=== PATIENT | male | born 1960 | race Caucasian/White ===

== ENCOUNTER → 2018-02-12 07:50 | Outpatient (CLI) | payer OTHER, SELFPAY ==
[2018-02-12 08:42] LABS: Hemoglobin A1c 6.5 % (4.2-6.3)
[2018-02-12 08:56] LABS: Anion Gap 10 (5-15); BUN 13 mg/dL (7-18); BUN/Creat Ratio 12.5 RATIO (10-20); Calcium,Total 9.6 mg/dL (8.5-10.1); Chloride 101 mmol/L (98-107); Cholesterol 166 mg/dL (200); Creatinine, Serum 1.04 mg/dL (0.70-1.30); EST Glomerular Filtration Rate 78 mL/min (>60); Est Glom Filt Rate - Afr Amer 94 mL/min (>60); Glucose 161 mg/dL (74-106); High Density Lipoprotein 63 mg/dL; Potassium 4.1 mmol/L (3.5-5.1); Sodium Level 138 mmol/L (136-145); Triglycerides 98 mg/dL; Very Low Density Lipoprotein 20 mg/dL (5-40)
== END ==
PROVIDERS: Family Provider Family Medicine; PCP Family Medicine; Referring Provider Family Medicine; Visit Provider Family Medicine
DX: I10 Essential (primary) hypertension (principal); E11.9 Type 2 diabetes mellitus without complications; E78.00 Pure hypercholesterolemia, unspecified
CPT/HCPCS: 36415; 80048; 80061; 83036

== ENCOUNTER → 2018-08-21 06:04 | Outpatient (CLI) | payer OTHER, SELFPAY ==
[2018-08-21 08:39] LABS: Cholesterol 181 mg/dL (200); High Density Lipoprotein 62 mg/dL; PSA,Total - Annual Screen 1.11 ng/mL (0.00-4.00); Triglycerides 75 mg/dL; Very Low Density Lipoprotein 15 mg/dL (5-40)
[2018-08-21 08:56] LABS: Hemoglobin A1c 6.6 % (4.2-6.3)
== END ==
PROVIDERS: Family Provider Family Medicine; PCP Family Medicine; Referring Provider Family Medicine; Visit Provider Family Medicine
DX: E78.00 Pure hypercholesterolemia, unspecified (principal); E11.9 Type 2 diabetes mellitus without complications; Z12.5 Encounter for screening for malignant neoplasm of prostate
CPT/HCPCS: 36415; 80061; 83036; 84153; G0103

== ENCOUNTER → 2018-09-29 11:24 | Outpatient (CLI) | payer OTHER, SELFPAY ==
[2018-02-17 10:41] VITALS: BMI 33.9
[2018-09-29 11:47] LABS: Absolute Lymphocyte Count 1.99 X10^3/ul (0.83-4.51); Absolute Neutrophil Count 3.9 X10^3/uL (2.0-7.7); Basophil# 0.02 X10^3/uL; Basophil% 0.3 % (0-1); Eosinophil# 0.31 X10^3/uL; Eosinophils% 4.6 % (0-5); Hematocrit 36.7 % (40-54); Hemoglobin 12.2 g/dl (13.0-16.5); Lymphocyte # 1.99 X10^3/ul (4.0); Lymphocyte % 29.2 % (19-41); Mean Corp Hgb Conc 33.2 g/gl (32-36); Mean Corpuscular Hgb 29.8 pg (27.0-32.0); Mean Corpuscular Volume 89.5 fL (80-94); Mean Platelet Vol. 9.3 fl (6.2-12.0); Monocyte# 0.61 X10^3/uL; Neutrophil # 3.88 X10^3/uL (2.7-7.7); Neutrophil % 56.9 % (47-70); POSITIVE COUNT NO; POSITIVE DIFFERENTIAL NO; POSITIVE MORPHOLOGY NO; Platelet Count 234 K/mm3 (150-450); RBC Distribution Width CV 12.6 % (11.6-14.6); RBC Distribution Width SD 40.8 fl (35.1-43.9); White Blood Count 6.8 K/mm3 (4.4-11.0)
[2018-09-29 12:13] LABS: AST(SGOT) 24 U/L (15-37); Alanine Aminotransfer ALT/SGPT 30 U/L (16-61); Albumin, Serum 3.8 g/dL (3.2-5.0); Alkaline Phosphatase 76 U/L (45-117); Bilirubin, Direct 0.17 mg/dL (0.00-0.30); Globulin 3.7 g/dL (2.2-4.2); Protein, Total 7.5 g/dL (6.4-8.2)
[2018-10-02 06:07] LABS: QNTFERON TB Mitogen Value > 10.00 IU/mL (.); QNTFERON TB Nil Value 0.03 IU/mL (.); QNTFERON TB1+ Ag Value 0.06 IU/mL (.); QNTFERON TB2+ Ag Value 0.03 IU/mL (.)
[2018-10-02 11:24] LABS: QNTIFERON TB Positive Criteria Negative (Negative)
== END ==
PROVIDERS: Family Provider Family Medicine; PCP Family Medicine; Referring Provider Dermatology; Visit Provider Dermatology
DX: L40.0 Psoriasis vulgaris (principal); Z12.83 Encounter for screening for malignant neoplasm of skin; Z79.899 Other long term (current) drug therapy
CPT/HCPCS: 36415; 80076; 85025; 86480

== ENCOUNTER → 2019-02-26 | Outpatient (CLI) | payer OTHER, SELFPAY ==
[2018-02-17 10:41] VITALS: BMI 33.9
[2019-02-26 09:00] LABS: Bacteria 0 SEEN /hpf (None Seen); Mucous, Urine 0 SEEN /hpf (<or=2+); Red Blood Cells-Urine 0 SEEN /hpf (0-5); Squamous Epithelial Cells - UA 0 SEEN /hpf (0-5); White Blood Cells 0 SEEN /hpf (0-5)
[2019-02-26 10:40] LABS: Absolute Lymphocyte Count 1.19 X10^3/uL (0.83-4.51); Absolute Neutrophil Count 3.1 X10^3/uL (2.0-7.7); Basophil# 0.02 X10^3/uL; Basophil% 0.4 % (0-1); Eosinophil# 0.21 X10^3/uL; Eosinophils% 4.1 % (0-5); Hematocrit 37.5 % (40-54); Hemoglobin 12.5 g/dL (13.0-16.5); Lymphocyte # 1.19 X10^3/ul (4.0); Lymphocyte % 23.1 % (19-41); Mean Corp Hgb Conc 33.3 g/dL (32-36); Mean Corpuscular Hgb 30.3 pg (27.0-32.0); Mean Platelet Vol. 9.8 fl (6.2-12.0); Monocyte% 11.7 % (0-10); NRBC Flagged by Analyzer 0 % (0-5); Neutrophil # 3.11 X10^3/uL (2.7-7.7); Neutrophil % 60.3 % (47-70); Platelet Count 245 K/mm3 (150-450); RBC Distribution Width CV 12.2 % (11.6-14.6); RBC Distribution Width SD 40.8 fl (35.1-43.9); Red Blood Count 4.12 M/mm3 (4.6-6.2); White Blood Count 5.2 K/mm3 (4.4-11.0)
[2019-02-26 11:00] LABS: Hemoglobin A1c 6.3 % (4.2-6.3)
[2019-02-26 11:28] LABS: Vitamin B12 351 pg/mL (211-911); Vitamin D,25 Hydroxy 27.3 ng/mL (29.95-100.01)
[2019-02-26 12:26] LABS: Color, Urine Yellow (Yellow); Glucose, Dipstick Normal (Normal); Ketone-Dipstick 5 mg/dl (Negative); Leukocyte Esterase-Dipstick Negative /ul (Negative); Nitrite-Dipstick Negative (Negative); Occult Blood-Urine Negative /ul (Negative); Protein-Dipstick 30 mg/dl (Negative); Urine Bilirubin Dipstick Negative (Negative); Urine Clarity Clear (Clear); Urine Urobilinogen Normal (Normal)
[2019-02-26 12:58] LABS: AST(SGOT) 23 U/L (15-37); Alanine Aminotransfer ALT/SGPT 32 U/L (16-61); Alkaline Phosphatase 63 U/L (45-117); Anion Gap 9 (5-15); BUN 14 mg/dL (7-18); Calcium,Total 9.5 mg/dL (8.5-10.1); Chloride 101 mmol/L (98-107); Cholesterol 152 mg/dL (200); Creatinine, Serum 1.17 mg/dL (0.70-1.30); EST Glomerular Filtration Rate 68 mL/min (>60); Est Glom Filt Rate - Afr Amer 82 mL/min (>60); Ferritin 77 ng/mL (26-388); Globulin 3.9 g/dL (2.2-4.2); Glucose 168 mg/dL (74-106); High Density Lipoprotein 73 mg/dL; Iron 90 ug/dL (65-175); Iron Binding Capacity,Total 428 ug/dL (250-450); Potassium 4.2 mmol/L (3.5-5.1); Protein, Total 7.9 g/dL (6.4-8.2); Sodium Level 136 mmol/L (136-145); T4 Free Direct 1.12 ng/dL (0.76-1.46); Thyroid Stim Hormone (TSH) 1.27 uIU/mL (0.358-3.74); Triglycerides 62 mg/dL; Very Low Density Lipoprotein 12 mg/dL (5-40)
[2019-02-26 13:10] LABS: Microalbumin:Creatinine Ratio 530.4 mg/g CRE (<30 mg/g CRE)
== END | disposition home or self-care (01) ==
PROVIDERS: Family Provider Family Medicine; PCP Family Medicine; Referring Provider Family Medicine; Visit Provider Family Medicine
DX: E55.9 Vitamin D deficiency, unspecified (principal); E11.9 Type 2 diabetes mellitus without complications; E78.00 Pure hypercholesterolemia, unspecified; I10 Essential (primary) hypertension; D64.9 Anemia, unspecified; E04.1 Nontoxic single thyroid nodule
CPT/HCPCS: 80053; 80061; 81001; 82043; 82306; 82570; 82607; 82728; 82746; 83036; 83540; 83550; 84439; 84443; 85025

== ENCOUNTER → 2019-03-02 | Outpatient (CLI) | payer OTHER, SELFPAY ==
--- NOTE | 2019-03-02 14:21 | US_ITS ---
STUDY: THYROID ULTRASOUND REASON FOR EXAM: Male, 58 years old. Nodule TECHNIQUE: Ultrasound evaluation of the thyroid was performed with real-time and static garduno-scale imaging. COMPARISON: None. FINDINGS: RIGHT LOBE: The right lobe of the thyroid gland measures 5.1 x 2.2 x 2.4 cm. There is a homogeneous echotexture. There are no demonstrated solid, cystic or complex lesions. LEFT LOBE: The left lobe of the thyroid gland measures 4.9 x 1.9 x 2.4 cm. There is a homogeneous echotexture. There are no demonstrated solid, cystic or complex lesions. ISTHMUS: The isthmus measures 5 mm . There is a 9.2 x 4.1 mm hypoechoic mass with a hyperechoic center and peripheral to the right thyroid compatible with a small lymph node. US/Thyroid IMPRESSION: Normal ultrasound examination of the thyroid. Electronically Signed: Cristina Boyd MD at 18:04 EDT Tel , Service support ,
== END | disposition home or self-care (01) ==
LOC: US 14:20
PROVIDERS: Family Provider Family Medicine; PCP Family Medicine; Referring Provider Family Medicine; Visit Provider Family Medicine
DX: E04.1 Nontoxic single thyroid nodule (principal)
CPT/HCPCS: 76536

== ENCOUNTER → 2019-06-17 06:15 | Outpatient (CLI) | payer OTHER, SELFPAY ==
[2019-03-09 15:27] VITALS: BMI 33.9
[2019-06-17 07:06] LABS: Absolute Lymphocyte Count 1.44 X10^3/uL (0.83-4.51); Absolute Neutrophil Count 3.3 X10^3/uL (2.0-7.7); Basophil# 0.05 X10^3/uL; Basophil% 0.9 % (0-1); Eosinophil# 0.25 X10^3/uL; Eosinophils% 4.4 % (0-5); Hematocrit 40.2 % (40-54); Hemoglobin 13.1 g/dL (13.0-16.5); Lymphocyte # 1.44 X10^3/ul (4.0); Lymphocyte % 25.4 % (19-41); Mean Corp Hgb Conc 32.6 g/dL (32-36); Mean Corpuscular Hgb 30.1 pg (27.0-32.0); Mean Corpuscular Volume 92.4 fL (80-94); Mean Platelet Vol. 9.6 fl (6.2-12.0); Monocyte# 0.61 X10^3/uL; Monocyte% 10.8 % (0-10); NRBC Flagged by Analyzer 0 % (0-5); Neutrophil % 58.3 % (47-70); Platelet Count 231 K/mm3 (150-450); RBC Distribution Width CV 12.2 % (11.6-14.6); RBC Distribution Width SD 41.3 fl (35.1-43.9); Red Blood Count 4.35 M/mm3 (4.6-6.2); White Blood Count 5.7 K/mm3 (4.4-11.0)
[2019-06-17 07:33] LABS: Microalbumin:Creatinine Ratio 186.7 mg/g CRE (<30 mg/g CRE)
[2019-06-17 07:42] LABS: AST(SGOT) 15 U/L (15-37); Alanine Aminotransfer ALT/SGPT 28 U/L (16-61); Albumin, Serum 3.9 g/dL (3.2-5.0); Alkaline Phosphatase 62 U/L (45-117); Anion Gap 6 (5-15); BUN 19 mg/dL (7-18); BUN/Creat Ratio 14.3 RATIO (10-20); Bilirubin, Direct 0.16 mg/dL (0.00-0.30); Calcium,Total 9.7 mg/dL (8.5-10.1); Chloride 103 mmol/L (98-107); Cholesterol 174 mg/dL (200); Creatinine, Serum 1.33 mg/dL (0.70-1.30); EST Glomerular Filtration Rate 59 mL/min (>60); Est Glom Filt Rate - Afr Amer 71 mL/min (>60); Glucose 159 mg/dL (74-106); High Density Lipoprotein 73 mg/dL; Potassium 4.3 mmol/L (3.5-5.1); Protein, Total 7.9 g/dL (6.4-8.2); Sodium Level 137 mmol/L (136-145); Triglycerides 76 mg/dL; Very Low Density Lipoprotein 15 mg/dL (5-40)
[2019-06-17 08:37] LABS: Hemoglobin A1c 7.2 % (4.2-6.3)
[2019-06-17 10:41] LABS: Vitamin D,25 Hydroxy 29.6 ng/mL (29.95-100.01)
[2019-06-20 03:06] LABS: QNTFERON TB Mitogen Value > 10.00 IU/mL (.); QNTFERON TB Nil Value 0.03 IU/mL (.); QNTFERON TB1+ Ag Value 0.04 IU/mL (.); QNTFERON TB2+ Ag Value 0.02 IU/mL (.)
[2019-06-20 17:42] LABS: QNTIFERON TB Positive Criteria Negative (Negative)
== END ==
PROVIDERS: PCP Family Medicine; Referring Provider Dermatology; Visit Provider Dermatology
DX: L40.0 Psoriasis vulgaris (principal); Z79.899 Other long term (current) drug therapy; Z12.83 Encounter for screening for malignant neoplasm of skin; E78.00 Pure hypercholesterolemia, unspecified; E11.9 Type 2 diabetes mellitus without complications; E55.9 Vitamin D deficiency, unspecified; I10 Essential (primary) hypertension
CPT/HCPCS: 36415; 80053; 80061; 82043; 82248; 82306; 82570; 83036; 85025; 86480

== ENCOUNTER → 2019-07-15 16:46 | Outpatient (CLI) | payer OTHER, SELFPAY ==
[2019-03-09 15:27] VITALS: BMI 33.9
--- NOTE | 2019-07-15 16:49 | RAD_ITS ---
STUDY: X-RAY - ABDOMEN/PELVIS REASON FOR EXAM: Male, 59 years old. LLQ pain TECHNIQUE: AP supine and upright views of the abdomen and pelvis. COMPARISON: None. FINDINGS: Normal visualized lung bases. There is an unremarkable bowel gas pattern. There is no demonstrated free abdominal air. The visualized liver, spleen and kidneys are grossly normal in size and morphology. Normal soft tissue structures. There are degenerative changes of the lower lumbar spine. There is endplate spondylosis of the visualized thoracic spine. RAD/Acute Abdomen Inc Chest IMPRESSION: There is no evidence of ileus, obstruction, or free intraperitoneal air. There are degenerative changes of the lower lumbar spine. There is endplate spondylosis of the visualized lower thoracic spine. Electronically Signed: Good Pelletier MD at 17:06 EST , Service support ,
== END ==
PROVIDERS: PCP Family Medicine; Referring Provider Family Medicine; Visit Provider Family Medicine
DX: K59.00 Constipation, unspecified (principal)
CPT/HCPCS: 74022

== ENCOUNTER → 2019-10-20 | Outpatient (CLI) | payer OTHER, SELFPAY ==
[2019-03-09 15:27] VITALS: BMI 33.9
[2019-10-20 07:59] LABS: ALB/GLOB Ratio 1.1 RATIO (0.9-2.4); AST(SGOT) 20 U/L (15-37); Alanine Aminotransfer ALT/SGPT 29 U/L (16-61); Alkaline Phosphatase 65 U/L (45-117); Anion Gap 10 (5-15); BUN 18 mg/dL (7-18); BUN/Creat Ratio 17.5 RATIO (10-20); Bilirubin, Direct 0.18 mg/dL (0.00-0.30); Calcium,Total 9.5 mg/dL (8.5-10.1); Chloride 101 mmol/L (98-107); Cholesterol 156 mg/dL (200); Creatinine, Serum 1.03 mg/dL (0.70-1.30); EST Glomerular Filtration Rate 78 mL/min (>60); Est Glom Filt Rate - Afr Amer 95 mL/min (>60); Globulin 3.8 g/dL (2.2-4.2); Glucose 145 mg/dL (74-106); High Density Lipoprotein 70 mg/dL; Potassium 3.9 mmol/L (3.5-5.1); Protein, Total 7.8 g/dL (6.4-8.2); Sodium Level 137 mmol/L (136-145); Triglycerides 63 mg/dL; Very Low Density Lipoprotein 13 mg/dL (5-40)
[2019-10-20 08:06] LABS: Microalbumin:Creatinine Ratio 207.1 mg/g CRE (<30 mg/g CRE); Protein, Urine (Random) 24.8 mg/dL (<11.9); Protein:Creat Ratio 313 mg/g CRE (0-200)
[2019-10-20 08:10] LABS: Hemoglobin A1c 6.9 % (3.8-5.6)
[2019-10-20 09:30] LABS: Vitamin D,25 Hydroxy 39.9 ng/mL
== END | disposition home or self-care (01) ==
LOC: LAB 06:58
PROVIDERS: PCP Family Medicine; Referring Provider Family Medicine; Visit Provider Family Medicine
DX: E55.9 Vitamin D deficiency, unspecified (principal); E11.9 Type 2 diabetes mellitus without complications; E78.00 Pure hypercholesterolemia, unspecified; I10 Essential (primary) hypertension
CPT/HCPCS: 36415; 80053; 80061; 82043; 82248; 82306; 82570; 83036; 84156

== ENCOUNTER → 2020-03-22 07:11 | Outpatient (CLI) | payer OTHER, SELFPAY ==
[2020-01-28 11:32] VITALS: BMI 30.8
[2020-03-22 08:14] LABS: Protein, Urine (Random) 23.9 mg/dL (<11.9); Protein:Creat Ratio 364 mg/g CRE (0-200)
[2020-03-22 08:26] LABS: AST(SGOT) 16 U/L (15-37); Alanine Aminotransfer ALT/SGPT 25 U/L (16-61); Albumin, Serum 3.9 g/dL (3.2-5.0); Alkaline Phosphatase 60 U/L (45-117); Anion Gap 6 (5-15); BUN 13 mg/dL (7-18); BUN/Creat Ratio 11.3 RATIO (10-20); Calcium,Total 9.3 mg/dL (8.5-10.1); Chloride 102 mmol/L (98-107); Cholesterol 140 mg/dL (200); Creatinine, Serum 1.15 mg/dL (0.70-1.30); EST Glomerular Filtration Rate 69 mL/min (>60); Est Glom Filt Rate - Afr Amer 83 mL/min (>60); Globulin 3.9 g/dL (2.2-4.2); Glucose 129 mg/dL (74-106); High Density Lipoprotein 75 mg/dL; Potassium 4.2 mmol/L (3.5-5.1); Protein, Total 7.8 g/dL (6.4-8.2); Sodium Level 138 mmol/L (136-145); Triglycerides 52 mg/dL; Very Low Density Lipoprotein 10 mg/dL (5-40)
[2020-03-22 08:40] LABS: Vitamin D,25 Hydroxy 36.3 ng/mL
[2020-03-22 08:43] LABS: Hemoglobin A1c 6.9 % (3.8-5.6)
== END ==
PROVIDERS: PCP Family Medicine; Referring Provider Family Medicine; Visit Provider Family Medicine
DX: E11.9 Type 2 diabetes mellitus without complications (principal); E78.00 Pure hypercholesterolemia, unspecified; I10 Essential (primary) hypertension; E55.9 Vitamin D deficiency, unspecified
CPT/HCPCS: 36415; 80053; 80061; 82306; 82570; 83036; 84156

== ENCOUNTER → 2020-06-17 07:43 | Outpatient (CLI) | payer OTHER, SELFPAY ==
[2020-01-28 11:32] VITALS: BMI 30.8
[2020-06-17 08:16] LABS: Absolute Neutrophil Count 3.5 X10^3/uL (2.0-7.7); Basophil# 0.05 X10^3/uL; Basophil% 0.8 % (0-1); Eosinophil# 0.28 X10^3/uL; Eosinophils% 4.7 % (0-5); Hematocrit 39.5 % (40-54); Hemoglobin 13.1 g/dL (13.0-16.5); Lymphocyte % 23.5 % (19-41); Mean Corp Hgb Conc 33.2 g/dL (32-36); Mean Corpuscular Hgb 30.3 pg (27.0-32.0); Mean Corpuscular Volume 91.4 fL (80-94); Mean Platelet Vol. 9.5 fl (6.2-12.0); Monocyte# 0.69 X10^3/uL; Monocyte% 11.6 % (0-10); NRBC Flagged by Analyzer 0 % (0-5); Neutrophil # 3.52 X10^3/uL (2.7-7.7); Neutrophil % 59.1 % (47-70); Platelet Count 222 K/mm3 (150-450); RBC Distribution Width SD 40.7 fl (35.1-43.9); Red Blood Count 4.32 M/mm3 (4.6-6.2)
[2020-06-17 08:48] LABS: ALB/GLOB Ratio 1.1 RATIO (0.9-2.4); AST(SGOT) 16 U/L (15-37); Alanine Aminotransfer ALT/SGPT 24 U/L (16-61); Alkaline Phosphatase 68 U/L (45-117); Anion Gap 5 (5-15); BUN 21 mg/dL (7-18); BUN/Creat Ratio 18.6 RATIO (10-20); Calcium,Total 9.6 mg/dL (8.5-10.1); Chloride 104 mmol/L (98-107); Cholesterol 147 mg/dL (200); Creatinine, Serum 1.13 mg/dL (0.70-1.30); EST Glomerular Filtration Rate 70 mL/min (>60); Est Glom Filt Rate - Afr Amer 85 mL/min (>60); Globulin 3.7 g/dL (2.2-4.2); Glucose 148 mg/dL (74-106); High Density Lipoprotein 63 mg/dL; Potassium 4.3 mmol/L (3.5-5.1); Protein, Total 7.7 g/dL (6.4-8.2); Sodium Level 138 mmol/L (136-145); Triglycerides 62 mg/dL; Very Low Density Lipoprotein 12 mg/dL (5-40)
[2020-06-17 10:57] LABS: Bilirubin, Direct 0.12 mg/dL (0.00-0.30)
[2020-06-17 13:13] LABS: Microalbumin,Random Urine 79.3 mg/L (NO RANGE EST.); Protein:Creat Ratio 252 mg/g CRE (0-200)
[2020-06-23 14:10] LABS: QNTFERON TB Mitogen Value > 10.00 IU/mL (.); QNTFERON TB Nil Value 0.31 IU/mL (.); QNTFERON TB1+ Ag Value 0.14 IU/mL (.); QNTFERON TB2+ Ag Value 0.12 IU/mL (.)
[2020-06-23 20:38] LABS: QNTIFERON TB Positive Criteria Negative (Negative)
== END ==
PROVIDERS: PCP Family Medicine; Referring Provider Dermatology; Visit Provider Dermatology
DX: I25.10 Atherosclerotic heart disease of native coronary artery without angina pectoris (principal); E11.9 Type 2 diabetes mellitus without complications; E78.00 Pure hypercholesterolemia, unspecified; E55.9 Vitamin D deficiency, unspecified; Z79.899 Other long term (current) drug therapy
CPT/HCPCS: 80053; 80061; 82043; 82248; 82306; 82570; 83036; 84156; 85025; 86480

== ENCOUNTER → 2021-01-13 06:52 | Outpatient (CLI) | payer OTHER, SELFPAY ==
[2021-01-13 06:55] LABS: Mucous, Urine 0 SEEN /hpf (<or=2+); Red Blood Cells-Urine 0 SEEN /hpf (0-5)
[2021-01-13 07:40] LABS: Absolute Lymphocyte Count 1.43 X10^3/uL (0.83-4.51); Absolute Neutrophil Count 2.7 X10^3/uL (2.0-7.7); Basophil# 0.04 X10^3/uL; Basophil% 0.8 % (0-1); Eosinophil# 0.27 X10^3/uL; Eosinophils% 5.4 % (0-5); Hematocrit 39.9 % (40-54); Lymphocyte # 1.43 X10^3/ul (0.83-4.51); Lymphocyte % 28.5 % (19-41); Mean Corp Hgb Conc 32.6 g/dL (32-36); Mean Corpuscular Hgb 30.2 pg (27.0-32.0); Mean Corpuscular Volume 92.6 fL (80-94); Mean Platelet Vol. 9.4 fl (6.2-12.0); Monocyte# 0.59 X10^3/uL; Monocyte% 11.8 % (0-10); NRBC Flagged by Analyzer 0 % (0-5); Neutrophil # 2.67 X10^3/uL (2.7-7.7); Neutrophil % 53.3 % (47-70); Platelet Count 247 K/mm3 (150-450); RBC Distribution Width CV 12.4 % (11.6-14.6); RBC Distribution Width SD 42.5 fl (35.1-43.9); Red Blood Count 4.31 M/mm3 (4.6-6.2)
[2021-01-13 08:05] LABS: Color, Urine Yellow (Yellow); Glucose, Dipstick 1000 mg/dl (Normal); Ketone-Dipstick Negative (Negative); Leukocyte Esterase-Dipstick Negative /ul (Negative); Nitrite-Dipstick Negative (Negative); Occult Blood-Urine Negative /ul (Negative); Protein-Dipstick 30 mg/dl (Negative); Specific Gravity, Urine 1.015 (1.002-1.030); Urine Bilirubin Dipstick Negative (Negative); Urine Clarity Clear (Clear); Urine Urobilinogen Normal (Normal)
[2021-01-13 08:18] LABS: Bacteria RARE /hpf (None Seen); Squamous Epithelial Cells - UA 0-5 SEEN /hpf (0-5); White Blood Cells 0-5 SEEN /hpf (0-5)
[2021-01-13 08:39] LABS: AST(SGOT) 18 U/L (15-37); Alanine Aminotransfer ALT/SGPT 26 U/L (16-61); Albumin, Serum 3.9 g/dL (3.2-5.0); Alkaline Phosphatase 70 U/L (45-117); Anion Gap 6 (5-15); BUN 12 mg/dL (7-18); BUN/Creat Ratio 11.7 RATIO (10-20); Calcium,Total 9.4 mg/dL (8.5-10.1); Chloride 104 mmol/L (98-107); Cholesterol 167 mg/dL (200); Creatinine, Serum 1.03 mg/dL (0.70-1.30); EST Glomerular Filtration Rate 78 mL/min (>60); Est Glom Filt Rate - Afr Amer 95 mL/min (>60); Globulin 3.9 g/dL (2.2-4.2); Glucose 138 mg/dL (74-106); High Density Lipoprotein 74 mg/dL; Potassium 3.8 mmol/L (3.5-5.1); Protein, Total 7.8 g/dL (6.4-8.2); Sodium Level 139 mmol/L (136-145); Triglycerides 66 mg/dL; Very Low Density Lipoprotein 13 mg/dL (5-40)
[2021-01-13 09:07] LABS: Hemoglobin A1c 6.9 % (3.8-5.6)
[2021-01-13 10:14] LABS: Vitamin D,25 Hydroxy 46.6 ng/mL
== END ==
PROVIDERS: PCP Family Medicine; Referring Provider Family Medicine; Visit Provider Family Medicine
DX: I25.10 Atherosclerotic heart disease of native coronary artery without angina pectoris (principal); E11.9 Type 2 diabetes mellitus without complications; E55.9 Vitamin D deficiency, unspecified; E78.00 Pure hypercholesterolemia, unspecified
CPT/HCPCS: 80053; 80061; 81001; 82043; 82306; 82570; 83036; 85025

== ENCOUNTER → 2021-05-11 06:49 | Outpatient (CLI) | payer OTHER, SELFPAY ==
[2021-05-11 07:45] LABS: Basophil# 0.03 X10^3/uL; Basophil% 0.6 % (0-1); Eosinophil# 0.25 X10^3/uL; Eosinophils% 4.7 % (0-5); Hematocrit 38.4 % (40-54); Hemoglobin 12.6 g/dL (13.0-16.5); Lymphocyte % 24.7 % (19-41); Mean Corp Hgb Conc 32.8 g/dL (32-36); Mean Corpuscular Hgb 29.9 pg (27.0-32.0); Mean Corpuscular Volume 91.2 fL (80-94); Mean Platelet Vol. 9.4 fl (6.2-12.0); Monocyte# 0.65 X10^3/uL; Monocyte% 12.3 % (0-10); NRBC Flagged by Analyzer 0 % (0-5); Neutrophil # 3.03 X10^3/uL (2.7-7.7); Neutrophil % 57.5 % (47-70); Platelet Count 250 K/mm3 (150-450); Red Blood Count 4.21 M/mm3 (4.6-6.2); White Blood Count 5.3 K/mm3 (4.4-11.0)
[2021-05-11 07:56] LABS: Protein, Urine (Random) 18.2 mg/dL (<11.9); Protein:Creat Ratio 454 mg/g CRE (0-200)
[2021-05-11 08:01] LABS: ALB/GLOB Ratio 0.8 RATIO (0.9-2.4); AST(SGOT) 14 U/L (15-37); Alanine Aminotransfer ALT/SGPT 25 U/L (16-61); Albumin, Serum 3.4 g/dL (3.2-5.0); Alkaline Phosphatase 67 U/L (45-117); Anion Gap 5 (5-15); BUN 15 mg/dL (7-18); BUN/Creat Ratio 13.4 RATIO (10-20); Calcium,Total 9.5 mg/dL (8.5-10.1); Chloride 105 mmol/L (98-107); Cholesterol 130 mg/dL (200); Creatinine, Serum 1.12 mg/dL (0.70-1.30); EST Glomerular Filtration Rate 71 mL/min (>60); Est Glom Filt Rate - Afr Amer 86 mL/min (>60); Globulin 4.4 g/dL (2.2-4.2); Glucose 150 mg/dL (74-106); High Density Lipoprotein 58 mg/dL; Potassium 4.1 mmol/L (3.5-5.1); Protein, Total 7.8 g/dL (6.4-8.2); Sodium Level 139 mmol/L (136-145); Triglycerides 57 mg/dL; Very Low Density Lipoprotein 11 mg/dL (5-40)
[2021-05-11 08:04] LABS: Vitamin D,25 Hydroxy 37.1 ng/mL
[2021-05-11 08:21] LABS: Hemoglobin A1c 7.3 % (3.8-5.6)
== END ==
PROVIDERS: PCP Family Medicine; Referring Provider Family Medicine; Visit Provider Family Medicine
DX: E11.69 Type 2 diabetes mellitus with other specified complication (principal); E55.9 Vitamin D deficiency, unspecified
CPT/HCPCS: 80053; 80061; 82306; 82570; 83036; 84156; 85025

== ENCOUNTER → 2021-05-16 10:15 | Outpatient (CLI) | payer OTHER, SELFPAY ==
[2021-05-16 12:54] LABS: Vitamin B12 314 pg/mL (211-911)
[2021-05-16 13:08] LABS: Ferritin 70 ng/mL (26-388); Iron 94 ug/dL (65-175); Iron Binding Capacity,Total 423 ug/dL (250-450)
== END ==
PROVIDERS: PCP Family Medicine; Visit Provider Family Medicine
DX: D64.9 Anemia, unspecified (principal)
CPT/HCPCS: 36415; 82607; 82728; 82746; 83540; 83550

== ENCOUNTER → 2021-09-20 | Outpatient (CLI) | payer OTHER, SELFPAY ==
[2021-09-20 08:12] LABS: Absolute Lymphocyte Count 1.31 X10^3/uL (0.83-4.51); Absolute Neutrophil Count 3.4 X10^3/uL (2.0-7.7); Basophil# 0.03 X10^3/uL; Basophil% 0.5 % (0-1); Eosinophil# 0.26 X10^3/uL; Eosinophils% 4.6 % (0-5); Hematocrit 40.6 % (40-54); Hemoglobin 13.3 g/dL (13.0-16.5); Lymphocyte # 1.31 X10^3/ul (0.83-4.51); Mean Corp Hgb Conc 32.8 g/dL (32-36); Mean Corpuscular Hgb 30.4 pg (27.0-32.0); Mean Corpuscular Volume 92.7 fL (80-94); Mean Platelet Vol. 9.6 fl (6.2-12.0); Monocyte# 0.66 X10^3/uL; Monocyte% 11.6 % (0-10); NRBC Flagged by Analyzer 0 % (0-5); Neutrophil # 3.41 X10^3/uL (2.7-7.7); Neutrophil % 59.9 % (47-70); Platelet Count 213 K/mm3 (150-450); RBC Distribution Width CV 12.2 % (11.6-14.6); Red Blood Count 4.38 M/mm3 (4.6-6.2); White Blood Count 5.7 K/mm3 (4.4-11.0)
[2021-09-20 08:20] LABS: Protein, Urine (Random) 15.2 mg/dL (<11.9); Protein:Creat Ratio 291 mg/g CRE (0-200)
[2021-09-20 08:44] LABS: AST(SGOT) 16 U/L (15-37); Alanine Aminotransfer ALT/SGPT 25 U/L (16-61); Albumin, Serum 3.9 g/dL (3.2-5.0); Alkaline Phosphatase 60 U/L (45-117); Anion Gap 5 (5-15); BUN 20 mg/dL (7-18); BUN/Creat Ratio 16.7 RATIO (10-20); Calcium,Total 9.2 mg/dL (8.5-10.1); Chloride 103 mmol/L (98-107); Cholesterol 139 mg/dL (200); EST Glomerular Filtration Rate 65 mL/min (>60); Est Glom Filt Rate - Afr Amer 79 mL/min (>60); Globulin 3.9 g/dL (2.2-4.2); Glucose 158 mg/dL (74-106); High Density Lipoprotein 65 mg/dL; Protein, Total 7.8 g/dL (6.4-8.2); Sodium Level 137 mmol/L (136-145); Triglycerides 56 mg/dL; Very Low Density Lipoprotein 11 mg/dL (5-40)
[2021-09-20 08:48] LABS: Vitamin D,25 Hydroxy 43.9 ng/mL
[2021-09-20 09:05] LABS: Hemoglobin A1c 6.9 % (3.8-5.6)
== END | disposition home or self-care (01) ==
LOC: LAB 07:34
PROVIDERS: PCP Family Medicine; Referring Provider Family Medicine; Visit Provider Family Medicine
DX: E11.69 Type 2 diabetes mellitus with other specified complication (principal); E55.9 Vitamin D deficiency, unspecified
CPT/HCPCS: 36415; 80053; 80061; 82306; 82570; 83036; 84156; 85025

== ENCOUNTER → 2021-10-04 | Outpatient (CLI) | payer OTHER, SELFPAY ==
[2021-10-04 08:32] LABS: Absolute Lymphocyte Count 1.39 X10^3/uL (0.83-4.51); Absolute Neutrophil Count 3.3 X10^3/uL (2.0-7.7); Basophil# 0.03 X10^3/uL; Basophil% 0.5 % (0-1); Eosinophil# 0.25 X10^3/uL; Eosinophils% 4.4 % (0-5); Hematocrit 38.5 % (40-54); Hemoglobin 12.9 g/dL (13.0-16.5); Lymphocyte # 1.39 X10^3/ul (0.83-4.51); Lymphocyte % 24.3 % (19-41); Mean Corp Hgb Conc 33.5 g/dL (32-36); Mean Corpuscular Hgb 30.4 pg (27.0-32.0); Mean Corpuscular Volume 90.8 fL (80-94); Mean Platelet Vol. 9.6 fl (6.2-12.0); Monocyte# 0.74 X10^3/uL; Monocyte% 12.9 % (0-10); NRBC Flagged by Analyzer 0 % (0-5); Neutrophil % 57.7 % (47-70); Platelet Count 212 K/mm3 (150-450); RBC Distribution Width SD 39.9 fl (35.1-43.9); Red Blood Count 4.24 M/mm3 (4.6-6.2); White Blood Count 5.7 K/mm3 (4.4-11.0)
[2021-10-04 08:57] LABS: AST(SGOT) 16 U/L (15-37); Alanine Aminotransfer ALT/SGPT 26 U/L (16-61); Albumin, Serum 3.8 g/dL (3.2-5.0); Alkaline Phosphatase 59 U/L (45-117); Bilirubin, Direct 0.15 mg/dL (0.00-0.30); Globulin 3.9 g/dL (2.2-4.2); Protein, Total 7.7 g/dL (6.4-8.2)
[2021-10-06 20:08] LABS: QNTFERON TB Mitogen Value > 10.00 IU/mL (.); QNTFERON TB Nil Value 0.02 IU/mL (.); QNTFERON TB1+ Ag Value 0.01 IU/mL (.); QNTFERON TB2+ Ag Value 0.03 IU/mL (.)
[2021-10-06 22:21] LABS: QNTIFERON TB Positive Criteria Negative (Negative)
== END | disposition home or self-care (01) ==
LOC: LAB 07:44
PROVIDERS: PCP Family Medicine; Referring Provider Dermatology; Visit Provider Dermatology
DX: L40.0 Psoriasis vulgaris (principal); Z79.899 Other long term (current) drug therapy
CPT/HCPCS: 36415; 80076; 85025; 86480

== ENCOUNTER → 2022-01-29 | Outpatient (CLI) | payer OTHER, SELFPAY ==
[2022-01-29 08:28] LABS: Absolute Lymphocyte Count 1.23 X10^3/uL (0.83-4.51); Absolute Neutrophil Count 3.5 X10^3/uL (2.0-7.7); Basophil# 0.03 X10^3/uL; Basophil% 0.5 % (0-1); Eosinophil# 0.26 X10^3/uL; Eosinophils% 4.6 % (0-5); Hematocrit 40.3 % (40-54); Hemoglobin 12.8 g/dL (13.0-16.5); Lymphocyte # 1.23 X10^3/ul (0.83-4.51); Lymphocyte % 21.8 % (19-41); Mean Corp Hgb Conc 31.8 g/dL (32-36); Mean Corpuscular Hgb 29.6 pg (27.0-32.0); Mean Corpuscular Volume 93.3 fL (80-94); Mean Platelet Vol. 9.5 fl (6.2-12.0); Monocyte# 0.64 X10^3/uL; Monocyte% 11.4 % (0-10); NRBC Flagged by Analyzer 0 % (0-5); Neutrophil # 3.45 X10^3/uL (2.7-7.7); Neutrophil % 61.3 % (47-70); Platelet Count 226 K/mm3 (150-450); RBC Distribution Width CV 12.4 % (11.6-14.6); RBC Distribution Width SD 42.7 fl (35.1-43.9); Red Blood Count 4.32 M/mm3 (4.6-6.2); White Blood Count 5.6 K/mm3 (4.4-11.0)
[2022-01-29 08:57] LABS: AST(SGOT) 20 U/L (15-37); Alanine Aminotransfer ALT/SGPT 27 U/L (16-61); Alkaline Phosphatase 62 U/L (45-117); Anion Gap 6 (5-15); BUN 14 mg/dL (7-18); BUN/Creat Ratio 13.3 RATIO (10-20); Calcium,Total 10.1 mg/dL (8.5-10.1); Chloride 103 mmol/L (98-107); Cholesterol 141 mg/dL (200); Creatinine, Serum 1.05 mg/dL (0.70-1.30); EST Glomerular Filtration Rate 76 mL/min (>60); Est Glom Filt Rate - Afr Amer 92 mL/min (>60); Globulin 3.9 g/dL (2.2-4.2); Glucose 162 mg/dL (74-106); High Density Lipoprotein 75 mg/dL; Potassium 4.1 mmol/L (3.5-5.1); Protein, Total 7.9 g/dL (6.4-8.2); Sodium Level 137 mmol/L (136-145); Triglycerides 59 mg/dL; Very Low Density Lipoprotein 12 mg/dL (5-40)
[2022-01-29 09:07] LABS: Microalbumin:Creatinine Ratio 314.5 mg/g CRE (<30 mg/g CRE); Protein, Urine (Random) 25.4 mg/dL (<11.9); Protein:Creat Ratio 512 mg/g CRE (0-200)
[2022-01-29 09:10] LABS: Vitamin D,25 Hydroxy 41.3 ng/mL
[2022-01-30 11:12] LABS: Ferritin 67 ng/mL (26-388); Iron 61 ug/dL (65-175); Iron Binding Capacity,Total 431 ug/dL (250-450); PERCENT IRON SATURATION 14.2 % (15.0-55.0); Vitamin B12 313 pg/mL (211-911)
[2022-01-31 11:37] LABS: Transferrin 353 mg/dL (177-329)
== END | disposition home or self-care (01) ==
LOC: LAB 07:44
PROVIDERS: PCP Family Medicine; Referring Provider Family Medicine; Visit Provider Family Medicine
DX: D64.9 Anemia, unspecified (principal); E11.9 Type 2 diabetes mellitus without complications; I25.10 Atherosclerotic heart disease of native coronary artery without angina pectoris; E55.9 Vitamin D deficiency, unspecified
CPT/HCPCS: 36415; 80053; 80061; 82043; 82306; 82570; 82607; 82728; 83036; 83540; 83550; 84156; 84466; 85025

== ENCOUNTER → 2022-09-17 | Outpatient (CLI) | payer OTHER, SELFPAY ==
[2022-09-17 08:31] LABS: Absolute Lymphocyte Count 1.34 X10^3/uL (0.83-4.51); Absolute Neutrophil Count 3.9 X10^3/uL (2.0-7.7); Basophil# 0.04 X10^3/uL; Basophil% 0.6 % (0-1); Eosinophil# 0.28 X10^3/uL; Eosinophils% 4.5 % (0-5); Hematocrit 41.2 % (40-54); Hemoglobin 13.5 g/dL (13.0-16.5); Lymphocyte # 1.34 X10^3/ul (0.83-4.51); Lymphocyte % 21.4 % (19-41); Mean Corp Hgb Conc 32.8 g/dL (32-36); Mean Corpuscular Hgb 30.8 pg (27.0-32.0); Mean Corpuscular Volume 94.1 fL (80-94); Mean Platelet Vol. 9.6 fl (6.2-12.0); Monocyte# 0.65 X10^3/uL; Monocyte% 10.4 % (0-10); NRBC Flagged by Analyzer 0 % (0-5); Neutrophil # 3.93 X10^3/uL (2.7-7.7); Neutrophil % 62.9 % (47-70); Platelet Count 241 K/mm3 (150-450); RBC Distribution Width CV 12.7 % (11.6-14.6); RBC Distribution Width SD 43.5 fl (35.1-43.9); Red Blood Count 4.38 M/mm3 (4.6-6.2); White Blood Count 6.3 K/mm3 (4.4-11.0)
[2022-09-17 08:56] LABS: Hemoglobin A1c 7.2 % (3.8-5.6)
[2022-09-17 08:58] LABS: Vitamin D,25 Hydroxy 53.3 ng/mL
[2022-09-17 09:09] LABS: AST(SGOT) 19 U/L (15-37); Alanine Aminotransfer ALT/SGPT 24 U/L (16-61); Albumin, Serum 3.9 g/dL (3.2-5.0); Alkaline Phosphatase 67 U/L (45-117); Anion Gap 5 (5-15); BUN 15 mg/dL (7-18); BUN/Creat Ratio 13.8 RATIO (10-20); Calcium,Total 9.9 mg/dL (8.5-10.1); Chloride 102 mmol/L (98-107); Cholesterol 146 mg/dL (200); Creatinine, Serum 1.09 mg/dL (0.70-1.30); EST Glomerular Filtration Rate 73 mL/min (>60); Est Glom Filt Rate - Afr Amer 88 mL/min (>60); Globulin 4.1 g/dL (2.2-4.2); Glucose 188 mg/dL (74-106); High Density Lipoprotein 83 mg/dL; Potassium 4.3 mmol/L (3.5-5.1); Sodium Level 135 mmol/L (136-145); Triglycerides 54 mg/dL; Very Low Density Lipoprotein 11 mg/dL (5-40)
[2022-09-17 09:12] LABS: Microalbumin:Creatinine Ratio 343.4 mg/g CRE (<30 mg/g CRE); Protein, Urine (Random) 43.1 mg/dL (<11.9); Protein:Creat Ratio 565 mg/g CRE (0-200)
== END | disposition home or self-care (01) ==
LOC: LAB 07:43
PROVIDERS: PCP Family Medicine; Referring Provider Family Medicine; Visit Provider Family Medicine
DX: I25.10 Atherosclerotic heart disease of native coronary artery without angina pectoris (principal); E11.9 Type 2 diabetes mellitus without complications; E55.9 Vitamin D deficiency, unspecified
CPT/HCPCS: 36415; 80053; 80061; 82043; 82306; 82570; 83036; 84156; 85025

== ENCOUNTER → 2022-09-29 | Outpatient (CLI) | payer OTHER, SELFPAY ==
--- NOTE | 2022-09-29 07:44 | US_ITS ---
STUDY: ABDOMINAL ULTRASOUND - RIGHT UPPER QUADRANT REASON FOR VISIT: Male, 62 years old Right upper quadrant pain TECHNIQUE: Ultrasound evaluation of the right upper quadrant was performed with real-time and static garduno-scale imaging. TECHNICAL QUALITY: Adequate. COMPARISON: None. FINDINGS: Liver: The liver measures 20.1 cm. There is increased echogenicity consistent with fatty infiltration. The bile ducts are within normal limits. There is hepatic color flow. The direction of portal flow is hepatopetal. There is no demonstrated mass lesion. Gallbladder: Normal distended gallbladder. The gallbladder wall measures 2.4 mm. There is a negative sonographic Barba''s sign. There is no pericholecystic fluid. There are no gallstones. Common Bile Duct (C.B.D.): The common bile duct measures 5.2 mm. Pancreas: Normal size of the head, body and tail of the pancreas. There is normal echogenicity of the pancreas. There is no demonstrated pancreatic mass or cyst. Right Kidney: Normal size of the right kidney. The right kidney measures 12.9 x 7.7 x 8.7 cm. Normal renal cortex. The right cortex measures 1.2 cm. There is no demonstrated renal mass or cyst. There is no right hydronephrosis. US/Abdomen Limited IMPRESSION: No ultrasound evidence of cholecystitis or hydronephrosis. Enlarged fatty infiltrated liver. No hydronephrosis. Electronically Signed: Cristina Boyd MD at 7:12 EDT ,
== END | disposition home or self-care (01) ==
LOC: US 07:44
PROVIDERS: PCP Family Medicine; Referring Provider Family Medicine; Visit Provider Family Medicine
DX: R10.11 Right upper quadrant pain (principal)
CPT/HCPCS: 76705

== ENCOUNTER → 2022-10-18 | Outpatient (CLI) | payer OTHER, SELFPAY ==
[2022-10-18 16:14] LABS: Absolute Lymphocyte Count 1.18 X10^3/uL (0.83-4.51); Absolute Neutrophil Count 3.6 X10^3/uL (2.0-7.7); Basophil# 0.04 X10^3/uL; Basophil% 0.7 % (0-1); Eosinophil# 0.27 X10^3/uL; Eosinophils% 4.7 % (0-5); Hemoglobin 12.7 g/dL (13.0-16.5); Lymphocyte # 1.18 X10^3/ul (0.83-4.51); Lymphocyte % 20.5 % (19-41); Mean Corp Hgb Conc 32.6 g/dL (32-36); Mean Corpuscular Hgb 30.8 pg (27.0-32.0); Mean Corpuscular Volume 94.7 fL (80-94); Mean Platelet Vol. 9.3 fl (6.2-12.0); Monocyte# 0.69 X10^3/uL; NRBC Flagged by Analyzer 0 % (0-5); Neutrophil # 3.55 X10^3/uL (2.7-7.7); Neutrophil % 61.8 % (47-70); Platelet Count 217 K/mm3 (150-450); RBC Distribution Width CV 12.7 % (11.6-14.6); RBC Distribution Width SD 43.8 fl (35.1-43.9); Red Blood Count 4.12 M/mm3 (4.6-6.2); White Blood Count 5.8 K/mm3 (4.4-11.0)
[2022-10-18 17:28] LABS: AST(SGOT) 18 U/L (15-37); Alanine Aminotransfer ALT/SGPT 22 U/L (16-61); Albumin, Serum 3.9 g/dL (3.2-5.0); Alkaline Phosphatase 71 U/L (45-117); Bilirubin, Direct 0.16 mg/dL (0.00-0.30); Globulin 3.7 g/dL (2.2-4.2); Protein, Total 7.6 g/dL (6.4-8.2)
[2022-10-20 16:08] LABS: QNTFERON TB Mitogen Value > 10.00 IU/mL (.); QNTFERON TB Nil Value 0.48 IU/mL (.); QNTFERON TB1+ Ag Value 0.04 IU/mL (.); QNTFERON TB2+ Ag Value 0.04 IU/mL (.); QNTIFERON TB Positive Criteria Negative (Negative)
== END | disposition home or self-care (01) ==
LOC: LAB 15:59
PROVIDERS: PCP Family Medicine; Visit Provider Dermatology
DX: L40.0 Psoriasis vulgaris (principal); Z79.899 Other long term (current) drug therapy
CPT/HCPCS: 36415; 80076; 85025; 86480

== ENCOUNTER → 2023-01-24 | Outpatient (CLI) | payer OTHER, SELFPAY ==
[2023-01-24 07:18] LABS: Absolute Lymphocyte Count 1.39 X10^3/uL (0.83-4.51); Absolute Neutrophil Count 3.1 X10^3/uL (2.0-7.7); Basophil# 0.04 X10^3/uL; Basophil% 0.7 % (0-1); Eosinophil# 0.29 X10^3/uL; Eosinophils% 5.3 % (0-5); Hematocrit 40.1 % (40-54); Hemoglobin 12.7 g/dL (13.0-16.5); Lymphocyte # 1.39 X10^3/ul (0.83-4.51); Lymphocyte % 25.2 % (19-41); Mean Corp Hgb Conc 31.7 g/dL (32-36); Mean Corpuscular Hgb 29.7 pg (27.0-32.0); Mean Corpuscular Volume 93.9 fL (80-94); Mean Platelet Vol. 9.6 fl (6.2-12.0); Monocyte# 0.71 X10^3/uL; Monocyte% 12.9 % (0-10); NRBC Flagged by Analyzer 0 % (0-5); Neutrophil # 3.06 X10^3/uL (2.7-7.7); Neutrophil % 55.5 % (47-70); Platelet Count 234 K/mm3 (150-450); RBC Distribution Width SD 41.4 fl (35.1-43.9); Red Blood Count 4.27 M/mm3 (4.6-6.2); White Blood Count 5.5 K/mm3 (4.4-11.0)
[2023-01-24 07:45] LABS: Protein, Urine (Random) 33.8 mg/dL (<11.9); Protein:Creat Ratio 598 mg/g CRE (0-200)
[2023-01-24 07:59] LABS: AST(SGOT) 21 U/L (15-37); Alanine Aminotransfer ALT/SGPT 26 U/L (16-61); Albumin, Serum 3.8 g/dL (3.2-5.0); Alkaline Phosphatase 66 U/L (45-117); Anion Gap 5 (5-15); BUN 15 mg/dL (7-18); BUN/Creat Ratio 14.2 RATIO (10-20); Calcium,Total 9.3 mg/dL (8.5-10.1); Chloride 104 mmol/L (98-107); Cholesterol 140 mg/dL (200); Creatinine, Serum 1.06 mg/dL (0.70-1.30); EST Glomerular Filtration Rate 75 mL/min (>60); Est Glom Filt Rate - Afr Amer 91 mL/min (>60); Globulin 3.9 g/dL (2.2-4.2); Glucose 152 mg/dL (74-106); High Density Lipoprotein 69 mg/dL; Potassium 3.8 mmol/L (3.5-5.1); Protein, Total 7.7 g/dL (6.4-8.2); Sodium Level 138 mmol/L (136-145); Thyroid Stim Hormone (TSH) 1.53 uIU/mL (0.358-3.74); Triglycerides 66 mg/dL; Very Low Density Lipoprotein 13 mg/dL (5-40)
[2023-01-24 08:14] LABS: Hemoglobin A1c 7.3 % (3.8-5.6)
[2023-01-24 08:29] LABS: Vitamin D,25 Hydroxy 42.7 ng/mL
== END | disposition home or self-care (01) ==
LOC: LAB 06:10
PROVIDERS: PCP Family Medicine; Referring Provider Family Medicine; Visit Provider Family Medicine
DX: I25.10 Atherosclerotic heart disease of native coronary artery without angina pectoris (principal); E11.59 Type 2 diabetes mellitus with other circulatory complications; E55.9 Vitamin D deficiency, unspecified
CPT/HCPCS: 36415; 80053; 80061; 82306; 82570; 83036; 84156; 84443; 85025

== ENCOUNTER 2023-03-22 14:51 | Emergency (ER) | payer OTHER, SELFPAY ==
[2023-03-22 14:51] VITALS: BP 184/108; PULSE 88; RESP 16; TEMP 36.6; O2SAT 98; BMI 32.2
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
--- NOTE | 2023-03-22 15:20 | RAD_ITS ---
INDICATION: trauma EXAMINATION/TECHNIQUE: X-RAY - RIGHT XR Humerus Min 2 Views COMPARISON: None. FINDINGS: Acute comminuted and moderately displaced fracture of the olecranon process of the proximal ulna. No blastic or lytic lesions. Degenerative changes of the elbow and shoulder. Soft tissue swelling of the elbow. RAD/Humerus min 2 Views IMPRESSION: Acute comminuted and moderately displaced fracture of the olecranon process of the proximal ulna. Electronically Signed: Kel Adams MD at 16:14 EDT ,
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
[2023-03-22] MEDS: fentaNYL 100 MCG/2 ML Ampul 50 MCG IM (15:27)
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
[2023-03-22] MEDS: oxyCODONE 5 MG Tablet PO (17:44)
== END 2023-03-22 18:00 | disposition home or self-care (01) ==
PROVIDERS: Emergency Provider Emergency Medicine; PCP Family Medicine; Visit Provider Emergency Medicine
DX: S52.021A Displaced fracture of olecranon process without intraarticular extension of right ulna, initial encounter for closed fracture (principal); E11.9 Type 2 diabetes mellitus without complications; I10 Essential (primary) hypertension; Z95.5 Presence of coronary angioplasty implant and graft; I25.10 Atherosclerotic heart disease of native coronary artery without angina pectoris; E78.2 Mixed hyperlipidemia; Z87.891 Personal history of nicotine dependence; Z79.82 Long term (current) use of aspirin; S52.121A Displaced fracture of head of right radius, initial encounter for closed fracture; S20.211A Contusion of right front wall of thorax, initial encounter; V28.41XA Electric (assisted) bicycle driver injured in noncollision transport accident in traffic accident, initial encounter
CPT/HCPCS: 29105; 71101; 73060; 73070; 73080; 96372; 99283

== ENCOUNTER → 2023-05-03 | Outpatient (CLI) | payer OTHER, SELFPAY ==
[2023-05-03 09:01] LABS: Absolute Lymphocyte Count 0.83 X10^3/uL (0.83-4.51); Absolute Neutrophil Count 2.9 X10^3/uL (2.0-7.7); Basophil# 0.02 X10^3/uL; Basophil% 0.4 % (0-1); Eosinophil# 0.21 X10^3/uL; Eosinophils% 4.6 % (0-5); Hematocrit 34.4 % (40-54); Hemoglobin 11.1 g/dL (13.0-16.5); Lymphocyte # 0.83 X10^3/ul (0.83-4.51); Lymphocyte % 18.3 % (19-41); Mean Corp Hgb Conc 32.3 g/dL (32-36); Mean Corpuscular Hgb 29.6 pg (27.0-32.0); Mean Corpuscular Volume 91.7 fL (80-94); Mean Platelet Vol. 9.6 fl (6.2-12.0); Monocyte# 0.55 X10^3/uL; Monocyte% 12.1 % (0-10); NRBC Flagged by Analyzer 0 % (0-5); Neutrophil # 2.92 X10^3/uL (2.7-7.7); Neutrophil % 64.4 % (47-70); Platelet Count 181 K/mm3 (150-450); RBC Distribution Width CV 13.2 % (11.6-14.6); RBC Distribution Width SD 43.2 fl (35.1-43.9); Red Blood Count 3.75 M/mm3 (4.6-6.2); White Blood Count 4.5 K/mm3 (4.4-11.0)
[2023-05-03 09:05] LABS: Protein, Urine (Random) 25.3 mg/dL (<11.9); Protein:Creat Ratio 827 mg/g CRE (0-200)
[2023-05-03 09:19] LABS: Hemoglobin A1c 7.5 % (3.8-5.6)
[2023-05-03 09:47] LABS: ALB/GLOB Ratio 0.9 RATIO (0.9-2.4); AST(SGOT) 14 U/L (15-37); Alanine Aminotransfer ALT/SGPT 18 U/L (16-61); Albumin, Serum 3.5 g/dL (3.2-5.0); Alkaline Phosphatase 84 U/L (45-117); Anion Gap 4 (5-15); BUN 13 mg/dL (7-18); BUN/Creat Ratio 13.5 RATIO (10-20); Calcium,Total 9.4 mg/dL (8.5-10.1); Chloride 100 mmol/L (98-107); Cholesterol 135 mg/dL (200); Creatinine, Serum 0.96 mg/dL (0.70-1.30); EST Glomerular Filtration Rate 84 mL/min (>60); Est Glom Filt Rate - Afr Amer 102 mL/min (>60); Globulin 3.8 g/dL (2.2-4.2); Glucose 196 mg/dL (74-106); High Density Lipoprotein 68 mg/dL; Potassium 4.4 mmol/L (3.5-5.1); Protein, Total 7.3 g/dL (6.4-8.2); Sodium Level 136 mmol/L (136-145); Thyroid Stim Hormone (TSH) 1.52 uIU/mL (0.358-3.74); Triglycerides 44 mg/dL; Very Low Density Lipoprotein 9 mg/dL (5-40)
== END | disposition home or self-care (01) ==
PROVIDERS: PCP Family Medicine; Referring Provider Family Medicine; Visit Provider Family Medicine
DX: I25.10 Atherosclerotic heart disease of native coronary artery without angina pectoris (principal); E11.59 Type 2 diabetes mellitus with other circulatory complications; R80.9 Proteinuria, unspecified; E55.9 Vitamin D deficiency, unspecified
CPT/HCPCS: 36415; 80053; 80061; 82306; 82570; 83036; 84156; 84443; 85025

== ENCOUNTER → 2023-05-29 | Outpatient (CLI) | payer OTHER, SELFPAY ==
--- OUTSIDE RECORDS SUMMARY | 2023-05-29 12:38 | XMS RPT_ITS | CCD ---
Author Name Unknown Address [address] [place] [address] Organization [facility] Care Team Providers Care Coal Carrier Name Role Phone Belkys Clemente Unavailable Unavailable Belkys Clemente Unavailable Unavailable Unavailable Primary Care Provider Unavailyuan dooley Unavailable Primary Care Provider UnavailKrista Vidal MD Primary Care Provider DARYL CUENCA Attending KRISTA Phillips Primary Care Unavailable DARYL CUENCA Attending DARYL Caballero Attending KRISTA Phillips Primary Care Unavailable DARYL CUENCA Attending KRISTA Phillips Primary Care Unavailable Medications Current Medications Medication Drug Class(es) Dates Sig (Normalized) Sig (Original) acetaminophen 325 mg / oxyCODONE hydrochloride 5 mg oral tablet (12 sources) Opioid Agonist Start: 2023 End: 04-11-2023 take 1 tablet by mouth every eight hours as needed for pain oxyCODONE-acetami nophen (PERCOCET) 5-325 mg tablet Indications: Closed fracture of olecranon process of right ulna, initial encounter Take 1 tablet by mouth every 8 hours as needed for pain for up to 7 days. 21 tablet 0 2023 04/11/2023 Active Completed/Discontinued Medications Medication Drug Class(es) Dates Sig (Normalized) Sig (Original) aflibercept (7 sources) Vascular Endothelial Growth Factor Inhibitor End: 04-18-2023 aflibercept (EYLEA INTRAVITREAL) by INTRAVITREAL route. PRN 0 04/18/2023 Discontinued Problems Problem Classification Problem Date Documented Date Episodic/Chronic Fracture of upper limb (9 sources) Closed fracture of olecranon process of right ulna; Translations: [Displaced fracture of olecranon process without intraarticular extension of right ulna, initial encounter for closed fracture] Onset: 03-28-2023 03-28-2023 Episodic Other nutritional; endocrine; and metabolic disorders (6 sources) Obese class I; Translations: [Obesity, unspecified] Onset: 04-02-2023 04-02-2023 Chronic Results Test Name Value Interpretation Reference Range Facil ity Vital Signs Date Time Vital Sign Value Performing Clinician Faci lity 05-09-2023 09:47-0500 Body height 180.3 cm Daryl Cuenca MD Work Phone: [facility] 05-09-2023 09:47-0500 Body weight 103.42 kg Daryl Cuenca MD Work Phone: [facility] 05-09-2023 09:47-0500 Respiratory rate 18 /min Daryl Cuenca MD Work Phone: [facility] 04-18-2023 09:08-0500 Body height 180.3 cm Daryl Cuenca MD Work Phone: [facility] 04-18-2023 09:08-0500 Body weight 103.42 kg Daryl Cuenca MD Work Phone: [facility] 04-18-2023 09:08-0500 Respiratory rate 18 /min Daryl Cuenca MD Work Phone: [facility] 04-10-2023 09:14-0500 Body height 180.3 cm Daryl Cuenca MD Work Phone: [facility] 04-10-2023 09:14-0500 Body weight 103.42 kg Daryl Cuenca MD Work Phone: [facility] 04-10-2023 09:14-0500 Respiratory rate 18 /min Daryl Cuenca MD Work Phone: [facility] 03-28-2023 09:07-0500 Body height 180.3 cm Daryl Cuenca MD Work Phone: [facility] 03-28-2023 09:07-0500 Body weight 103.42 kg Daryl Cuenca MD Work Phone: [facility] 03-28-2023 09:07-0500 Respiratory rate 18 /min Daryl Cuenca MD Work Phone: [facility] Encounters Encounter Date Encounter Type Care Provider Facility Start: 05-09-2023 End: 05-09-2023 ambulatory DARYL CUENCA Facility:[facility] Start: 05-09-2023 End: 05-09-2023 Patient encounter procedure Daryl Cuenca MD Work Phone: [facility] Procedures Date Procedure Procedure Detail Performing Clinician Start: 05-09-2023 Radex elbow 2 views Seng Cuenca MD Work Phone: Start: 04-18-2023 Radex elbow 2 views Seng Cuenca MD Work Phone: Start: 04-10-2023 Radex elbow 2 views Seng Cuenca MD Work Phone: Start: 03-28-2023 Radex elbow 2 views Seng Cuenca MD Work Phone: Plan of Treatment Date Care Activity Detail Author Start: 01-18-2023 Covid-19 Vaccine ( season) Covid-19 Vaccine ( season) [facility] Start: 01-18-2023 Influenza vaccination Influenza Vacc ine (#1) [facility] Start: 05-20-2022 Depression Assessment Depression Ass essment [facility] Start: 2020 RSV Vaccine (1 - 1-d ose 60+ series) RSV Vaccine (1 - 1-dose 60+ series) [facility] Start: 2015 Prostate Cancer Scre ening Discussion Prostate Cancer Screening Discussion [facility] Start: 2015 Prostate specific an tigen measurement Prostate Cancer Screening Discussion [facility] Start: 2010 Shingrix Vaccine (1 of 2) Shingrix V accine (1 of 2) [facility] Start: 2010 Zoster Vaccines (1 of 2) Zoster Vacc rigoberto (1 of 2) [facility] Start: 2005 Cologuard (FIT-DNA) Cologuard (FIT-D NA) [facility] Start: [address] [facility] Start: 2005 Colorectal Cancer Screening Colorectal Cancer Screening [facility] Start: [address] Colonography [facility] Start: 2005 Diabetes Screening Diabetes Screenin g [facility] Start: 2005 Fecal Occult Blood Fecal Occult Bloo d [facility] Start: 2005 Screening for malign ant neoplasm of colon [facility] Start: 2005 Sigmoidoscopy Sigmoidoscopy [facility] Start: 1995 Lipid 1996 panel - S ming or Plasma Lipid Screening [facility] Start: 1995 Lipid panel Lipid Screening [facility] Start: 1979 DTaP/Tdap/Td Vaccine s (1 - Tdap) DTaP/Tdap/Td Vaccines (1 - Tdap) [facility] Start: 1979 Urine microalbumin profile DTa P,Tdap,Td Vaccine (1 - Tdap) [facility] Start: 1978 Hepatitis C screening Hepatitis C [facility] Start: 1978 Hepatitis C Screening Hepatitis C [facility] Start: 1978 HIV Screening HIV Screening [facility] Start: 1978 HIV screening HIV Screening [facility] Start: 1972 Depression Screening Depression Scre ening [facility] Start: 1961 MMR Vaccines (1 of 1 - Standard series) MMR Vaccines (1 of 1 - Standard series) [facility] Start: 1960 COVID-19 Vaccine (#1) COVID-19 Vacci ne (#1) [facility] Start: 1960 HIV screening HIV Screening [facility] Start: 1960 Lipid panel Lipid Panel [facility] Start: 1960 Screening for malign ant neoplasm of colon [facility] Immunizations Immunization Date Immunization Notes Care Provider Fa cility 04-06-2022 influenza virus vacc ine, unspecified formulation Daryl Cuenca MD Work Phone: [facility] Payers Date Payer Category Payer Unknown JACOB BRASWELL [id number] 2022-Present [phone] [address] [place] [address] Indemnity [id number] 2022 Unknown [id number] Social History Date Type Detail Facility Tobacco smoking status MAIS Tobacco smoking consumption unknown [facility] Start: 1960 Sex Assigned At Not on file [facility] Start: 03-28-2023 End: 05-09-2023 Gender identity Not on file [facility] Start: 06-16-2013 Tobacco smoking status [facility] Never smoked tobacco [facility] Work Phone: Start: 03-28-2023 End: 05-09-2023 Alcohol intake Current drinker of alcohol (finding) [facility] Start: 03-28-2023 End: 05-09-2023 [address] of [address] [facility] National Score (1-100), lower number is lower risk 67 [facility] Medical Equipment Procedure Code Equipment Code Equipment Origin al Text Equipment Identifier Dates K-Wire [id number] 2pt Dm [id number] Sta rt: 04-02-2023 Stent-04/02/2015 [id number] Start: 04-02-2015 Wire 1.25mm Stainless Steel 280mm [facility] Nonsterile - [id number] Start: 04-02-2023 Clinical Notes 03-25-2023 to 05-09-2023 Daryl Cuenca MD - 05/09/2023 10:00 AM Daryl Schreiber MD - 04/18/2023 10:01 AM Daryl Schreiber MD - 04/10/2023 10:42 AM ESTPatient Instructions Note Date & Type Note Facility 05-09-2023 Note HNO ID: [id number] Author: Daryl Cuenca MD Service: ? Author Type: Physician Type: Progress Notes Filed: 05/09/2023 10:28 AM Note Text: ORTHOPAEDIC OFFICE NOTE CHIEF COMPLAINT: right elbow injury HISTORY OF PRESENT ILLNESS: Taylor Velazquez is a 63 year old male who presents for reevaluation after open reduction internal fixation right olecranon fracture 04/02/2023. Has been working on range of motion with progressive improvement. Notes pain with activity directly over olecranon, occasional clicking of the wire. Does not notice prominent skin. Incision continues to heal well. Progressively able to reach face. No new fevers chills nausea or vomiting. Reviewed nursing note and current pain scale. PAST MEDICAL HISTORY Diagnosis Date Diabetes mellitus (HCC) Hyperlipidemia History reviewed. No pertinent surgical history. History reviewed. No pertinent family history. Social History Tobacco Use Smoking status: Never Substance Use Topics Alcohol use: Yes Drug use: Never MEDICATIONS: Current Outpatient Medications Medication Sig Cholecalciferol, Vitamin D3, (VITAMIN D) 25 mcg (1,000 unit) cap Take 1,000 Units by mouth once daily. 2000 units twice a day rosuvastatin (CRESTOR) 20 mg tablet losartan (COZAAR) 50 mg tablet Take 50 mg by mouth two times a day. NESINA 25 mg tab Take 25 mg by mouth once daily. amLODIPine (NORVASC) 5 mg tablet Take 5 mg by mouth daily at bedtime. TREMFYA 100 mg/mL Every 2 month injection metFORMIN ER (GLUCOPHAGE XR) 500 mg 24 hr tablet Take 1,000 mg by mouth two times a day with meals. carvedilol (COREG) 25 mg tablet Take 25 mg by mouth two times a day with meals. aspirin, enteric coated (ASPIRIN, ENTERIC COATED) 81 mg EC tablet Take 81 mg by mouth once daily. Docusate Sodium 100 mg tab Take 1 tablet by mouth as needed. No current facility-administered medications for this visit. ALLERGIES: ALLERGIES No Known Allergies PHYSICAL EXAMINATION: Resp 18 Ht 5' 11 (1.80m) Wt 228 lb (103.4kg) BMI 31.81 kg/(m2). General Appearance: Well appearing, alert, in no acute distress, well-hydrated, well nourished. Skin: Skin color, texture, turgor normal, no suspicious rashes or lesions. Extremities: Right elbow with healed incision. Much improved edema of the arm elbow and forearm, some residual of digits. Minimal tenderness to palpation over olecranon; wire reducible manually. No palpable instability as patient actively flexes and extends elbow. Demonstrates full active right forearm pronation and supination. Able to actively extend within 10 degrees of full and has lack of terminal flexion 15 degrees with soft endpoint. Peripheral Pulses: Normal. Neurologic: Intact light touch sensation right upper extremity. IMAGES: Recent Results (from the past 36 hour(s)) XR ELBOW GENERAL 2V AP/LAT RIGHT Narrative AP and lateral views right elbow demonstrate unchanged position of the comminuted right olecranon fracture with joint impaction. Tension band construct in similar position with one prominent wire, less than prior images. No new fracture identified. No early bone healing identified yet. ASSESSMENT AND PLAN: 1. Closed fracture of olecranon process of right ulna with routine healing, subsequent encounter - ICD9: V54.12, ICD10: S52.021D Functional Plan: Advance weight bearing up to 5 pounds as symptoms allow. Continued range of motion exercises, elbow flexion/extension and forearm pronation and supination. Assistance Devices: None. Physical/Occupational Therapy: Home exercises as above. Wound Care: None. Pain Control: No change in pain regimen recommended this office visit. Fragility Fracture: Previously addressed. Additional: None. No follow-ups on file. Follow-up office 4 weeks. Daryl Cuenca MD [facility] 05-09-2023 History of Presen t illness Narrative Images from the original note were not included. ORTHOPAEDIC OFFICE NOTE CHIEF COMPLAINT: right elbow injury HISTORY OF PRESENT ILLNESS: Taylor Velazquez is a 63 year old male who presents for reevaluation after open reduction internal fixation right olecranon fracture 04/02/2023. Has been working on range of motion with progressive improvement. Notes pain with activity directly over olecranon, occasional clicking of the wire. Does not notice prominent skin. Incision continues to heal well. Progressively able to reach face. No new fevers chills nausea or vomiting. Reviewed nursing note and current pain scale. PAST MEDICAL HISTORY Diagnosis Date Diabetes mellitus (HCC) Hyperlipidemia History reviewed. No pertinent surgical history. History reviewed. No pertinent family history. Social History Tobacco Use Smoking status: Never Substance Use Topics Alcohol use: Yes Drug use: Never MEDICATIONS: Current Outpatient Medications Medication Sig Cholecalciferol, Vitamin D3, (VITAMIN D) 25 mcg (1,000 unit) cap Take 1,000 Units by mouth once daily. 2000 units twice a day rosuvastatin (CRESTOR) 20 mg tablet losartan (COZAAR) 50 mg tablet Take 50 mg by mouth two times a day. NESINA 25 mg tab Take 25 mg by mouth once daily. amLODIPine (NORVASC) 5 mg tablet Take 5 mg by mouth daily at bedtime. TREMFYA 100 mg/mL Every 2 month injection metFORMIN ER (GLUCOPHAGE XR) 500 mg 24 hr tablet Take 1,000 mg by mouth two times a day with meals. carvedilol (COREG) 25 mg tablet Take 25 mg by mouth two times a day with meals. aspirin, enteric coated (ASPIRIN, ENTERIC COATED) 81 mg EC tablet Take 81 mg by mouth once daily. Docusate Sodium 100 mg tab Take 1 tablet by mouth as needed. No current facility-administered medications for this visit. ALLERGIES: ALLERGIES No Known Allergies PHYSICAL EXAMINATION: Resp 18 Ht 5' 11 (1.80m) Wt 228 lb (103.4kg) BMI 31.81 kg/(m^2). General Appearance: Well appearing, alert, in no acute distress, well-hydrated, well nourished. Skin: Skin color, texture, turgor normal, no suspicious rashes or lesions. Extremities: Right elbow with healed incision. Much improved edema of the arm elbow and forearm, some residual of digits. Minimal tenderness to palpation over olecranon; wire reducible manually. No palpable instability as patient actively flexes and extends elbow. Demonstrates full active right forearm pronation and supination. Able to actively extend within 10 degrees of full and has lack of terminal flexion 15 degrees with soft endpoint. Peripheral Pulses: Normal. Neurologic: Intact light touch sensation right upper extremity. IMAGES: Recent Results (from the past 36 hour(s)) XR ELBOW GENERAL 2V AP/LAT RIGHT Narrative AP and lateral views right elbow demonstrate unchanged position of the comminuted right olecranon fracture with joint impaction. Tension band construct in similar position with one prominent wire, less than prior images. No new fracture identified. No early bone healing identified yet. ASSESSMENT AND PLAN: 1. Closed fracture of olecranon process of right ulna with routine healing, subsequent encounter - ICD9: V54.12, ICD10: S52.021D Functional Plan: Advance weight bearing up to 5 pounds as symptoms allow. Continued range of motion exercises, elbow flexion/extension and forearm pronation and supination. Assistance Devices: None. Physical/Occupational Therapy: Home exercises as above. Wound Care: None. Pain Control: No change in pain regimen recommended this office visit. Fragility Fracture: Previously addressed. Additional: None. No follow-ups on file. Follow-up office 4 weeks. Daryl Cuenca MD documented in this encounter [facility] 04-18-2023 Note HNO ID: [id number] Author: Daryl Cuenca MD Service: ? Author Type: Physician Type: Progress Notes Filed: 04/18/2023 10:05 AM Note Text: ORTHOPAEDIC OFFICE NOTE CHIEF COMPLAINT: Right elbow injury HISTORY OF PRESENT ILLNESS: Taylor Velazquez is a 63 year old male who presents for reevaluation after open reduction internal fixation right olecranon fracture 04/02/2023. Swelling and pain are generally improving. Has been working on gentle range of motion exercises independently. Does not identify any prominence from hardware at this point. No new injury mechanism. No new paresthesias or paralysis right upper extremity. No new fevers chills nausea or vomiting. Reviewed nursing note and current pain scale. PAST MEDICAL HISTORY Diagnosis Date Diabetes mellitus (HCC) Hyperlipidemia History reviewed. No pertinent surgical history. History reviewed. No pertinent family history. Social History Tobacco Use Smoking status: Never Substance Use Topics Alcohol use: Yes Drug use: Never MEDICATIONS: Current Outpatient Medications Medication Sig Cholecalciferol, Vitamin D3, (VITAMIN D) 25 mcg (1,000 unit) cap Take 1,000 Units by mouth once daily. 2000 units twice a day rosuvastatin (CRESTOR) 20 mg tablet losartan (COZAAR) 50 mg tablet Take 50 mg by mouth two times a day. NESINA 25 mg tab Take 25 mg by mouth once daily. amLODIPine (NORVASC) 5 mg tablet Take 5 mg by mouth daily at bedtime. TREMFYA 100 mg/mL Every 2 month injection metFORMIN ER (GLUCOPHAGE XR) 500 mg 24 hr tablet Take 1,000 mg by mouth two times a day with meals. carvedilol (COREG) 25 mg tablet Take 25 mg by mouth two times a day with meals. aspirin, enteric coated (ASPIRIN, ENTERIC COATED) 81 mg EC tablet Take 81 mg by mouth once daily. Docusate Sodium 100 mg tab Take 1 tablet by mouth as needed. No current facility-administered medications for this visit. ALLERGIES: ALLERGIES No Known Allergies PHYSICAL EXAMINATION: Resp 18 Ht 5' 11 (1.80m) Wt 228 lb (103.4kg) BMI 31.81 kg/(m2). General Appearance: Well appearing, alert, in no acute distress, well-hydrated, well nourished. Skin: Skin color, texture, turgor normal, no suspicious rashes or lesions. Extremities: Right elbow with healing surgical incision. Global edema of the elbow and forearm improved from prior visit. Ecchymosis resolved. Right arm and forearm compartments soft and compressible. Demonstrates active assisted elbow flexion and extension in a short arc of motion with no crepitance. Palpable wire posteriorly without skin at risk for skin breakdown; reducible into deeper position. Demonstrates active wrist flexion and extension and full digit motion actively. Peripheral Pulses: Normal. Neurologic: Intact light touch sensation right upper extremity. IMAGES: Recent Results (from the past 36 hour(s)) XR ELBOW GENERAL 2V AP/LAT RIGHT Narrative AP and lateral views right elbow demonstrate continued reduction of the comminuted olecranon fracture. The tension band construct is intact, with one wire backed out in similar position to prior images. No new fracture identified. ASSESSMENT AND PLAN: 1. Closed fracture of olecranon process of right ulna with routine healing, subsequent encounter - ICD9: V54.12, ICD10: S52.021D Functional Plan: Light weightbearing 1 pound right upper extremity, continued assisted active elbow flexion and extension. Assistance Devices: Compression wrap and sling for comfort as needed. Physical/Occupational Therapy: Reviewed elbow flexion and extension exercises to be performed 15 minutes per half day. Wound Care: Cleaned incision with alcohol and removed all luz marina. Recommended continue daily soap and water washes. Pain Control: No change in pain regimen recommended this office visit. Fragility Fracture: Previously addressed. Additional: None. Return in about 3 weeks (around 05/09/2023). Daryl Cuenca MD [facility] 04-18-2023 History of Presen t illness Narrative Images from the original note were not included. ORTHOPAEDIC OFFICE NOTE CHIEF COMPLAINT: Right elbow injury HISTORY OF PRESENT ILLNESS: Taylor F Delpropost is a 63 year old male who presents for reevaluation after open reduction internal fixation right olecranon fracture 04/02/2023. Swelling and pain are generally improving. Has been working on gentle range of motion exercises independently. Does not identify any prominence from hardware at this point. No new injury mechanism. No new paresthesias or paralysis right upper extremity. No new fevers chills nausea or vomiting. Reviewed nursing note and current pain scale. PAST MEDICAL HISTORY Diagnosis Date Diabetes mellitus (HCC) Hyperlipidemia History reviewed. No pertinent surgical history. History reviewed. No pertinent family history. Social History Tobacco Use Smoking status: Never Substance Use Topics Alcohol use: Yes Drug use: Never MEDICATIONS: Current Outpatient Medications Medication Sig Cholecalciferol, Vitamin D3, (VITAMIN D) 25 mcg (1,000 unit) cap Take 1,000 Units by mouth once daily. 2000 units twice a day rosuvastatin (CRESTOR) 20 mg tablet losartan (COZAAR) 50 mg tablet Take 50 mg by mouth two times a day. NESINA 25 mg tab Take 25 mg by mouth once daily. amLODIPine (NORVASC) 5 mg tablet Take 5 mg by mouth daily at bedtime. TREMFYA 100 mg/mL Every 2 month injection metFORMIN ER (GLUCOPHAGE XR) 500 mg 24 hr tablet Take 1,000 mg by mouth two times a day with meals. carvedilol (COREG) 25 mg tablet Take 25 mg by mouth two times a day with meals. aspirin, enteric coated (ASPIRIN, ENTERIC COATED) 81 mg EC tablet Take 81 mg by mouth once daily. Docusate Sodium 100 mg tab Take 1 tablet by mouth as needed. No current facility-administered medications for this visit. ALLERGIES: ALLERGIES No Known Allergies PHYSICAL EXAMINATION: Resp 18 Ht 5' 11 (1.80m) Wt 228 lb (103.4kg) BMI 31.81 kg/(m^2). General Appearance: Well appearing, alert, in no acute distress, well-hydrated, well nourished. Skin: Skin color, texture, turgor normal, no suspicious rashes or lesions. Extremities: Right elbow with healing surgical incision. Global edema of the elbow and forearm improved from prior visit. Ecchymosis resolved. Right arm and forearm compartments soft and compressible. Demonstrates active assisted elbow flexion and extension in a short arc of motion with no crepitance. Palpable wire posteriorly without skin at risk for skin breakdown; reducible into deeper position. Demonstrates active wrist flexion and extension and full digit motion actively. Peripheral Pulses: Normal. Neurologic: Intact light touch sensation right upper extremity. IMAGES: Recent Results (from the past 36 hour(s)) XR ELBOW GENERAL 2V AP/LAT RIGHT Narrative AP and lateral views right elbow demonstrate continued reduction of the comminuted olecranon fracture. The tension band construct is intact, with one wire backed out in similar position to prior images. No new fracture identified. ASSESSMENT AND PLAN: 1. Closed fracture of olecranon process of right ulna with routine healing, subsequent encounter - ICD9: V54.12, ICD10: S52.021D Functional Plan: Light weightbearing 1 pound right upper extremity, continued assisted active elbow flexion and extension. Assistance Devices: Compression wrap and sling for comfort as needed. Physical/Occupational Therapy: Reviewed elbow flexion and extension exercises to be performed 15 minutes per half day. Wound Care: Cleaned incision with alcohol and removed all luz marina. Recommended continue daily soap and water washes. Pain Control: No change in pain regimen recommended this office visit. Fragility Fracture: Previously addressed. Additional: None. Return in about 3 weeks (around 05/09/2023). Daryl Cuenca MD documented in this encounter [facility] 04-10-2023 Note HNO ID: [id number] Author: Daryl Cuenca MD Service: ? Author Type: Physician Type: Progress Notes Filed: 04/11/2023 10:41 AM Note Text: ORTHOPAEDIC OFFICE NOTE CHIEF COMPLAINT: right elbow injury HISTORY OF PRESENT ILLNESS: Taylor Velazquez is a 63 year old male who presents for post-operative evaluation after open reduction internal fixation right olecranon fracture 04/02/2023. Has remained non-weight bearing in a splint. Pain has generally improved; taking one-half a pill 1-2 times per day. No new paresthesias right upper extremity, but experienced spasm abduction motion of index finger at times. No new fevers chills nausea or vomiting. No new injury mechanism. Reviewed nursing note and current pain scale. PAST MEDICAL HISTORY Diagnosis Date Diabetes mellitus (HCC) Hyperlipidemia History reviewed. No pertinent surgical history. History reviewed. No pertinent family history. Social History Tobacco Use Smoking status: Never Substance Use Topics Alcohol use: Yes Drug use: Never MEDICATIONS: Current Outpatient Medications Medication Sig Cholecalciferol, Vitamin D3, (VITAMIN D) 25 mcg (1,000 unit) cap Take 1,000 Units by mouth once daily. 2000 units twice a day oxyCODONE-acetaminophen (PERCOCET) 5-325 mg tablet Take 1 tablet by mouth every 8 hours as needed for pain for up to 7 days. rosuvastatin (CRESTOR) 20 mg tablet losartan (COZAAR) 50 mg tablet Take 50 mg by mouth two times a day. NESINA 25 mg tab Take 25 mg by mouth once daily. amLODIPine (NORVASC) 5 mg tablet Take 5 mg by mouth daily at bedtime. TREMFYA 100 mg/mL Every 2 month injection metFORMIN ER (GLUCOPHAGE XR) 500 mg 24 hr tablet Take 1,000 mg by mouth two times a day with meals. carvedilol (COREG) 25 mg tablet Take 25 mg by mouth two times a day with meals. aspirin, enteric coated (ASPIRIN, ENTERIC COATED) 81 mg EC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 Advanced Directives Records FoundNo Advanced Directives Records FoundNo Advanced Directives Records Found Additional Source Comments (unrecognized sect ion and content) No Status Records FoundNo Status Records FoundNo Status Records Found INFORMATION SOURCE (unrecogn ized section and content) DATE CREATED AUTHOR AUTHOR'S ORGANIZ ATION 03/26/2023 [facility] DATE CREATED AUTHOR AUTHOR'S ORGANIZ ATION 05/10/2023 [facility] Reason for Visit (unrecogniz ed section and content) Reason Comments New Specialty Diagnoses / Procedures Referred By Mike mcdermott Referred To Contact Orthopedics / ORTHOPAEDIC SURGERY Diagnoses Rt elbow/ulna fx, [facility] 03/22 Procedures NEW PATIENT Ed, [facility] Daryl Cuenca MD [address] [place] [address] Referral ID Status Reason Start Date Expiration Date Visits Requested Visits Authorized [id number] Outside PCP OON/Self Pay Override 03/28/2023 09/24/2023 1 1 Reason Comments Appointment Reason Comments Patient Question Reason Comments Established Patient Follow Up Pain Post Op Reason Comments Post Op Follow Up Source Comments (unrecognize d section and content) In the event this informatio n is protected by the Federal Confidentiality of Alcohol and Drug Abuse Patient Records regulations: The Federal rules restrict any use of the information to criminally investigate or prosecute any alcohol or drug abuse patient.[facility] the event this information is protected by the Federal Confidentiality of Alcohol and Drug Abuse Patient Records regulations: The Federal rules restrict any use of the information to criminally investigate or prosecute any alcohol or drug abuse patient.[facility] the event this information is protected by the Federal Confidentiality of Alcohol and Drug Abuse Patient Records regulations: The Federal rules restrict any use of the information to criminally investigate or prosecute any alcohol or drug abuse patient.[facility] the event this information is protected by the Federal Confidentiality of Alcohol and Drug Abuse Patient Records regulations: The Federal rules restrict any use of the information to criminally investigate or prosecute any alcohol or drug abuse patient.[facility] ClinicIn the event this information is protected by the Federal Confidentiality of Alcohol and Drug Abuse Patient Records regulations: The Federal rules restrict any use of the information to criminally investigate or prosecute any alcohol or drug abuse patient.[facility] the event this information is protected by the Federal Confidentiality of Alcohol and Drug Abuse Patient Records regulations: The Federal rules restrict any use of the information to criminally investigate or prosecute any alcohol or drug abuse patient.[facility] Hospital[facility] the event this information is protected by the Federal Confidentiality of Alcohol and Drug Abuse Patient Records regulations: The Federal rules restrict any use of the information to criminally investigate or prosecute any alcohol or drug abuse patient.[facility] Hospital[facility] the event this information is protected by the Federal Confidentiality of Alcohol and Drug Abuse Patient Records regulations: The Federal rules restrict any use of the information to criminally investigate or prosecute any alcohol or drug abuse patient.[facility] Care Teams (unrecognized sec tion and content) Coal Carrier Relationship Specialty Start Date End Date Krista Delgado MD [address] [place] [address] PCP - General Family [facility] 04/02/23 Coal Carrier Relationship Specialty Start Date End Date Krista Delgado MD [address] [place] [address] PCP - General [facility] 04/02/23 Coal Carrier Relationship Specialty Start Date End Date Krista Delgado MD [address] [place] [address] PCP - General [facility] 04/02/23 Coal Carrier Relationship Specialty Start Date End Date Krista Delgado MD [address] [place] [address] PCP - General Family Medicine 04/02/23 Coal Carrier Relationship Specialty Start Date End Date Krista Delgado MD [address] [place] [address] PCP - General Family Medicine 04/02/23 FOR RECORDS PERTAINING TO PATIENTS WHO ARE OR HAVE BEEN ENROLLED IN A CHEMICAL DEPENDENCY/SUBSTANCEABUSE PROGRAM, SOME INFORMATION MAY BE OMITTED. This clinical summary was aggregated from multiple sources. Caution should be exercised in using it in the provision of clinical care. This summary normalizes information from multiple sources, and as a consequence, information in this document may materially change the coding, format and clinical context of patient data. In addition, data may be omitted in some cases. CLINICAL DECISIONS SHOULD BE BASED ON THE PRIMARY CLINICAL RECORDS. [facility]. provides no warranty or guarantee of the accuracy or completeness of information in this document.
[2023-05-29 15:34] LABS: Absolute Lymphocyte Count 1.17 X10^3/uL (0.83-4.51); Absolute Neutrophil Count 3.2 X10^3/uL (2.0-7.7); Basophil# 0.03 X10^3/uL; Basophil% 0.6 % (0-1); Eosinophil# 0.23 X10^3/uL; Eosinophils% 4.3 % (0-5); Hematocrit 35.7 % (40-54); Hemoglobin 11.4 g/dL (13.0-16.5); Lymphocyte # 1.17 X10^3/ul (0.83-4.51); Lymphocyte % 21.8 % (19-41); Mean Corp Hgb Conc 31.9 g/dL (32-36); Mean Corpuscular Hgb 29.2 pg (27.0-32.0); Mean Corpuscular Volume 91.3 fL (80-94); Mean Platelet Vol. 10.1 fl (6.2-12.0); Monocyte# 0.71 X10^3/uL; Monocyte% 13.2 % (0-10); NRBC Flagged by Analyzer 0 % (0-5); Neutrophil # 3.21 X10^3/uL (2.7-7.7); Neutrophil % 59.7 % (47-70); Platelet Count 244 K/mm3 (150-450); RBC Distribution Width CV 13.5 % (11.6-14.6); RBC Distribution Width SD 44.7 fl (35.1-43.9); Red Blood Count 3.91 M/mm3 (4.6-6.2); White Blood Count 5.4 K/mm3 (4.4-11.0)
[2023-05-29 16:10] LABS: AST(SGOT) 17 U/L (15-37); Alanine Aminotransfer ALT/SGPT 18 U/L (16-61); Albumin, Serum 3.9 g/dL (3.2-5.0); Alkaline Phosphatase 76 U/L (45-117); Anion Gap 9 (5-15); BUN 12 mg/dL (7-18); BUN/Creat Ratio 12.3 RATIO (10-20); Calcium,Total 9.2 mg/dL (8.5-10.1); Chloride 100 mmol/L (98-107); Creatinine, Serum 0.98 mg/dL (0.70-1.30); EST Glomerular Filtration Rate 83 mL/min (>60); Est Glom Filt Rate - Afr Amer 100 mL/min (>60); Globulin 3.8 g/dL (2.2-4.2); Glucose 153 mg/dL (74-106); Magnesium 1.5 mg/dL (1.6-2.6); PSA,Total - Annual Screen 1.14 ng/mL (0.00-4.00); Potassium 4.3 mmol/L (3.5-5.1); Protein, Total 7.7 g/dL (6.4-8.2); Sodium Level 136 mmol/L (136-145)
== END | disposition home or self-care (01) ==
LOC: MFPLAB 12:05
PROVIDERS: PCP Family Medicine; Visit Provider Family Medicine
DX: Z12.5 Encounter for screening for malignant neoplasm of prostate (principal); I49.3 Ventricular premature depolarization
CPT/HCPCS: 36415; 80053; 83735; 84153; 84443; 85025; G0103

== ENCOUNTER → 2023-06-05 | Outpatient (CLI) | payer OTHER, SELFPAY ==
--- OUTSIDE RECORDS SUMMARY | 2023-06-05 15:12 | XMS RPT_ITS | CCD ---
Author Name Unknown Address [address] [place] [address] Organization [facility] Care Team Providers Care Buckle Attacher Name Role Phone Belkys Clemente Unavailable Unavailable [...] 180.3 cm Daryl Cuenca MD Work Phone: [facility] 05-09-2023 09:47-0500 Body weight 103.42 kg Daryl Cuenca MD Work Phone: [facility] 05-09-2023 09:47-0500 Respiratory rate 18 /min Daryl Cuenca MD Work Phone: [facility] 04-18-2023 09:08-0500 Body height 180.3 cm Daryl Cuenca MD Work Phone: [facility] 04-18-2023 09:08-0500 Body weight 103.42 kg Daryl Cuenca MD Work Phone: [facility] 04-18-2023 09:08-0500 Respiratory rate 18 /min Daryl Cuenca MD Work Phone: [facility] 04-10-2023 09:14-0500 Body height 180.3 cm Daryl Cuecna MD Work Phone: [facility] 04-10-2023 09:14-0500 Body weight 103.42 kg Daryl Cuenca MD Work Phone: [facility] 04-10-2023 09:14-0500 Respiratory rate 18 /min Daryl Cuenca MD Work Phone: [facility] 03-28-2023 09:07-0500 Body height 180.3 cm Daryl Cuenca MD Work Phone: [facility] 03-28-2023 09:07-0500 Body weight 103.42 kg Daryl Cuenca MD Work Phone: [facility] 03-28-2023 09:07-0500 Respiratory rate 18 /min Daryl Cuenca MD Work Phone: [facility] Encounters Encounter Date Encounter Type Care Provider Facility Start: 05-09-2023 End: 05-09-2023 ambulatory DARYL CUENCA Facility:[facility] Start: 05-09-2023 End: 05-09-2023 Patient encounter procedure Daryl Cuenca MD Work Phone: [facility] Procedures Date Procedure Procedure Detail [...] Vaccine ( season) Covid-19 Vaccine ( season) [facility] Start: 01-18-2023 Influenza vaccination Influenza Vacc ine (#1) [facility] Start: 05-20-2022 Depression Assessment Depression Ass essment [facility] Start: 2020 RSV Vaccine (1 - 1-d ose 60+ series) RSV Vaccine (1 - 1-dose 60+ series) [facility] Start: 2015 Prostate Cancer Scre ening Discussion Prostate Cancer Screening Discussion [facility] Start: 2015 Prostate specific an tigen measurement Prostate Cancer Screening Discussion [facility] Start: 2010 Shingrix Vaccine (1 of 2) Shingrix V accine (1 of 2) [facility] Start: 2010 Zoster Vaccines (1 of 2) Zoster Vacc rigoberto (1 of 2) [facility] Start: 2005 Cologuard (FIT-DNA) Cologuard (FIT-D NA) [facility] Start: 2005 Colonoscopy Colonoscopy [facility] Start: 2005 Colorectal Cancer Screening Colorectal Cancer Screening [facility] Start: [address] Colonography [facility] Start: 2005 Diabetes Screening Diabetes Screenin g [facility] Start: 2005 Fecal Occult Blood Fecal Occult Bloo d [facility] Start: 2005 Screening for malign ant neoplasm of colon [facility] Start: 2005 Sigmoidoscopy Sigmoidoscopy [facility] Start: 1995 Lipid 1996 panel - S ming or Plasma Lipid Screening [facility] Start: 1995 Lipid panel Lipid Screening [facility] Start: 1979 DTaP/Tdap/Td Vaccine s (1 - Tdap) DTaP/Tdap/Td Vaccines (1 - Tdap) [facility] Start: 1979 Urine microalbumin profile DTa P,Tdap,Td Vaccine (1 - Tdap) [facility] Start: 1978 Hepatitis C screening Hepatitis C [facility] Start: 1978 Hepatitis C Screening Hepatitis C [facility] Start: 1978 HIV Screening HIV Screening [facility] Start: 1978 HIV screening HIV Screening [facility] Start: 1972 Depression Screening Depression Scre ening [facility] Start: 1961 MMR Vaccines (1 of 1 - Standard series) MMR Vaccines (1 of 1 - Standard series) [facility] Start: 1960 COVID-19 Vaccine (#1) COVID-19 Vacci ne (#1) [facility] Start: 1960 HIV screening HIV Screening [facility] Start: 1960 Lipid panel Lipid Panel [facility] Start: 1960 Screening for malign ant neoplasm of colon [facility] Immunizations Immunization Date Immunization Notes Care Provider Fa cility 04-06-2022 influenza virus vacc ine, unspecified formulation Daryl Cuenca MD Work Phone: [facility] Payers Date Payer Category Payer Unknown JACOB BRASWELL [id number] 2022-Present [phone] [address] [place] [address] Indemnity [id number] 2022 Unknown [id number] Social History Date Type Detail Facility Tobacco smoking status NYIS Tobacco smoking consumption unknown [facility] Start: 1960 Sex Assigned At Not on file [facility] Start: 03-28-2023 End: 05-09-2023 Gender identity Not on file [facility] Start: 06-16-2013 Tobacco smoking status [facility] Never smoked tobacco [facility] Work Phone: Start: 03-28-2023 End: 05-09-2023 Alcohol intake Current drinker of alcohol (finding) [facility] Start: 03-28-2023 End: 05-09-2023 History of Social function [facility] National Score (1-100), lower number is lower risk 67 [facility] Medical Equipment Procedure Code Equipment Code Equipment Origin al Text Equipment Identifier Dates K-Wire [id number] 2pt Dm [id number] Sta rt: 04-02-2023 Stent-04/02/2015 [id number] Start: 04-02-2015 Wire 1.25mm Stainless Steel 280mm [facility] Nonsterile - [id number] Start: 04-02-2023 Clinical Notes 03-25-2023 to 05-09-2023 Daryl Cuenca MD - 05/09/2023 10:00 AM Daryl Schreiber MD - 04/18/2023 10:01 AM Daryl Schreiber MD - 04/10/2023 10:42 AM ESTPatient Instructions Note Date & Type Note Facility 05-09-2023 Note HNO ID: [id number] Author: Daryl Cuenca MD Service: ? Author [...] Follow-up office 4 weeks. Daryl Cuenca MD [facility] 05-09-2023 History of Presen t illness [...] Daryl Cuenca MD documented in this encounter [facility] 04-18-2023 Note HNO ID: [id number] Author: Daryl Cuenca MD Service: ? Author [...] 3 weeks (around 05/09/2023). Daryl Cuenca MD [facility] 04-18-2023 History of Presen t illness [...] Daryl Cuenca MD documented in this encounter [facility] 04-10-2023 Note HNO ID: [id number] Author: Daryl Cuenca MD Service: ? Author [...] 8 days (around 04/18/2023). Daryl Cuenca MD [facility] 04-10-2023 History of Presen t illness Narrative [...] 8 days (around 04/18/2023). Daryl Cuenca MD [facility] documented in this encounter [facility] 2023 Miscellaneous Notes Called and spoke [...] sign. Nora Stovall documented in this encounter [facility] 04-03-2023 Miscellaneous Notes I called PT [...] Hello: This patient should follow-up at the [facility] next Saturday for splint removal. Thanks, NJD documented in this encounter [facility] 04-02-2023 Note HNO ID: [id number] Author: Theresa Cordoba APRN.CORRECTIONAL COOK Service: Anesthesiology Author Type: Nurse Benefits Analyst Type: Anesthesia Procedure Notes Filed: 04/02/2023 9:22 AM Note Text: ANESTHESIOLOGY PROCEDURE NOTE Airway General Information Procedure Start Time/Medication Administration: 04/02/2023 9:09 AM Staffing CORRECTIONAL COOK: Theresa Cordoba APRN.CORRECTIONAL COOK Performed by: LUCINA Indications and Patient Condition [...] no Airway not difficult SIGNATURE: Theresa Cordoba APRN.CORRECTIONAL COOK PATIENT NAME: Taylor Velazquez DATE: April 02, 2023 TIME: 9:21 AM CSN: [id number] [facility] 04-02-2023 Note HNO ID: [id number] Author: Onelia Aguilar RN Service: Forensic/SANE Author Type: Registered Nurse Type: Nursing Progress Note Filed: 04/02/2023 8:46 AM Note Text: Dr. Alexandre notified of MBS of 216. No new orders given. [facility] 03-28-2023 Note HNO ID: [id number] Author: Daryl Cuenca MD Service: ? Author [...] oral Percocet. Has continued extensive hand swelling. [id number]. Accompanied by family. Reviewed nursing note and [...] to facilitate mercedes (more content not included)... [facility] 03-28-2023 History of Presen t illness [...] oral Percocet. Has continued extensive hand swelling. [id number]. Accompanied by family. Reviewed nursing note and [...] 4 - Moderate documented in this encounter [facility] 03-28-2023 Instructions Daryl Cuenca MD - 03/28/2023 9:15 AM EST Office to schedule surgery for right elbow (open reduction internal fixation right olecranon fracture). documented in this encounter [facility] 03-25-2023 Telephone encounter Note Name of Caller: Taylor Contact Reason for Appointment: Pt states he was seen at [facility] Thursday 03/22 for Rt elbow dislocation and fx. Pt states he has called multiple ortho offices and Pt's insurance is out of network everywhere. Pt has [employer] insurance plan. Advised Pt that we are [...] call back. FYI Office Name: Dr King [facility] 03-25-2023 Miscellaneous Notes Name of Caller: Taylor Contact Reason for Appointment: Pt states he was seen at [facility] Thursday 03/22 for Rt elbow dislocation and fx. Pt states he has called multiple ortho offices and Pt's insurance is out of network everywhere. Pt has [employer]ative insurance plan. Advised Pt that we are also out of network but could see Pt as a morrison Pt and could have Pt fill out financial assistance paperwork for OV. Advised that if Pt were to need sx, he may not be eligible [facility] because of having insurance even [...] Name: Dr King documented in this encounter [facility] Diagnosis Olecranon fracture, right, closed, initial encounter- Primary Olecranon fracture, right, closed, initial encounter [facility] Diagnosis Closed fracture of olecranon process of right ulna, initial encounter- Primary [facility] Diagnosis Closed fracture of olecranon process of right ulna, initial encounter- Primary [facility] Diagnosis Closed fracture of olecranon process of right ulna with routine healing, subsequent encounter- Primary [facility] Diagnosis Closed fracture of olecranon process of right ulna with routine healing, subsequent encounter- Primary [facility] Diagnosis Closed fracture of olecranon process of right ulna with routine healing, subsequent encounter- Primary documented in this encounter [facility] for referral (narrative)* Diagnostic Procedure Only (Routine) - Pending Review Specialty Diagnoses / Procedures Referred By Contac t Referred To Contact XR IMAGING Diagnoses Closed fracture of olecranon process of right ulna, initial encounter Procedures XR ELBOW GENERAL 2V AP/LAT RIGHT RADEX ELBOW 2 VIEWS Daryl Cuenca MD [address] [place] [address] [place] [address] Referral ID Status Reason Start Date Expiration Date Visits Requested Visits Authorized [id number] Pending Review Auto-Generat ed Referral 03/28/2023 04/26/[address] [facility] for referral (narrative)* Diagnostic Procedure Only (Routine) - Pending Review Specialty Diagnoses / Procedures Referred By Contac t Referred To Contact XR IMAGING Diagnoses Closed fracture of olecranon process of right ulna with routine healing, subsequent encounter Procedures XR ELBOW GENERAL 2V AP/LAT RIGHT RADEX ELBOW 2 VIEWS Daryl Cuenca MD [address] [place] [address] [place] [address] Referral ID Status Reason Start Date Expiration Date Visits Requested Visits Authorized [id number] Pending Review Auto-Generat ed Referral 3 05/09/2024 1 1 [facility] for referral (narrative)* Diagnostic Procedure Only (Routine) - Pending Review Specialty Diagnoses / Procedures Referred By Contac t Referred To Contact XR IMAGING Diagnoses Closed fracture of olecranon process of right ulna with routine healing, subsequent encounter Procedures XR ELBOW GENERAL 2V AP/LAT RIGHT RADEX ELBOW 2 VIEWS Daryl Cuenca MD [address] [place] [address] [place] [address] Referral ID Status Reason Start Date Expiration Date Visits Requested Visits Authorized [id number] Pending Review Auto-Generat ed Referral 3 05/17/2024 [facility] Diagnostic Procedure Only (Routine) - Pending Review Specialty Diagnoses / Procedures Referred By Mike mcdermott Referred To Contact XR IMAGING Diagnoses Closed fracture of olecranon process of right ulna with routine healing, subsequent encounter Procedures XR ELBOW GENERAL 2V AP/LAT RIGHT RADEX ELBOW 2 VIEWS Daryl Cuenca MD [address] [place] [address] [place] [address] Referral ID Status Reason Start Date Expiration Date Visits Requested Visits Authorized [id number] Pending Review Auto-Generat ed Referral 3 06/07/2024 1 1 [facility] Summary Purpose Family History No Family History [...] DATE CREATED AUTHOR AUTHOR'S ORGANIZ ATION 03/26/2023 [facility] DATE CREATED AUTHOR AUTHOR'S ORGANIZ ATION 05/10/2023 [facility] Reason for Visit (unrecogniz ed section and content) Reason Comments New Specialty Diagnoses / Procedures Referred By Mike mcdermott Referred To Contact Orthopedics / ORTHOPAEDIC SURGERY Diagnoses Rt elbow/ulna fx, [facility] 03/22 Procedures NEW PATIENT Ed, [facility] Daryl Cuenca MD [address] [place] [address] Referral ID Status Reason Start Date Expiration Date Visits Requested Visits Authorized [id number] Outside PCP OON/Self Pay Override 03/28/2023 09/24/2023 [...] or prosecute any alcohol or drug abuse patient.[facility] the event this information is protected by the Federal Confidentiality of Alcohol and Drug Abuse Patient Records regulations: The Federal rules restrict any use of the information to criminally investigate or prosecute any alcohol or drug abuse patient.[facility] the event this information is protected by the Federal Confidentiality of Alcohol and Drug Abuse Patient Records regulations: The Federal rules restrict any use of the information to criminally investigate or prosecute any alcohol or drug abuse patient.[facility] the event this information is protected [...] or prosecute any alcohol or drug abuse patient.[facility] the event this information is protected by the Federal Confidentiality of Alcohol and Drug Abuse Patient Records regulations: The Federal rules restrict any use of the information to criminally investigate or prosecute any alcohol or drug abuse patient.[facility] the event this information is protected by the Federal Confidentiality of Alcohol and Drug Abuse Patient Records regulations: The Federal rules restrict any use of the information to criminally investigate or prosecute any alcohol or drug abuse patient.[facility] the event this information is protected by the Federal Confidentiality of Alcohol and Drug Abuse Patient Records regulations: The Federal rules restrict any use of the information to criminally investigate or prosecute any alcohol or drug abuse patient.[facility] Care Teams (unrecognized sec tion and content) Buckle Attacher Relationship Specialty Start Date End Date Krista Delgado MD [address] [place] [address] PCP - General Family [facility] 04/02/23 Buckle Attacher Relationship Specialty Start Date End Date Krista Delgado MD [address] [place] [address] PCP - General [facility] 04/02/23 Buckle Attacher Relationship Specialty Start Date End Date Krista Delgado MD [address] [place] [address] PCP - General [facility] 04/02/23 Buckle Attacher Relationship Specialty Start Date End Date Krista Delgado MD [address] [place] [address] PCP - General Family Medicine 04/02/23 Buckle Attacher Relationship Specialty Start Date End Date Krista Delgado MD [address] [place] [address] PCP - General Family Medicine 04/02/23 FOR [...] BE BASED ON THE PRIMARY CLINICAL RECORDS. [facility] [employer] [facility]. provides no warranty or guarantee of the accuracy or completeness of information in this document.
[2023-06-05 18:14] LABS: Vitamin B12 251 pg/mL (211-911)
[2023-06-05 18:19] LABS: Ferritin 96 ng/mL (26-388); Iron 87 ug/dL (65-175); Iron Binding Capacity,Total 408 ug/dL (250-450); PERCENT IRON SATURATION 21.3 % (15.0-55.0)
== END | disposition home or self-care (01) ==
LOC: MFPLAB 14:46
PROVIDERS: PCP Family Medicine; Visit Provider Family Medicine
DX: D64.9 Anemia, unspecified (principal)
CPT/HCPCS: 36415; 82607; 82728; 83540; 83550

== ENCOUNTER → 2023-10-02 | Outpatient (CLI) | payer OTHER, SELFPAY ==
--- NOTE | 2023-10-02 09:50 | ECHOD_ITS ---
Reason For Study: SHORTNESS OF BREATH Procedure This was a 2D Doppler, Color Flow transthoracic echocardiogram. Exam performed in department. Left Ventricle Normal LV size. Moderate assymetric septal hypertrophy. Left ventricular systolic function is normal. The estimated ejection fraction is 60 %. Diastolic function is indeterminate. No regional wall motion abnormalities noted. Right Ventricle Normal RV size. Normal systolic function. Atria The left atrium is mildly enlarged. Normal right atrium. Mitral Valve There is Mild focal posterior mitral annular calcification. Mild focal mitral valve calcification of the anterior leaflet. There is no mitral valve stenosis. Mild (1+) mitral valve insufficiency. Tricuspid Valve Normal tricuspid valve. Trivial tricuspid valve insufficiency. Pulmonary artery systolic pressure is 28 mmHg. Aortic Valve Trisinus/trileaflet aortic valve. Mild focal aortic valve thickening. Aortic sclerosis, no stenosis. Pulmonic Valve Normal pulmonic valve. Trivial pulmonic valve insufficiency. Great Vessels Moderately dilated aortic root. Pericardium/Pleural No pericardial effusion. MMode/2D Measurements & Calculations LVIDd: 4.9 cm IVSd: 1.5 cm LVOT diam: 2.4 cm LVIDs: 3.6 cm LVPWd: 1.0 cm LVOT area: 4.6 cm2 RVDd: 4.1 cm FS: 26.9 % Ao root diam: 4.3 cm LAV(MOD-bp): 80.9 ml LVAd ap4: 34.9 cm2 LAV(MOD-bp) Indexed: 36.7 ml/m2 LVLd ap4: 8.8 cm LAV(MOD-sp2): 73.8 ml EDV(MOD-sp4): 109.4 ml LAV(MOD-sp4): 90.3 ml EDV(sp4-el): 117.6 ml LVAs ap4: 20.9 cm2 LVLs ap4: 8.1 cm ESV(MOD-sp4): 48.5 ml ESV(sp4-el): 46.0 ml EF(MOD-sp4): 55.7 % EF(sp4-el): 60.9 % LVAd ap2: 34.9 cm2 SV(MOD-sp4): 60.9 ml SV(MOD-sp2): 60.4 ml LVLd ap2: 8.9 cm EDV(MOD-sp2): 114.7 ml EDV(sp2-el): 116.3 ml LVAs ap2: 21.6 cm2 LVLs ap2: 7.4 cm ESV(MOD-sp2): 54.4 ml ESV(sp2-el): 53.2 ml EF(MOD-sp2): 52.6 % SV(sp4-el): 71.7 ml LA dimension(2D): 4.5 cm LA A4 area: 27.0 cm2 RA A4 area: 16.7 cm2 TAPSE: 1.9 cm Time Measurements MV dec time: 0.20 sec Doppler Measurements & Calculations MV E max molina: 66.8 cm/sec Lat Peak E' Molina: 9.9 cm/sec Med Peak E' Molina: 7.4 cm/sec MV A max molina: 107.4 cm/sec E/E' lat: 6.8 E/E' med: 9.0 MV E/A: 0.62 MV V2 max: 106.0 cm/sec Ao V2 max: 130.6 cm/sec MV max P.5 mmHg MV dec slope: 334.4 cm/sec2 Ao max P.8 mmHg MV V2 mean: 74.7 cm/sec Ao V2 mean: 94.9 cm/sec MV mean P.4 mmHg Ao mean P.1 mmHg MV V2 VTI: 29.0 cm Ao V2 VTI: 30.1 cm AV (velocity ratio): 0.80 MVA(VTI): 3.8 cm2 RAMONE(I,D): 3.6 cm2 RAMONE(V,D): 3.3 cm2 LV V1 max: 95.1 cm/sec SV(LVOT): 109.3 ml PA V2 max: 87.2 cm/sec LV V1 max P.6 mmHg PA max PG (full): 1.2 mmHg LV V1 mean P.1 mmHg LV V1 mean: 68.4 cm/sec LV V1 VTI: 24.0 cm PI end-d molina: 88.5 cm/sec TR max molina: 249.3 cm/sec TR max P.9 mmHg ECHO/Echo Complete Interpretation Summary The estimated ejection fraction is 60 %. Diastolic function is indeterminate. Moderate assymetric septal hypertrophy. The left atrium is mildly enlarged. Mild (1+) mitral valve insufficiency. Aortic sclerosis, no stenosis. Moderately dilated aortic root. Ordering Physician: Balwinder Delgado Referring Physician: Balwinder Delgado Performed By: Nilda Lopez RDCS
== END | disposition home or self-care (01) ==
LOC: CVS 09:50
PROVIDERS: PCP Family Medicine; Referring Provider Family Medicine; Visit Provider Family Medicine
DX: R06.02 Shortness of breath (principal)
CPT/HCPCS: 93306

== ENCOUNTER → 2023-11-06 | Outpatient (CLI) | payer OTHER, SELFPAY ==
[2023-11-06 14:17] LABS: Bacteria 0 SEEN /hpf (None Seen); Mucous, Urine 0 SEEN /hpf (<or=2+); Red Blood Cells-Urine 0 SEEN /hpf (0-5); Squamous Epithelial Cells - UA 0 SEEN /hpf (0-5); White Blood Cells 0 SEEN /hpf (0-5)
[2023-11-06 18:05] LABS: Color, Urine Yellow (Yellow); Glucose, Dipstick 1000 mg/dl (Normal); Ketone-Dipstick 5 mg/dl (Negative); Leukocyte Esterase-Dipstick Negative /ul (Negative); Nitrite-Dipstick Negative (Negative); Occult Blood-Urine Negative /ul (Negative); Protein-Dipstick 30 mg/dl (Negative); Specific Gravity, Urine 1.015 (1.002-1.030); Urine Bilirubin Dipstick Negative (Negative); Urine Clarity Clear (Clear); Urine Urobilinogen Normal (Normal)
[2023-11-06 18:06] LABS: Absolute Lymphocyte Count 1.43 X10^3/uL (0.83-4.51); Absolute Neutrophil Count 4.2 X10^3/uL (2.0-7.7); Basophil# 0.03 X10^3/uL; Basophil% 0.5 % (0-1); Eosinophil# 0.27 X10^3/uL; Eosinophils% 4.1 % (0-5); Hematocrit 39.7 % (40-54); Hemoglobin 12.9 g/dL (13.0-16.5); Lymphocyte # 1.43 X10^3/ul (0.83-4.51); Lymphocyte % 21.6 % (19-41); Mean Corp Hgb Conc 32.5 g/dL (32-36); Mean Corpuscular Hgb 30.3 pg (27.0-32.0); Mean Corpuscular Volume 93.2 fL (80-94); Monocyte# 0.71 X10^3/uL; Monocyte% 10.7 % (0-10); NRBC Flagged by Analyzer 0 % (0-5); Neutrophil # 4.16 X10^3/uL (2.7-7.7); Neutrophil % 62.8 % (47-70); Platelet Count 245 K/mm3 (150-450); RBC Distribution Width CV 12.2 % (11.6-14.6); RBC Distribution Width SD 41.8 fl (35.1-43.9); Red Blood Count 4.26 M/mm3 (4.6-6.2); White Blood Count 6.6 K/mm3 (4.4-11.0)
[2023-11-06 18:28] LABS: Hemoglobin A1c 7.9 % (3.8-5.6); Vitamin D,25 Hydroxy 43.3 ng/mL
[2023-11-06 18:30] LABS: Microalbumin:Creatinine Ratio 409.8 mg/g CRE (<30 mg/g CRE); Protein, Urine (Random) 38.1 mg/dL (<11.9); Protein:Creat Ratio 620 mg/g CRE (0-200)
[2023-11-06 18:32] LABS: AST(SGOT) 22 U/L (15-37); Alanine Aminotransfer ALT/SGPT 24 U/L (16-61); Alkaline Phosphatase 78 U/L (45-117); Anion Gap 7 (5-15); BUN 20 mg/dL (7-18); BUN/Creat Ratio 17.7 RATIO (10-20); Calcium,Total 9.7 mg/dL (8.5-10.1); Chloride 102 mmol/L (98-107); Cholesterol 155 mg/dL (200); Creatinine, Serum 1.13 mg/dL (0.70-1.30); EST Glomerular Filtration Rate 70 mL/min (>60); Est Glom Filt Rate - Afr Amer 84 mL/min (>60); Globulin 4.1 g/dL (2.2-4.2); Glucose 170 mg/dL (74-106); High Density Lipoprotein 76 mg/dL; Potassium 3.8 mmol/L (3.5-5.1); Protein, Total 8.1 g/dL (6.4-8.2); Sodium Level 135 mmol/L (136-145); Thyroid Stim Hormone (TSH) 1.22 uIU/mL (0.358-3.74); Triglycerides 77 mg/dL; Very Low Density Lipoprotein 15 mg/dL (5-40)
[2023-11-07 11:37] LABS: Vitamin B12 264 pg/mL (211-911)
[2023-11-07 11:49] LABS: Ferritin 60 ng/mL (26-388); Iron 85 ug/dL (65-175); Iron Binding Capacity,Total 419 ug/dL (250-450); PERCENT IRON SATURATION 20.3 % (15.0-55.0)
[2023-11-08 13:08] LABS: QNTFERON TB Mitogen Value > 10.00 IU/mL (.); QNTFERON TB Nil Value 0 IU/mL (.); QNTFERON TB1+ Ag Value 0.04 IU/mL (.); QNTFERON TB2+ Ag Value 0.02 IU/mL (.); QNTIFERON TB Positive Criteria Negative (Negative)
== END | disposition home or self-care (01) ==
LOC: MFPLAB 14:13
PROVIDERS: Dermatology; PCP Family Medicine; Visit Provider Family Medicine
DX: L40.0 Psoriasis vulgaris (principal); E11.59 Type 2 diabetes mellitus with other circulatory complications; Z79.899 Other long term (current) drug therapy; E55.9 Vitamin D deficiency, unspecified
CPT/HCPCS: 36415; 80053; 80061; 81001; 82043; 82306; 82570; 82607; 82728; 83036; 83540; 83550; 84156; 84443; 85025; 86480

== ENCOUNTER → 2024-03-11 | Outpatient (CLI) | payer OTHER, SELFPAY ==
--- OUTSIDE RECORDS SUMMARY | 2024-03-11 09:12 | XMS RPT_ITS | CCD ---
Author Organization [facility] Care Team Providers Care Chronometer Assembler Name Role Phone Belkys Clemente Unavailable Unavailable Belkys Clemente Unavailable Unavailable Unavailable Primary Care Provider Unavailyuan dooley Unavailable Primary Care Provider Unavailyuan Delgado MD, Krista Dooley Primary Care Provider Danny NUNN, Krista Dooley Primary Care Provider DARYL CUENCA Attending KRISTA Phillips Primary Care Unavailable DARYL CUENCA Attending KRISTA Phillips Primary Care Unavailable DARYL CUENCA Attending DARYL Caballero Referring DARYL Caballero Attending KRISTA Phillips Primary Care [...] days. 21 tablet 0 2023 04/11/2023 Active Start: 03-28-2023 End: 2023 take 1 tablet by mouth every six hours as needed for pain oxyCODONE-acetaminophen (PERCOCET) 5-325 mg tablet Indications: Closed fracture of olecranon process of right ulna, initial encounter Take 1 tablet by mouth every 6 hours as needed for pain for up to 7 days. 28 tablet 0 03/28/2023 2023 Discontinued Start: 03-22-2023 End: 2023 oxyCODONE-acetaminophen (PER COCET) 5-325 mg tablet Comment on above: Take 1 tablet by maryam th every 6 hours as needed for pain for up to 7 days. Take 1 tablet by maryam th every 8 hours as needed for pain for up to 7 days. alogliptin 25 mg oral tablet (9 sources) Start: 02-11-20 take 1 tablet by mouth once daily NESINA 25 mg tab Take 25 mg by mouth once daily. 0 02/10/2023 Active Comment on above: Take 25 mg by mouth once daily. amLODIPine 5 mg oral tablet (9 sources) Dihydropyridine Calcium Channel Na Start: 12-29-19 take 1 tablet by mouth once daily at bedtime amLODIPine (NORVASC) 5 mg tablet Take 5 mg by mouth daily at bedtime. 0 12/28/2022 Active Comment on above: Take 5 mg by mouth d aily at bedtime. aspirin 81 mg delayed release oral tablet (9 sources) Platelet Aggregation Inhibitor, Nonsteroidal Anti-inflammatory Drug take 1 tablet by mouth once daily aspirin, enteric coated (ASPIRIN, ENTERIC COATED) 81 mg EC tablet Take 81 mg by mouth once daily. 0 Active Comment on above: Take 81 mg by mouth once daily. carvedilol 25 mg oral tablet (9 sources) alpha-Adrenergic Na, beta-Adrenergic Na take 1 tablet by mouth twice daily at mealtime carvedilol (COREG) 25 mg tablet Take 25 mg by mouth two times a day with meals. 0 Active Comment on above: Take 25 mg by mouth two times a day with meals. docusate sodium 100 mg oral tablet (9 sources) Docusate Sodium 100 mg tab Take 1 tablet by mouth as needed. 0 Active Comment on above: Take by mouth. Take 1 tablet by maryam th as needed. 1 ml guselkumab 100 mg/ml prefilled syringe (9 sources) Interleukin-23 Antagonist Start: 02-26-20 TREMFYA 100 mg/mL Every 2 month injection 0 02/25/2023 Active Start: 02-25-2023 TREMFYA 100 mg /mL Comment on above: Every 2 month inject ion 24 hr metFORMIN hydrochloride 500 mg extended release oral tablet (9 sources) Biguanide Start: 3 take 1 tablet by mouth twice daily at mealtime metFORMIN ER (GLUCOPHAGE XR) 500 mg 24 hr tablet Take 1,000 mg by mouth two times a day with meals. 0 03/11/2023 Active Start: 03-11-2023 metFORMIN ER ( GLUCOPHAGE XR) 500 mg 24 hr tablet Comment on above: Take 1,000 mg by maryam two times a day with meals. rosuvastatin calcium 20 mg oral tablet (7 sources) HMG-CoA Reductase Inhibitor Start: 01-24-2023 rosuvastatin (CRESTOR) 20 mg tablet Completed/Discontinued Medications Medication Drug Class(es) Dates Sig (Normalized) Sig (Original) aflibercept (7 sources) Vascular Endothelial Growth Factor Inhibitor End: 04-18-2023 aflibercept (EYLEA INTRAVITREAL) by INTRAVITREAL route. PRN 0 04/18/2023 Discontinued aflibercept (EYL EA INTRAVITREAL) by INTRAVITREAL route. PRN 0 Active Comment on above: by INTRAVITREAL rout e. PRN cholecalciferol 1.25 mg oral capsule (10 sources) Vitamin D Start: 01-17-20 End: 04-10-20 take 1 capsule by mouth every week cholecalciferol, Vitamin D3, 50,000 unit cap capsule Take 1 capsule by mouth once each week. 0 01/16/2013 04/10/2023 Discontinued take 1 capsule by mo [facility] once daily, then take 2 capsules by mouth twice daily Cholecalciferol, Vitamin D3, (VITAMIN D) 25 mcg (1,000 unit) cap Take 1,000 Units by mouth once daily. 2000 units twice a day 0 Active Comment on above: Take 1 capsule by mo ut once each week. Take 1,000 Units by mouth once daily. 2000 units twice a day glimepiride 4 mg oral tablet (1 source) Sulfonylurea Start: 01-17-20 End: 03-28-20 take 1 tablet by mouth once daily at breakfast glimepiride (AMARYL) 4 mg tablet Take 1 tablet by mouth daily with breakfast. 30 tablet 11 01/16/2013 03/28/2023 Discontinued Comment on above: Take 1 tablet by maryam th daily with breakfast. lisinopril 10 mg oral tablet (1 source) Angiotensin Converting Enzyme Inhibitor Start: 01-17-20 End: 03-28-20 take 1 tablet by mouth once daily lisinopril (PRINIVIL) 10 mg tablet Take 1 tablet by mouth once daily. 0 01/16/2013 03/28/2023 Discontinued Comment on above: Take 1 tablet by maryam th once daily. losartan potassium 50 mg oral tablet (8 sources) Angiotensin 2 Receptor Na Start: 03-14-20 End: 03-28-20 losartan (COZAAR) 50 mg tablet Comment on above: Take 50 mg by mouth two times a day. metFORMIN hydrochloride 500 mg / SITagliptin 50 mg oral tablet (1 source) Biguanide, Dipeptidyl Peptidase 4 Inhibitor Start: 01-17-20 End: 03-28-20 take 1 tablet by mouth twice daily at mealtime sitaGLIPtin-metFORM IN (JANUMET) 50-500 mg per tablet Take 1 tablet by mouth twice daily with meals. 0 01/16/2013 03/28/2023 Discontinued Comment on above: Take 1 tablet by maryam th twice daily with meals. simvastatin 10 mg oral tablet (1 source) HMG-CoA Reductase Inhibitor Start: 01-17-20 End: 03-28-20 take 1 tablet by mouth once daily at bedtime simvastatin (ZOCOR) 10 mg tablet Take 1 tablet by mouth daily at bedtime. 0 01/16/2013 03/28/2023 Discontinued Comment on above: Take 1 tablet by maryam th daily at bedtime. Problems Active Problems Problem Classification Problem Date Documented Da te Episodic/Chronic Other connective tissue disease (1 source) Tendinitis of right rotator cuff; Translations: [Other shoulder lesions, right shoulder] 10-10-2023 Episodic Other connective tissue disease (1 source) Other shoulder lesions, right shoulder; Translations: [Tendinitis of right rotator cuff] Onset: 10-10-2023 Episodic Other nervous system disorders (1 source) Other chronic pain; Translations: [Chronic right shoulder pain] Onset: 10-10-2023 Chronic Other non-traumatic joint disorders (1 source) Chronic pain of right upper limb; Translations: [Pain in right shoulder] 10-10-2023 Episodic Other non-traumatic joint disorders (1 source) Pain in right shoulder; Translations: [Chronic right shoulder pain] Onset: 10-10-2023 Episodic Other nutritional; endocrine; and metabolic disorders (7 sources) Obese class I; Translations: [Obesity, unspecified] Onset: 04-02-2023 04-02-2023 Chronic Past or Other Problems Problem Classification Problem Date Documented Date Episodic/Chronic Fracture of upper limb (10 sources) Closed fracture of olecranon process of right ulna; Translations: [Displaced fracture of olecranon process without intraarticular extension of right ulna, initial encounter for closed fracture] Onset: 03-28-2023 03-28-2023 Episodic Results Test Name Value Interpretation Reference Range Facility [facility] 10-10-2023 CNOV Office Visit (AGPOB1 ) TAYLOR LARSON ([id number]) 1960 M Date Time Provider Department 10/10/23 10:30 AM DARYL CUENCA AGPOB1 During your visit today, we recorded the following information about you: Respiration Weight Height 20/minute 102.1 kg 1.803 m Daryl Cuenca MD 10/13/2023 9:19 AM Signed ORTHOPAEDIC OFFICE NOTE CHIEF COMPLAINT: right elbow fracture, right shoulder pain HISTORY OF PRESENT ILLNESS: Taylor Larson is a 63 year old male who presents for reevaluation after open reduction internal fixation right olecranon fracture 04/02/2023. Has persistent right shoulder pain (noted at prior visit) that is more symptomatic than his elbow. Motion and function continue to improve, though limits at shoulder intermittently. No new skin tenting elbow and only notices hardware if he strikes on something. No new injury mechanism. Shoulder pain anterior and superior, can be sharp and aches. No radicular pain to the hand. No associated paresthesias or paralysis. Has not identified motion loss. Reviewed nursing note and current pain scale. PAST MEDICAL HISTORY Diagnosis Date - Diabetes mellitus (HCC) - Hyperlipidemia History reviewed. No pertinent surgical history. History reviewed. No pertinent family history. Social History Tobacco Use - Smoking status: Never Substance Use Topics - Alcohol use: Yes - Drug use: Never MEDICATIONS: Current Outpatient Medications Medication Sig - Cholecalciferol, Vitamin D3, (VITAMIN D) 25 mcg (1,000 unit) cap Take 1,000 Units by mouth once daily. 2000 units twice a day - rosuvastatin (CRESTOR) 20 mg tablet - losartan (COZAAR) 50 mg tablet Take 50 mg by mouth two times a day. - NESINA 25 mg tab Take 25 mg by mouth once daily. - amLODIPine (NORVASC) 5 mg tablet Take 5 mg by mouth daily at bedtime. - TREMFYA 100 mg/mL Every 2 month injection - metFORMIN ER (GLUCOPHAGE XR) 500 mg 24 hr tablet Take 1,000 mg by mouth two times a day with meals. - carvedilol (COREG) 25 mg tablet Take 25 mg by mouth two times a day with meals. - aspirin, enteric coated (ASPIRIN, ENTERIC COATED) 81 mg EC tablet Take 81 mg by mouth once daily. - Docusate Sodium 100 mg tab Take 1 tablet by mouth as needed. No current facility-administered medications for this visit. ALLERGIES: ALLERGIES No Known Allergies PHYSICAL EXAMINATION: Resp 20 Ht 5' 11 (1.80m) Wt 225 lb (102.1kg) BMI 31.39 kg/(m2). General Appearance: Well appearing, alert, in no acute distress, well-hydrated, well nourished. Skin: Skin color, texture, turgor normal, no suspicious rashes or lesions. Extremities: Right shoulder with no deformity. Tender to palpation over subacromial bursa and long head biceps. No tenderness over acromion, AC joint, clavicle or spine of scapula. Right arm and forearm compartments soft and compressible. Demonstrates ability to resist supraspinatus testing with 4+/5 strength and mild discomfort. Resisted ER 4+/5 strength and mild discomfort. Resisted IR with 5/5 strength, no pain. Active full forward flexion shoulder, able to abduct 90 degrees with mild discomfort. Demonstrates active elbow flexion to full and extension within 5 degrees of full. Minimal tenderness to palpation over tension band hardware. Full active forearm pronation and supination. Peripheral Pulses: Normal. Neurologic: Intact light touch sensation right upper extremity. IMAGES: Recent Results (from the past 36 hour(s)) XR SHOULDER GENERAL 3V OR MORE AP/TRUE AP/OTHER RIGHT Narrative Three views right shoulder demonstrate no obvious bone abnormality with suggestion of mild to moderate right acromioclavicular arthritis. The glenohumeral joint is well-maintained in multiple planes. Humeral head is not high riding. No acute fracture identified. XR ELBOW GENERAL 2V AP/LAT RIGHT Narrative AP and lateral views right elbow demonstrate continued bone remodeling about the comminuted olecranon fracture. The radiocapitellar joint and ulnohumeral joint are well-maintained in both planes. There is less prominence of the K wire compared to prior images. No new fracture identified. ASSESSMENT AND PLAN: 1. Closed fracture of olecranon process of right ulna with routine healing, subsequent encounter - ICD9: V54.12, ICD10: S52.021D (primary diagnosis) 2. Chronic right shoulder pain - ICD9: 719.41, 338.29, ICD10: M25.511, G89.29 3. Tendinitis of right rotator cuff - ICD9: 726.10, ICD10: M75.81 Functional Plan: No restrictions with weight bearing or range of motion right upper extremity, symptom limited. Assistance Devices: None. Physical/Occupational Therapy: None currently. Wound Care: None. Pain Control: [id number] medication as needed; discussed corticosteroid injection of the subacromial bursa to address symptoms and follow for resolution, declined at this (more content not included)... Normal [facility] No Panel Informationon 10-09 [facility] XR Elbow - right AP and Late ralon 10-10-2023 AP and lateral views right elbow demonstrate continued bone remodeling about the comminuted olecranon fracture. The radiocapitellar joint and ulnohumeral joint are well-maintained in both planes. There is less prominence of the K wire compared to prior images. No new fracture identified. [facility] Radiology Study observation (narrative) [facility] XR Shoulder - right 3 Viewso n 10-10-2023 Three views right shoulder demonstrate no obvious bone abnormality with suggestion of mild to moderate right acromioclavicular arthritis. The glenohumeral joint is well-maintained in multiple planes. Humeral head is not high riding. No acute fracture identified. [facility] Radiology Study observation (narrative) [facility] CNOVon 06-06-2023 CNOV Office Visit (AGPOB1 ) TAYLOR LARSON ([id number]) 1960 M Date Time Provider Department 06/06/23 10:00 AM [facility] During your visit today, we recorded the following information about you: Respiration Weight Height 20/minute 102.1 kg 1.803 m Daryl Cuenca MD 06/06/2023 10:15 AM Signed ORTHOPAEDIC OFFICE NOTE CHIEF COMPLAINT: right elbow injury HISTORY OF PRESENT ILLNESS: Taylor Larson is a 63 year old male who presents for reevaluation after open reduction internal fixation right olecranon fracture 04/02/2023. Continues to work on range of motion right upper extremity with functional gains. Notes some increased shoulder soreness based on position of the forearm. Notices prominent hardware previously identified without worsening. Extremity shakes at times when using a fork. Has some residual numbness around the surgical incision and mild at the index finger. No new injury mechanism. Reviewed nursing note [...] ALLERGIES No Known Allergies PHYSICAL EXAMINATION: Resp 20 Ht 5' 11 (1.80m) Wt 225 lb (102.1kg) BMI 31.39 kg/(m2). General Appearance: Well appearing, alert, in no acute distress, well-hydrated, well nourished. Skin: Skin color, texture, turgor normal, no suspicious rashes or lesions. Extremities: Right elbow with no new deformity. Resolved edema. No tenderness to palpation over posterior more prominent wire. Right arm and forearm compartments soft and compressible. Demonstrates near full right elbow flexion and extension within 10 degrees. No crepitance with motion. Able to touch face and top of head with right hand. Full forearm pronation and supination actively. Peripheral Pulses: Normal. Neurologic: Intact light touch sensation right upper extremity, mild decrease along radial index finger. IMAGES: Recent Results (from the past 36 hour(s)) XR ELBOW GENERAL 2V AP/LAT RIGHT Narrative AP and lateral views right elbow demonstrate bone consolidation within the olecranon fracture region. Radiocapitellar and ulnohumeral joints maintained. Continued prominence of one wire with no other hardware change. No new fracture identified. ASSESSMENT AND PLAN: 1. Closed fracture of olecranon process of right ulna with routine healing, subsequent encounter - ICD9: V54.12, ICD10: S52.021D Functional Plan: Advance weightbearing and range of motion as symptoms allow. Discussed caution with repetitive activities such as swinging a hammer and high impact activities such as using shotgun. Recommended waiting 4 more weeks for these activities. Assistance Devices: None. Physical/Occupational Therapy: Independent exercise as above. Wound Care: None. Pain Control: No change in pain regimen recommended this office visit. Fragility Fracture: On supplementation. Additional: None. Return to office for follow-up in 8 weeks. Daryl Cuenca MD Allergies As of Date: 06/06/2023 (No Known Allergies) Date Reviewed: 06/06/2023 Reviewed by: Kathy Mackenzie MA - Fully Assessed Reason for Visit: Established Patient [175] Follow Up [171] Established Patient [175] Follow Up [171] Established Patient [175] Primary Visit Diagnosis:Closed fracture of olecranon process of right ulna with routine healing, subsequent encounter [Y99.829T] Order(s):XR ELBOW GENERAL 2V AP/LAT RIGHT [[id number]] Order #: [id number] Prescriptions as of 06/06/2023 - Cholecalciferol, Vitamin D3, (VITAMIN D) 25 mcg (1,000 unit) cap Take 1,000 Units by mouth once daily. 2000 units twice a day - rosuvastatin (CRESTOR) 20 mg tablet - losartan (COZAAR) 50 mg tablet Take 50 mg by mouth two times a day. (more content not included)... Normal [facility] CNOVon 05-09-2023 CNOV Office Visit (AGPOB1 ) TAYLOR LARSON ([id number]) 1960 M Date Time Provider Department 05/09/23 10:00 AM DARYL CUENCA AGPOB1 During your visit today, we recorded the following information about you: Respiration Weight Height 18/minute 103.4 kg 1.803 m Daryl Cuenca MD 05/09/2023 10:28 AM Signed ORTHOPAEDIC OFFICE NOTE CHIEF COMPLAINT: right elbow injury HISTORY OF PRESENT ILLNESS: Taylor Larson is a 63 year old male who [...] Follow-up office 4 weeks. Daryl Cuenca MD Allergies As of Date: 05/09/2023 (No Known Allergies) Date Reviewed: 05/09/2023 Reviewed by: Daryl Cuenca MD - Fully Assessed Reason for Visit: Established Patient [175] Follow Up [171] Pain [78] Post Op [174] Primary Visit Diagnosis:Closed fracture of olecranon process of right ulna with routine healing, subsequent encounter [S52.021D] Order(s):XR ELBOW GENERAL 2V AP/LAT RIGHT [[id number]] Order #: [id number] Prescriptions as of 05/09/2023 - Cholecalciferol, Vitamin D3, (VITAMIN D) 25 mcg (1,000 unit) cap Take 1,000 Units by mouth once daily. 2000 units twice a day - rosuvastatin (CRESTOR) 20 mg tablet - losartan (COZAAR) 50 mg tablet Take 50 mg by mouth two times a day. - NESINA 25 mg tab Take 25 mg by mouth once daily. - amLODIPine (NORVASC) 5 mg tablet Take 5 mg by mouth daily at bedtime. - TREMFYA 100 mg/mL (more content not included)... Normal [facility] CNOVon 04-18-2023 [facility] Office Visit (AGPOB1 ) TAYLOR LARSON ([id number]) 1960 M Date Time Provider Department 04/18/23 9:45 AM DARYL CUENCA AGPOB1 During your visit today, we recorded the following information about you: Respiration Weight Height 18/minute 103.4 kg 1.803 m Daryl Cuenca MD 04/18/2023 10:05 AM Signed ORTHOPAEDIC OFFICE NOTE CHIEF COMPLAINT: Right elbow injury HISTORY OF PRESENT ILLNESS: Taylor Larson is a 63 year old male who [...] 3 weeks (around 05/09/2023). Daryl Cuenca MD Allergies As of Date: 04/18/2023 (No Known Allergies) Date Reviewed: 04/18/2023 Reviewed by: Marilyn Pace - Fully Assessed Reason for Visit: Post Op [174] Follow Up [171] Primary Visit Diagnosis:Closed fracture of olecranon process of right ulna with routine healing, subsequent encounter [S52.021D] Order(s):XR ELBOW GENERAL 2V AP/LAT RIGHT [[id number]] Order #: [id number] Prescriptions as of 04/18/2023 - Cholecalciferol, Vitamin D3, (VITAMIN D) 25 mcg (1,000 unit) cap Take 1,000 Units by mouth once daily. 2000 units twice a day - rosuvastatin (CRESTOR) 20 mg tablet - losartan (COZAAR) 50 mg tablet Take 50 mg by mouth two times a day. - NESINA 25 mg tab Take 25 mg by mouth once daily. - a (more content not included)... Normal [facility] CNOVon 04-10-2023 CNOV Office Visit (AGPOB1 ) TAYLOR LARSON ([id number]) 1960 M Date Time Provider Department 04/10/23 9:30 AM DARYL CUENCA POB1 During your visit today, we recorded the following information about you: Respiration Weight Height 18/minute 103.4 kg 1.803 m Daryl Cuenca MD 04/11/2023 10:41 AM Signed ORTHOPAEDIC OFFICE NOTE CHIEF COMPLAINT: right elbow injury HISTORY OF PRESENT ILLNESS: Taylor Larson is a 63 year old male who [...] 8 days (around 04/18/2023). Daryl Cuenca MD MDM Allergies As of Date: 04/10/2023 (No Known Allergies) Date Reviewed: 04/10/2023 Reviewed by: Daryl Cuenca MD - Fully Assessed Reason for Visit: Established Patient [175] Follow Up [171] Pain [78] Post Op [174] Primary Visit Diagnosis:Closed fracture of olecranon process of right ulna with routine healing, subsequent encounter [S51.031N] Order(s):XR ELBOW GENERAL 2V AP/LAT RIGHT [[id number]] Order #: [id number] Prescriptions as of 04/11/2023 - Cholecalciferol, Vitamin D3, (VITAMIN D) 25 mcg (1,000 unit) cap Take 1,000 Units by mouth once daily. 2000 units twice a day - oxyCODONE-aceta (more content not included)... Normal [facility] 2023 [facility] Telephone (AGPOB1) TAYLOR LARSON ([id number]) 1960 M Date Time Provider Department 04/04/23 DARYL CUENCA AGB1 During your visit today, we recorded the following information about you: Daryl Cuenca MD 2023 10:48 AM Signed ----- Message from Shilpi Pham sent at [...] in a refill for you to sign. Thanks, Nora Cuenca, Daryl Wilkins MD 2023 10:51 AM Signed Placed order for percocet for pain control, one every 8 hours. He can use over the counter anti-inflammatory medication between doses, will benefit swelling. MD Vero Serrano Christina 2023 11:20 AM Signed Called and spoke with the patient and informed him of what the doctor said. He understood. Shilpi Pham 2023 11:20 AM Allergies As of Date: 2023 (No Known Allergies) Date Reviewed: 04/02/2023 Reviewed by: Natalia Paiz RN - Fully Assessed Reason for Visit: Patient Question [1477] Primary Visit Diagnosis:Closed fracture of olecranon process of right ulna, initial encounter [S52.021A] Prescriptions as of 2023 - oxyCODONE-acetaminophen (PERCOCET) 5-325 mg tablet Take 1 tablet by mouth every 8 hours as needed for pain for up to 7 days. - rosuvastatin (CRESTOR) 20 mg tablet - losartan (COZAAR) 50 mg tablet Take 50 mg by mouth two times a day. - NESINA 25 mg tab Take 25 mg by mouth once daily. - amLODIPine (NORVASC) 5 mg tablet Take 5 mg by mouth daily at bedtime. - TREMFYA 100 mg/mL Every 2 month injection - metFORMIN ER (GLUCOPHAGE XR) 500 mg 24 hr tablet Take 1,000 mg by mouth two times a day with meals. - carvedilol (COREG) 25 mg tablet Take 25 mg by mouth two times a day with meals. - aspirin, enteric coated (ASPIRIN, ENTERIC COATED) 81 mg EC tablet Take 81 mg by mouth once daily. - aflibercept (EYLEA INTRAVITREAL) by INTRAVITREAL route. PRN - Docusate Sodium 100 mg tab Take 1 tablet by mouth as needed. - cholecalciferol, Vitamin D3, 50,000 unit cap capsule Take 1 capsule by mouth once each week. Problem List As Of Date 2023 Noted Resolved Obesity, Class I, BMI 30-34.9 [E66.9] 04/02/2023 Prescriptions ordered this encounter Disp Refills Start End OXYCODONE-ACETAMINOPHEN 5 MG-325 MG * 21 t* 0 2023 2023 Class: Print RX Route: ORAL Sig: Take 1 tablet by mouth every 8 hours as needed for pain for up to 7 days. Medications Discontinued During This Encounter Prescriptions - oxyCODONE-acetaminophen (PERCOCET) 5-325 mg tablet (Discontinued) - oxyCODONE-acetaminophen (PERCOCET) 5-325 mg tablet (Discontinued) Take 1 tablet by mouth every 6 hours as needed for pain for up to 7 days. Encounter Status:Closed by DARYL CUENCA on 04/04/23 [facility] 04-03-2023 CNPN Telephone (AGPOB1) NEOTAYLOR Balderas ([id number]) 1960 M Date Time Provider Department 04/03/23 DARYL CUENCA AGPOB1 During your visit today, we recorded the following information about you: Ana Maria Mortensen 04/03/2023 1:42 PM Addendum I called PT and scheduled them for splint removal per Alvaro's request. Ana Maria Mortensen ----- Message from Shilpi Pham sent at 04/02/2023 3:42 PM EST ----- Regarding: FW: office appointment Here is the staff message. ----- Message ----- From: Daryl Cuenca MD Sent: 04/02/2023 11:12 AM EST To: Shilpi Pham Subject: office appointment Hello: This patient should follow-up at the [facility] next Saturday for splint removal. Thanks, NJD Allergies As of Date: 04/03/2023 (No Known Allergies) Date Reviewed: 04/02/2023 Reviewed by: Natalia Paiz RN - Fully Assessed Reason for Visit: Appointment [[id number]] Prescriptions as of 04/03/2023 - rosuvastatin (CRESTOR) 20 mg tablet - losartan (COZAAR) 50 mg tablet Take 50 mg by mouth two times a day. - NESINA 25 mg tab Take 25 mg by mouth once daily. - oxyCODONE-acetaminophen (PERCOCET) 5-325 mg tablet - amLODIPine (NORVASC) 5 mg tablet Take 5 mg by mouth daily at bedtime. - TREMFYA 100 mg/mL Every 2 month injection - metFORMIN ER (GLUCOPHAGE XR) 500 mg 24 hr tablet Take 1,000 mg by mouth two times a day with meals. - carvedilol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 [id number]-vuz-[id number] medication as needed; discussed corticosteroid injection of the subacromial bursa to address symptoms and follow for resolution, declined at this time but will consider. Fragility Fracture: Previously addressed, on supplementation. Additional: None. Return if symptoms worsen or fail to improve. Daryl Cuenca MD Medical Decision Making: Problems: Low: Stable chronic illness Moderate: New pr (more content not included)... [facility] 10-10-2023 History of Presen t illness Narrative Images from the original note were not included. ORTHOPAEDIC OFFICE NOTE CHIEF COMPLAINT: right elbow fracture, right shoulder pain HISTORY OF PRESENT ILLNESS: Taylor Larson is a 63 year old male who presents for reevaluation after open reduction internal fixation right olecranon fracture 04/02/2023. Has persistent right shoulder pain (noted at prior visit) that is more symptomatic than his elbow. Motion and function continue to improve, though limits at shoulder intermittently. No new skin tenting elbow and only notices hardware if he strikes on something. No new injury mechanism. Shoulder pain anterior and superior, can be sharp and aches. No radicular pain to the hand. No associated paresthesias or paralysis. Has not identified motion loss. Reviewed nursing note and current pain scale. [...] ALLERGIES No Known Allergies PHYSICAL EXAMINATION: Resp 20 Ht 5' 11 (1.80m) Wt 225 lb (102.1kg) BMI 31.39 kg/(m^2). General Appearance: Well appearing, alert, in no acute distress, well-hydrated, well nourished. Skin: Skin color, texture, turgor normal, no suspicious rashes or lesions. Extremities: Right shoulder with no deformity. Tender to palpation over subacromial bursa and long head biceps. No tenderness over acromion, AC joint, clavicle or spine of scapula. Right arm and forearm compartments soft and compressible. Demonstrates ability to resist supraspinatus testing with 4+/5 strength and mild discomfort. Resisted ER 4+/5 strength and mild discomfort. Resisted IR with 5/5 strength, no pain. Active full forward flexion shoulder, able to abduct 90 degrees with mild discomfort. Demonstrates active elbow flexion to full and extension within 5 degrees of full. Minimal tenderness to palpation over tension band hardware. Full active forearm pronation and supination. Peripheral Pulses: Normal. Neurologic: Intact light touch sensation right upper extremity. IMAGES: Recent Results (from the past 36 hour(s)) XR SHOULDER GENERAL 3V OR MORE AP/TRUE AP/OTHER RIGHT Narrative Three views right shoulder demonstrate no obvious bone abnormality with suggestion of mild to moderate right acromioclavicular arthritis. The glenohumeral joint is well-maintained in multiple planes. Humeral head is not high riding. No acute fracture identified. XR ELBOW GENERAL 2V AP/LAT RIGHT Narrative AP and lateral views right elbow demonstrate continued bone remodeling about the comminuted olecranon fracture. The radiocapitellar joint and ulnohumeral joint are well-maintained in both planes. There is less prominence of the K wire compared to prior images. No new fracture identified. ASSESSMENT AND PLAN: 1. Closed fracture of olecranon process of right ulna with routine healing, subsequent encounter - ICD9: V54.12, ICD10: S52.021D (primary diagnosis) 2. Chronic right shoulder pain - ICD9: 719.41, 338.29, ICD10: M25.511, G89.29 3. Tendinitis of right rotator cuff - ICD9: 726.10, ICD10: M75.81 Functional Plan: No restrictions with weight bearing or range of motion right upper extremity, symptom limited. Assistance Devices: None. Physical/Occupational Therapy: None currently. Wound Care: None. Pain Control: Truw-edd-[id number] medication as needed; discussed corticosteroid injection of the subacromial bursa to address symptoms and follow for resolution, declined at this time but will consider. Fragility Fracture: Previously addressed, on supplementation. Additional: None. Return if symptoms worsen or fail to improve. Daryl Cuenca MD Medical Decision Making: Problems: Low: Stable chronic illness Moderate: New problem with uncertain prognosis Data: Unique test result(s) reviewed: 2 Unique test(s) ordered: 2 Risk: Low: Low risk from testing/treatment Medical Decision Making Level: 4 - Moderate documented in this encounter [facility] 06-06-2023 Note HNO ID: [id number] Author: DARYL CUENCA MD Service: ? Author Type: Physician Type: Progress Notes Filed: 06/06/2023 10:15 Note Text: ORTHOPAEDIC OFFICE NOTE CHIEF COMPLAINT: right elbow injury HISTORY OF PRESENT ILLNESS: Taylor Larson is a 63 year old male who presents for reevaluation after open reduction internal fixation right olecranon fracture 04/02/2023. Continues to work on range of motion right upper extremity with functional gains. Notes some increased shoulder soreness based on position of the forearm. Notices prominent hardware previously identified without worsening. Extremity shakes at times when using a fork. Has some residual numbness around the surgical incision and mild at the index finger. No new injury mechanism. Reviewed nursing note [...] ALLERGIES No Known Allergies PHYSICAL EXAMINATION: Resp 20 Ht 5' 11 (1.80m) Wt 225 lb (102.1kg) BMI 31.39 kg/(m2). General Appearance: Well appearing, alert, in no acute distress, well-hydrated, well nourished. Skin: Skin color, texture, turgor normal, no suspicious rashes or lesions. Extremities: Right elbow with no new deformity. Resolved edema. No tenderness to palpation over posterior more prominent wire. Right arm and forearm compartments soft and compressible. Demonstrates near full right elbow flexion and extension within 10 degrees. No crepitance with motion. Able to touch face and top of head with right hand. Full forearm pronation and supination actively. Peripheral Pulses: Normal. Neurologic: Intact light touch sensation right upper extremity, mild decrease along radial index finger. IMAGES: Recent Results (from the past 36 hour(s)) XR ELBOW GENERAL 2V AP/LAT RIGHT Narrative AP and lateral views right elbow demonstrate bone consolidation within the olecranon fracture region. Radiocapitellar and ulnohumeral joints maintained. Continued prominence of one wire with no other hardware change. No new fracture identified. ASSESSMENT AND PLAN: 1. Closed fracture of olecranon process of right ulna with routine healing, subsequent encounter - ICD9: V54.12, ICD10: S52.021D Functional Plan: Advance weightbearing and range of motion as symptoms allow. Discussed caution with repetitive activities such as swinging a hammer and high impact activities such as using shotgun. Recommended waiting 4 more weeks for these activities. Assistance Devices: None. Physical/Occupational Therapy: Independent exercise as above. Wound Care: None. Pain Control: No change in pain regimen recommended this office visit. Fragility Fracture: On supplementation. Additional: None. Return to office for follow-up in 8 weeks. Daryl Cuenca MD [facility] 05-09-2023 Note HNO ID: [id number] Author: Daryl Cuenca MD Service: ? Author Type: Physician Type: Progress Notes Filed: 05/09/2023 10:28 AM Note Text: ORTHOPAEDIC OFFICE NOTE CHIEF COMPLAINT: right elbow injury HISTORY OF PRESENT ILLNESS: Taylor Larson is a 63 year old male who [...] office 4 weeks. Daryl Cuenca MD [facility] 05-09-2023 History of Presen t illness Narrative Images from the original note were not included. ORTHOPAEDIC OFFICE NOTE CHIEF COMPLAINT: right elbow injury HISTORY OF PRESENT ILLNESS: Taylor Larson is a 63 year old male who [...] Daryl Cuenca MD documented in this encounter [facility] 04-18-2023 Note HNO ID: [id number] Author: Daryl Cuenca MD Service: ? Author Type: Physician Type: Progress Notes Filed: 04/18/2023 10:05 AM Note Text: ORTHOPAEDIC OFFICE NOTE CHIEF COMPLAINT: Right elbow injury HISTORY OF PRESENT ILLNESS: Taylor Larson is a 63 year old male who [...] weeks (around 05/09/2023). Daryl Cuenca MD [facility] 04-18-2023 History of Presen t illness Narrative Images from the original note were not included. ORTHOPAEDIC OFFICE NOTE CHIEF COMPLAINT: Right elbow injury HISTORY OF PRESENT ILLNESS: Taylor Larson is a 63 year old male who [...] Daryl Cuenca MD documented in this encounter [facility] 04-10-2023 Note HNO ID: [id number] Author: Daryl Cuenca MD Service: ? Author Type: Physician Type: Progress Notes Filed: 04/11/2023 10:41 AM Note Text: ORTHOPAEDIC OFFICE NOTE CHIEF COMPLAINT: right elbow injury HISTORY OF PRESENT ILLNESS: Taylor Larson is a 63 year old male who [...] (around 04/18/2023). Daryl Cuenca MD [facility] 04-10-2023 History of Presen t illness Narrative ORTHOPAEDIC OFFICE NOTE CHIEF COMPLAINT: right elbow injury HISTORY OF PRESENT ILLNESS: Taylor Larson is a 63 year old male who [...] 8 days (around 04/18/2023). Daryl Cuenca MD MDM documented in this encounter [facility] 2023 Miscellaneous Notes Called and spoke with [...] sign. Nora Stovall documented in this encounter [facility] 04-03-2023 Miscellaneous Notes I called PT and scheduled them for splint removal per Alvaro's request. Ana Maria Mortensen ----- Message from Shilpi Pham sent at 04/02/2023 3:42 PM EST ----- Regarding: FW: office appointment Here is the staff message. ----- Message ----- From: Daryl Cuenca MD Sent: 04/02/2023 11:12 AM EST To: Shilpi Pham Subject: office appointment Hello: This patient should follow-up at the [facility] next Saturday for splint removal. ABDELRAHMAN Stovall documented in this encounter [facility] 04-02-2023 Note HNO ID: [id number] Author: Theresa Cordoba APRN.MAINTENANCE DEPARTMENT TECHNICIAN Service: Anesthesiology Author Type: Nurse Cooler Servicer Type: Anesthesia Procedure Notes Filed: 04/02/2023 9:22 AM Note Text: ANESTHESIOLOGY PROCEDURE NOTE Airway General Information Procedure Start Time/Medication Administration: 04/02/2023 9:09 AM Staffing MAINTENANCE DEPARTMENT TECHNICIAN: Theresa Cordoba APRN.MAINTENANCE DEPARTMENT TECHNICIAN Performed by: LUCINA Indications and Patient [...] laryngoscopy Endotracheal tube insertion site: oral Blade: Mortensen Blade size: #2 ETT size (mm): 7.5 Measured from: lips Measurement (cm): 23 Placement verified by: chest auscultation and capnometry Cormack-Lehane Classification: grade I - full view of glottis Number of attempts at approach: 1 Failed airway: no Airway not difficult SIGNATURE: Theresa Crodoba APRN.MAINTENANCE DEPARTMENT TECHNICIAN PATIENT NAME: Taylor Larson DATE: April 02, 2023 TIME: 9:21 AM CSN: [id number] [facility] 04-02-2023 Note HNO ID: [id number] Author: Onelia Aguilar RN Service: Forensic/SANE Author Type: Registered Nurse Type: Nursing Progress Note Filed: 04/02/2023 8:46 AM Note Text: Dr. Alexandre notified of [facility] of 216. No new orders given. [facility] 03-28-2023 Note HNO ID: [id number] Author: Daryl Cuenca MD Service: ? Author Type: Physician Type: Progress Notes Filed: 03/28/2023 10:30 AM Note Text: ORTHOPAEDIC OFFICE NOTE CHIEF COMPLAINT: Right elbow injury HISTORY OF PRESENT ILLNESS: Taylor Larson is a 62 year old male who [...] oral Percocet. Has continued extensive hand swelling. Ibagx-ulna-bptcbdrf. Accompanied by family. Reviewed nursing note and [...] facilitate mercedes (more content not included)... [facility] 03-28-2023 History of Presen t illness Narrative Images from the original note were not included. ORTHOPAEDIC OFFICE NOTE CHIEF COMPLAINT: Right elbow injury HISTORY OF PRESENT ILLNESS: Taylor Larson is a 62 year old male who [...] oral Percocet. Has continued extensive hand swelling. [id number]-qmpn-gvhfnlmi. Accompanied by family. Reviewed nursing note and [...] 4 - Moderate documented in this encounter [facility] 03-28-2023 Instructions Daryl Cuenca MD - 03/28/2023 9:15 AM EST Office to schedule surgery for right elbow (open reduction internal fixation right olecranon fracture). documented in this encounter [facility] 03-25-2023 Telephone encounter Note Name of Caller: Taylor Contact Reason for Appointment: Pt states he was seen at [place] [facility] Thursday 03/22 for Rt elbow dislocation and fx. Pt states he has called multiple ortho offices and Pt's insurance is out of network everywhere. Pt has [employer] insurance plan. Advised Pt that we are also out of network but could see Pt as a morrison Pt and could have Pt fill out financial assistance paperwork for OV. Advised that if Pt were to need sx, [facility] may not be [facility] because of having insurance even [...] a call back. FYI Office Name: Dr Mortensen/[place] [facility] 03-25-2023 Miscellaneous Notes Name of Caller: Taylor Contact Reason for Appointment: Pt states he was seen at [place] [facility] Thursday 03/22 for Rt elbow dislocation and fx. Pt states he has called multiple ortho offices and Pt's insurance is out of network everywhere. Pt has [employer] insurance plan. Advised Pt that we are also out of network but could see Pt as a morrison Pt and could have Pt fill out financial assistance paperwork for OV. Advised that if Pt were to need sx, he may not be eligible [facility] because of having insurance even [...] a call back. FYI Office Name: Dr Mortensen/[place] documented in this encounter [facility] Evaluation note Diagnosis Closed fracture of olecranon process of right ulna, initial encounter- Primary Olecranon fracture, right, closed, initial encounter [facility] Olecranon fracture, right, closed, initial encounter- Primary Olecranon fracture, right, closed, initial encounter [facility] Closed fracture of olecranon process of right ulna, initial encounter- Primary [facility] Diagnosis Closed fracture of olecranon process of right ulna, initial encounter- Primary [facility] Diagnosis Closed fracture of olecranon process of right ulna with routine healing, subsequent encounter- Primary [facility] Diagnosis Closed fracture of olecranon process of right ulna with routine healing, subsequent encounter- Primary [facility] Diagnosis Closed fracture of olecranon process of right ulna with routine healing, subsequent encounter- Primary [facility] Diagnosis Closed fracture of olecranon process of right ulna with routine healing, subsequent encounter- Primary Chronic right shoulder pain Pain in joint, shoulder region Tendinitis of right rotator cuff Disorders of bursae and tendons in shoulder region, unspecified documented in this encounter [facility] for referral (narrative)* Diagnostic Procedure Only (Routine) - Pending Review Specialty Diagnoses / Procedures Referred By Contac t Referred To Contact XR IMAGING Diagnoses Closed fracture of olecranon process of right ulna, initial encounter Procedures XR ELBOW GENERAL 2V AP/LAT RIGHT RADEX ELBOW 2 VIEWS Daryl Cuenca MD [address] [place] [address] [place] [id number] [place] [address] Referral ID Status Reason Start Date Expiration Date Visits Requested Visits Authorized [id number] Pending Review Auto-Generat ed Referral 03/28/2023 04/26/2024 1 1 [facility] for referral (narrative)* Diagnostic Procedure Only (Routine) - Pending Review Specialty Diagnoses / Procedures Referred By Contac t Referred To Contact XR IMAGING Diagnoses Closed fracture of olecranon process of right ulna with routine healing, subsequent encounter Procedures XR ELBOW GENERAL 2V AP/LAT RIGHT RADEX ELBOW 2 VIEWS Daryl Cuenca MD [address] [place] [address] [place] [id number] [place] [address] Referral ID Status Reason Start Date Expiration Date Visits Requested Visits Authorized [id number] Pending Review Auto-Generat ed Referral 3 05/09/2024 1 1 [facility] for referral (narrative)* Diagnostic Procedure Only (Routine) - Pending Review Specialty Diagnoses / Procedures Referred By Contac t Referred To Contact XR IMAGING Diagnoses Closed fracture of olecranon process of right ulna with routine healing, subsequent encounter Procedures XR ELBOW GENERAL 2V AP/LAT RIGHT RADEX ELBOW 2 VIEWS Daryl Cuenca MD [address] [place] [address] [place] [id number] [place] [address] Referral ID Status Reason Start Date Expiration Date Visits Requested Visits Authorized [id number] Pending Review Auto-Generat ed Referral 3 05/17/2024 1 1 [facility] for referral (narrative)* Diagnostic Procedure Only (Routine) - Pending Review Specialty Diagnoses / Procedures Referred By Mike t Referred To Contact XR IMAGING Diagnoses Closed fracture of olecranon process of right ulna with routine healing, subsequent encounter Procedures XR ELBOW GENERAL 2V AP/LAT RIGHT RADEX ELBOW 2 VIEWS Daryl Cuenca MD [address] [place] [address] [place] [id number] [place] [address] Referral ID Status Reason Start Date Expiration Date Visits Requested Visits Authorized [id number] Pending Review Auto-Generat ed Referral 06/07/2024 1 1 [facility] for referral (narrative)* Diagnostic Procedure Only (Routine) - Pending Review Specialty Diagnoses / Procedures Referred By Mike t Referred To Contact XR IMAGING Diagnoses Chronic right shoulder pain Procedures XR SHOULDER GENERAL 3V OR MORE AP/TRUE AP/OTHER RIGHT RADEX SHOULDER COMPLETE MINIMUM 2 VIEWS Daryl Cuenca MD [address] [place] [address] [place] [id number] [place] [address] Referral ID Status Reason Start Date Expiration Date Visits Requested Visits Authorized [id number] Pending Review Auto-Generat ed Referral 10/10/2023 11/08/2024 1 1 * Diagnostic Procedure Only (Routine) - Pending Review Specialty Diagnoses / Procedures Referred By Mike t Referred To Contact XR IMAGING Diagnoses Closed fracture of olecranon process of right ulna with routine healing, subsequent encounter Procedures XR ELBOW GENERAL 2V AP/LAT RIGHT RADEX ELBOW 2 VIEWS Daryl Cuenca MD [address] [place] [address] [place] [id number] [place] [address] Referral ID Status Reason Start Date Expiration Date Visits Requested Visits Authorized [id number] Pending Review Auto-Generat ed Referral 10/10/2023 11/08/2024 1 1 [facility] Summary Purpose Family History No Family History Records FoundNo Family History Records FoundNo Family History Records Found Advance Directives No Advanced Directives Records FoundNo Advanced Directives Records FoundNo Advanced Directives Records Found Additional Source Comments (unrecognized sect ion and content) No Status Records FoundNo Status Records FoundNo Status Records Found INFORMATION SOURCE (unrecogn ized section and content) DATE CREATED AUTHOR 05/03/2018 [facility] DATE CREATED AUTHOR AUTHOR'S ORGANIZ ATION 03/26/2023 [facility] DATE CREATED AUTHOR AUTHOR'S ORGANIZ ATION 10/14/2023 [facility] Reason for Visit (unrecogniz ed section and content) Reason Onset Date Comments Appointment Request 03/25/2023 Reason Comments New Specialty Diagnoses / Procedures Referred By Contac t Referred To Contact Orthopedics / ORTHOPAEDIC SURGERY Diagnoses Rt elbow/ulna fx, [place] [facility] 03/22 Procedures NEW PATIENT Ed, [facility] Daryl Cuenca MD [address] [address] Referral ID Status Reason Start Date Expiration Date Visits Requested Visits Authorized [id number] Outside PCP OON/Self Pay Override 03/28/2023 09/24/2023 1 1 Reason Comments Appointment Reason Comments Patient Question Reason Comments Established Patient Follow Up Pain Post Op Reason Comments Post Op Follow Up Reason Comments Established Patient Follow Up Pain Numbness Specialty Diagnoses / Procedures Referred By Contac t Referred To Contact ORTHOPAEDIC SURGERY Diagnoses R elbow R ulna Procedures R elbow R ulna Daryl Cuenca MD [address] [place] [address] Orth [facility] [address] [place] [address] Referral ID Status Reason Start Date Expiration Date Visits Requested Visits Authorized [id number] Pending Review OON/Self Pay Override 06/06/2023 09/13/2024 1 1 Source Comments (unrecognize d section and content) In the event this informatio n is protected by the Federal Confidentiality of Alcohol and Drug Abuse Patient Records regulations: The Federal rules restrict any use of the information to criminally investigate or prosecute any alcohol or drug abuse patient.[facility] the event this information is protected by the Federal Confidentiality of Alcohol and Drug Abuse Patient Records regulations: The Federal rules restrict any use of the information to criminally investigate or prosecute any alcohol or drug abuse patient.[facility] the event this information is protected by the Federal Confidentiality of Alcohol and Drug Abuse Patient Records regulations: The Federal rules restrict any use of the information to criminally investigate or prosecute any alcohol or drug abuse patient.[facility] Center[facility] the event this information is protected by the Federal Confidentiality of Alcohol and Drug Abuse Patient Records regulations: The Federal rules restrict any use of the information to criminally investigate or prosecute any alcohol or drug abuse patient.[facility] CenterIn the event this information is protected by the Federal Confidentiality of Alcohol and Drug Abuse Patient Records regulations: The Federal rules restrict any use of the information to criminally investigate or prosecute any alcohol or drug abuse patient.[facility] Center[facility] the event this information is protected by the Federal Confidentiality of Alcohol and Drug Abuse Patient Records regulations: The Federal rules restrict any use of the information to criminally investigate or prosecute any alcohol or drug abuse patient.[facility] CenterIn the event this information is protected by the Federal Confidentiality of Alcohol and Drug Abuse Patient Records regulations: The Federal rules restrict any use of the information to criminally investigate or prosecute any alcohol or drug abuse patient.[facility] CenterIn the event this information is protected by the Federal Confidentiality of Alcohol and Drug Abuse Patient Records regulations: The Federal rules restrict any use of the information to criminally investigate or prosecute any alcohol or drug abuse patient.[facility] Center[facility] the event this information is protected by the Federal Confidentiality of Alcohol and Drug Abuse Patient Records regulations: The Federal rules restrict any use of the information to criminally investigate or prosecute any alcohol or drug abuse patient.[facility] Care Teams (unrecognized sec tion and content) Chronometer Assembler Relationship Specialty Start Date End Date Krista Delgado MD [address] [place] [address] PCP - General Family Medicine 04/02/23 Chronometer Assembler Relationship Specialty Start Date End Date Krista Delgado MD [address] [place] [address] PCP - General Family Medicine 04/02/23 Chronometer Assembler Relationship Specialty Start Date End Date Krista Delgado MD [address] [place] [address] PCP - General Family Medicine 04/02/23 Chronometer Assembler Relationship Specialty Start Date End Date Krista Delgado MD [address] [place] [address] PCP - General Family Medicine 04/02/23 Chronometer Assembler Relationship Specialty Start Date End Date Krista Delgado MD [address] [place] [address] PCP - General Family Medicine 04/02/23 Chronometer Assembler Relationship Specialty Start Date End Date Krista Delgado MD [address] [facility] [address] [place] [address] PCP - General [facility] 04/02/23 Chronometer Assembler Relationship Specialty Start Date End Date Krista Delgado MD [address] [facility] [address] [place], [place] [id number] PCP - General Family [facility] 04/02/23 FOR RECORDS PERTAINING TO PATIENTS WHO [...] BE BASED ON THE PRIMARY CLINICAL RECORDS. [facility] [employer] [facility]. provides no warranty or guarantee of the accuracy or completeness of information in this document.
[2024-03-11 10:34] LABS: Absolute Lymphocyte Count 1.04 X10^3/uL (0.83-4.51); Absolute Neutrophil Count 3.4 X10^3/uL (2.0-7.7); Basophil# 0.03 X10^3/uL; Basophil% 0.6 % (0-1); Eosinophil# 0.24 X10^3/uL; Eosinophils% 4.5 % (0-5); Hematocrit 39.1 % (40-54); Hemoglobin 12.9 g/dL (13.0-16.5); Lymphocyte # 1.04 X10^3/ul (0.83-4.51); Lymphocyte % 19.5 % (19-41); Mean Corpuscular Hgb 29.9 pg (27.0-32.0); Mean Corpuscular Volume 90.5 fL (80-94); Monocyte# 0.61 X10^3/uL; Monocyte% 11.4 % (0-10); NRBC Flagged by Analyzer 0 % (0-5); Neutrophil % 63.8 % (47-70); Platelet Count 216 K/mm3 (150-450); RBC Distribution Width CV 12.2 % (11.6-14.6); RBC Distribution Width SD 40.2 fl (35.1-43.9); Red Blood Count 4.32 M/mm3 (4.6-6.2); White Blood Count 5.3 K/mm3 (4.4-11.0)
[2024-03-11 11:00] LABS: AST(SGOT) 18 U/L (15-37); Alanine Aminotransfer ALT/SGPT 22 U/L (16-61); Albumin, Serum 3.9 g/dL (3.2-5.0); Alkaline Phosphatase 72 U/L (45-117); Anion Gap 5 (5-15); BUN 17 mg/dL (7-18); BUN/Creat Ratio 14.2 RATIO (10-20); Calcium,Total 9.7 mg/dL (8.5-10.1); Chloride 103 mmol/L (98-107); Cholesterol 149 mg/dL (200); EST Glomerular Filtration Rate 65 mL/min (>60); Est Glom Filt Rate - Afr Amer 78 mL/min (>60); Globulin 3.9 g/dL (2.2-4.2); Glucose 200 mg/dL (74-106); High Density Lipoprotein 87 mg/dL; Potassium 3.8 mmol/L (3.5-5.1); Protein, Total 7.8 g/dL (6.4-8.2); Sodium Level 134 mmol/L (136-145); Triglycerides 44 mg/dL; Very Low Density Lipoprotein 9 mg/dL (5-40)
[2024-03-11 11:30] LABS: Microalbumin,Random Urine 98.2 mg/L (NO RANGE EST.); Microalbumin:Creatinine Ratio 463.2 mg/g CRE (<30 mg/g CRE)
== END | disposition home or self-care (01) ==
LOC: MFPLAB 08:51
PROVIDERS: PCP Family Medicine; Visit Provider Family Medicine
DX: Z12.5 Encounter for screening for malignant neoplasm of prostate (principal); E11.8 Type 2 diabetes mellitus with unspecified complications
CPT/HCPCS: 36415; 80053; 80061; 82043; 82570; 83036; 85025

== ENCOUNTER 2024-07-15 06:28 | Day surgery (SDC) | payer OTHER, SELFPAY ==
--- NOTE | 2024-07-13 16:27 | PAT.ANESEVAL ---
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 When Was Last Pacemaker Check QUESTION #4 FULL TEXT: You/Your Family Experience fever (hyperthermia) with Anesthesia Last Oral Intake Last Oral intake: Last Oral Intake NPO since Meds taken in AM with sips of water? Meds patient instructed to take am of surgery PONV PONV - gas station clerk: PONV - gas station clerk Female No 07/13/24 09:07 HX of Motion Sickness No 07/13/24 09:07 HX of N/V After Surgery No 07/13/24 09:07 Non-Smoker No 07/13/24 09:07 Duration of Surgery greater No 07/13/24 09:07 than 60 minutes Number of Risk Factors PONV Score Height & Weight Height & Weight: Anesthesia: Height & Weight Height 5 ft 11 in 06/23/24 15:16 Respiratory Assessment Respiratory Assessment - gas station clerk: Respiratory Tract Infection Hx - gas station clerk Hx Respiratory Tract Infection No 07/13/24 09:07 STOP Sleep Apnea STOP Sleep Apnea - gas station clerk: STOP Sleep Apnea - gas station clerk Hx Hypertension Yes 07/13/24 09:07 Hx Sleep Apnea No 07/13/24 09:07 CPAP BIPAP Do you snore loudly (louder Yes 07/13/24 09:07 than talking or can be heard Do you often feel tired/ No 07/13/24 09:07 fatigued/ sleepy during daytime? Has anyone observed you stop No 07/13/24 09:07 breathing during sleep? STOP Results Positive 07/13/24 09:07 QUESTION #5 FULL TEXT : Do you snore loudly (louder than talking or can be heard through closed doors)? 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 Specify any problems Hx of Preganancy in last 3 N/A 07/13/24 09:07 Months Nurse Filling Out Transfusion [email or web address] 07/13/24 09:07 & Questions: Date: 07/13/24 07/13/24 09:07 Time: 09:10 07/13/24 09:07 Patient unable to answer at this time (ie. confused, unrespo /Reproduction History /Reproductive History - gas station clerk: /Reproductive Hx- gas station clerk Hx Now Gestational Age (in weeks): EDC: Hx Hx Para Hx Section SAB PFSH Medical History Wears glasses Alcohol use Cirrhosis Fatty liver DDD (degenerative disc disease) History of stress test Cardiology follow-up encounter History of echocardiogram Family hx of colon cancer Mixed hyperlipidemia Essential hypertension Type 2 diabetes mellitus LBBB (left bundle branch block) Ischemic cardiomyopathy Atherosclerotic heart disease of [place] coronary artery without angina pectoris Type 2 diabetes mellitus without complications Home Medications ?Medication ?Instructions ?Recorded ?Last Taken ?Type aspirin 81 mg tablet,delayed 81 mg PO DAILY 04/02/16 07/10/24 History release losartan 50 mg tablet 50 mg PO BID ##60 04/24/16 04/03/16 Rx guselkumab 100 mg/mL subcutaneous 100 mg subcut Q8W 02/17/18 Unknown History syringe (Tremfya) sildenafil 50 mg tablet 50 mg PO DAILY PRN sexual activity 02/17/18 Unknown History carvedilol 25 mg tablet 25 mg PO BID 01/28/20 Unknown History amlodipine 5 mg tablet 5 mg PO DAILY 10/25/21 Unknown History cholecalciferol (vitamin D3) 25 50 mcg PO DAILY 10/25/21 Unknown History mcg (1,000 unit) tablet rosuvastatin 20 mg tablet 20 mg PO DAILY 10/25/21 Unknown History magnesium 250 mg tablet 250 mg PO DAILY 01/18/24 Unknown History metformin 500 mg tablet,extended 1,000 mg PO BID 01/18/24 Unknown History release 24 hr dapagliflozin propanediol 10 mg 10 mg PO QDAY 06/23/24 07/11/24 History tablet (Farxiga) Allergy/AdvReac Type Severity Reaction Status Date / Time No Known Allergies Allergy Verified 07/13/24 09:03 Family History (Updated 06/23/24 @ 15:09 by Annika Poon) Mother Breast cancer Diabetes Brother CAD (coronary artery disease) Colon cancer In his 60's Surgical History (Updated 07/13/24 @ 09:14 by Andrei Sanbaria) H/O elbow surgery Hx of colonoscopy Presence of stent in coronary artery (~04/23/16) History of tonsillectomy History of left heart catheterization Social History (Updated 06/23/24 @ 15:09 by Annika Poon) household members: spouse current occupational status: retired Smoking Status: Former smoker substance use type: does not use Audit: Pertinent Findings HISTORY of Pertinent Findings History of Pertinent Findings: hx of CAD s/p PCI to the LCx (2015), ischmeic cardiomyopathy, Left BBB Pertinent Findings Echo (EF%) pertinent findings: Echo from 10/02/2023: Normal LV size, moderate assymetric septal hypertrophy, LV systolic funx normal, LVEF 60%, no RWA Recommendation Anesthesia Recommendation Anesthesia recommendation: OPTIMIZED for anesthesia
[2024-07-15] VITALS (7 sets, daily range): BP systolic 123–147; BP diastolic 81–97; PULSE 78–88; RESP 16–18; TEMP 36.2–36.6; O2SAT 95–97; BMI 31.5
--- NOTE | 2024-07-15 07:29 | PCM.HP.STD ---
HPI - General General Date of Admission: 07/15/24 Date of Service: 07/15/24 Chief Complaint: colonoscopy HPI Narrative TAYLOR LARSON, is a 64 M who presents for screening colonoscopy. no prior. [facility] Medical History Wears glasses Alcohol use Cirrhosis Fatty liver DDD (degenerative disc disease) History of stress test Cardiology follow-up encounter History of echocardiogram Family hx of colon cancer Mixed hyperlipidemia Essential hypertension Type 2 diabetes mellitus LBBB (left bundle branch block) Ischemic cardiomyopathy Atherosclerotic heart disease of [place] coronary artery without angina pectoris Type 2 diabetes mellitus without complications Home Medications ?Medication ?Instructions ?Recorded ?Last Taken ?Type aspirin 81 mg tablet,delayed 81 mg PO DAILY 04/02/16 07/10/24 History release losartan 50 mg tablet 50 mg PO BID ##60 04/24/16 07/15/24 Rx guselkumab 100 mg/mL subcutaneous 100 mg subcut Q8W 02/17/18 Unknown History syringe (Tremfya) sildenafil 50 mg tablet 50 mg PO DAILY PRN sexual activity 02/17/18 Unknown History carvedilol 25 mg tablet 25 mg PO BID 01/28/20 07/14/24 07:00 History amlodipine 5 mg tablet 5 mg PO DAILY 10/25/21 Unknown History cholecalciferol (vitamin D3) 25 50 mcg PO DAILY 10/25/21 Unknown History mcg (1,000 unit) tablet rosuvastatin 20 mg tablet 20 mg PO DAILY 10/25/21 Unknown History magnesium 250 mg tablet 250 mg PO DAILY 01/18/24 Unknown History metformin 500 mg tablet,extended 1,000 mg PO BID 01/18/24 Unknown History release 24 hr dapagliflozin propanediol 10 mg 10 mg PO QDAY 06/23/24 07/11/24 History tablet (Farxiga) Allergy/AdvReac Type Severity Reaction Status Date / Time No Known Allergies Allergy Verified 07/15/24 06:45 Family History Mother Breast cancer Diabetes Brother CAD (coronary artery disease) Colon cancer In his 60's Surgical History H/O elbow surgery Hx of colonoscopy Presence of stent in coronary artery (~04/23/16) History of tonsillectomy History of left heart catheterization Social History household members: spouse current occupational status: retired Smoking Status: Former smoker substance use type: does not use Vital Signs Vital Signs Vital Signs: 07/15/24 06:47 Temperature 97.5 F L Temperature Source Temporal Pulse Rate 88 Respiratory Rate 16 Blood Pressure 145/97 H Blood Pressure Mean 113 Blood Pressure Source Monitor Blood Pressure Position Sitting Blood Pressure Location Right Arm Pulse Ox 97 Oxygen Delivery Method Room Air Weight Weight: 226 lb Body Mass Index (BMI) 31.5 Physical Exam Const alert and oriented x3 Assessment & Plan Assessment/Plan (1) Encounter for screening for malignant neoplasm of colon: PLAN: Plan screenng colonoscopy today
--- NOTE | 2024-07-15 07:33 | PCM.PRE.AN2 ---
ASA Classification* ASA Classification ASA Classification: 3 Assessment & Plan Anesthesia* Anesthesia Assessment Anesthesia Assessment: Discussed sedation and/or anesthesia options, risks, benefits, and alternatives with patient/parents/legal guardian/POA. Questions invited. The patient/parents/legal guardian/POA seems to understand and agrees to proceed with anesthesia plan. Reviewed the physical assessment, medical history, allergy history and patient home medications list prior to surgery/procedure/anesthetic and documented any changes. Performed airway and anesthesia risk assessments. Anesthesia Type Anesthesia Type: MAC History Source History Obtained from:: Patient and Chart Anesthesia Focused Assessment* Temperature: 97.5 F Pulse Rate: 88 Blood Pressure: 145/97 Respiratory Rate: 16 Pulse Ox: 97 Oxygen Delivery Method: Room Air Airway Assessment Mouth opens: >3 cm Mallampati Score: II Teeth Condition: Intact Neck Range of motion (ROM): Full ROM Focused Labs Anesthesia Preop lab: CBC WBC 5.3 K/mm3 (4.4-11.0) 03/11/24 08:52 03/11/24 RBC 4.32 M/mm3 (4.6-6.2) L 03/11/24 08:52 03/11/24 Hgb 12.9 g/dL (13.0-16.5) L 03/11/24 08:52 03/11/24 Hct 39.1 % (40-54) L 03/11/24 08:52 03/11/24 Plt Count 216 K/mm3 (150-450) 03/11/24 08:52 03/11/24 CHEMISTRY Potassium 3.8 mmol/L (3.5-5.1) 03/11/24 08:52 03/11/24 Sodium 134 mmol/L (136-145) L 03/11/24 08:52 03/11/24 Magnesium 1.5 mg/dL (1.6-2.6) L 05/29/23 12:05 05/29/23 BUN 17 mg/dL (7-18) 03/11/24 08:52 03/11/24 Creatinine 1.20 mg/dL (0.70-1.30) 03/11/24 08:52 03/11/24 Glucose 200 mg/dL (74-106) H 03/11/24 08:52 03/11/24 TSH 1.22 uIU/mL (0.358-3.74) 11/06/23 14:14 11/06/23 COAG PT 14.3 SECONDS (11.7-14.9) 03/28/16 09:39 03/28/16 Pre-Assessment Diagnosis/Proposed Procedure Planned Operative Procedure(s): COLONOSCOPY Anesthesia History 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 When Was Last Pacemaker Check QUESTION #4 FULL TEXT: You/Your Family Experience fever (hyperthermia) with Anesthesia Last Oral Intake Last Oral intake: Last Oral Intake NPO since 06:00 07/15/24 06:47 Meds taken in AM with sips of Yes 07/15/24 06:47 water? 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 Female No 07/13/24 09:07 HX of Motion Sickness No 07/13/24 09:07 HX of N/V After Surgery No 07/13/24 09:07 Non-Smoker No 07/13/24 09:07 Duration of Surgery greater No 07/13/24 09:07 than 60 minutes Number of Risk Factors PONV Score Height & Weight Height & Weight: Anesthesia: Height & Weight Height 5 ft 11 in 07/15/24 06:47 Weight: 102.512 kg 07/15/24 06:47 Body Mass Index (BMI) 31.5 07/15/24 06:47 Respiratory Assessment Respiratory Assessment - automotive fuel injection servicer: Respiratory Tract Infection Hx - automotive fuel injection servicer Hx Respiratory Tract Infection No 07/13/24 09:07 STOP Sleep Apnea STOP Sleep Apnea - automotive fuel injection servicer: STOP Sleep Apnea - automotive fuel injection servicer Hx Hypertension Yes 07/13/24 09:07 Hx Sleep Apnea No 07/13/24 09:07 CPAP BIPAP Do you snore loudly (louder Yes 07/13/24 09:07 than talking or can be heard Do you often feel tired/ No 07/13/24 09:07 fatigued/ sleepy during daytime? Has anyone observed you stop No 07/13/24 09:07 breathing during sleep? STOP Results Positive 07/13/24 09:07 QUESTION #5 FULL TEXT : Do you snore loudly (louder than talking or can be heard through closed doors)? 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 Specify any problems Hx of Preganancy in last 3 N/A 07/13/24 09:07 Months Nurse Filling Out Transfusion [email or web address] 07/13/24 09:07 & Questions: Date: 07/13/24 07/13/24 09:07 Time: 09:10 07/13/24 09:07 Patient unable to answer at this time (ie. 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 Hx Now Gestational Age (in weeks): EDC: Hx Hx Para Hx [facility] Medical History Wears glasses Alcohol use Cirrhosis Fatty liver DDD (degenerative disc disease) History of stress test Cardiology follow-up encounter History of echocardiogram Family hx of colon cancer Mixed hyperlipidemia Essential hypertension Type 2 diabetes mellitus LBBB (left bundle branch block) Ischemic cardiomyopathy Atherosclerotic heart disease of [place] coronary artery without angina pectoris Type 2 diabetes mellitus without complications Home Medications ?Medication ?Instructions ?Recorded ?Last Taken ?Type aspirin 81 mg tablet,delayed 81 mg PO DAILY 04/02/16 07/10/24 History release losartan 50 mg tablet 50 mg PO BID ##60 04/24/16 07/15/24 Rx guselkumab 100 mg/mL subcutaneous 100 mg subcut Q8W 02/17/18 Unknown History syringe (Tremfya) sildenafil 50 mg tablet 50 mg PO DAILY PRN sexual activity 02/17/18 Unknown History carvedilol 25 mg tablet 25 mg PO BID 01/28/20 07/14/24 07:00 History amlodipine 5 mg tablet 5 mg PO DAILY 10/25/21 Unknown History cholecalciferol (vitamin D3) 25 50 mcg PO DAILY 10/25/21 Unknown History mcg (1,000 unit) tablet rosuvastatin 20 mg tablet 20 mg PO DAILY 10/25/21 Unknown History magnesium 250 mg tablet 250 mg PO DAILY 01/18/24 Unknown History metformin 500 mg tablet,extended 1,000 mg PO BID 01/18/24 Unknown History release 24 hr dapagliflozin propanediol 10 mg 10 mg PO QDAY 06/23/24 07/11/24 History tablet (Farxiga) Allergy/AdvReac Type Severity Reaction Status Date / Time No Known Allergies Allergy Verified 07/15/24 06:45 Family History Mother Breast cancer Diabetes Brother CAD (coronary artery disease) Colon cancer In his 60's Surgical History H/O elbow surgery Hx of colonoscopy Presence of stent in coronary artery (~04/23/16) History of tonsillectomy History of left heart catheterization Social History household members: spouse current occupational status: retired Smoking Status: Former smoker substance use type: does not use Review of Systems (Anesthesia) ROS Narrative System reviewed and no additional complaints, except as documented. Review of Systems ROS Unobtainable: Denies due to encephalopathy, due to endotracheal tube, due to mental condition, due to mental status or other Constitutional Constitutional: Denies change in weight, fever(s), snoring or stops breathing during sleep Eyes Eyes: Reports requires corrective lenses ENT HEENT: Denies loss taste/smell, otalgia or sore throat Cardiovascular Cardiovascular: Reports hypertension; Denies chest pain, dyspnea or palpitations Respiratory/Chest Respiratory/Chest: Denies chest congestion, cough or wheezing Gastrointestinal Gastrointestinal: Denies heartburn, nausea or vomiting Integumentary Integumentary: Denies rash, sores, unusual bruising or wounds Neurologic Neurologic: Denies abnormal movements, abnormal speech, behavior changes, confusion, restless legs or seizures Psychiatric Psychiatric: Denies abnormal sleep pattern, anxiety or confusion Hematologic/Lymphatic Hematologic/Lymphatic: Denies easy bleeding or easy bruising Allergic/Immunologic Allergic/Immunologic: Denies asthma Physical Exam Const alert, oriented x3 and average body habitus Orientation / Consciousness: awake Nutritional Appearance: obese centrally obese HEENT dentition normal HEENT Narrative: one cap in back not loose and wearing in front top and bottom teeth Throat: uvula midline Neck full ROM General: normal visual inspection and trachea midline Resp normal respiratory effort, normal air movement and clear to auscultation bilaterally Auscultation: clear to auscultation bilaterally Cardio regular rate, regular rhythm and no murmurs Rhythm: abnormal rhythm other (LBBB) Back/Spine normal ROM and thoraco-lumbar ROM normal Extremity full ROM Skin Rashes: no rashes Neuro oriented x3 and moves all extremities Motor Exam: muscle tone normal throughout
--- NOTE | 2024-07-15 08:06 | PCM.POST.ANE ---
Anesthesia: Postop Eval I Current Vital Signs Temperature: 97.2 F Pulse Rate: 85 Blood Pressure: 123/85 Respiratory Rate: 18 Pulse Ox: 96 Oxygen Delivery Method: Room Air Assessment Airway patent: Yes Spontaneous unlabored respirations: Yes Mental status: Awake nausea: No Vomiting: No Anesthesia Complication: No Fluid Hydration Crystalloid volume administer (ml): 10 Total IV fluid infused: 10 Progress Note Anesthesia document: Postop Eval 1 completed: Yes
--- NOTE | 2024-07-15 08:10 | OP.COLON_ITS ---
Patient Name: Brian Velazquez Procedure Date: 07/15/2024 6:45 AM Date of : 1960 Age: 64 Procedure: Colonoscopy Indications: Screening in patient at increased risk: Family history of 1st-degree relative with colorectal cancer Providers: Zain Marcelino MD Referring MD: Zain Marcelino MD Medicines: Monitored Anesthesia Care Patient Profile: Refer to note in patient chart for documentation of history and physical. Last Colonoscopy: 10 years ago. Complications: No immediate complications. Estimated blood loss: None. Procedure: Pre-Anesthesia Assessment: - Prior to the procedure, a History and Physical was performed, and patient medications and allergies were reviewed. The patient's tolerance of previous anesthesia was also reviewed. The risks and benefits of the procedure and the sedation options and risks were discussed with the patient. All questions were answered, and informed consent was obtained. Prior Anticoagulants: The patient has taken no anticoagulant or antiplatelet agents. ASA Grade Assessment: II - A patient with mild systemic disease. After reviewing the risks and benefits, the patient was deemed in satisfactory condition to undergo the procedure. After I obtained informed consent, the scope was passed under direct vision. Throughout the procedure, the patient's blood pressure, pulse, and oxygen saturations were monitored continuously. The adult colonoscope was introduced through the anus and advanced to the cecum, identified by appendiceal orifice and ileocecal valve. The ileocecal valve, appendiceal orifice, and rectum were photographed. The entire colon was well visualized. The colonoscopy was performed without difficulty. The patient tolerated the procedure well. The quality of the bowel preparation was adequate. Moderate Sedation: See the other procedure note for documentation of moderate sedation with intraservice time. Scope In: 7:45:36 AM Scope Withdrawal Time 0 hours 9 minutes 33 seconds Scope Out: 8:05:44 AM Total Procedure Duration Time 0 hours 20 minutes 8 seconds Findings: The perianal and digital rectal examinations were normal. Multiple small-mouthed diverticula were found in the sigmoid colon. Non-bleeding internal hemorrhoids were found during endoscopy. The hemorrhoids were moderate. The exam was otherwise without abnormality on direct and retroflexion views. Impression: - Diverticulosis in the sigmoid colon. - Non-bleeding internal hemorrhoids. - The examination was otherwise normal on direct and retroflexion views. - No specimens collected. Recommendation: - Discharge patient to home (ambulatory). - High fiber diet indefinitely. - Repeat colonoscopy in 7-10 years for screening purposes. - Return to my office PRN. - Continue present medications. Procedure Code(s): --- Professional --- 07375, Colonoscopy, flexible; diagnostic, including collection of specimen(s) by brushing or washing, when performed (separate procedure) Diagnosis Code(s): --- Professional --- Z80.0, Family history of malignant neoplasm of digestive organs K57.30, Diverticulosis of large intestine without perforation or abscess without bleeding K64.8, Other hemorrhoids CPT copyright 2021 [employer]. All rights reserved. The codes documented in this report are preliminary and upon survey associate review may be revised to meet current compliance requirements. Zain Marcelino MD 07/15/2024 8:10:12 AM This report has been signed electronically. Number of Addenda: 0 Note Initiated On: 07/15/2024 6:45 AM
--- NOTE | 2024-07-15 08:10 | OP.CCLET_ITS ---
07/15/2024 Balwinder Delgado [address] [place] [address] Re : Colonoscopy procedure for Brian Velazquez Dear Dr. Delgado This procedure was performed on Monday, July 15, 2024. My impressions and recommendations are as follows: Impressions : - Diverticulosis in the sigmoid colon. - Non-bleeding internal hemorrhoids. - The examination was otherwise normal on direct and retroflexion views. - No specimens collected. Recommendations : - Discharge patient to home (ambulatory). - High fiber diet indefinitely. - Repeat colonoscopy in 7-10 years for screening purposes. - Return to my office PRN. - Continue present medications. My findings are described in the full procedure note, which is enclosed. If I can be of further assistance, please feel free to contact me at . Sincerely, Zain Marcelino MD 07/15/2024 8:10:12 AM This report has been signed electronically.
[2024-07-15 08:30] LABS: Bedside Glucose 211 mg/dL (74-106)
--- NOTE | 2024-07-15 10:39 | POSTOPAN2_ITS ---
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
--- NOTE | 2024-07-15 10:39 | PCM.POSTANE2 ---
Anesthesia Postop Eval I Sum Postop Eval Completion status Anesthesia document: Postop Eval 1 completed: Yes Anesthesia Postop Eval I Summary Anesthesia Postop Eval I Summary: Anesthesia Postop Eval I: Assessment Summary Airway patent Yes 07/15/24 08:08 [email or web address] Spontaneous unlabored Yes 07/15/24 08:08 [email or web address] [email or web address] respirations Mental status Awake 07/15/24 08:08 [email or web address] nausea No 07/15/24 08:08 COTTON [email or web address] Vomiting No 07/15/24 08:08 [email or web address] Anesthesia Postop Eval I: Fluid Summary Crystalloid volume administer 10 07/15/24 08:08 [email or web address] (ml) Colloids volume administered ( ml) Blood Product volume administered (ml) Total IV fluid infused 10 07/15/24 08:08 [email or web address] Anesthesia Postop Eval I: Summary Notes Anesthesia Complication No 07/15/24 08:08 [email or web address] Anesthesia Complication Comment: Post-operative progress note Anesthesia: Postop Eval II Evaluation Mental status: Awake and Calm Pain Level: 2 nausea: No Vomiting: No Complications Anesthesia Complication: No
== END 2024-07-15 08:45 | disposition home or self-care (01) ==
LOC: EN 06:29 → AC 06:30
PROVIDERS: PCP Family Medicine; Referring Provider Surgery; Visit Provider Surgery
PROC: 0DJD8ZZ Inspection of Lower Intestinal Tract, Via Natural or Artificial Opening Endoscopic (ICD-10-PCS; CPT 45378; principal; 2024-07-15 07:25)
DX: Z12.11 Encounter for screening for malignant neoplasm of colon (principal); E11.9 Type 2 diabetes mellitus without complications; K64.8 Other hemorrhoids; Z79.82 Long term (current) use of aspirin; K57.30 Diverticulosis of large intestine without perforation or abscess without bleeding; Z87.891 Personal history of nicotine dependence; E78.2 Mixed hyperlipidemia; I25.10 Atherosclerotic heart disease of native coronary artery without angina pectoris; I10 Essential (primary) hypertension; Z80.0 Family history of malignant neoplasm of digestive organs; Z79.899 Other long term (current) drug therapy
CPT/HCPCS: 45378; 82962; A4216; J2405

== ENCOUNTER → 2024-07-30 | Outpatient (CLI) | payer OTHER, SELFPAY ==
[2024-07-30 10:33] LABS: Absolute Lymphocyte Count 1.16 X10^3/uL (0.83-4.51); Absolute Neutrophil Count 3.3 X10^3/uL (2.0-7.7); Basophil# 0.04 X10^3/uL; Basophil% 0.7 % (0-1); Eosinophil# 0.37 X10^3/uL; Eosinophils% 6.6 % (0-5); Hematocrit 39.6 % (40-54); Hemoglobin 13.4 g/dL (13.0-16.5); Lymphocyte # 1.16 X10^3/ul (0.83-4.51); Lymphocyte % 20.8 % (19-41); Mean Corp Hgb Conc 33.8 g/dL (32-36); Mean Corpuscular Hgb 30.9 pg (27.0-32.0); Mean Corpuscular Volume 91.5 fL (80-94); Mean Platelet Vol. 9.8 fl (6.2-12.0); Monocyte# 0.67 X10^3/uL; NRBC Flagged by Analyzer 0 % (0-5); Neutrophil # 3.32 X10^3/uL (2.7-7.7); Neutrophil % 59.7 % (47-70); Platelet Count 233 K/mm3 (150-450); RBC Distribution Width CV 12.1 % (11.6-14.6); RBC Distribution Width SD 39.9 fl (35.1-43.9); Red Blood Count 4.33 M/mm3 (4.6-6.2); White Blood Count 5.6 K/mm3 (4.4-11.0)
[2024-07-30 11:17] LABS: Hemoglobin A1c 8.6 % (<=5.6)
[2024-07-30 12:27] LABS: ALB/GLOB Ratio 1.4 RATIO (0.9-2.4); AST(SGOT) 22 U/L (<=37); Alanine Aminotransfer ALT/SGPT 17 U/L (<=46); Albumin, Serum 4.5 g/dL (3.4-4.8); Alkaline Phosphatase 73 U/L (40-129); Anion Gap 15 (5-15); BUN 16 mg/dL (4-19); BUN/Creat Ratio 14.4 RATIO (10-20); Carbon Dioxide 23.3 mmol/L (21.0-32.0); Chloride 98 mmol/L (98-108); Cholesterol 144 mg/dL (<=200); Creatinine, Serum 1.11 mg/dL (0.70-1.20); EST Glomerular Filtration Rate 74 (>60); Globulin 3.2 g/dL (2.2-4.2); Glucose 239 mg/dL (70-99); High Density Lipoprotein 74 mg/dL; Low Density Lipoprotein Calc. 58 mg/dL; Potassium 4.2 mmol/L (3.3-5.1); Protein, Total 7.6 g/dL (5.9-8.4); Sodium Level 136 mmol/L (133-145); Total Bilirubin 0.59 mg/dL (0.00-1.30); Triglycerides 57 mg/dL; Very Low Density Lipoprotein 11 mg/dL (5-40); cholesterol:hdl ratio screen 1.94
[2024-07-30 12:31] LABS: Vitamin D,25 Hydroxy 33.7 ng/mL (30-100)
[2024-07-30 13:14] LABS: Microalbumin:Creatinine Ratio 3203.3 mg/g CRE
== END | disposition home or self-care (01) ==
LOC: MFPLAB 09:04
PROVIDERS: PCP Family Medicine; Referring Provider Family Medicine; Visit Provider Family Medicine
DX: E11.8 Type 2 diabetes mellitus with unspecified complications (principal)
CPT/HCPCS: 36415; 80053; 80061; 82043; 82306; 82570; 83036; 85025

== ENCOUNTER → 2024-10-07 | Outpatient (CLI) | payer OTHER, SELFPAY ==
[2024-10-07 09:18] LABS: Absolute Lymphocyte Count 1.19 X10^3/uL (0.83-4.51); Absolute Neutrophil Count 3.4 X10^3/uL (2.0-7.7); Basophil# 0.04 X10^3/uL; Basophil% 0.7 % (0-1); Eosinophils% 5.3 % (0-5); Hematocrit 38.4 % (40-54); Hemoglobin 12.8 g/dL (13.0-16.5); Lymphocyte # 1.19 X10^3/ul (0.83-4.51); Lymphocyte % 20.8 % (19-41); Mean Corp Hgb Conc 33.3 g/dL (32-36); Mean Corpuscular Hgb 30.7 pg (27.0-32.0); Mean Corpuscular Volume 92.1 fL (80-94); Mean Platelet Vol. 9.3 fl (6.2-12.0); Monocyte# 0.72 X10^3/uL; Monocyte% 12.6 % (0-10); NRBC Flagged by Analyzer 0 % (0-5); Neutrophil # 3.44 X10^3/uL (2.7-7.7); Neutrophil % 60.2 % (47-70); Platelet Count 204 K/mm3 (150-450); RBC Distribution Width CV 12.6 % (11.6-14.6); RBC Distribution Width SD 42.8 fl (35.1-43.9); Red Blood Count 4.17 M/mm3 (4.6-6.2); White Blood Count 5.7 K/mm3 (4.4-11.0)
[2024-10-07 10:18] LABS: AST(SGOT) 21 U/L (<=37); Alanine Aminotransfer ALT/SGPT 14 U/L (<=46); Albumin, Serum 4.5 g/dL (3.4-4.8); Alkaline Phosphatase 67 U/L (40-129); Bilirubin, Direct 0.33 mg/dL (0.00-0.30); Globulin 3.2 g/dL (2.2-4.2); Protein, Total 7.6 g/dL (5.9-8.4); Total Bilirubin 0.73 mg/dL (0.00-1.30)
[2024-10-10 04:07] LABS: QNTFERON TB Mitogen Value > 10.00 IU/mL (.); QNTFERON TB Nil Value 0.05 IU/mL (.); QNTFERON TB1+ Ag Value 0.04 IU/mL (.); QNTFERON TB2+ Ag Value 0.05 IU/mL (.); QNTIFERON TB Positive Criteria Negative (Negative)
== END | disposition home or self-care (01) ==
LOC: LAB 09:03
PROVIDERS: PCP Family Medicine; Referring Provider Dermatology; Visit Provider Dermatology
DX: L40.0 Psoriasis vulgaris (principal); Z79.899 Other long term (current) drug therapy
CPT/HCPCS: 36415; 80076; 85025; 86480

== ENCOUNTER → 2024-11-11 | Outpatient (CLI) | payer OTHER, SELFPAY ==
--- NOTE | 2024-11-11 10:08 | ECHOD_ITS ---
Reason For Study Reason For Study: THORACIC AORTIC ECTASIA Procedure This was a 2D Doppler, Color Flow transthoracic echocardiogram. Exam performed in department. Left Ventricle Normal LV size. Left ventricular systolic function is normal. Stage 1 diastolic dysfunction. The left ventricular ejection fraction is 60 %. No regional wall motion abnormalities noted. Right Ventricle Normal RV size. Normal systolic function. Atria Normal left atrium. Normal right atrium. Mitral Valve Mild focal mitral valve calcification of the anterior leaflet. There is mild mitral annular calcification. Mild (1+) eccentric mitral valve insufficiency. Tricuspid Valve Normal tricuspid valve. Mild (1+) tricuspid valve insufficiency. Pulmonary artery systolic pressure is 39 mmHg. Aortic Valve Trisinus/trileaflet aortic valve. Mild focal aortic valve calcification. Pulmonic Valve Normal pulmonic valve. Great Vessels Normal aortic root. The pulmonary artery is normal size. Inferior vena cava collapse with sniff. Pericardium/Pleural No pericardial effusion. MMode/2D Measurements & Calculations LVIDd: 5.1 cm IVSd: 1.0 cm Ao root diam: 3.6 cm LVIDs: 3.6 cm LVPWd: 1.1 cm RVDd: 3.4 cm FS: 28.7 % LAV(MOD-bp): 56.1 ml LVAd ap4: 38.1 cm2 SV(MOD-sp4): 74.1 ml LAV(MOD-bp) Indexed: 25.2 ml/m2 LVLd ap4: 9.4 cm SI(MOD-sp4): 33.4 ml/m2 LAV(MOD-sp2): 58.7 ml EDV(MOD-sp4): 124.5 ml LAV(MOD-sp4): 53.9 ml EDV(sp4-el): 130.2 ml LVAs ap4: 21.4 cm2 LVLs ap4: 8.0 cm ESV(MOD-sp4): 50.4 ml ESV(sp4-el): 48.5 ml EF(MOD-sp4): 59.5 % EF(sp4-el): 62.8 % SV(sp4-el): 81.7 ml LA A4 area: 19.0 cm2 LA dimension(2D): 3.6 cm RA A4 area: 16.0 cm2 TAPSE: 2.3 cm Time Measurements MV dec time: 0.22 sec Doppler Measurements & Calculations MV E max molina: 74.6 cm/sec Lat Peak E' Molina: 8.9 cm/sec Med Peak E' Molina: 6.2 cm/sec MV A max molina: 115.0 cm/sec E/E' lat: 8.4 E/E' med: 12.1 MV E/A: 0.65 Ao V2 max: 137.0 cm/sec LV V1 max: 115.0 cm/sec PA V2 max: 101.6 cm/sec Ao max P.5 mmHg LV V1 max P.3 mmHg TR max molina: 296.3 cm/sec TR max P.1 mmHg ECHO/Echo Complete Interpretation Summary Normal LV size. Left ventricular systolic function is normal. Mild (1+) eccentric mitral valve insufficiency. Pulmonary artery systolic pressure is 39 mmHg. Mild focal aortic valve calcification. Stage 1 diastolic dysfunction. The left ventricular ejection fraction is 60 %. Ordering Physician: Balwinder Delgado Referring Physician: Balwinder Delgado Performed By: Ayde Ramírez RDCS
== END | disposition home or self-care (01) ==
LOC: CVS 10:07
PROVIDERS: PCP Family Medicine; Referring Provider Family Medicine; Visit Provider Family Medicine
DX: I77.810 Thoracic aortic ectasia (principal)
CPT/HCPCS: 93306

== ENCOUNTER → 2025-01-13 | Outpatient (CLI) | payer OTHER, SELFPAY ==
[2025-01-13 10:11] LABS: Hematocrit 38.9 % (40-54); Hemoglobin 13.1 g/dL (13.0-16.5); Immature Granulocytes Count 0.010 X10^3/uL (0.0-0.0); Mean Corp Hgb Conc 33.7 g/dL (32-36); Mean Corpuscular Volume 90.5 fL (80-94); Mean Platelet Vol. 9.7 fl (6.2-12.0); NRBC Flagged by Analyzer 0 % (0-5); Platelet Count 216 K/mm3 (150-450); RBC Distribution Width CV 12.5 % (11.6-14.6); RBC Distribution Width SD 41.0 fl (35.1-43.9); Red Blood Count 4.30 M/mm3 (4.6-6.2); White Blood Count 5.1 K/mm3 (4.4-11.0)
[2025-01-13 10:37] LABS: AST(SGOT) 23 U/L (<=37); Alanine Aminotransfer ALT/SGPT 20 U/L (<=46); Albumin, Serum 4.5 g/dL (3.4-4.8); Alkaline Phosphatase 73 U/L (40-129); Anion Gap 14 (5-15); BUN 16 mg/dL (4-19); BUN/Creat Ratio 14.9 RATIO (10-20); Calcium,Total 10.5 mg/dL (7.6-11.0); Carbon Dioxide 25.3 mmol/L (21.0-32.0); Chloride 97 mmol/L (98-108); Cholesterol 151 mg/dL (<=200); Globulin 3.3 g/dL (2.2-4.2); Glucose 227 mg/dL (70-99); Low Density Lipoprotein Calc. 56 mg/dL; Potassium 4.1 mmol/L (3.3-5.1); Triglycerides 54 mg/dL; Very Low Density Lipoprotein 11 mg/dL (5-40); cholesterol:hdl ratio screen 1.80
[2025-01-13 10:42] LABS: Creatinine, Urine (random) 13.80 mg/dL (39.00-259.00)
[2025-01-13 10:46] LABS: Protein, Urine (Random) 9.9 mg/dL (0.0-12.0); Protein:Creat Ratio 715 mg/g CRE (0-200)
== END | disposition home or self-care (01) ==
LOC: MFPLAB 08:56
PROVIDERS: PCP Family Medicine; Referring Provider Family Medicine; Visit Provider Family Medicine
DX: E11.8 Type 2 diabetes mellitus with unspecified complications (principal)
CPT/HCPCS: 36415; 80053; 80061; 82570; 83036; 84156; 85025

== ENCOUNTER → 2025-03-05 | Outpatient (CLI) | payer OTHER, SELFPAY ==
--- NOTE | 2025-03-05 16:32 | RAD_ITS ---
PROCEDURE: CHEST PA AND LATERAL 03/05/2025 REASON FOR EXAM: BRONCHITIS TECHNIQUE: Procedure Code: RADCXR Modality: DX Procedure: CHEST PA AND LATERAL COMPARISON: None. FINDINGS: LUNGS AND PLEURA: No focal airspace consolidation. No pleural effusion or pneumothorax. HEART AND MEDIASTINUM: The cardiac silhouette is borderline enlarged. The mediastinal contour is normal. AORTA: Mildly calcified aortic arch. BONES: No acute osseous abnormality. OTHER: Mild-moderate elevation of the right hemidiaphragm. RAD/Chest PA and Lateral IMPRESSION: NO ACUTE FINDINGS. Reading Location: [id number]
--- OUTSIDE RECORDS SUMMARY | 2025-03-05 16:35 | XMS RPT_ITS | CCD ---
Author Organization [facility] Care Team Providers Care Manager Bench Name Role Phone Lisa Clementehleen Unavailable Unavailable Belkys Clemente Unavailable Unavailable Dr. Krista Delgado Primary Care Provider Dr. Krista Delgado Referring Provider Roof CUSTOMER CARE ASSOCIATE, CUSTOMER CARE ASSOCIATE-C Krista Waters Attending Provider Unavailable Primary Care Provider Unavailyuan dooley Unavailable Primary Care Provider UnavailKrista Vidal MD Primary Care Provider Krista Delgado MD Primary Care Provider DARYL CUENCA Attending KRISTA Phillips Primary Care Unavailable BANG, DARYL WILKINS Attending KRISTA Phillips Primary Care Unavailable BANG, DARYL WILKINS Attending DARYL Caballero Referring Agnieszka CUENCA, DARYL WILKINS Attending KRISTA Phillips Primary Care Unavailable BANG, DARYL WILKINS Attending KRISTA Phillips Primary Care Unavailable BANG, DARYL WILKINS Attending KRISTA Phillips Primary Care Unavailable Dr. Krista Delgado MD Primary Care Provider Annika Poon Attending Provider Unavailable Dr. Zain Marcelino MD Attending Provider Dr. Zain Marcelino MD Referring Provider Chari NUNN, Dr. Zain Suresh Other Provider Dr. Krista Delgado MD Attending Provider Dr. Krista Delgado MD Referring Provider [phone] Nickolas NUNN, Dr. Sun Attending Provider Nickolas NUNN, Dr. Sun Referring Provider Danny NUNN, Dr. Krista Dooley Primary Care Provider Zaid NUNN, Dr. Mcdaniels Attending Provider Danny NUNN, Dr. Krista Dooley Primary Care Provider [phone] Danny NUNN, Dr. Krista Dooley Attending Provider Danny NUNN, Dr. Krista Dooley Referring Provider Krista Delgado Primary Care Unavailable Krista Delgado Attending Unavailable Chari, Zain Suresh Referring Unavailable Schinyg, Krista Dooley Primary Care Unavailable Zain Marcelino Attending Unavailable Arslan Mar Attending Unavailable Schinyg, Krista Dooley Primary Care Unavailable Annika Poon Attending Unavailable Schinyg, Krista Dooley Primary Care Unavailable Schkalee, Krista Dooley Primary Care Unavailable Zain Marcelino Consulting Unavailable Zain Marcelino Attending Unavailable Zain Marcelino Referring Unavailable Schkalee, Krista Dooley Attending Unavailable Schkalee, Krista Dooley Referring Unavailable Schinyg, Krista Dooley Primary Care Unavailable Dino Olmos Attending Unavailable Dino Olmos Referring Unavailable Danny, Krista Dooley Primary Care Unavailable Krista Delgado Attending Unavailable Danny, Krista Dooley Referring Unavailable Schkalee, Krista Dooley Primary Care Unavailable Schkalee, Krista Dooley Attending Unavailable Danny, Krista Dooley Referring Unavailable Schkalee, Krista Dooley Primary Care Unavailable Medications Current Medications Medication Drug Class(es) Dates Sig (Normalized) Sig (Original) acetaminophen 325 mg / oxyCODONE hydrochloride 5 mg oral tablet (20 sources) Opioid Agonist Start: 2023 End: 04-11-2023 take 1 tablet by mouth every eight hours as needed for pain oxyCODONE-acetami nophen (PERCOCET) 5-325 mg tablet Indications: Closed fracture of olecranon process of right ulna, initial encounter Take 1 tablet by mouth every 8 hours as needed for pain for up to 7 days. 21 tablet 0 2023 04/11/2023 Active Start: 03-22-2023 End: 06-23-2024 Oxycodone-Acetaminophen (Per cocet) 5-325 mg tablet Discontinued 1 {tbl} PO EVERY 6 HOURS 28 7 0 March 22, 2023 June 23, 2024 4:12pm Fracture of right elbow Start: 03-22-2023 End: 2023 oxyCODONE-acetaminophen (PER COCET) 5-325 mg tablet Comment on above: Take 1 tablet by maryam th every 6 hours as needed for pain for up to 7 days. Take 1 tablet by maryam th every 8 hours as needed for pain for up to 7 days. alogliptin 25 mg oral tablet (9 sources) Start: 02-11-20 23 take 1 tablet by mouth once daily NESINA 25 mg tab Take 25 mg by mouth once daily. 0 02/10/2023 Active Comment on above: Take 25 mg by mouth once daily. amLODIPine 5 mg oral tablet (20 sources) Dihydropyridine Calcium Channel Na Start: 10-26-19 22 take 1 tablet by mouth once daily Amlodipine 5 mg tablet Active 5 mg PO DAILY October 25, 2021 12:00am Comment on above: Take 5 mg by mouth d aily at bedtime. aspirin 81 mg delayed release oral tablet (20 sources) Platelet Aggregation Inhibitor, Nonsteroidal Anti-inflammatory Drug Start: 04-02-20 16 take 1 tablet by mouth once daily Aspirin 81 MG tablet,delayed release (DR/EC) Active 81 mg PO DAILY April 02, 2016 1:00am Comment on above: Take 81 mg by mouth once daily. carvedilol 25 mg oral tablet (20 sources) alpha-Adrenergic Na, beta-Adrenergic Na Start: 01-28-20 20 take 1 tablet by mouth twice daily at mealtime Carvedilol 25 mg tablet Active 25 mg PO TWICE A DAY January 28, 2020 12:00am must administer with a meal/food Start: 03-09-2019 End: 01-28-2020 take 1 tablet by mouth twice daily Carvedilol 12.5 mg tablet Discontinued 12.5 mg PO TWICE A DAY 180 March 09, 2019 3:48pm January 28, 2020 11:33am Start: 04-24-2016 End: 03-09-2019 take 1 tablet by mouth twice daily Carvedilol 6.25 MG tablet Discontinued 6.25 mg PO TWICE A DAY 60 April 24, 2016 1:00am March 09, 2019 3:49pm Start: 04-02-2016 End: 04-24-2016 take 1 tablet by mouth twice daily Carvedilol 3.125 MG tablet Discontinued 3.125 mg PO TWICE A DAY April 02, 2016 1:00am April 24, 2016 9:52am Comment on above: Take 25 mg by mouth two times a day with meals. cholecalciferol 0.025 mg oral tablet (20 sources) Vitamin D Start: 10-26-19 take 1 tablet by mouth once daily Cholecalciferol (Vitamin D3) 25 mcg (1,000 unit) tablet Active 50 ug PO DAILY October 25, 2021 1:32pm Start: 01-28-2020 End: 10-25-2021 take 1 tablet by mouth once daily Cholecalciferol (Vitamin D3) 25 mcg (1,000 unit) tablet Discontinued 4000 U PO DAILY January 28, 2020 11:34am October 25, 2021 1:33pm Start: 03-09-2019 End: 01-28-2020 take 1 tablet by mouth once daily Cholecalciferol (Vitamin D3) 1,000 unit (25 mcg) tablet Discontinued 2000 U PO DAILY March 09, 2019 3:27pm January 28, 2020 11:36am Start: 04-02-2016 End: 03-09-2019 take 1 tablet by mouth once daily Cholecalciferol (Vitamin D3) 1,000 UNIT tablet Discontinued 1000 U PO DAILY April 02, 2016 1:00am March 09, 2019 3:29pm Start: 01-16-2013 End: 04-10-2023 take 1 capsule by mouth every week cholecalciferol, Vitamin D3, 50,000 unit cap capsule Take 1 capsule by mouth once each week. 0 01/16/2013 04/10/2023 Discontinued take 1 capsule by [facility] [place] once daily, then take 2 capsules by mouth twice daily Cholecalciferol, Vitamin D3, (VITAMIN D) 25 mcg (1,000 unit) cap Take 1,000 Units by mouth once daily. 2000 units twice a day 0 Active Comment on above: Take 1 capsule by [facility] [place] once each week. Take 1,000 Units by mouth once daily. 2000 units twice a day dapagliflozin 10 mg oral tablet (4 sources) Sodium-Glucose Cotransporter 2 Inhibitor Start: 06-23-19 take 1 tablet by mouth once daily Dapagliflozin Propanediol (Farxiga) 10 mg tablet Active 10 mg PO daily June 23, 2024 1:00am 1 ml guselkumab 100 mg/ml prefilled syringe (20 sources) Interleukin-23 Antagonist Start: 02-26-20 TREMFYA 100 mg/mL Every 2 month injection 0 02/25/2023 Active Start: 02-17-2018 Guselkumab (Tr emfya) 100 mg/mL syringe Active 100 mg SC every 8 weeks February 17, 2018 12:00am Comment on above: Every 2 month inject ion losartan potassium 50 mg oral tablet (20 sources) Angiotensin 2 Receptor Na Start: 6 End: 3 take 1 tablet by mouth twice daily Losartan 50 MG tablet Active 50 mg PO TWICE A DAY 60 April 24, 2016 9:30am Comment on above: Take 50 mg by mouth two times a day. Magnesium (4 sources) Start: 4 take 1 tablet by mouth once daily Magnesium 250 mg tablet Active 250 mg PO DAILY January 18, 2024 12:00am osmotic 24 hr metFORMIN hydrochloride 1000 mg extended release oral tablet (13 sources) Biguanide Start: 4 Metformin 500 mg tablet extended release 24 hr Active 1000 mg PO TWICE A DAY January 18, 2024 12:00am Start: 03-11-2023 take 1 tablet by maryam th twice daily at mealtime metFORMIN ER (GLUCOPHAGE XR) 500 mg 24 hr tablet Take 1,000 mg by mouth two times a day with meals. 0 03/11/2023 Active Start: 03-11-2023 metFORMIN ER ( GLUCOPHAGE XR) 500 mg 24 hr tablet Comment on above: Take 1,000 mg by maryam th two times a day with meals. rosuvastatin calcium 20 mg oral tablet (19 sources) HMG-CoA Reductase Inhibitor Start: 10-26-19 22 take 1 tablet by mouth once daily Rosuvastatin 20 mg tablet Active 20 mg PO DAILY October 25, 2021 12:00am sildenafil 50 mg oral tablet (14 sources) Phosphodiesterase 5 Inhibitor Start: 02-18-20 18 take 1 tablet by mouth once daily as needed Sildenafil 50 mg tablet Active 50 mg PO DAILY as needed for sexual activity February 17, 2018 12:00am Completed/Discontinued Medications Medication Drug Class(es) Dates Sig (Normalized) Sig (Original) 0.05 ml aflibercept 40 mg/ml injection (20 sources) Vascular Endothelial Growth Factor Inhibitor Start: 03-09-2019 End: 06-23-2024 Aflibercept (Eylea) 2 mg/0.05 mL solution Discontinued 20 mg INTRAVIT every 8 weeks March 09, 2019 3:28pm June 23, 2024 4:10pm Start: 02-17-2018 End: 03-09-2019 Aflibercept (Eylea) 2 mg/0.0 5 mL solution Discontinued 0.5 mL INTRAVIT every 4 weeks February 17, 2018 12:00am March 09, 2019 3:29pm Start: 02-17-2018 End: 03-09-2019 Aflibercept (Eylea) 2 mg/0.0 5 mL solution Discontinued 0.5 ML INTRAVIT every 4 weeks February 16, 2018 11:00pm March 09, 2019 2:29pm End: 04-18-2023 aflibercept (EYLEA INTRAVITR EAL) by INTRAVITREAL route. PRN 0 04/18/2023 Discontinued aflibercept (EYL EA INTRAVITREAL) by INTRAVITREAL route. PRN 0 Active Comment on above: by INTRAVITREAL rout eHarvey PRN [id number] 200 actuat albuterol 0.09 mg/actuat metered dose inhaler (14 sources) beta2-Adrenergic Agonist Start: 04-02-2016 End: 05-16-2017 Albuterol Sulfate 1 PUFF inhaler Discontinued 1 - 2 NMA INHALATION EVERY 6 HOURS NEEDED as needed for Wheezing April 02, 2016 1:00am May 16, 2017 4:23pm Start: 04-02-2016 End: 05-16-2017 take 1 puff(s) by inhalation every six hours as needed Albuterol Sulfate Discontinued 1 - 2 PUFF INHALATION EVERY 6 HOURS NEEDED April 02, 2016 12:00am May 16, 2017 3:23pm betamethasone dipropionate 0.643 mg/ml / calcipotriene 0.05 mg/ml topical foam (14 sources) Corticosteroid, Vitamin D Analog Start: 02-17-2018 End: 10-25-2021 Calcipotriene-Betamethasone (Enstilar) 0.005-0.064 % foam Discontinued 1 NMA TOPICAL DAILY as needed February 17, 2018 12:00am October 25, 2021 1:33pm Start: 02-17-2018 End: 10-25-2021 Calcipotriene-Betamethasone (Enstilar) 0.005-0.064 % foam Discontinued 1 APPLIC TOPICAL DAILY February 16, 2018 11:00pm October 25, 2021 12:33pm clopidogrel 75 mg oral tablet (14 sources) [id number] Platelet Inhibitor Start: 04-23-2016 End: 03-09-2019 take 1 tablet by mouth once daily Clopidogrel 75 MG tablet Discontinued 75 mg PO DAILY April 23, 2016 1:00am March 09, 2019 3:29pm docusate sodium 100 mg oral capsule (17 sources) Start: 03-22-2023 End: 01-18-2024 take 1 capsule by mouth twice daily Docusate Sodium (Colace) 100 mg capsule Discontinued 100 mg PO TWICE A DAY 60 0 March 22, 2023 12:00am January 18, 2024 12:14pm Docusate Sodium 100 mg tab Take 1 tablet by mouth as needed. 0 Active Comment on above: Take by mouth. Take 1 tablet by maryam th as needed. empagliflozin 10 mg oral tablet (20 sources) Sodium-Glucose Cotransporter 2 Inhibitor Start: 01-28-20 End: 01-18-20 24 take 1 tablet by mouth once daily in the morning Empagliflozin (Jardiance) 10 mg tablet Discontinued 5 mg PO EVERY MORNING October 25, 2021 1:29pm January 18, 2024 12:14pm ertugliflozin 15 mg oral tablet (4 sources) Start: 01-18-20 24 End: 06-23-19 25 take 1 tablet by mouth once daily Ertugliflozin (Steglatro) 15 mg tablet Discontinued 15 mg PO DAILY January 18, 2024 12:00am June 23, 2024 4:10pm glimepiride 4 mg oral tablet (15 sources) Sulfonylurea Start: 01-17-20 13 End: 03-28-20 23 take 1 tablet by mouth once daily Glimepiride 4 MG tablet Discontinued 4 mg PO DAILY April 02, 2016 1:00am January 28, 2020 11:34am Comment on above: Take 1 tablet by maryam th daily with breakfast. lisinopril 10 mg oral tablet (1 source) Angiotensin Converting Enzyme Inhibitor Start: 01-17-20 13 End: 03-28-20 23 take 1 tablet by mouth once daily lisinopril (PRINIVIL) 10 mg tablet Take 1 tablet by mouth once daily. 0 01/16/2013 03/28/2023 Discontinued Comment on above: Take 1 tablet by maryam th once daily. 24 hr metFORMIN hydrochloride 1000 mg / sAXagliptin 2.5 mg extended release oral tablet (14 sources) Biguanide, Dipeptidyl Peptidase 4 Inhibitor Start: 04-02-20 16 End: 10-26-19 22 Saxagliptin-Metformi n 1 EACH tablet, ER multiphase 24 hr Discontinued 2 {tbl} PO DAILY April 02, 2016 1:00am October 25, 2021 1:31pm Start: 04-02-2016 End: 10-25-2021 take 2 tablets by mouth once daily Saxagliptin-Metformin Discontinued 2 TABLET PO DAILY April 02, 2016 12:00am October 25, 2021 12:31pm 24 hr metFORMIN hydrochloride 1000 mg / SITagliptin 50 mg extended release oral tablet (13 sources) Biguanide, Dipeptidyl Peptidase 4 Inhibitor Start: 10-25-2021 End: 01-18-2024 Sitagliptin Phos-Metformin (Janumet Xr) 50-1,000 mg tablet, ER multiphase 24 hr Discontinued 1 {tbl} PO TWICE A DAY October 25, 2021 12:00am January 18, 2024 12:14pm Start: 01-16-2013 End: 03-28-2023 take 1 tablet by mouth twice daily at mealtime sitaGLIPtin-metFORMIN (JANUMET) 50-500 mg per tablet Take 1 tablet by mouth twice daily with meals. 0 01/16/2013 03/28/2023 Discontinued Comment on above: Take 1 tablet by maryam th twice daily with meals. simvastatin 20 mg oral tablet (15 sources) HMG-CoA Reductase Inhibitor Start: 6 End: take 1 tablet by mouth at bedtime Simvastatin 20 MG tablet Discontinued 20 mg PO AT BEDTIME April 02, 2016 1:00am October 25, 2021 1:32pm Start: 01-16-2013 End: 03-28-2023 take 1 tablet by mouth once daily at bedtime simvastatin (ZOCOR) 10 mg tablet Take 1 tablet by mouth daily at bedtime. 0 01/16/2013 03/28/2023 Discontinued Comment on above: Take 1 tablet by maryam th daily at bedtime. 1 ml ustekinumab 90 mg/ml prefilled syringe (14 sources) Interleukin-12 Antagonist, Interleukin-23 Antagonist Start: 04-02-2016 End: 02-17-2018 Ustekinumab 90 MG/ML syringe Discontinued 90 mg SQ Continuous April 02, 2016 1:00am February 17, 2018 10:45am Start: 04-02-2016 End: 02-17-2018 Ustekinumab Discontinued 90 MG SQ Continuous April 02, 2016 12:00am February 17, 2018 9:45am Problems Active Problems Problem Classification Problem Date Documented Da te Episodic/Chronic Aortic; peripheral; and visceral artery aneurysms (1 source) Thoracic aortic ectasia; Translations: [Thoracic aortic ectasia] Onset: 11-16-2024 Chronic Conduction disorders (14 sources) Left bundle branch block; Translations: [Left bundle-branch block, unspecified] 07-26-2020 Chronic Coronary atherosclerosis and other heart disease (20 sources) Coronary atherosclerosis; Translations: [Atherosclerotic heart disease of [place] coronary artery without angina pectoris] Chronic Crushing injury or internal injury (4 sources) Crush injury of great toe; Translations: [Crushing injury of unspecified great toe, initial encounter] 01-18-2024 Episodic Diabetes mellitus with complications (1 source) Type 2 diabetes mellitus with unspecified complications; Translations: [Type 2 diabetes mellitus with unspecified complications] Onset: 01-19-2025 Chronic Diabetes mellitus without complication (14 sources) Type 2 diabetes mellitus; Translations: [Type 2 diabetes mellitus without complications] 02-16-2018 Chronic Disorders of lipid metabolism (15 sources) Mixed hyperlipidemia; Translations: [Mixed hyperlipidemia] Chronic E Codes: Fall (8 sources) Fall; Translations: [Unspecified fall, initial encounter] 03-22-2023 Episodic Essential hypertension (15 sources) Essential hypertension; Translations: [Essential (primary) hypertension] Chronic Fracture of upper limb (20 sources) Elbow fracture - closed; Translations: [Unspecified fracture of lower end of right humerus, initial encounter for closed fracture] Onset: 03-28-2023 03-22-2023 Episodic Other connective tissue disease (1 source) Tendinitis of right rotator cuff; Translations: [Other shoulder lesions, right shoulder] 10-10-2023 Episodic Other connective tissue disease (1 source) Other shoulder lesions, right shoulder; Translations: [Tendinitis of right rotator cuff] Onset: 10-10-2023 Episodic Other inflammatory condition of skin (1 source) Psoriasis vulgaris; Translations: [Psoriasis vulgaris] Onset: 10-14-2024 Chronic Other injuries and conditions due to external causes (1 source) Other specified injuries of thorax, initial encounter; Translations: [Contusion of rib on right side] 03-30-2023 Episodic Other nervous system disorders (1 source) [...] Translations: [Obesity, unspecified] Onset: 04-02-2023 04-02-2023 Chronic Superficial injury; contusion (7 sources) Contusion of rib; Translations: [Contusion of right front wall of thorax, initial encounter] 03-22-2023 Episodic Past or Other Problems Problem Classification Problem Date Documented Da te Episodic/Chronic Coronary atherosclerosis and other heart disease (15 sources) Stented coronary artery; Translations: [Presence of coronary angioplasty implant and graft] Onset: 04-19-2016 Episodic Comment on above: PTCA/NOA to LCX 09/2015 Other screening for suspected conditions (not mental disorders or infectious disease) (9 sources) Patient encounter status; Translations: [Encounter for screening for malignant neoplasm of colon] Onset: 04-03-2024 06-23-2024 Episodic Results Test Name Value Interpretation Reference Range Facility Absolute lymphocyte countOrd ered By: Krista Delgado on 01-13-2025 Lymphocytes Auto (Unsp spec) [#/Vol] 1.02 10*3/uL 0.83-4.51 [facility] Absolute neutrophil countOrd ered By: Krista Delgado on 01-13-2025 Neutrophils (Bld) [#/Vol] 3.2 10*3/uL 2.0-7.7 [facility] Anion gap in Serum or Plasma Ordered By: Krista Delgado on 01-13-2025 Anion gap [Moles/Vol] 14 mmol/L 10-01 [facility] Automated lymphocyte count a s percentage of total leukocytesOrdered By: Krista Delgado on 01-13-2025 Lymphocytes/100 WBC Auto (Unsp spec) 20.2 % 19- [facility] BUN/creatinine ratioOrdered By: Krista Danny on 01-13-2025 Urea nitrogen/Creatinine [Mass ratio] 14.9 mg/mg 10-20 [facility] Basophil percentageOrdered B y: Krista Delgado on 01-13-2025 Basophils/100 WBC (Bld) 0.8 % 0-1 [facility] Bilirubin, totalOrdered By: Krista Delgado on 01-13-2025 Bilirubin [Mass/Vol] 0.81 mg/dL 0.00-1.30 [facility] CBC W/Diff, Automatedon 12-19 Absolute Lymph 1.02 X10 3/uL Normal 0.83-4.51 [facility] Comment on above: Order Comment: Order Date: 07/30/24 Order Info: 0184-1 - CBCD Performed By: #### L 100.0100, L500.4100, L501.9985, [id number] #### [facility] [address] [place], [address] Absolute Neut 3.2 X10 3/uL Normal 2.0-7.7 [facility] Comment on above: Order Comment: Order Date: 07/30/24 Order Info: 0184-1 - CBCD Performed By: #### L 100.0100, L500.4100, [id number], [id number] #### [facility] [address] [place], [address] Basophils/100 WBC (Bld) 0.8 % Normal 0-1 [facility] Comment on above: Order Comment: Order Date: 07/30/24 Order Info: 0184-1 - CBCD Performed By: #### L 100.0100, L500.4100, [id number], [id number] #### [facility] [address] [place], [address] Eosinophils/100 WBC (Bld) 5.7 % High 0-5 [facility] Comment on above: Order Comment: Order Date: 07/30/24 Order Info: 0184-1 - CBCD Performed By: #### L 100.0100, L500.4100, [id number], [id number] #### [facility] [address] [place], [address] Erythrocyte distribution width (RBC) [Ratio] 12.5 % Normal 11.6-14.6 [facility] Comment on above: Order Comment: Order Date: 07/30/24 Order Info: 0184- - CBCD Performed By: #### L 100.0100, L500.4100, [id number], [id number] #### [facility] [address] [place], [address] Hematocrit (Bld) [Volume fraction] 38.9 % Low 40-54 [facility] Comment on above: Order Comment: Order Date: 07/30/24 Order Info: 0184- - CBCD Performed By: #### L 100.0100, L500.4100, [id number], [id number] #### [facility] [address] [place], [address] Hemoglobin (Bld) [Mass/Vol] 13.1 g/dL Normal 13.0-16.5 [facility] Comment on above: Order Comment: Order Date: 07/30/24 Order Info: 0184- - CBCD Performed By: #### L 100.0100, L500.4100, [id number], [id number] #### [facility] [address] [place], [address] IG% 0.200 Normal 0.0-0.9 [facility] Comment on above: Order Comment: Order Date: 07/30/24 Order Info: 0184-1 - CBCD Result Comment: IG% - Immature Granulocytes (promyelocytes, myelocytes and metamyelocytes) > 1% indicates that a LEFT SHIFT is Present. Performed By: #### L 100.0100, L500.4100, L501.9985, L500.4050 #### [facility] [address] [place], [address] Lymphocytes/100 WBC (Bld) 20.2 % Normal 19-41 [facility] Comment on above: Order Comment: Order Date: 07/30/24 Order Info: 0184-1 - CBCD Performed By: #### L 100.0100, L500.4100, [id number], [id number] #### [facility] [address] [place], [address] MCH (RBC) [Entitic mass] 30.5 pg Normal 27.0-32.0 [facility] Comment on above: Order Comment: Order Date: 07/30/24 Order Info: 0184-1 - CBCD Performed By: #### L 100.0100, L500.4100, [id number], [id number] #### [facility] [address] [place], [address] MCHC (RBC) [Mass/Vol] 33.7 g/dL Normal 32-36 [facility] Comment on above: Order Comment: Order Date: 07/30/24 Order Info: 0184-1 - CBCD Performed By: #### L 100.0100, L500.4100, [id number], [id number] #### [facility] [address] [place], [address] MCV (RBC) [Entitic vol] 90.5 fL Normal 80-94 [facility] Comment on above: Order Comment: Order Date: 07/30/24 Order Info: 0184-1 - CBCD Performed By: #### L 100.0100, L500.4100, [id number], [id number] #### [facility] [address] [place], [address] Monocytes/100 WBC (Bld) 10.7 % High 0-10 [facility] Comment on above: Order Comment: Order Date: 07/30/24 Order Info: 0184-1 - CBCD Performed By: #### L 100.0100, L500.4100, [id number], [id number] #### [facility] [address] [place], [address] Neutrophils/100 WBC (Bld) 62.4 % Normal 47-70 [facility] Comment on above: Order Comment: Order Date: 07/30/24 Order Info: 0184-1 - CBCD Performed By: #### L 100.0100, L500.4100, [id number], [id number] #### [facility] [address] [place], [address] Nucleated RBC (Bld) [#/Vol] 0 10*3/uL Normal 0-5 [facility] Comment on above: Order Comment: Order Date: 07/30/24 Order Info: 0184-1 - CBCD Performed By: #### L 100.0100, L500.4100, [id number], [id number] #### [facility] [address] [place], [address] Platelet mean volume (Bld) [Entitic vol] 9.7 fL Normal 6.2-12.0 [facility] Comment on above: Order Comment: Order Date: 07/30/24 Order Info: 0184-1 - CBCD Performed By: #### L 100.0100, L500.4100, [id number], [id number] #### [facility] [address] [place], [address] Platelets (Bld) [#/Vol] 216 10*3/uL Normal 150-450 [facility] Comment on above: Order Comment: Order Date: 07/30/24 Order Info: 0184-1 - CBCD Performed By: #### L 100.0100, L500.4100, [id number], [id number] #### [facility] [address] [place], [address] RBC (Bld) [#/Vol] 4.30 10*6/uL Low 4.6-6.2 [facility] Comment on above: Order Comment: Order Date: 07/30/24 Order Info: 0184-1 - CBCD Performed By: #### L 100.0100, L500.4100, [id number], [id number] #### [facility] [address] [place], [address] RDW SD 41.0 fl Normal 35.1-43.9 [facility] Comment on above: Order Comment: Order Date: 07/30/24 Order Info: [id number] - CBCD Performed By: #### L 100.0100, L500.4100, L501.9985, L500.4050 #### [facility] [address] [place], [address] WBC (Bld) [#/Vol] 5.1 10*3/uL Normal 4.4-11.0 [facility] Comment on above: Order Comment: Order Date: 07/30/24 Order Info: [id number] - CBCD Performed By: #### L 100.0100, L500.4100, L501.9985, L500.4050 #### [facility] [address] [place], [address] Calculated very low density lipoprotein (VLDL) cholesterol measurementOrdered By: Krista Delgado on 01-13-2025 Calculated very low density lipoprotein (VLDL) cholesterol measurement 11 mg/dL 5-40 [facility] Carbon dioxide, total [Moles /volume] in Central venous bloodOrdered By: Krista Delgado on 01-13-2025 CO2 [Moles/Vol] 25.3 mmol/L 21.0-32.0 [facility] Chloride assayOrdered By: Lindsey Delgado on 01-13-2025 Chloride [Moles/Vol] 97 mmol/L Low 98-108 [facility] Comprehensive Metabolic Prof ilon 01-13-2025 Albumin [Mass/Vol] 4.5 g/dL Normal 3.4-4.8 [facility] Comment on above: Order Comment: Order Date: 07/30/24 Order Info: [id number] - CMP Order Info: [id number] - LIPID Performed By: #### L 100.0100, L500.4100, L501.9985, L500.4050 #### [facility] [address] [place], [address] Albumin/Globulin [Mass ratio] 1.4 {ratio} Normal 0.9-2.4 [facility] Comment on above: Order Comment: Order Date: 07/30/24 Order Info: [id number] - CMP Order Info: [id number] - LIPID Performed By: #### L 100.0100, L500.4100, L501.9985, L500.4050 #### [facility] [address] [place], [address] ALK PHOS 73 U/L Normal 40-129 [facility] Comment on above: Order Comment: Order Date: 07/30/24 Order Info: [id number] - CMP Order Info: [id number] - LIPID Performed By: #### L 100.0100, L500.4100, L501.9985, L500.4050 #### [facility] [address] [place], [address] ALT [Catalytic activity/Vol] 20 U/L Normal <=46 [facility] Comment on above: Order Comment: Order Date: 07/30/24 Order Info: [id number] - CMP Order Info: [id number] - LIPID Performed By: #### L 100.0100, L500.4100, L501.9985, L500.4050 #### [facility] [address] [place], [address] AST [Catalytic activity/Vol] 23 U/L Normal <=37 [facility] Comment on above: Order Comment: Order Date: 07/30/24 Order Info: [id number] - CMP Order Info: [id number] - LIPID Performed By: #### L 100.0100, L500.4100, L501.9985, L500.4050 #### [facility] [address] [place], [address] Bilirubin [Mass/Vol] 0.81 mg/dL Normal 0.00-1.30 [facility] Comment on above: Order Comment: Order Date: 07/30/24 Order Info: [id number] - CMP Order Info: [id number] - LIPID Performed By: #### L 100.0100, L500.4100, L501.9985, L500.4050 #### [facility] [address] [place], [address] BUN/CRE 14.9 RATIO Normal 10-20 [facility] Comment on above: Order Comment: Order Date: 07/30/24 Order Info: [id number] - CMP Order Info: [id number] - LIPID Performed By: #### L 100.0100, L500.4100, L501.9985, L500.4050 #### [facility] [address] [place], [address] Calcium [Mass/Vol] 10.5 mg/dL Normal 7.6-11.0 [facility] Comment on above: Order Comment: Order Date: 07/30/24 Order Info: [id number] - CMP Order Info: [id number] - LIPID Performed By: #### L 100.0100, L500.4100, L501.9985, L500.4050 #### [facility] [address] [place], [address] Chloride [Moles/Vol] 97 mmol/L Low 98-108 [facility] Comment on above: Order Comment: Order Date: 07/30/24 Order Info: [id number] - CMP Order Info: [id number] - LIPID Performed By: #### L 100.0100, L500.4100, L501.9985, L500.4050 #### [facility] [address] [place], [address] CO2 [Moles/Vol] 25.3 mmol/L Normal 21.0-32.0 [facility] Comment on above: Order Comment: Order Date: 07/30/24 Order Info: [id number] - CMP Order Info: [id number] - LIPID Performed By: #### L 100.0100, L500.4100, L501.9985, L500.4050 #### [facility] [address] [place], [address] Creatinine [Mass/Vol] 1.07 mg/dL Normal 0.70-1.20 [facility] Comment on above: Order Comment: Order Date: 07/30/24 Order Info: [id number] - CMP Order Info: [id number] - LIPID Performed By: #### L 100.0100, L500.4100, L501.9985, L500.4050 #### [facility] [address] [place], [address] GAP 14 Normal 5-15 [facility] Comment on above: Order Comment: Order Date: 07/30/24 Order Info: [id number] - CMP Order Info: [id number] - LIPID Performed By: #### L 100.0100, L500.4100, L501.9985, L500.4050 #### [facility] [address] [place], [address] GFR/1.73 sq M.predicted among non-blacks MDRD (S/P/Bld) [Vol rate/Area] 77 mL/min/{1.73_m2} Normal >60 [facility] Comment on above: Order Comment: Order Date: 07/30/24 Order Info: [id number] - CMP Order Info: [id number] - LIPID Result Comment: mL/m in/1.73m2 CKD-EPI Creatinine Equation (2020) Performed By: #### L 100.0100, L500.4100, L501.9985, L500.4050 #### [facility] [address] [place], [address] Globulin (S) [Mass/Vol] 3.3 g/dL Normal 2.2-4.2 [facility] Comment on above: Order Comment: Order Date: 07/30/24 Order Info: [id number] - CMP Order Info: [id number] - LIPID Performed By: #### L 100.0100, L500.4100, L501.9985, L500.4050 #### [facility] [address] [place], [address] Glucose [Mass/Vol] 227 mg/dL High 70-99 [facility] Comment on above: Order Comment: Order Date: 07/30/24 Order Info: [id number] - CMP Order Info: [id number] - LIPID Performed By: #### L 100.0100, L500.4100, L501.9985, L500.4050 #### [facility] [address] [place], [address] Potassium [Moles/Vol] 4.1 mmol/L Normal 3.3-5.1 [facility] Comment on above: Order Comment: Order Date: 07/30/24 Order Info: [id number] - CMP Order Info: [id number] - LIPID Performed By: #### L 100.0100, L500.4100, L501.9985, L500.4050 #### [facility] [address] [place], [address] Sodium [Moles/Vol] 136 mmol/L Normal 133-145 [facility] Comment on above: Order Comment: Order Date: 07/30/24 Order Info: [id number] - CMP Order Info: [id number] - LIPID Performed By: #### L 100.0100, L500.4100, L501.9985, L500.4050 #### [facility] [address] [place], [place], [address] T PROT 7.8 g/dL Normal 5.9-8.4 [facility] Comment on above: Order Comment: Order Date: 07/30/24 Order Info: [id number] - CMP Order Info: [id number] - LIPID Performed By: #### L 100.0100, L500.4100, L501.9985, L500.4050 #### [facility] [address] [place], [address] Urea nitrogen [Mass/Vol] 16 mg/dL Normal 4-19 [facility] Comment on above: Order Comment: Order Date: 07/30/24 Order Info: [id number] - CMP Order Info: [id number] - LIPID Performed By: #### L 100.0100, L500.4100, L501.9985, L500.4050 #### [facility] [address] [place], [address] Eosinophil percentageOrdered By: Krista Delgado on 01-13-2025 Eosinophils/100 WBC (Bld) 5.7 % High 0-5 [facility] Erythrocyte distribution wid th ratioOrdered By: Krista Delgado on 01-13-2025 Erythrocyte distribution width (RBC) [Ratio] 12.5 % 11.6-14.6 [facility] Erythrocyte distribution wid th standard deviationOrdered By: Krista Delgado on 01-13-2025 Erythrocyte distribution width (RBC) [Ratio] 41.0 fl 35.1-43.9 [facility] Glomerular filtration rate ( GFR) estimation/1.73 sq m using serum, plasma, or whole bOrdered By: Krista Delgado on 01-13-2025 GFR/1.73 sq M.predicted among non-blacks MDRD (S/P/Bld) [Vol rate/Area] 77 mL/min/{1.73_m2} >60 [facility] Comment on above: mL/min/1.73m2 CKD-EP I Creatinine Equation (2020) Hematocrit Auto (Bld) [Volum e fraction]Ordered By: Krista Delgado on 01-13-2025 Hematocrit (Bld) [Volume fraction] 38.9 % Low 40-54 [facility] Hemoglobin A1con 01-13-2025 HbA1c (Bld) [Mass fraction] 8.3 % High <=5.6 [facility] Comment on above: Order Comment: Order Date: 07/30/24 Order Info: [id number] - A1C Result Comment: Norm al < 5.7 % Prediabetic 5.7 - 6.4 % Diabetic >or= 6.5 % Please note range changes. Performed By: #### L 100.0100, L500.4100, L501.9985, L500.4050 #### [facility] [place], [address] Hemoglobin A1c percentageOrd ered By: Krista Delgado on 01-13-2025 HbA1c (Bld) [Mass fraction] 8.3 % High <5.7 [facility] Comment on above: Normal < 5.7 % Predi abetic 5.7 - 6.4 % Diabetic >or= 6.5 % Please note range changes. Hemoglobin measurementOrdere d By: Krista Delgado on 01-13-2025 Hemoglobin (Bld) [Mass/Vol] 13.1 g/dL 13.0-16.5 [facility] Immature granulocytes/100 WB C Auto (Bld)Ordered By: Krista Delgado on 01-13-2025 Immature granulocytes/100 WBC (Bld) 0.200 % 0.0-0.9 [facility] Comment on above: IG% - Immature Granu locytes (promyelocytes, myelocytes and metamyelocytes) > 1% indicates that a LEFT SHIFT is Present. LDL calc ser/plasOrdered By: Kritsa Delgado on 01-13-2025 Cholesterol in LDL [Mass/Vol] 56 mg/dL [facility] Comment on above: Rgwddznskz=288-677 m g/dL & Higher Sywv=538 mg/dL or greaterFriedwald Equation for LDL-C Laboratory - Chemistry and C hemistry - challengeOrdered By: Krista Delgado on 01-13-2025 AST [Catalytic activity/Vol] 23 U/L <38 [facility] Lipid Profileon 01-13-2025 CHOL:HDL 1.80 Normal [facility] Comment on above: Order Comment: Order Date: 07/30/24 Order Info: [id number] - CMP Order Info: [id number] - LIPID Performed By: #### L 100.0100, L500.4100, L501.9985, L500.4050 #### [facility] [address] [place], [address] Cholesterol [Mass/Vol] 151 mg/dL Normal <=200 [facility] Comment on above: Order Comment: Order Date: 07/30/24 Order Info: [id number] - CMP Order Info: [id number] - LIPID Result Comment: Chol esterol level, Desirable <200 mg/dL Borderline high cholesterol 200-239 mg/dL High cholesterol >=240 mg/dL Recommendations of the NCEP Adult Treatment Panel for the following risk-cutoff thresholds for the [place] population. Performed By: #### L 100.0100, L500.4100, L501.9985, L500.4050 #### [facility] [address] [place], [address] Cholesterol in HDL [Mass/Vol] 84 mg/dL Normal [facility] Comment on above: Order Comment: Order Date: 07/30/24 Order Info: [id number] - CMP Order Info: [id number] - LIPID Result Comment: Dalila onal Cholesterol Education Program (NCEP) guidelines: <40 mg/dL: Low HDL-cholesterol (major risk factor for CHD) >= 60 mg/dL: High HDL-cholesterol (negative risk factor for CHD) HDL-cholesterol is affected by a number of factors, e.g. smoking, exercise, hormones, sex and age. Performed By: #### L 100.0100, L500.4100, L501.9985, L500.4050 #### [facility] [address] [place], [address] Cholesterol in LDL [Mass/Vol] 56 mg/dL Normal [facility] Comment on above: Order Comment: Order Date: 07/30/24 Order Info: [id number] - CMP Order Info: [id number] - LIPID Result Comment: Bord rjodwq=021-930 mg/dL Higher Ntrp=385 mg/dL or greater Friedwald Equation for LDL-C Performed By: #### L 100.0100, L500.4100, L501.9985, L500.4050 #### [facility] [address] [place], [address] Cholesterol in VLDL [Mass/Vol] 11 mg/dL Normal 5-40 [facility] Comment on above: Order Comment: Order Date: 07/30/24 Order Info: [id number] - CMP Order Info: [id number] - LIPID Performed By: #### L 100.0100, L500.4100, L501.9985, L500.4050 #### [facility] [address] [place], [address] Triglyceride [Mass/Vol] 54 mg/dL Normal [facility] Comment on above: Order Comment: Order Date: 07/30/24 Order Info: [id number] - CMP Order Info: [id number] - LIPID Result Comment: The drugs N-Acetylcysteine and Metamizole may falsely depress this assay. Normal range: <150 mg/dL Borderline High: 150-199 mg/dL High: 200-499 mg/dL Very High: >500 mg/dL Performed By: #### L 100.0100, L500.4100, L501.9985, L500.4050 #### [facility] [address] [place], [address] MCV (mean corpuscular volume ) determinationOrdered By: Krista Delgado on 01-13-2025 MCV (RBC) [Entitic vol] 90.5 fL 80-94 [facility] Mean corpuscular hemoglobin (MCH) determinationOrdered By: Krista Delgado on 01-13-2025 MCH (RBC) [Entitic mass] 30.5 pg 27.0-32.0 [facility] Mean corpuscular hemoglobin concentration (MCHC) determinationOrdered By: Krista Delgado on 01-13-2025 MCHC (RBC) [Mass/Vol] 33.7 g/dL 32-36 [facility] Mean platelet volume determi nationOrdered By: Krista Delgado on 01-13-2025 Platelet mean volume (Bld) [Entitic vol] 9.7 fL 6.2-12.0 [facility] Monocyte percentageOrdered B y: Krista Delgado on 01-13-2025 Monocytes/100 WBC (Bld) 10.7 % High 0-10 [facility] Neutrophil percentageOrdered By: Krista Delgado on 01-13-2025 Neutrophils/100 WBC (Bld) 62.4 % 47-70 [facility] Nucleated red blood cell per centageOrdered By: Krista Delgado on 01-13-2025 Nucleated RBC/100 WBC (Bld) [Ratio] 0 % 0-5 [facility] Platelet countOrdered By: Lindsey Delgado on 01-13-2025 Platelets (Bld) [#/Vol] 216 10*3/uL 150-450 [facility] Potassium measurement (mass/ volume)Ordered By: Krista Delgado on 01-13-2025 Potassium (Unsp spec) [Mass/Vol] 4.1 mmol/L 3.3-5.1 [facility] Protein+Creatinine Ratio,Uri neon 01-13-2025 PROT:CRE RATIO 715 mg/g CRE High 0-200 [facility] Comment on above: Performed By: #### L 100.0100, L500.4100, L501.9985, L500.4050 #### [facility] [address] [place], [address] Protein (U) [Mass/Vol] 9.9 mg/dL Normal 0.0-12.0 [facility] Comment on above: Performed By: #### L 100.0100, L500.4100, L501.9985, L500.4050 #### [facility] [address] [place], [address] RBC Auto (Bld) [#/Vol]Ordere d By: Krista Delgado on 01-13-2025 RBC (Bld) [#/Vol] 4.30 10*6/uL Low 4.6-6.2 [facility] Random urine creatinine jin urement (mass/volume)Ordered By: Krista Delgado on 01-13-2025 Creatinine Unsp time (U) [Mass/Vol] 13.80 mg/dL Low 39.00-259. 00 [facility] Screening total cholesterol/ high density lipoprotein (HDL) cholesterol ratioOrdered By: Krista Delgado on 01-13-2025 Cholesterol.total/Cho lesterol in HDL [Mass ratio] 1.80 {ratio} [facility] Serum creatinine measurement (mass/volume)Ordered By: Krista Delgado on 01-13-2025 Creatinine [Mass/Vol] 1.07 mg/dL 0.70-1.20 [facility] Serum globulin measurementOr dered By: Krista Delgado on 01-13-2025 Globulin (S) [Mass/Vol] 3.3 g/dL 2.2-4.2 [facility] Serum glucose measurement (m ass/volume)Ordered By: Krista Delgado on 01-13-2025 Glucose [Mass/Vol] 227 mg/dL High 70-99 [facility] Serum or plasma alanine mir otransferase (ALT) measurementOrdered By: Krista Delgado on 01-13-2025 ALT [Catalytic activity/Vol] 20 U/L <47 [facility] Serum or plasma albumin jin urement (mass/volume)Ordered By: Krista Delgado on 01-13-2025 Albumin [Mass/Vol] 4.5 g/dL 3.4-4.8 [facility] Serum or plasma albumin/glob ulin mass ratioOrdered By: Krista Delgado on 01-13-2025 Albumin/Globulin [Mass ratio] 1.4 {ratio} 0.9-2.4 [facility] Serum or plasma alkaline bonita sphatase measurementOrdered By: Krista Delgado on 01-13-2025 ALP [Catalytic activity/Vol] 73 U/L 40-129 [facility] Serum or plasma calcium jin urement (mass/volume)Ordered By: Krista Delgado on 01-13-2025 Calcium [Mass/Vol] 10.5 mg/dL 7.6-11.0 [facility] Serum or plasma cholesterol in HDL measurement (mass/volume)Ordered By: Krista Delgado on 01-13-2025 Cholesterol in HDL [Mass/Vol] 84 mg/dL >40 [facility] Comment on above: National Cholesterol Education Program (NCEP) guidelines:<40 mg/dL: Low HDL-cholesterol (major risk factor for CHD)>= 60 mg/dL: High HDL-cholesterol (negative risk factor for CHD)HDL-cholesterol is affected by a number of factors, e.g. smoking, exercise, hormones, sex and age. Serum or plasma cholesterol measurement (mass/volume)Ordered By: Krista Delgado on 01-13-2025 Cholesterol [Mass/Vol] 151 mg/dL <201 [facility] Comment on above: Cholesterol level, D esirable <200 mg/dLBorderline high cholesterol 200-239 mg/dLHigh cholesterol >=240 mg/dLRecommendations of the NCEP Adult Treatment Panel for the following risk-cutoff thresholds for the [place] population. Serum or plasma urea nitroge n measurement (mass/volume)Ordered By: Krista Delgado on 01-13-2025 Urea nitrogen [Mass/Vol] 16 mg/dL 4-19 [facility] Sodium levelOrdered By: Krista Delgado on 01-13-2025 Sodium [Moles/Vol] 136 mmol/L 133-145 [facility] Total proteinOrdered By: Ahmet Delgado on 01-13-2025 Protein [Mass/Vol] 7.8 g/dL 5.9-8.4 [facility] Triglycerides measurementOrd ered By: Krista Delgado on 01-13-2025 Triglyceride [Mass/Vol] 54 mg/dL <199 [facility] Comment on above: The drugs N-Acetylcy steine and Metamizole may falsely depress this assay. Normal range: <150 mg/dLBorderline High: 150-199 mg/dLHigh: 200-499 mg/dLVery High: >500 mg/dL Urine protein measurement (m ass/volume)Ordered By: Krista Delgado on 01-13-2025 Protein (U) [Mass/Vol] 9.9 mg/dL 0.0-12.0 [facility] Urine protein/creatinine mas s ratioOrdered By: Krista Delgado on 01-13-2025 Protein/Creatinine (U) [Mass ratio] 715 mg/g CRE High 0-200 [facility] White blood cell (WBC) count Ordered By: Krista Delgado on 01-13-2025 WBC (Bld) [#/Vol] 5.1 10*3/uL 4.4-11.0 [facility] Microalb:Creat Ratio,Random URon 12-14-2024 MALB:CREAT 320.3 mg/g CRE High <30 mg/g CRE [facility] Comment on above: Order Comment: Order Date: 07/30/24 Order Info: [id number] - CBCD Result Comment: AMENDED REPORT 12/14/242125 MALB:CREAT previously reported as: 3203.3 mg/g CRE Performed By: #### L 100.0100, L500.4100, L501.9985, L500.4050 #### [facility] [address] [place], [address] Echo Completeon 11-11-2024 Echo Complete [facility] [address] [place] [address] Echo Complete 11/11/24 1012 MR#: [id number] Acct: [id number] Name: TAYLOR LARSON Rep #: [id number] : 1960 64 From: Arslan Mar MD Attending Dr: Dr. Krista Delgado MD Status: R EG CLI Ordering Dr: Krista Delgado MD Date: 11/11/24 Location: [facility] Sex: M C Admitted: Reason For Study Reason For Study: THORACIC AORTIC ECTASIA Procedure This was a 2D Doppler, Color Flow transthoracic echocardiogram. Exam performed in department. Left Ventricle Normal LV size. Left ventricular systolic function is normal. Stage 1 diastolic dysfunction. The left ventricular ejection fraction is 60 %. No regional wall motion abnormalities noted. Right Ventricle Normal RV size. Normal systolic function. Atria Normal left atrium. Normal right atrium. Mitral Valve Mild focal mitral valve calcification of the anterior leaflet. There is mild mitral annular calcification. Mild (1+) eccentric mitral valve insufficiency. Tricuspid Valve Normal tricuspid valve. Mild (1+) tricuspid valve insufficiency. Pulmonary artery systolic pressure is 39 mmHg. Aortic Valve Trisinus/trileaflet aortic valve. Mild focal aortic valve calcification. Pulmonic Valve Normal pulmonic valve. Great Vessels Normal aortic root. The pulmonary artery is normal size. Inferior vena cava collapse with sniff. Pericardium/Pleural No pericardial effusion. MMode/2D Measurements Calculations LVIDd: 5.1 cm IVSd: 1.0 cm Ao root diam: 3.6 cm LVIDs: 3.6 cm LVPWd: 1.1 cm RVDd: 3.4 cm FS: 28.7 % LAV(MOD-bp): 56.1 ml LVAd ap4: 38.1 cm2 SV(MOD-sp4): 74.1 ml LAV(MOD-bp) Indexed: 25.2 ml/m2 LVLd ap4: 9.4 cm SI(MOD-sp4): 33.4 ml/m2 LAV(MOD-sp2): 58.7 ml EDV(MOD-sp4): 124.5 ml LAV(MOD-sp4): 53.9 ml EDV(sp4-el): 130.2 ml LVAs ap4: 21.4 cm2 LVLs ap4: 8.0 cm ESV(MOD-sp4): 50.4 ml ESV(sp4-el): 48.5 ml EF(MOD-sp4): 59.5 % EF(sp4-el): 62.8 % SV(sp4-el): 81.7 ml LA A4 area: 19.0 cm2 LA dimension(2D): 3.6 cm RA A4 area: 16.0 cm2 TAPSE: 2.3 cm Time Measurements MV dec time: 0.22 sec Doppler Measurements Calculations MV E max nicky: 74.6 cm/sec Lat Peak E' Nicky: 8.9 cm/sec Med Peak E' Nicky: 6.2 cm/sec MV A max nicky: 115.0 cm/sec E/E' lat: 8.4 E/E' med: 12.1 MV E/A: 0.65 Ao V2 max: 137.0 cm/sec LV V1 max: 115.0 cm/sec PA V2 max: 101.6 cm/sec Ao max P.5 mmHg LV V1 max P.3 mmHg TR max nicky: 296.3 cm/sec TR max P.1 mmHg ECHO/Echo Complete Interpretation Summary Normal LV size. Left ventricular systolic function is normal. Mild (1+) eccentric mitral valve insufficiency. Pulmonary artery systolic pressure is 39 mmHg. Mild focal aortic valve calcification. Stage 1 diastolic dysfunction. The left ventricular ejection fraction is 60 %. Ordering Physician: Krista Delgado Referring Physician: Krista Delgado Performed By: Ayde Ramírez RDCS 11/11/24 1120 Date Arslan Mar MD CC: Dr. Krista Delgado MD Date Dictated: 11/11/24 1012 Date Transcribed: 11/11/24 1120 Polysomnograph Tech: Signed Normal [facility] Echocardiogram study reportO rdered By: Arslan Mar on 11-11-2024 Study report [facility] [address] [place] [address] Echo Complete 11/11/24 1012 MR#: [id number] Acct: [id number] Name: TAYLOR LARSON Rep #:[id number] : 1960 64 From: Arslan Vega Attending Dr: Dr. Krista Delgado MD Status: REG CLI Ordering Dr: Krista Delgado MD Date: 11/11/24 Location: [facility] Sex: M C Admitted: Reason For Study Reason For Study: THORACIC AORTIC ECTASIA Procedure This was a 2D Doppler, Color Flow transthoracic echocardiogram. Exam performed in department. Left Ventricle Normal LV size. Left ventricular systolic function is normal. Stage 1 diastolic dysfunction. The left ventricular ejection fraction is 60 %. No regional wall motion abnormalities noted. Right Ventricle Normal RV size. Normal systolic function. Atria Normal left atrium. Normal right atrium. Mitral Valve Mild focal mitral valve calcification of the anterior leaflet. There is mild mitral annular calcification. Mild (1+) eccentric mitral valve insufficiency. Tricuspid Valve Normal tricuspid valve. Mild (1+) tricuspid valve insufficiency. Pulmonary artery systolic pressure is 39 mmHg. Aortic Valve Trisinus/trileaflet aortic valve. Mild focal aortic valve calcification. Pulmonic Valve Normal pulmonic valve. Great Vessels Normal aortic root. The pulmonary artery is normal size. Inferior vena cava collapse with sniff. Pericardium/Pleural No pericardial effusion. MMode/2D Measurements & Calculations LVIDd: 5.1 cm IVSd: 1.0 cm Ao root diam: 3.6 cm LVIDs: 3.6 cm LVPWd: 1.1 cm RVDd: 3.4 cm FS: 28.7 % LAV(MOD-bp): 56.1 ml LVAd ap4: 38.1 cm2 SV(MOD-sp4): 74.1 ml LAV(MOD-bp) Indexed: 25.2 ml/m2 LVLd ap4: 9.4 cm SI(MOD-sp4): 33.4 ml/m2 LAV(MOD-sp2): 58.7 ml EDV(MOD-sp4): 124.5 ml LAV(MOD-sp4): 53.9 ml EDV(sp4-el): 130.2 ml LVAs ap4: 21.4 cm2 LVLs ap4: 8.0 cm ESV(MOD-sp4): 50.4 ml ESV(sp4-el): 48.5 ml EF(MOD-sp4): 59.5 % EF(sp4-el): 62.8 % SV(sp4-el): 81.7 ml LA A4 area: 19.0 cm2 LA dimension(2D): 3.6 cm RA A4 area: 16.0 cm2 TAPSE: 2.3 cm Time Measurements MV dec time: 0.22 sec Doppler Measurements & Calculations MV E max nicky: 74.6 cm/sec Lat Peak E' Nicky: 8.9 cm/sec Med Peak E' Nicky: 6.2 cm/sec MV A max nicky: 115.0 cm/sec E/E' lat: 8.4 E/E' med: 12.1 MV E/A: 0.65 Ao V2 max: 137.0 cm/sec LV V1 max: 115.0 cm/sec PA V2 max: 101.6 cm/sec Ao max P.5 mmHg LV V1 max P.3 mmHg TR max nicky: 296.3 cm/sec TR max P.1 mmHg ECHO/Echo Complete Interpretation Summary Normal LV size. Left ventricular systolic function is normal. Mild (1+) eccentric mitral valve insufficiency. Pulmonary artery systolic pressure is 39 mmHg. Mild focal aortic valve calcification. Stage 1 diastolic dysfunction. The left ventricular ejection fraction is 60 %. Ordering Physician: Krista Delgado Referring Physician: Krista Delgado Performed By: Ayde Ramírez RDCS 11/11/24 1120 Date _ Arslan Mar MD CC: Dr. Krista Delgado MD ~ Date Dictated: 11/11/24 1012 Date Transcribed: 11/11/24 1120 Polysomnograph Tech: Signed [facility] Work Phone: Quantiferon TB-Gold+on 10-10 QFT MITOGEN GINA > 10.00 Normal . [facility] Comment on above: Performed By: #### L 100.0100, L500.4100, L501.9985, L500.4050 #### [facility] [address] [place], [address] QFT NIL VALUE 0.05 IU/mL Normal . [facility] Comment on above: Performed By: #### L 100.0100, L500.4100, L501.9985, L500.4050 #### [facility] [address] [place], [place], [id number] QFT TB GOLD+ Comment Normal . [facility] Comment on above: Result Comment: Ole tiFERON-TB Gold Plus is a qualitative indirect test for M tuberculosis infection (including disease) and is intended for use in conjunction with risk assessment, radiography, and other medical and diagnostic evaluations. The QuantiFERON-TB Gold Plus result is determined by subtracting the Nil value from either TB antigen (Ag) value. The Mitogen tube serves as a control for the test. Performed By: #### L 100.0100, L500.4100, L501.9985, L500.4050 #### [facility] [address] [place], [place], [id number] QFT TB POS CRIT Negative Normal Negative [facility] Comment on above: Result Comment: No r esponse to M tuberculosis antigens detected. Infection with M tuberculosis is unlikely, but high risk individuals should be considered for additional testing (ATS/IDSA/CDC Clinical Practice Guidelines, 2017). The reference range is an Antigen minus Nil result of <0.35 IU/mL. The specimen received for QuantiFERON testing was incubated by the ordering institution. Specific procedures outlined in our Directory of Services and in the package insert for the QuantiFERON Gold (In Tube) test must be followed to enable for proper stimulation of cells for the production of interferon gamma. Chemiluminescence immunoassay methodology Performed at: [address] [id number] Leasing Director: Donovan Hercules PhD, Phone: [phone] Performed By: #### L 100.0100, L500.4100, L501.9985, L500.4050 #### [facility] [address] [place], [place], [phone] ([phone]) QFT TB1+ AG GINA 0.04 IU/mL Normal . [facility] Comment on above: Performed By: #### L 100.0100, L500.4100, L501.9985, L500.4050 #### [facility] [address] [place], [address] QFT TB2+ AG GINA 0.05 IU/mL Normal . [facility] Comment on above: Performed By: #### L 100.0100, L500.4100, L501.9985, L500.4050 #### [facility] [address] [place], [address] Absolute lymphocyte countOrd ered By: Dino Olmos on 10-07-2024 Lymphocytes Auto (Unsp spec) [#/Vol] 1.19 10*3/uL 0.83-4.51 [facility] Absolute neutrophil countOrd ered By: Dino Olmos on 10-07-2024 Neutrophils (Bld) [#/Vol] 3.4 10*3/uL 2.0-7.7 [facility] Automated lymphocyte count a s percentage of total leukocytesOrdered By: Dino Olmos on 10-07-2024 Lymphocytes/100 WBC Auto (Unsp spec) 20.8 % 19-41 [facility] Basophil percentageOrdered B y: Dino Olmos on 10-07-2024 Basophils/100 WBC (Bld) 0.7 % 0-1 [facility] Bilirubin directOrdered By: Dino Olmos on 10-07-2024 Bilirubin.direct [Mass/Vol] 0.33 mg/dL High 0.00-0.30 [facility] Bilirubin, totalOrdered By: Dino Olmos on 10-07-2024 Bilirubin [Mass/Vol] 0.73 mg/dL 0.00-1.30 [facility] CBC W/Diff, Automatedon 09-18 Absolute Lymph 1.19 X10 3/uL Normal 0.83-4.51 [facility] Comment on above: Performed By: #### L 100.0100, L500.4100, L501.9985, L500.4050 #### [facility] [address] [place], [address] Absolute Neut 3.4 X10 3/uL Normal 2.0-7.7 [facility] Comment on above: Performed By: #### L 100.0100, L500.4100, L501.9985, L500.4050 #### [facility] [address] [place], [address] Basophils/100 WBC (Bld) 0.7 % Normal 0-1 [facility] Comment on above: Performed By: #### L 100.0100, L500.4100, L501.9985, L500.4050 #### [facility] [address] [place], [address] Eosinophils/100 WBC (Bld) 5.3 % High 0-5 [facility] Comment on above: Performed By: #### L 100.0100, L500.4100, L501.9985, L500.4050 #### [facility] [address] [place], [address] Erythrocyte distribution width (RBC) [Ratio] 12.6 % Normal 11.6-14.6 [facility] Comment on above: Performed By: #### L 100.0100, L500.4100, L501.9985, L500.4050 #### [facility] [address] [place], [address] Hematocrit (Bld) [Volume fraction] 38.4 % Low 40-54 [facility] Comment on above: Performed By: #### L 100.0100, L500.4100, L501.9985, L500.4050 #### [facility] [address] [place], [address] Hemoglobin (Bld) [Mass/Vol] 12.8 g/dL Low 13.0-16.5 [facility] Comment on above: Performed By: #### L 100.0100, L500.4100, L501.9985, L500.4050 #### [facility] [address] [place], [address] IG% 0.400 Normal 0.0-0.9 [facility] Comment on above: Result Comment: IG% - Immature Granulocytes (promyelocytes, myelocytes and metamyelocytes) > 1% indicates that a LEFT SHIFT is Present. Performed By: #### L 100.0100, L500.4100, L501.9985, L500.4050 #### [facility] [address] [place], [address] Lymphocytes/100 WBC (Bld) 20.8 % Normal 19-41 [facility] Comment on above: Performed By: #### L 100.0100, L500.4100, L501.9985, L500.4050 #### [facility] [address] [place], [address] MCH (RBC) [Entitic mass] 30.7 pg Normal 27.0-32.0 [facility] Comment on above: Performed By: #### L 100.0100, L500.4100, L501.9985, L500.4050 #### [facility] [address] [place], [address] MCHC (RBC) [Mass/Vol] 33.3 g/dL Normal 32-36 [facility] Comment on above: Performed By: #### L 100.0100, L500.4100, L501.9985, L500.4050 #### [facility] [address] [place], [address] MCV (RBC) [Entitic vol] 92.1 fL Normal 80-94 [facility] Comment on above: Performed By: #### L 100.0100, L500.4100, L501.9985, L500.4050 #### [facility] [address] [place], [address] Monocytes/100 WBC (Bld) 12.6 % High 0-10 [facility] Comment on above: Performed By: #### L 100.0100, L500.4100, L501.9985, L500.4050 #### [facility] [address] [place], [address] Neutrophils/100 WBC (Bld) 60.2 % Normal 47-70 [facility] Comment on above: Performed By: #### L 100.0100, L500.4100, L501.9985, L500.4050 #### [facility] [address] [place], [address] Nucleated RBC (Bld) [#/Vol] 0 10*3/uL Normal 0-5 [facility] Comment on above: Performed By: #### L 100.0100, L500.4100, L501.9985, L500.4050 #### [facility] [address] [place], [address] Platelet mean volume (Bld) [Entitic vol] 9.3 fL Normal 6.2-12.0 [facility] Comment on above: Performed By: #### L 100.0100, L500.4100, L501.9985, L500.4050 #### [facility] [address] [place], [address] Platelets (Bld) [#/Vol] 204 10*3/uL Normal 150-450 [facility] Comment on above: Performed By: #### L 100.0100, L500.4100, L501.9985, L500.4050 #### [facility] [address] [place], [address] RBC (Bld) [#/Vol] 4.17 10*6/uL Low 4.6-6.2 [facility] Comment on above: Performed By: #### L 100.0100, L500.4100, L501.9985, L500.4050 #### [facility] [address] [place], [address] RDW SD 42.8 fl Normal 35.1-43.9 [facility] Comment on above: Performed By: #### L 100.0100, L500.4100, L501.9985, L500.4050 #### [facility] [address] [place], [address] WBC (Bld) [#/Vol] 5.7 10*3/uL Normal 4.4-11.0 [facility] Comment on above: Performed By: #### L 100.0100, L500.4100, L501.9985, L500.4050 #### [facility] [address] [place], [address] Eosinophil percentageOrdered By: Dino Olmos on 10-07-2024 Eosinophils/100 WBC (Bld) 5.3 % High 0-5 [facility] Erythrocyte distribution wid th ratioOrdered By: Dino Olmos on 10-07-2024 Erythrocyte distribution width (RBC) [Ratio] 12.6 % 11.6-14.6 [facility] Erythrocyte distribution wid th standard deviationOrdered By: Dino Olmos on 10-07-2024 Erythrocyte distribution width (RBC) [Ratio] 42.8 fl 35.1-43.9 [facility] Hematocrit Auto (Bld) [Volum e fraction]Ordered By: Dino Olmos on 10-07-2024 Hematocrit (Bld) [Volume fraction] 38.4 % Low 40-54 [facility] Hemoglobin measurementOrdere d By: Dino Olmos on 10-07-2024 Hemoglobin (Bld) [Mass/Vol] 12.8 g/dL Low 13.0-16.5 [facility] Immature granulocytes/100 WB C Auto (Bld)Ordered By: Dino Olmos on 10-07-2024 Immature granulocytes/100 WBC (Bld) 0.400 % 0.0-0.9 [facility] Comment on above: IG% - Immature Granu locytes (promyelocytes, myelocytes and metamyelocytes) > 1% indicates that a LEFT SHIFT is Present. Laboratory - Chemistry and C hemistry - challengeOrdered By: Dino Olmos on 10-07-2024 AST [Catalytic activity/Vol] 21 U/L <38 [facility] Liver Profileon 10-07-2024 Albumin [Mass/Vol] 4.5 g/dL Normal 3.4-4.8 [facility] Comment on above: Performed By: #### L 100.0100, L500.4100, L501.9985, L500.4050 #### [facility] [address] [place], [address] ALK PHOS 67 U/L Normal 40-129 [facility] Comment on above: Performed By: #### L 100.0100, L500.4100, L501.9985, L500.4050 #### [facility] [address] [place], [address] ALT [Catalytic activity/Vol] 14 U/L Normal <=46 [facility] Comment on above: Performed By: #### L 100.0100, L500.4100, L501.9985, L500.4050 #### [facility] [address] [place], [address] AST [Catalytic activity/Vol] 21 U/L Normal <=37 [facility] Comment on above: Performed By: #### L 100.0100, L500.4100, L501.9985, L500.4050 #### [facility] [address] [place], [address] Bilirubin [Mass/Vol] 0.73 mg/dL Normal 0.00-1.30 [facility] Comment on above: Performed By: #### L 100.0100, L500.4100, L501.9985, L500.4050 #### [facility] [address] [place], [address] Bilirubin.direct [Mass/Vol] 0.33 mg/dL High 0.00-0.30 [facility] Comment on above: Performed By: #### L 100.0100, L500.4100, L501.9985, L500.4050 #### [facility] [address] [place], [address] Globulin (S) [Mass/Vol] 3.2 g/dL Normal 2.2-4.2 [facility] Comment on above: Performed By: #### L 100.0100, L500.4100, L501.9985, L500.4050 #### [facility] [address] [place], [address] T PROT 7.6 g/dL Normal 5.9-8.4 [facility] Comment on above: Performed By: #### L 100.0100, L500.4100, L501.9985, L500.4050 #### [facility] [address] [place], [address] MCV (mean corpuscular volume ) determinationOrdered By: Dino Olmos on 10-07-2024 MCV (RBC) [Entitic vol] 92.1 fL 80-94 [facility] Mean corpuscular hemoglobin (MCH) determinationOrdered By: Dino Olmos on 10-07-2024 MCH (RBC) [Entitic mass] 30.7 pg 27.0-32.0 [facility] Mean corpuscular hemoglobin concentration (MCHC) determinationOrdered By: Dino Olmos on 10-07-2024 MCHC (RBC) [Mass/Vol] 33.3 g/dL 32-36 [facility] Mean platelet volume determi nationOrdered By: Dino Olmos on 10-07-2024 Platelet mean volume (Bld) [Entitic vol] 9.3 fL 6.2-12.0 [facility] Monocyte percentageOrdered B y: Dino Olmos on 10-07-2024 Monocytes/100 WBC (Bld) 12.6 % High 0-10 [facility] Neutrophil percentageOrdered By: Dino Olmos on 10-07-2024 Neutrophils/100 WBC (Bld) 60.2 % 47-70 [facility] Nucleated red blood cell per centageOrdered By: Dino Olmos on 05-21-2025 Nucleated RBC/100 WBC (Bld) [Ratio] 0 % 0-5 [facility] Platelet countOrdered By: Sun Olmos on 10-07-2024 Platelets (Bld) [#/Vol] 204 10*3/uL 150-450 [facility] Qualitative QuantiFERON-TB g old in tube testOrdered By: Dino Olmos on 10-07-2024 M. tuberculosis tuberculin stim IFN-g Ql (Bld) 0.04 IU/mL . [facility] RBC Auto (Bld) [#/Vol]Ordere d By: Dino Olmos on 10-07-2024 RBC (Bld) [#/Vol] 4.17 10*6/uL Low 4.6-6.2 [facility] Serum globulin measurementOr dered By: Dino Olmos on 10-07-2024 Globulin (S) [Mass/Vol] 3.2 g/dL 2.2-4.2 [facility] Serum or plasma alanine mir otransferase (ALT) measurementOrdered By: Dino Olmos on 10-07-2024 ALT [Catalytic activity/Vol] 14 U/L <47 [facility] Serum or plasma albumin jin urement (mass/volume)Ordered By: Dino Olmos on 10-07-2024 Albumin [Mass/Vol] 4.5 g/dL 3.4-4.8 [facility] Serum or plasma alkaline bonita sphatase measurementOrdered By: Dino Olmos on 10-07-2024 ALP [Catalytic activity/Vol] 67 U/L 40-129 [facility] Total proteinOrdered By: Osvaldo Olmos on 10-07-2024 Protein [Mass/Vol] 7.6 g/dL 5.9-8.4 [facility] White blood cell (WBC) count Ordered By: Dino Olmos on 10-07-2024 WBC (Bld) [#/Vol] 5.7 10*3/uL 4.4-11.0 [facility] Absolute lymphocyte countOrd ered By: Krista Delgado on 07-30-2024 Lymphocytes Auto (Unsp spec) [#/Vol] 1.16 10*3/uL 0.83-4.51 [facility] Absolute neutrophil countOrd ered By: Krista Delgado on 07-30-2024 Neutrophils (Bld) [#/Vol] 3.3 10*3/uL 2.0-7.7 [facility] Albumin DL <= 20 mg/L (U) [M ass/Vol]Ordered By: Krista Delgado on 07-30-2024 Urine Random Microalbumin 115.0 mg/L NO RANGE EST. [facility] Anion gap in Serum or Plasma Ordered By: Krista Delgado on 07-30-2024 Anion gap [Moles/Vol] 15 mmol/L 5-15 [facility] Automated lymphocyte count a s percentage of total leukocytesOrdered By: Krista Delgado on 07-30-2024 Lymphocytes/100 WBC Auto (Unsp spec) 20.8 % - [facility] BUN/creatinine ratioOrdered By: Krista Delgado on 07-30-2024 Urea nitrogen/Creatinine [Mass ratio] 14.4 mg/mg 10- [facility] Basophil percentageOrdered B y: Krista Delgado on 07-30-2024 Basophils/100 WBC (Bld) 0.7 % 0-1 [facility] Bilirubin, totalOrdered By: Krista Delgado on 07-30-2024 Bilirubin [Mass/Vol] 0.59 mg/dL 0.00-1.30 [facility] CBC W/Diff, Automatedon 07-18 Absolute Lymph 1.16 X10 3/uL Normal 0.83-4.51 [facility] Comment on above: Order Comment: Order Date: 07/30/24 Order Info: 0184-1 - CBCD Performed By: #### L 100.0100, L500.4100, L501.9985, L500.4050 #### [facility] [address] [place], [address] Absolute Neut 3.3 X10 3/uL Normal 2.0-7.7 [facility] Comment on above: Order Comment: Order Date: 07/30/24 Order Info: 0184-1 - CBCD Performed By: #### L 100.0100, L500.4100, L501.9985, L500.4050 #### [facility] [address] [place], [address] Basophils/100 WBC (Bld) 0.7 % Normal 0-1 [facility] Comment on above: Order Comment: Order Date: 07/30/24 Order Info: 0184-1 - CBCD Performed By: #### L 100.0100, L500.4100, L501.9985, L500.4050 #### [facility] [address] [place], [address] Eosinophils/100 WBC (Bld) 6.6 % High 0-5 [facility] Comment on above: Order Comment: Order Date: 07/30/24 Order Info: 0184-1 - CBCD Performed By: #### L 100.0100, L500.4100, L501.9985, L500.4050 #### [facility] [address] [place], [address] Erythrocyte distribution width (RBC) [Ratio] 12.1 % Normal 11.6-14.6 [facility] Comment on above: Order Comment: Order Date: 07/30/24 Order Info: 0184-1 - CBCD Performed By: #### L 100.0100, L500.4100, L501.9985, L500.4050 #### [facility] [address] [place], [address] Hematocrit (Bld) [Volume fraction] 39.6 % Low 40-54 [facility] Comment on above: Order Comment: Order Date: 07/30/24 Order Info: 0184-1 - CBCD Performed By: #### L 100.0100, L500.4100, L501.9985, L500.4050 #### [facility] [address] [place], [address] Hemoglobin (Bld) [Mass/Vol] 13.4 g/dL Normal 13.0-16.5 [facility] Comment on above: Order Comment: Order Date: 07/30/24 Order Info: 0184-1 - CBCD Performed By: #### L 100.0100, L500.4100, L501.9985, L500.4050 #### [facility] [address] [place], [address] IG% 0.200 Normal 0.0-0.9 [facility] Comment on above: Order Comment: Order Date: 07/30/24 Order Info: 0184-1 - CBCD Result Comment: IG% - Immature Granulocytes (promyelocytes, myelocytes and metamyelocytes) > 1% indicates that a LEFT SHIFT is Present. Performed By: #### L 100.0100, L500.4100, L501.9985, L500.4050 #### [facility] [address] [place], [address] Lymphocytes/100 WBC (Bld) 20.8 % Normal 19-41 [facility] Comment on above: Order Comment: Order Date: 07/30/24 Order Info: 0184- - CBCD Performed By: #### L 100.0100, L500.4100, L501.9985, L500.4050 #### [facility] [address] [place], [address] MCH (RBC) [Entitic mass] 30.9 pg Normal 27.0-32.0 [facility] Comment on above: Order Comment: Order Date: 07/30/24 Order Info: 0184-1 - CBCD Performed By: #### L 100.0100, L500.4100, L501.9985, L500.4050 #### [facility] [address] [place], [address] MCHC (RBC) [Mass/Vol] 33.8 g/dL Normal 32-36 [facility] Comment on above: Order Comment: Order Date: 07/30/24 Order Info: 0184-1 - CBCD Performed By: #### L 100.0100, L500.4100, L501.9985, L500.4050 #### [facility] [address] [place], [address] MCV (RBC) [Entitic vol] 91.5 fL Normal 80-94 [facility] Comment on above: Order Comment: Order Date: 07/30/24 Order Info: 0184-1 - CBCD Performed By: #### L 100.0100, L500.4100, L501.9985, L500.4050 #### [facility] [address] [place], [address] Monocytes/100 WBC (Bld) 12.0 % High 0-10 [facility] Comment on above: Order Comment: Order Date: 07/30/24 Order Info: 0184-1 - CBCD Performed By: #### L 100.0100, L500.4100, L501.9985, L500.4050 #### [facility] [address] [place], [address] Neutrophils/100 WBC (Bld) 59.7 % Normal 47-70 [facility] Comment on above: Order Comment: Order Date: 07/30/24 Order Info: 0184-1 - CBCD Performed By: #### L 100.0100, L500.4100, L501.9985, L500.4050 #### [facility] [address] [place], [address] Nucleated RBC (Bld) [#/Vol] 0 10*3/uL Normal 0-5 [facility] Comment on above: Order Comment: Order Date: 07/30/24 Order Info: 0184-1 - CBCD Performed By: #### L 100.0100, L500.4100, L501.9985, L500.4050 #### [facility] [address] [place], [address] Platelet mean volume (Bld) [Entitic vol] 9.8 fL Normal 6.2-12.0 [facility] Comment on above: Order Comment: Order Date: 07/30/24 Order Info: 0184-1 - CBCD Performed By: #### L 100.0100, L500.4100, L501.9985, L500.4050 #### [facility] [address] [place], [address] Platelets (Bld) [#/Vol] 233 10*3/uL Normal 150-450 [facility] Comment on above: Order Comment: Order Date: 07/30/24 Order Info: 0184-1 - CBCD Performed By: #### L 100.0100, L500.4100, L501.9985, L500.4050 #### [facility] [address] [place], [address] RBC (Bld) [#/Vol] 4.33 10*6/uL Low 4.6-6.2 [facility] Comment on above: Order Comment: Order Date: 07/30/24 Order Info: 0184-1 - CBCD Performed By: #### L 100.0100, L500.4100, L501.9985, L500.4050 #### [facility] [address] [place], [address] RDW SD 39.9 fl Normal 35.1-43.9 [facility] Comment on above: Order Comment: Order Date: 07/30/24 Order Info: 0184-1 - CBCD Performed By: #### L 100.0100, L500.4100, L501.9985, L500.4050 #### [facility] [address] [place], [address] WBC (Bld) [#/Vol] 5.6 10*3/uL Normal 4.4-11.0 [facility] Comment on above: Order Comment: Order Date: 07/30/24 Order Info: 0184-1 - CBCD Performed By: #### L 100.0100, L500.4100, L501.9985, L500.4050 #### [facility] [address] [place], [address] Calculated very low density lipoprotein (VLDL) cholesterol measurementOrdered By: Krista Delgado on 07-30-2024 Calculated very low density lipoprotein (VLDL) cholesterol measurement 11 mg/dL 5-40 [facility] VLDL Cholesterol 11 mg/dL 5-40 [facility] Carbon dioxide, total [Moles /volume] in Central venous bloodOrdered By: Krista Delgado on 07-30-2024 CO2 [Moles/Vol] 23.3 mmol/L 21.0-32.0 [facility] Chloride assayOrdered By: Lindsey Deglado on 07-30-2024 Chloride [Moles/Vol] 98 mmol/L 98-108 [facility] Comprehensive Metabolic Prof ilon 07-30-2024 Albumin [Mass/Vol] 4.5 g/dL Normal 3.4-4.8 [facility] Comment on above: Order Comment: Order Date: 07/30/24 Order Info: 0184-1 - CBCD Performed By: #### L 100.0100, L500.4100, L501.9985, L500.4050 #### [facility] [address] [place], [address] Albumin/Globulin [Mass ratio] 1.4 {ratio} Normal 0.9-2.4 [facility] Comment on above: Order Comment: Order Date: 07/30/24 Order Info: 0184-1 - CBCD Performed By: #### L 100.0100, L500.4100, L501.9985, L500.4050 #### [facility] [address] [place], [address] ALK PHOS 73 U/L Normal 40-129 [facility] Comment on above: Order Comment: Order Date: 07/30/24 Order Info: 0184-1 - CBCD Performed By: #### L 100.0100, L500.4100, L501.9985, L500.4050 #### [facility] [address] [place], [address] ALT [Catalytic activity/Vol] 17 U/L Normal <=46 [facility] Comment on above: Order Comment: Order Date: 07/30/24 Order Info: 0184-1 - CBCD Performed By: #### L 100.0100, L500.4100, L501.9985, L500.4050 #### [facility] [address] [place], [address] AST [Catalytic activity/Vol] 22 U/L Normal <=37 [facility] Comment on above: Order Comment: Order Date: 07/30/24 Order Info: 0184-1 - CBCD Performed By: #### L 100.0100, L500.4100, L501.9985, L500.4050 #### [facility] [address] [place], [address] Bilirubin [Mass/Vol] 0.59 mg/dL Normal 0.00-1.30 [facility] Comment on above: Order Comment: Order Date: 07/30/24 Order Info: 0184-1 - CBCD Performed By: #### L 100.0100, L500.4100, L501.9985, L500.4050 #### [facility] [address] [place], [address] BUN/CRE 14.4 RATIO Normal 10-20 [facility] Comment on above: Order Comment: Order Date: 07/30/24 Order Info: 0184-1 - CBCD Performed By: #### L 100.0100, L500.4100, L501.9985, L500.4050 #### [facility] [address] [place], [address] Calcium [Mass/Vol] 10.0 mg/dL Normal 7.6-11.0 [facility] Comment on above: Order Comment: Order Date: 07/30/24 Order Info: 0184-1 - CBCD Performed By: #### L 100.0100, L500.4100, L501.9985, L500.4050 #### [facility] [address] [place], [address] Chloride [Moles/Vol] 98 mmol/L Normal 98-108 [facility] Comment on above: Order Comment: Order Date: 07/30/24 Order Info: 0184-1 - CBCD Performed By: #### L 100.0100, L500.4100, L501.9985, L500.4050 #### [facility] [address] [place], [address] CO2 [Moles/Vol] 23.3 mmol/L Normal 21.0-32.0 [facility] Comment on above: Order Comment: Order Date: 07/30/24 Order Info: 0184-1 - CBCD Performed By: #### L 100.0100, L500.4100, L501.9985, L500.4050 #### [facility] [address] [place], [address] Creatinine [Mass/Vol] 1.11 mg/dL Normal 0.70-1.20 [facility] Comment on above: Order Comment: Order Date: 07/30/24 Order Info: 0184-1 - CBCD Performed By: #### L 100.0100, L500.4100, L501.9985, L500.4050 #### [facility] [address] [place], [address] GAP 15 Normal 5-15 [facility] Comment on above: Order Comment: Order Date: 07/30/24 Order Info: 0184-1 - CBCD Performed By: #### L 100.0100, L500.4100, L501.9985, L500.4050 #### [facility] [address] [place], [address] GFR/1.73 sq M.predicted among non-blacks MDRD (S/P/Bld) [Vol rate/Area] 74 mL/min/{1.73_m2} Normal >60 [facility] Comment on above: Order Comment: Order Date: 07/30/24 Order Info: 0184-1 - CBCD Result Comment: mL/m in/1.73m2 CKD-EPI Creatinine Equation (2020) Performed By: #### L 100.0100, L500.4100, L501.9985, L500.4050 #### [facility] [address] [place], [address] Globulin (S) [Mass/Vol] 3.2 g/dL Normal 2.2-4.2 [facility] Comment on above: Order Comment: Order Date: 07/30/24 Order Info: 0184-1 - CBCD Performed By: #### L 100.0100, L500.4100, L501.9985, L500.4050 #### [facility] [address] [place], [address] Glucose [Mass/Vol] 239 mg/dL High 70-99 [facility] Comment on above: Order Comment: Order Date: 07/30/24 Order Info: 0184-1 - CBCD Performed By: #### L 100.0100, L500.4100, L501.9985, L500.4050 #### [facility] [address] [place], [address] Potassium [Moles/Vol] 4.2 mmol/L Normal 3.3-5.1 [facility] Comment on above: Order Comment: Order Date: 07/30/24 Order Info: 0184-1 - CBCD Performed By: #### L 100.0100, L500.4100, L501.9985, L500.4050 #### [facility] [address] [place], [address] Sodium [Moles/Vol] 136 mmol/L Normal 133-145 [facility] Comment on above: Order Comment: Order Date: 07/30/24 Order Info: 0184-1 - CBCD Performed By: #### L 100.0100, L500.4100, L501.9985, L500.4050 #### [facility] [address] [place], [address] T PROT 7.6 g/dL Normal 5.9-8.4 [facility] Comment on above: Order Comment: Order Date: 07/30/24 Order Info: 0184-1 - CBCD Performed By: #### L 100.0100, L500.4100, L501.9985, L500.4050 #### [facility] [address] [place], [address] Urea nitrogen [Mass/Vol] 16 mg/dL Normal 4-19 [facility] Comment on above: Order Comment: Order Date: 07/30/24 Order Info: 0184-1 - CBCD Performed By: #### L 100.0100, L500.4100, L501.9985, L500.4050 #### [facility] [address] [place], [address] Creatinine Unsp time (U) [Ma ss/Vol]Ordered By: Krista Delgado on 07-30-2024 Creatinine (U) [Mass/Vol] 35.90 mg/dL Low 39-259 [facility] Eosinophil percentageOrdered By: Krista Delgado on 07-30-2024 Eosinophils/100 WBC (Bld) 6.6 % High 0-5 [facility] Erythrocyte distribution wid th ratioOrdered By: Krista Delgado on 07-30-2024 Erythrocyte distribution width (RBC) [Ratio] 12.1 % 11.6-14.6 [facility] Erythrocyte distribution wid th standard deviationOrdered By: Krista Delgado on 07-30-2024 Erythrocyte distribution width (RBC) [Entitic vol] 39.9 fL 35.1-43.9 [facility] Erythrocyte distribution width (RBC) [Ratio] 39.9 fl 35.1-43.9 [facility] GFR/1.73 sq M.predicted dm g non-blacks MDRD (S/P/Bld) [Vol rate/Area]Ordered By: Krista Delgado on 07-30-2024 Estimated GFR (MDRD) Non-Af Amer 74 >60 [facility] Comment on above: mL/min/1.73m2 CKD-EP I Creatinine Equation (2020) Glomerular filtration rate ( GFR) estimation/1.73 sq m using serum, plasma, or whole bOrdered By: Krista Delgado on 07-30-2024 GFR/1.73 sq M.predicted among non-blacks MDRD (S/P/Bld) [Vol rate/Area] 74 mL/min/{1.73_m2} >60 [facility] Comment on above: mL/min/1.73m2 CKD-EP I Creatinine Equation (2020) Hematocrit Auto (Bld) [Volum e fraction]Ordered By: Krista Delgado on 07-30-2024 Hematocrit (Bld) [Volume fraction] 39.6 % Low 40-54 [facility] Hemoglobin A1con 07-30-2024 HbA1c (Bld) [Mass fraction] 8.6 % Normal <=5.6 [facility] Comment on above: Order Comment: Order Date: 07/30/24 Order Info: 0184-1 - CBCD Performed By: #### L 100.0100, L500.4100, L501.9985, L500.4050 #### [facility] [address], [address] Hemoglobin A1c percentageOrd ered By: Krista Delgado on 07-30-2024 HbA1c (Bld) [Mass fraction] 8.6 % >5.7 [facility] Hemoglobin measurementOrdere d By: Krista Delgado on 07-30-2024 Hemoglobin (Bld) [Mass/Vol] 13.4 g/dL 13.0-16.5 [facility] Immature granulocytes/100 WB C Auto (Bld)Ordered By: Krista Delgado on 07-30-2024 Immature granulocytes/100 WBC (Bld) 0.200 % 0.0-0.9 [facility] Comment on above: IG% - Immature Granu locytes (promyelocytes, myelocytes and metamyelocytes) > 1% indicates that a LEFT SHIFT is Present. L506.1001on 07-30-2024 Vitamin D 25-OH 33.7 ng/mL Normal 30-100 [facility] Comment on above: Order Comment: Order Date: 07/30/24 Order Info: 0184-1 - CBCD Result Comment: Rachelle min D Status Deficiency: <20 ng/mL (50nmol/L) Insufficiency: 20-30 ng/mL (50-75 nmol/L) Sufficiency: 30-100 ng/mL (75-250 nmol/L) Toxicity: >100 ng/mL (>250 nmol/L) Performed By: #### L 100.0100, L500.4100, L501.9985, L500.4050 #### [facility] [address] [place], [address] LDL calc ser/plasOrdered By: Krista Delgado on 07-30-2024 Cholesterol in LDL [Mass/Vol] 58 mg/dL [facility] Comment on above: Ogwptvvjmn=465-879 m g/dL & Higher Rswe=886 mg/dL or greater LDL Cholesterol, Calculated 58 mg/dL [facility] Comment on above: Fsvoxuhpez=320-041 m g/dL & Higher Myvo=834 mg/dL or greater Laboratory - Chemistry and C hemistry - challengeOrdered By: Krista Delgado on 07-30-2024 AST [Catalytic activity/Vol] 22 U/L <38 [facility] Lipid Profileon 07-30-2024 CHOL:HDL 1.94 Normal [facility] Comment on above: Order Comment: Order Date: 07/30/24 Order Info: 0184-1 - CBCD Performed By: #### L 100.0100, L500.4100, L501.9985, L500.4050 #### [facility] [address] [place], [address] Cholesterol [Mass/Vol] 144 mg/dL Normal <=200 [facility] Comment on above: Order Comment: Order Date: 07/30/24 Order Info: 0184-1 - CBCD Result Comment: Chol esterol level, Desirable <200 mg/dL Borderline high cholesterol 200-239 mg/dL High cholesterol >=240 mg/dL Recommendations of the NCEP Adult Treatment Panel for the following risk-cutoff thresholds for the [place] population. Performed By: #### L 100.0100, L500.4100, L501.9985, L500.4050 #### [facility] [address] [place], [address] Cholesterol in HDL [Mass/Vol] 74 mg/dL Normal [facility] Comment on above: Order Comment: Order Date: 07/30/24 Order Info: 0184-1 - CBCD Result Comment: Dalila onal Cholesterol Education Program (NCEP) guidelines: <40 mg/dL: Low HDL-cholesterol (major risk factor for CHD) >= 60 mg/dL: High HDL-cholesterol (negative risk factor for CHD) HDL-cholesterol is affected by a number of factors, e.g. smoking, exercise, hormones, sex and age. Performed By: #### L 100.0100, L500.4100, L501.9985, L500.4050 #### [facility] [address] [place], [address] Cholesterol in LDL [Mass/Vol] 58 mg/dL Normal [facility] Comment on above: Order Comment: Order Date: 07/30/24 Order Info: 0184-1 - CBCD Result Comment: Bord mcjjcg=371-357 mg/dL Higher Mynj=448 mg/dL or greater Performed By: #### L 100.0100, L500.4100, L501.9985, L500.4050 #### [facility] [address] [place], [address] Cholesterol in VLDL [Mass/Vol] 11 mg/dL Normal 5-40 [facility] Comment on above: Order Comment: Order Date: 07/30/24 Order Info: 0184-1 - CBCD Performed By: #### L 100.0100, L500.4100, L501.9985, L500.4050 #### [facility] [address] [place], [address] Triglyceride [Mass/Vol] 57 mg/dL Normal [facility] Comment on above: Order Comment: Order Date: 07/30/24 Order Info: 0184-1 - CBCD Result Comment: The drugs N-Acetylcysteine and Metamizole may falsely depress this assay. Normal range: <150 mg/dL Borderline High: 150-199 mg/dL High: 200-499 mg/dL Very High: >500 mg/dL Performed By: #### L 100.0100, L500.4100, L501.9985, L500.4050 #### [facility] [address] [place], [address] Lymphocytes Auto (Unsp spec) [#/Vol]Ordered By: Krista Delgado on 07-30-2024 Lymphocytes (Bld) [#/Vol] 1.16 10*3/uL 0.83-4.51 [facility] Lymphocytes/100 WBC Auto (Un sp spec)Ordered By: Krista Delgado on 07-30-2024 Lymphocytes/100 WBC (Bld) 20.8 % 19-41 [facility] MCV (mean corpuscular volume ) determinationOrdered By: Krista Delgado on 07-30-2024 MCV (RBC) [Entitic vol] 91.5 fL 80-94 [facility] Mean corpuscular hemoglobin (MCH) determinationOrdered By: Krista Delgado on 07-30-2024 MCH (RBC) [Entitic mass] 30.9 pg 27.0-32.0 [facility] Mean corpuscular hemoglobin concentration (MCHC) determinationOrdered By: Krista Delgado on 07-30-2024 MCHC (RBC) [Mass/Vol] 33.8 g/dL 32-36 [facility] Mean platelet volume determi nationOrdered By: Krista Delgado on 07-30-2024 Platelet mean volume (Bld) [Entitic vol] 9.8 fL 6.2-12.0 [facility] Microalbumin/creat ratio urO rdered By: Krista Delgado on 07-30-2024 Urine Microalbumin/Creatini ne Ratio 3203.3 mg/g CRE [facility] Monocyte percentageOrdered B y: Krista Delgado on 07-30-2024 Monocytes/100 WBC (Bld) 12.0 % High 0-10 [facility] Neutrophil percentageOrdered By: Kritsa Delgado on 07-30-2024 Neutrophils/100 WBC (Bld) 59.7 % 47-70 [facility] Nucleated red blood cell per centageOrdered By: Krista Delgado on 07-30-2024 Nucleated RBC/100 WBC (Bld) [Ratio] 0 % 0-5 [facility] Platelet countOrdered By: Lindsey Delgado on 07-30-2024 Platelets (Bld) [#/Vol] 233 10*3/uL 150-450 [facility] Potassium (Unsp spec) [Mass/ Vol]Ordered By: Krista Delgado on 07-30-2024 Potassium [Moles/Vol] 4.2 mmol/L 3.3-5.1 [facility] Potassium measurement (mass/ volume)Ordered By: Krista Delgado on 07-30-2024 Potassium (Unsp spec) [Mass/Vol] 4.2 mmol/L 3.3-5.1 [facility] RBC Auto (Bld) [#/Vol]Ordere d By: Krista Delgado on 07-30-2024 RBC (Bld) [#/Vol] 4.33 10*6/uL Low 4.6-6.2 [facility] Random urine creatinine jin urement (mass/volume)Ordered By: Krista Delgado on 07-30-2024 Creatinine Unsp time (U) [Mass/Vol] 35.90 mg/dL Low 39-259 [facility] Screening total cholesterol/ high density lipoprotein (HDL) cholesterol ratioOrdered By: Krista Delgado on 07-30-2024 Cholesterol.total/Cho lesterol in HDL [Mass ratio] 1.94 {ratio} [facility] Serum creatinine measurement (mass/volume)Ordered By: Krista Delgado on 07-30-2024 Creatinine [Mass/Vol] 1.11 mg/dL 0.70-1.20 [facility] Serum globulin measurementOr dered By: Krista Delgado on 07-30-2024 Globulin (S) [Mass/Vol] 3.2 g/dL 2.2-4.2 [facility] Serum glucose measurement (m ass/volume)Ordered By: Krista Delgado on 07-30-2024 Glucose [Mass/Vol] 239 mg/dL High 70-99 [facility] Serum or plasma alanine mir otransferase (ALT) measurementOrdered By: Krista Delgado on 07-30-2024 ALT [Catalytic activity/Vol] 17 U/L <47 [facility] Serum or plasma albumin jin urement (mass/volume)Ordered By: Krista Delgado on 07-30-2024 Albumin [Mass/Vol] 4.5 g/dL 3.4-4.8 [facility] Serum or plasma albumin/glob ulin mass ratioOrdered By: Krista Delgado on 07-30-2024 Albumin/Globulin [Mass ratio] 1.4 {ratio} 0.9-2.4 [facility] Serum or plasma alkaline bontia sphatase measurementOrdered By: Krista Delgado on 07-30-2024 ALP [Catalytic activity/Vol] 73 U/L 40-129 [facility] Serum or plasma calcium jin urement (mass/volume)Ordered By: Krista Delgado on 07-30-2024 Calcium [Mass/Vol] 10.0 mg/dL 7.6-11.0 [facility] Serum or plasma cholesterol in HDL measurement (mass/volume)Ordered By: Krista Delgado on 07-30-2024 Cholesterol in HDL [Mass/Vol] 74 mg/dL >40 [facility] Comment on above: National Cholesterol Education Program (NCEP) guidelines:<40 mg/dL: Low HDL-cholesterol (major risk factor for CHD)>= 60 mg/dL: High HDL-cholesterol (negative risk factor for CHD)HDL-cholesterol is affected by a number of factors, e.g. smoking, exercise, hormones, sex and age. Serum or plasma cholesterol measurement (mass/volume)Ordered By: Krista Delgado on 07-30-2024 Cholesterol [Mass/Vol] 144 mg/dL <201 [facility] Comment on above: Cholesterol level, D esirable <200 mg/dLBorderline high cholesterol 200-239 mg/dLHigh cholesterol >=240 mg/dLRecommendations of the NCEP Adult Treatment Panel for the following risk-cutoff thresholds for the [place] population. Serum or plasma urea nitroge n measurement (mass/volume)Ordered By: Krista Delgado on 07-30-2024 Urea nitrogen [Mass/Vol] 16 mg/dL 4-19 [facility] Sodium levelOrdered By: Krista Delgado on 07-30-2024 Sodium [Moles/Vol] 136 mmol/L 133-145 [facility] Total proteinOrdered By: Ahmet Delgado on 07-30-2024 Protein [Mass/Vol] 7.6 g/dL 5.9-8.4 [facility] Triglycerides measurementOrd ered By: Krista Delgado on 07-30-2024 Triglyceride [Mass/Vol] 57 mg/dL <199 [facility] Comment on above: The drugs N-Acetylcy steine and Metamizole may falsely depress this assay. Normal range: <150 mg/dLBorderline High: 150-199 mg/dLHigh: 200-499 mg/dLVery High: >500 mg/dL Urine albumin measurement wi th detection limit of 20 mg/L or less (mass/volume)Ordered By: Krista Delgado on 07-30-2024 Albumin DL <= 20 mg/L (U) [Mass/Vol] 115.0 mg/L NO RANGE EST. [facility] Vitamin D, 25-hydroxyOrdered By: Krista Delgado on 07-30-2024 Vitamin D 25-Hydroxy 33.7 ng/mL 30-100 [facility] Comment on above: Vitamin D StatusDefi ciency: <20 ng/mL (50nmol/L)Insufficiency: 20-30 ng/mL (50-75 nmol/L)Sufficiency: 30-100 ng/mL (75-250 nmol/L)Toxicity: >100 ng/mL (>250 nmol/L) White blood cell (WBC) count Ordered By: Krista Delgado on 07-30-2024 WBC (Bld) [#/Vol] 5.6 10*3/uL 4.4-11.0 [facility] Bedside Glucoseon 07-15-2024 FINGERSTICK GLU 211 mg/dL High 74-106 [facility] Comment on above: Result Comment: JASWINDER HAYWARD OF PATIENT CARE PER NURSING PROTOCOL Performed By: #### L 100.0100, L500.4100, L501.9984, L500.4050 #### [facility] [address] [place], [place], [address] Colonoscopy Reporton 025 Colonoscopy Report [facility] Medical Records Department [address] [place] [address] Colonoscopy Report MR#: [id number] Acct: [id number] Name: TAYLOR LARSON Rep #: [id number] : 1960 64 From: Zain Marcelino MD PCP: Dr. Krista Delgado MD Status:[facility] Patient Name: Taylor Larson Procedure Date: 07/15/2024 6:45 AM Date of : 1960 Age: 64 Procedure: Colonoscopy Indications: Screening in patient at increased risk: Family history of 1st-degree relative with colorectal cancer Providers: Zain Marcelino MD Referring MD: Zain Marcelino MD Medicines: Monitored Anesthesia Care Patient Profile: Refer to note in patient chart for documentation of history and physical. Last Colonoscopy: 10 years ago. Complications: No immediate complications. Estimated blood loss: None. Procedure: Pre-Anesthesia Assessment: - Prior to the procedure, a History and Physical was performed, and patient medications and allergies were reviewed. The patient's tolerance of previous anesthesia was also reviewed. The risks and benefits of the procedure and the sedation options and risks were discussed with the patient. All questions were answered, and informed consent was obtained. Prior Anticoagulants: The patient has taken no anticoagulant or antiplatelet agents. ASA Grade Assessment: II - A patient with mild systemic disease. After reviewing the risks and benefits, the patient was deemed in satisfactory condition to undergo the procedure. After I obtained informed consent, the scope was passed under direct vision. Throughout the procedure, the patient's blood pressure, pulse, and oxygen saturations were monitored continuously. The adult colonoscope was introduced through the anus and advanced to the cecum, identified by appendiceal orifice and ileocecal valve. The ileocecal valve, appendiceal orifice, and rectum were photographed. The entire colon was well visualized. The colonoscopy was performed without difficulty. The patient tolerated the procedure well. The quality of the bowel preparation was adequate. Moderate Sedation: See the other procedure note for documentation of moderate sedation with intraservice time. Scope In: 7:45:36 AM Scope Withdrawal Time 0 hours 9 minutes 33 seconds Scope Out: 8:05:44 AM Total Procedure Duration Time 0 hours 20 minutes 8 seconds Findings: The perianal and digital rectal examinations were normal. Multiple small-mouthed diverticula were found in the sigmoid colon. Non-bleeding internal hemorrhoids were found during endoscopy. The hemorrhoids were moderate. The exam was otherwise without abnormality on direct and retroflexion views. Impression: - Diverticulosis in the sigmoid colon. - Non-bleeding internal hemorrhoids. - The examination was otherwise normal on direct and retroflexion views. - No specimens collected. Recommendation: - Discharge patient to home (ambulatory). - High fiber diet indefinitely. - Repeat colonoscopy in 7-10 years for screening purposes. - Return to my office PRN. - Continue present medications. Procedure Code(s): --- Professional --- 67009, Colonoscopy, flexible; diagnostic, including collection of specimen(s) by brushing or washing, when performed (separate procedure) Diagnosis Code(s): --- Professional --- Z80.0, Family history of malignant neoplasm of digestive organs K57.30, Diverticulosis of large intestine without perforation or abscess without bleeding K64.8, Other hemorrhoids CPT copyright 2021 [employer]. All rights reserved. The codes documented in this report are preliminary and upon nursing resident review may be revised to meet current compliance requirements. Zain Marcelino MD 07/15/2024 8:10:12 AM This report has been signed electronically. Number of Addenda: 0 Note Initiated On: 07/15/2024 6:45 AM 07/15/24 0810 Date Zain Marcelino MD Cosigner Signature: Date (if indicated) CC: Dr. Krista Delgado MD; Dr. Zain Marcelino MD Date Dictated: 07/15/24 0645 Date Transcribed: Polysomnograph Tech: MANDIE Signed Normal [facility] deOrdered By: Zain Marcelino on 07-15-2024 Bedside Glucose (Misc Panel) 211 mg/dL High 74-106 [facility] Comment on above: MANAGEMENT OF PATIEN T CARE PER NURSING PROTOCOL Glucose [Mass/Vol] 211 mg/dL High 74-106 [facility] Comment on above: MANAGEMENT OF PATIEN T CARE PER NURSING PROTOCOL MR/POSTOP.ANEon 07-15-2024 MR/POSTOP.ANE [facility] Medical Records Department [address] [place] [address] Anesthesia Postop Eval I 07/15/24 0806 MR#: [id number] Acct: [id number] Name: TAYLOR LARSON Rep #: [id number] : 1960 64 From: Alana Alarcon CRNA PCP: Dr. Krista Delgado MD Status:REG [facility] Race: C Location: [place] [address] Anesthesia: Postop Eval I Current Vital Signs Temperature: 97.2 F Pulse Rate: 85 Blood Pressure: 123/85 Respiratory Rate: 18 Pulse Ox: 96 Oxygen Delivery Method: Room Air Assessment Airway patent: Yes Spontaneous unlabored respirations: Yes Mental status: Awake nausea: No Vomiting: No Anesthesia Complication: No Fluid Hydration Crystalloid volume administer (ml): 10 Total IV fluid infused: 10 Progress Note Anesthesia document: Postop Eval 1 completed: Yes 07/15/24811 Date Alana Alarcon CHANGE MANAGEMENT CONSULTANT Cosigner Signature: Date CC: Signed Normal [facility] MR/VIZPNUTY1to 07-15-2024 MR/POSTOPAN2 [facility] Medical Records Department [address] [place] [address] Anesthesia Postop Eval II 07/15/24 1039 MR#: [id number] Acct: [id number] Name: TAYLOR LARSON Rep #: [id number] : 1960 64 From: Simon Sanchez MD PCP: Dr. Krista Delgado MD Status:DEP [facility] Race: C Location: [place] Anesthesia Postop Eval I Sum Postop Eval Completion status Anesthesia document: Postop Eval 1 completed: Yes Anesthesia Postop Eval I Summary Anesthesia Postop Eval I Summary: Anesthesia Postop Eval I: Assessment Summary Airway patent Yes 07/15/24 08:08 CHANGE MANAGEMENT CONSULTANT.LMIL Spontaneous unlabored Yes 07/15/24 08:08 CHANGE MANAGEMENT CONSULTANT.LMIL respirations Mental status Awake 07/15/24 08:08 CHANGE MANAGEMENT CONSULTANT.LMIL nausea No 07/15/24 08:08 CHANGE MANAGEMENT CONSULTANT.LMIL Vomiting No 07/15/24 08:08 CHANGE MANAGEMENT CONSULTANT.LMIL Anesthesia Postop Eval I: Fluid Summary Crystalloid volume administer 10 07/15/24 08:08 CHANGE MANAGEMENT CONSULTANT.LMIL (ml) Colloids volume administered ( ml) Blood Product volume administered (ml) Total IV fluid infused 10 07/15/24 08:08 CHANGE MANAGEMENT CONSULTANT.LMIL Anesthesia Postop Eval I: Summary Notes Anesthesia Complication No 07/15/24 08:08 CHANGE MANAGEMENT CONSULTANT.LMIL Anesthesia Complication Comment: Post-operative progress note Anesthesia: Postop Eval II Evaluation Mental status: Awake and Calm Pain Level: 2 nausea: No Vomiting: No Complications Anesthesia Complication: No 07/15/24 1039 Date Simon Sanchez MD Cosigner Signature: Date CC: Signed [facility] MR/Sai 07-13-2024 MR/[facility] Medical Records Department [address] [place] [address] PAT - Anesthesia 07/13/24 1627 MR#: [id number] Acct: [id number] Name: TAYLOR LARSON Rep #: [id number] : 1960 64 From: Simon Sanchez MD PCP: Dr. 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 When Was Last Pacemaker Check QUESTION #4 FULL TEXT: You/Your Family Experience fever (hyperthermia) with Anesthesia Last Oral Intake Last Oral intake: Last Oral Intake NPO since Meds taken in AM with sips of water? Meds patient instructed to take am of surgery PONV PONV - environmental studies department chair: PONV - environmental studies department chair Female No 07/13/24 09:07 HX of Motion Sickness No 07/13/24 09:07 HX of N/V After Surgery No 07/13/24 09:07 Non-Smoker No 07/13/24 09:07 Duration of Surgery greater No 07/13/24 09:07 than 60 minutes Number of Risk Factors PONV Score Height Weight Height Weight: Anesthesia: Height Weight Height 5 ft 11 in 06/23/24 15:16 Respiratory Assessment Respiratory Assessment - environmental studies department chair: Respiratory Tract Infection Hx - environmental studies department chair Hx Respiratory Tract Infection No 07/13/24 09:07 STOP Sleep Apnea STOP Sleep Apnea - environmental studies department chair: STOP Sleep Apnea - environmental studies department chair Hx Hypertension Yes 07/13/24 09:07 Hx Sleep Apnea No 07/13/24 09:07 CPAP BIPAP Do you snore loudly (louder Yes 07/13/24 09:07 than talking or can be heard Do you often feel tired/ No 07/13/24 09:07 fatigued/ sleepy during daytime? Has anyone observed you stop No 07/13/24 09:07 breathing during sleep? STOP Results Positive 07/13/24 09:07 QUESTION #5 FULL TEXT : Do you snore loudly (louder than talking or can be heard through closed doors)? 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 Specify any problems Hx of Preganancy in last 3 N/A 07/13/24 09:07 Months Nurse Filling Out Transfusion [email or web address] 07/13/24 09:07 Questions: Date: 07/13/24 07/13/24 09:07 Time: 09:10 07/13/24 09:07 Patient unable to answer at this time (ie. confused, unrespo /Reproduction History /Reproductive History - environmental studies department chair: /Reproductive Hx- environmental studies department chair Hx Now Gestational Age (in weeks): EDC: Hx Hx Para Hx Section SAB PFSH Medical History Wears glasses Alcohol use Cirrhosis Fatty liver DDD (degenerative disc disease) History of stress test Cardiology follow-up encounter History of echocardiogram Family hx of colon cancer Mixed hyperlipidemia Essential hypertension Type 2 diabetes mellitus LBBB (left bundle branch block) Ischemic cardiomyopathy Atherosclerotic heart disease of [place] coronary artery without angina pectoris Type 2 diabetes mellitus without complications Home Medications ???Medication ???Instructions ???Recorded ???Last Taken ???Type aspirin 81 mg tablet,delayed 81 mg PO DAILY 04/02/16 07/10/24 H istory release losartan 50 mg tablet 50 mg PO BID ##60 04/24/16 6 Rx guselkumab 100 mg/mL subcutaneous 100 mg subcut Q8W 02/17/18 Unknow n History syringe (Tremfya) sildenafil 50 mg tablet 50 mg PO DAILY PRN sexual activity 02/17/18 Unknown History carvedilol 25 mg tablet 25 mg PO BID 01/28/20 Unknown Hist ory (more content not included)... Normal [facility] CBC W/Diff, Automatedon 10-2 -2023 Absolute Lymph 1.04 X10 3/uL Normal 0.83-4.51 [facility] Comment on above: Order Comment: Order Date: 03/11/24 Order Info: 018- - CBCD Performed By: #### L 500.4050, L100.0100, L502.0250, L501.9985, L500.4100 #### [facility] [address] [place], [address] Absolute Neut 3.4 X10 3/uL Normal 2.0-7.7 [facility] Comment on above: Order Comment: Order Date: 03/11/24 Order Info: 018- - CBCD Performed By: #### L 500.4050, L100.0100, L502.0250, L501.9985, L500.4100 #### [facility] [address] [place], [address] Basophils/100 WBC (Bld) 0.6 % Normal 0-1 [facility] Comment on above: Order Comment: Order Date: 03/11/24 Order Info: [id number] - CBCD Performed By: #### L 500.4050, L100.0100, L502.0250, L501.9985, L500.4100 #### [facility] [address] [place], [address] Eosinophils/100 WBC (Bld) 4.5 % Normal 0-5 [facility] Comment on above: Order Comment: Order Date: 03/11/24 Order Info: 018- - CBCD Performed By: #### L 500.4050, L100.0100, L502.0250, L501.9985, L500.4100 #### [facility] [address] [place], [address] Erythrocyte distribution width (RBC) [Ratio] 12.2 % Normal 11.6-14.6 [facility] Comment on above: Order Comment: Order Date: 03/11/24 Order Info: 0184-1 - CBCD Performed By: #### L 500.4050, L100.0100, L502.0250, L501.9985, L500.4100 #### [facility] [address] [place], [address] Hematocrit (Bld) [Volume fraction] 39.1 % Low 40-54 [facility] Comment on above: Order Comment: Order Date: 03/11/24 Order Info: 0184-1 - CBCD Performed By: #### L 500.4050, L100.0100, L502.0250, L501.9985, L500.4100 #### [facility] [address] [place], [address] Hemoglobin (Bld) [Mass/Vol] 12.9 g/dL Low 13.0-16.5 [facility] Comment on above: Order Comment: Order Date: 03/11/24 Order Info: 0184-1 - CBCD Performed By: #### L 500.4050, L100.0100, L502.0250, L501.9985, L500.4100 #### [facility] [address] [place], [address] IG% 0.200 Normal 0.0-0.9 [facility] Comment on above: Order Comment: Order Date: 03/11/24 Order Info: 0184-1 - CBCD Result Comment: IG% - Immature Granulocytes (promyelocytes, myelocytes and metamyelocytes) > 1% indicates that a LEFT SHIFT is Present. Performed By: #### L 500.4050, L100.0100, L502.0250, L501.9985, L500.4100 #### [facility] [address] [place], [address] Lymphocytes/100 WBC (Bld) 19.5 % Normal 19-41 [facility] Comment on above: Order Comment: Order Date: 03/11/24 Order Info: 0184-1 - CBCD Performed By: #### L 500.4050, L100.0100, L502.0250, L501.9985, L500.4100 #### [facility] [address] [place], [address] MCH (RBC) [Entitic mass] 29.9 pg Normal 27.0-32.0 [facility] Comment on above: Order Comment: Order Date: 03/11/24 Order Info: 0184- - CBCD Performed By: #### L 500.4050, L100.0100, L502.0250, L501.9985, L500.4100 #### [facility] [address], [address] MCHC (RBC) [Mass/Vol] 33.0 g/dL Normal 32-36 [facility] Comment on above: Order Comment: Order Date: 03/11/24 Order Info: 0184- - CBCD Performed By: #### L 500.4050, L100.0100, L502.0250, L501.9985, L500.4100 #### [facility] [address], [address] MCV (RBC) [Entitic vol] 90.5 fL Normal 80-94 [facility] Comment on above: Order Comment: Order Date: 03/11/24 Order Info: 0184- - CBCD Performed By: #### L 500.4050, L100.0100, L502.0250, L501.9985, L500.4100 #### [facility] [address], [address] Monocytes/100 WBC (Bld) 11.4 % High 0-10 [facility] Comment on above: Order Comment: Order Date: 03/11/24 Order Info: 0184- - CBCD Performed By: #### L 500.4050, L100.0100, L502.0250, L501.9985, L500.4100 #### [facility] [address] [place], [address] Neutrophils/100 WBC (Bld) 63.8 % Normal 47-70 [facility] Comment on above: Order Comment: Order Date: 03/11/24 Order Info: 018-1 - CBCD Performed By: #### L 500.4050, L100.0100, L502.0250, L501.9985, L500.4100 #### [facility] [address] [place], [address] Nucleated RBC (Bld) [#/Vol] 0 10*3/uL Normal 0-5 [facility] Comment on above: Order Comment: Order Date: 03/11/24 Order Info: 018- - CBCD Performed By: #### L 500.4050, L100.0100, L502.0250, L501.9985, L500.4100 #### [facility] [address] [place], [address] Platelet mean volume (Bld) [Entitic vol] 10.0 fL Normal 6.2-12.0 [facility] Comment on above: Order Comment: Order Date: 03/11/24 Order Info: 018- - CBCD Performed By: #### L 500.4050, L100.0100, L502.0250, L501.9985, L500.4100 #### [facility] [address] [place], [address] Platelets (Bld) [#/Vol] 216 10*3/uL Normal 150-450 [facility] Comment on above: Order Comment: Order Date: 03/11/24 Order Info: 018-1 - CBCD Performed By: #### L 500.4050, L100.0100, L502.0250, L501.9985, L500.4100 #### [facility] [address] [place], [address] RBC (Bld) [#/Vol] 4.32 10*6/uL Low 4.6-6.2 [facility] Comment on above: Order Comment: Order Date: 03/11/24 Order Info: 0184-1 - CBCD Performed By: #### L 500.4050, L100.0100, L502.0250, L501.9985, L500.4100 #### [facility] [address] [place], [address] RDW SD 40.2 fl Normal 35.1-43.9 [facility] Comment on above: Order Comment: Order Date: 03/11/24 Order Info: 0184-1 - CBCD Performed By: #### L 500.4050, L100.0100, L502.0250, L501.9985, L500.4100 #### [facility] [address] [place], [address] WBC (Bld) [#/Vol] 5.3 10*3/uL Normal 4.4-11.0 [facility] Comment on above: Order Comment: Order Date: 03/11/24 Order Info: 0184-1 - CBCD Performed By: #### L 500.4050, L100.0100, L502.0250, L501.9985, L500.4100 #### [facility] [address] [place], [address] Comprehensive Metabolic Prof [facility] 03-11-2024 Albumin [Mass/Vol] 3.9 g/dL Normal 3.2-5.0 [facility] Comment on above: Order Comment: Order Date: 03/11/24 Order Info: 0786-1 - CMP Order Info: [id number] - LIPID Performed By: #### L 500.4050, L100.0100, L502.0250, L501.9985, L500.4100 #### [facility] [address] [place], [address] Albumin/Globulin [Mass ratio] 1.0 {ratio} Normal 0.9-2.4 [facility] Comment on above: Order Comment: Order Date: 03/11/24 Order Info: 0786-1 - CMP Order Info: [id number] - LIPID Performed By: #### L 500.4050, L100.0100, L502.0250, L501.9985, L500.4100 #### [facility] [address] [place], [address] ALK P 72 U/L Normal 45-117 [facility] Comment on above: Order Comment: Order Date: 03/11/24 Order Info: 0786-1 - CMP Order Info: [id number] - LIPID Performed By: #### L 500.4050, L100.0100, L502.0250, L501.9985, L500.4100 #### [facility] [address] [place], [address] ALT [Catalytic activity/Vol] 22 U/L Normal 16-61 [facility] Comment on above: Order Comment: Order Date: 03/11/24 Order Info: 0786-1 - CMP Order Info: [id number] - LIPID Performed By: #### L 500.4050, L100.0100, L502.0250, L501.9985, L500.4100 #### [facility] [address] [place], [address] AST [Catalytic activity/Vol] 18 U/L Normal 15-37 [facility] Comment on above: Order Comment: Order Date: 03/11/24 Order Info: 0786-1 - CMP Order Info: [id number] - LIPID Performed By: #### L 500.4050, L100.0100, L502.0250, L501.9985, L500.4100 #### [facility] [address] [place], [address] Bilirubin [Mass/Vol] 0.80 mg/dL Normal 0.20-1.00 [facility] Comment on above: Order Comment: Order Date: 03/11/24 Order Info: 0786-1 - CMP Order Info: [id number] - LIPID Result Comment: For patients on eltrombopag therapy, use of Dimension [place] TBIL is not recommended. Performed By: #### L 500.4050, L100.0100, L502.0250, L501.9985, L500.4100 #### [facility] [address] [place], [address] BUN/CRE 14.2 RATIO Normal 10-20 [facility] Comment on above: Order Comment: Order Date: 03/11/24 Order Info: 0786-1 - CMP Order Info: [id number] - LIPID Performed By: #### L 500.4050, L100.0100, L502.0250, L501.9985, L500.4100 #### [facility] [address] [place], [address] CA,Total 9.7 mg/dL Normal 8.5-10.1 [facility] Comment on above: Order Comment: Order Date: 03/11/24 Order Info: 0786-1 - CMP Order Info: [id number] - LIPID Performed By: #### L 500.4050, L100.0100, L502.0250, L501.9985, L500.4100 #### [facility] [address] [place], [address] Chloride [Moles/Vol] 103 mmol/L Normal 98-107 [facility] Comment on above: Order Comment: Order Date: 03/11/24 Order Info: 0786-1 - CMP Order Info: [id number] - LIPID Performed By: #### L 500.4050, L100.0100, L502.0250, L501.9985, L500.4100 #### [facility] [address] [place], [address] CO2 [Moles/Vol] 26.0 mmol/L Normal 21.0-32.0 [facility] Comment on above: Order Comment: Order Date: 03/11/24 Order Info: 0786-1 - CMP Order Info: [id number] - LIPID Performed By: #### L 500.4050, L100.0100, L502.0250, L501.9985, L500.4100 #### [facility] [address] [place], [address] Creatinine [Mass/Vol] 1.20 mg/dL Normal 0.70-1.30 [facility] Comment on above: Order Comment: Order Date: 03/11/24 Order Info: 0786-1 - CMP Order Info: [id number] - LIPID Result Comment: The validity of the calculated GFR GFRAA in patients over 70 years has not been determined. Clinical correlation is essential. Performed By: #### L 500.4050, L100.0100, L502.0250, L501.9985, L500.4100 #### [facility] [address] [place], [address] EST GFR - AA 78 mL/min Normal >60 [facility] Comment on above: Order Comment: Order Date: 03/11/24 Order Info: 0786-1 - CMP Order Info: [id number] - LIPID Result Comment: Afri can [place] GFR Calc Performed By: #### L 500.4050, L100.0100, L502.0250, L501.9985, L500.4100 #### [facility] [address] [place], [address] GAP 5 Normal 5-15 [facility] Comment on above: Order Comment: Order Date: 03/11/24 Order Info: 0786-1 - CMP Order Info: [id number] - LIPID Performed By: #### L 500.4050, L100.0100, L502.0250, L501.9985, L500.4100 #### [facility] [address] [place], [address] GFR/1.73 sq M.predicted among non-blacks MDRD (S/P/Bld) [Vol rate/Area] 65 mL/min/{1.73_m2} Normal >60 [facility] Comment on above: Order Comment: Order Date: 03/11/24 Order Info: 0786-1 - CMP Order Info: [id number] - LIPID Result Comment: Non- GFR Calc Performed By: #### L 500.4050, L100.0100, L502.0250, L501.9985, L500.4100 #### [facility] [address] [place], [address] Globulin (S) [Mass/Vol] 3.9 g/dL Normal 2.2-4.2 [facility] Comment on above: Order Comment: Order Date: 03/11/24 Order Info: 0786 - CMP Order Info: [id number] - LIPID Performed By: #### L 500.4050, L100.0100, L502.0250, L501.9985, L500.4100 #### [facility] [address] [place], [address] Glucose [Mass/Vol] 200 mg/dL High 74-106 [facility] Comment on above: Order Comment: Order Date: 03/11/24 Order Info: 0786-1 - CMP Order Info: [id number] - LIPID Result Comment: Gluc ose result greater than or equal to 200 mg/dL suggests DIABETES MELLITUS per A.D.A. criteria. Performed By: #### L 500.4050, L100.0100, L502.0250, L501.9985, L500.4100 #### [facility] [address] [place], [address] Potassium [Moles/Vol] 3.8 mmol/L Normal 3.5-5.1 [facility] Comment on above: Order Comment: Order Date: 03/11/24 Order Info: 0786- - CMP Order Info: [id number] - LIPID Performed By: #### L 500.4050, L100.0100, L502.0250, L501.9985, L500.4100 #### [facility] [address] [place], [address] Sodium [Moles/Vol] 134 mmol/L Low 136-145 [facility] Comment on above: Order Comment: Order Date: 03/11/24 Order Info: 0786-1 - CMP Order Info: [id number] - LIPID Performed By: #### L 500.4050, L100.0100, L502.0250, L501.9985, L500.4100 #### [facility] [address] [place], [address] T PROT 7.8 g/dL Normal 6.4-8.2 [facility] Comment on above: Order Comment: Order Date: 03/11/24 Order Info: 0786-1 - CMP Order Info: [id number] - LIPID Performed By: #### L 500.4050, L100.0100, L502.0250, L501.9985, L500.4100 #### [facility] [address] [place], [address] Urea nitrogen [Mass/Vol] 17 mg/dL Normal 7-18 [facility] Comment on above: Order Comment: Order Date: 03/11/24 Order Info: 0786-1 - CMP Order Info: [id number] - LIPID Performed By: #### L 500.4050, L100.0100, L502.0250, L501.9985, L500.4100 #### [facility] [address] [place], [address] Hemoglobin A1con 03-11-2024 HbA1c (Bld) [Mass fraction] 8.0 % High 3.8-5.6 [facility] Comment on above: Order Comment: Order Date: 03/11/24 Order Info: [id number] - A1C Result Comment: Norm al < 5.7 % Prediabetic 5.7 - 6.4 % Diabetic >or= 6.5 % Please note range changes. Performed By: #### L 500.4050, L100.0100, L502.0250, L501.9985, L500.4100 #### [facility] [address] [place], [address] Lipid Profileon 03-11-2024 Cholesterol [Mass/Vol] 149 mg/dL Normal 200 [facility] Comment on above: Order Comment: Order Date: 03/11/24 Order Info: 0786-1 - CMP Order Info: [id number] - LIPID Result Comment: <200 mg/dL Desirable 200-240 mg/dL Borderline >240 mg/dL High Risk Performed By: #### L 500.4050, L100.0100, L502.0250, L501.9985, L500.4100 #### [facility] [address] [place], [address] Cholesterol in HDL [Mass/Vol] 87 mg/dL Normal [facility] Comment on above: Order Comment: Order Date: 03/11/24 Order Info: 0786-1 - CMP Order Info: [id number] - LIPID Result Comment: The drugs N-Acetylcysteine and Metamizole may falsely depress this assay. Reference Range HDL <40 mg/dL Low HDL Cholesterol HDL >or= 60 mg/dL High HDL Cholesterol Performed By: #### L 500.4050, L100.0100, L502.0250, L501.9985, L500.4100 #### [facility] [address] [place], [address] Cholesterol in LDL [Mass/Vol] 53 mg/dL Normal 0-130 [facility] Comment on above: Order Comment: Order Date: 03/11/24 Order Info: 0786-1 - CMP Order Info: [id number] - LIPID Performed By: #### L 500.4050, L100.0100, L502.0250, L501.9985, L500.4100 #### [facility] [address] [place], [address] Cholesterol in VLDL [Mass/Vol] 9 mg/dL Normal 5-40 [facility] Comment on above: Order Comment: Order Date: 03/11/24 Order Info: 0786-1 - CMP Order Info: [id number] - LIPID Performed By: #### L 500.4050, L100.0100, L502.0250, L501.9985, L500.4100 #### [facility] [address] [place], [place], [address] Triglyceride [Mass/Vol] 44 mg/dL Normal [facility] Comment on above: Order Comment: Order Date: 03/11/24 Order Info: 0786-1 - CMP Order Info: [id number] - LIPID Result Comment: The drugs N-Acetylcysteine and Metamizole may falsely depress this assay. Serum Triglycerides Reference Interval Normal <150 mg/dL Borderline high 150 - 199 mg/dL High 200 - 499 mg/dL Very High > or = 500 mg/dL Performed By: #### L 500.4050, L100.0100, L502.0250, L501.9985, L500.4100 #### [facility] [address] [place], [place], [address] Microalb:Creat Ratio,Random URon 03-11-2024 Creatinine [Mass/Vol] 21.20 mg/dL Normal NO RAN GE EST. [facility] Comment on above: Order Comment: Order Date: 03/11/24 Order Info: [id number] - MIACRE Performed By: #### L 500.4050, L100.0100, L502.0250, L501.9985, L500.4100 #### [facility] [address] [place], [address] MALB:CRE 463.2 mg/g CRE High <30 mg/g CRE [facility] Comment on above: Order Comment: Order Date: 03/11/24 Order Info: [id number] - MIACRE Performed By: #### L 500.4050, L100.0100, L502.0250, L501.9985, L500.4100 #### [facility] [address] [place], [place], [address] MICROALBUMIN,UR 98.2 mg/L Normal NO RANGE EST. [facility] Comment on above: Order Comment: Order Date: 03/11/24 Order Info: [id number] - MIACRE Performed By: #### L 500.4050, L100.0100, L502.0250, L501.9985, L500.4100 #### [facility] [address] [place], [address] CNOVon 10-10-2023 CNOV Office Visit (AGPOB1 ) TAYLOR LRASON ([id number]) 1960 M Date Time Provider Department 10/10/23 10:30 AM DARYL CUENCA [facility] During your visit today, we recorded the [...] Allergies PHYSICAL EXAMINATION: Resp 20 Ht 5' 11" (1.80m) Wt 225 lb (102.1kg) BMI 31.39 [...] None currently. Wound Care: None. Pain Control: Pwtv-src-oocnnne medication as needed; discussed corticosteroid injection of the subacromial bursa to address symptoms and follow for resolution, declined at this (more content not included)... Normal [facility] No Panel Informationon 10-09 [facility] XR Elbow - right AP and Late ralon 10-10-2023 AP and lateral views right elbow demonstrate continued bone remodeling about the comminuted olecranon fracture. The radiocapitellar joint and ulnohumeral joint are well-maintained in both planes. There is less prominence of the K wire compared to prior images. No new fracture identified. 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 The glenohumeral joint is well-maintained in multiple planes. Humeral head is not high riding. No acute fracture identified. [facility] Radiology Study observation (narrative) [facility] CNOVon 06-06-2023 CNOV Office Visit (AGPOB1 ) TAYLOR LARSON ([id number]) 1960 M Date Time Provider Department 06/06/23 10:00 AM [facility] During your visit today, we recorded [...] Allergies PHYSICAL EXAMINATION: Resp 20 Ht 5' 11" (1.80m) Wt 225 lb (102.1kg) BMI 31.39 [...] right ulna with routine healing, subsequent encounter [F39.256L] Order(s):XR ELBOW GENERAL 2V AP/LAT RIGHT [[id number]] Order #: [id number] Prescriptions as of 06/06/2023 - Cholecalciferol, Vitamin D3, (VITAMIN D) 25 mcg (1,000 unit) cap Take 1,000 Units by mouth once daily. 2000 units twice a day - rosuvastatin (CRESTOR) 20 mg tablet - losartan (COZAAR) 50 mg tablet Take 50 mg by mouth two times a day. (more content not included)... Normal [facility] Iron measurement (mass/mass) Ordered By: Krista Delgado on 06-05-2023 Iron (Unsp spec) [Mass/Mass] 87 ug/dL 65-175 [facility] [facility] - Chemistry and C hemistry - challengeOrdered By: Krista Delgado on 06-05-2023 Cobalamin (Vitamin B12) [Mass/Vol] 251 pg/mL 211-911 [facility] Ferritin [Mass/Vol] 96 ng/mL 26-388 [facility] No Panel InformationOrdered By: Krista Delgado on 06-05-2023 Total Iron Binding Capacity 408 ug/dL 250-450 [facility] Serum or plasma iron saturat ion measurement (mass fraction)Ordered By: Kritsa Delgado on 06-05-2023 Iron saturation [Mass fraction] 21.3 % 15.0-55.0 [facility] Absolute lymphocyte countOrd ered By: Krista Delgado on 05-29-2023 Lymphocytes Auto (Unsp spec) [#/Vol] 1.17 10*3/uL 0.83-4.51 [facility] Basophil percentageOrdered B y: Krista Delgado on 05-29-2023 Basophils/100 WBC (Bld) 0.6 % 0-1 [facility] Bilirubin [Mass/Vol] 0.80 mg/dL 0.20-1.00 [facility] Comment on above: For patients on eltr ombopag therapy, use of Dimension [place] TBIL is not recommended. Chloride [Moles/Vol] 100 mmol/L 98-107 [facility] Eosinophils/100 WBC (Bld) 4.3 % 0-5 [facility] Glucose [Mass/Vol] 153 mg/dL 74-106 [facility] Comment on above: Fasting Glucose resu lt greater than or equal to 126 mg/dL suggests DIABETES MELLITUS per A.D.A. criteria. Neutrophils (Bld) [#/Vol] 3.2 10*3/uL 2.0-7.7 [facility] Neutrophils/100 WBC (Bld) 59.7 % 47-70 [facility] Potassium [Moles/Vol] 4.3 mmol/L 3.5-5.1 [facility] Protein [Mass/Vol] 7.7 g/dL 6.4-8.2 [facility] Sodium [Moles/Vol] 136 mmol/L 136-145 [facility] WBC (Bld) [#/Vol] 5.4 10*3/uL 4.4-11.0 [facility] Blood erythrocytes count (nu mber/volume)Ordered By: Krista Delgado on 05-29-2023 RBC (Bld) [#/Vol] 3.91 10*6/uL 4.6-6.2 [facility] Blood hemoglobin measurement (mass/volume)Ordered By: Krista Delgado on 05-29-2023 Hemoglobin (Bld) [Mass/Vol] 11.4 g/dL 13.0-16.5 [facility] Blood lymphocytes/100 leukoc ytesOrdered By: Krista Delgado on 05-29-2023 Lymphocytes/100 WBC (Bld) 21.8 % 19-41 [facility] Blood monocytes/100 leukocyt esOrdered By: Krista Delgado on 05-29-2023 Monocytes/100 WBC (Bld) 13.2 % 0-10 [facility] Blood platelet mean volumeOr dered By: Krista Delgado on 05-29-2023 Platelet mean volume (Bld) [Entitic vol] 10.1 fL 6.2-12.0 [facility] Determination of erythrocyte mean corpuscular volume (MCV)Ordered By: Krista Delgado on 05-29-2023 MCV (RBC) [Entitic vol] 91.3 fL 80-94 [facility] Hematocrit Auto (Bld) [Volum e fraction]Ordered By: Krista Delgado on 05-29-2023 Hematocrit (Bld) [Volume fraction] 35.7 % 40-54 [facility] Laboratory - Chemistry and C hemistry - challengeOrdered By: Krista Delgado on 05-29-2023 ALP [Catalytic activity/Vol] 76 U/L 45-117 [facility] ALT [Catalytic activity/Vol] 18 U/L 16-61 [facility] CO2 [Moles/Vol] 27.0 mmol/L 21.0-32.0 [facility] Globulin (S) [Mass/Vol] 3.8 g/dL 2.2-4.2 [facility] Magnesium [Mass/Vol] 1.5 mg/dL 1.6-2.6 [facility] Urea nitrogen/Creatinine [Mass ratio] 12.3 mg/mg 10-20 [facility] Laboratory - Hematology and Cell countsOrdered By: Krista Delgado on 05-29-2023 Erythrocyte distribution width (RBC) [Entitic vol] 44.7 fL 35.1-43.9 [facility] Erythrocyte distribution width (RBC) [Ratio] 13.5 % 11.6-14.6 [facility] Immature granulocytes/100 WBC (Bld) 0.400 % 0.0-0.9 [facility] Comment on above: IG% - Immature Granu locytes (promyelocytes, myelocytes and metamyelocytes) > 1% indicates that a LEFT SHIFT is Present. MCH (RBC) [Entitic mass] 29.2 pg 27.0-32.0 [facility] Nucleated RBC/100 WBC (Bld) [Ratio] 0 % 0-5 [facility] MCHC Auto (RBC) [Mass/Vol]Or dered By: Krista Delgado on 05-29-2023 MCHC (RBC) [Mass/Vol] 31.9 g/dL 32-36 [facility] No Panel InformationOrdered By: Krista Delgado on 05-29-2023 Estimated GFR (MDRD) Amer 100 mL/min >60 [facility] Comment on above: GFR Calc Estimated GFR (MDRD) Non-Af Amer 83 mL/min >60 [facility] Comment on above: Non- GFR Calc Prostate Specific Antigen Screen 1.14 ng/mL 0.00-4.00 [facility] Comment on above: This test was perfor med using the TPSA assay method for the[employer] chemistry system. Values obtained with differentassay methods cannot be used interchangably.When changing PSA assays in the course of monitoring apatient, additional sequential testing should be carriedout to confirm baseline values. Thyroid Stimulating Hormone (TSH) 1.20 uIU/mL 0.358-3.74 [facility] Platelets bldOrdered By: Ahmet Delgado on 05-29-2023 Platelets (Bld) [#/Vol] 244 10*3/uL 150-450 [facility] Serum or plasma albumin jin urement (mass/volume)Ordered By: Krista Delgado on 05-29-2023 Albumin [Mass/Vol] 3.9 g/dL 3.2-5.0 [facility] Serum or plasma albumin/glob ulin mass ratioOrdered By: Krista Delgado on 05-29-2023 Albumin/Globulin [Mass ratio] 1.0 {ratio} 0.9-2.4 [facility] Serum or plasma calcium jin urement (mass/volume)Ordered By: Krista Delgado on 05-29-2023 Calcium [Mass/Vol] 9.2 mg/dL 8.5-10.1 [facility] Serum or plasma creatinine m easurement (mass/volume)Ordered By: Krista Delgado on 05-29-2023 Creatinine [Mass/Vol] 0.98 mg/dL 0.70-1.30 [facility] Comment on above: The validity of the calculated GFR & GFRAA in patients over 70 years has not been determined. Clinical correlation is essential. Serum or plasma urea nitroge n measurement (mass/volume)Ordered By: Krista Delgado on 05-29-2023 Urea nitrogen [Mass/Vol] 12 mg/dL 7-18 [facility] Thin prep Papanicolaou smear with manual screeningOrdered By: Krista Delgado on 05-29-2023 Thin prep Papanicolaou smear with manual screening 17 U/L 15-37 [facility] Thin prep Papanicolaou smear with manual screening 9 5-15 [facility] CNOVon 05-09-2023 CNOV Office Visit (AGPOB1 ) TAYLOR LARSON ([id number]) 1960 M Date Time Provider Department 05/09/23 10:00 AM DARYL CUENCA [facility] During your visit today, we recorded the [...] Allergies PHYSICAL EXAMINATION: Resp 18 Ht 5' 11" (1.80m) Wt 228 lb (103.4kg) BMI 31.81 [...] right ulna with routine healing, subsequent encounter [P29.277J] Order(s):XR ELBOW GENERAL 2V AP/LAT RIGHT [[id number]] Order #: [id number] Prescriptions as of 05/09/2023 - Cholecalciferol, Vitamin [...] 100 mg/mL (more content not included)... Normal [facility] Absolute lymphocyte countOrd ered By: Krista Delgado on 05-03-2023 Lymphocytes Auto (Unsp spec) [#/Vol] 0.83 10*3/uL 0.83-4.51 [facility] Basophil percentageOrdered B y: Krista Delgado on 05-03-2023 Basophils/100 WBC (Bld) 0.4 % 0-1 [facility] Bilirubin [Mass/Vol] 0.70 mg/dL 0.20-1.00 [facility] Comment on above: For patients on eltr ombopag therapy, use of Dim[place] TBIL is not recommended. Chloride [Moles/Vol] 100 mmol/L 98-107 [facility] Cholesterol [Mass/Vol] 135 mg/dL <200 [facility] Comment on above: <200 mg/dL Desirable 200-240 mg/dL Borderline >240 mg/dL High Risk Eosinophils/100 WBC (Bld) 4.6 % 0-5 [facility] Glucose [Mass/Vol] 196 mg/dL 74-106 [facility] Comment on above: Fasting Glucose resu lt greater than or equal to 126 mg/dL suggests DIABETES MELLITUS per A.D.A. criteria. Neutrophils (Bld) [#/Vol] 2.9 10*3/uL 2.0-7.7 [facility] Neutrophils/100 WBC (Bld) 64.4 % 47-70 [facility] Potassium [Moles/Vol] 4.4 mmol/L 3.5-5.1 [facility] Protein [Mass/Vol] 7.3 g/dL 6.4-8.2 [facility] Sodium [Moles/Vol] 136 mmol/L 136-145 [facility] Triglyceride [Mass/Vol] 44 mg/dL <199 [facility] Comment on above: The drugs N-Acetylcy steine and Metamizole may falsely depress this assay.Serum Triglycerides Reference Interval Normal <150 mg/dL Borderline high 150 - 199 mg/dL High 200 - 499 mg/dL Very High > or = 500 mg/dL WBC (Bld) [#/Vol] 4.5 10*3/uL 4.4-11.0 [facility] Blood erythrocytes count (nu mber/volume)Ordered By: Krista Delgado on 05-03-2023 RBC (Bld) [#/Vol] 3.75 10*6/uL 4.6-6.2 [facility] Blood hemoglobin measurement (mass/volume)Ordered By: Krista Delgado on 05-03-2023 Hemoglobin (Bld) [Mass/Vol] 11.1 g/dL 13.0-16.5 [facility] Blood lymphocytes/100 leukoc ytesOrdered By: Krista Delgado on 05-03-2023 Lymphocytes/100 WBC (Bld) 18.3 % 19-41 [facility] Blood monocytes/100 leukocyt esOrdered By: Krista Delgado on 05-03-2023 Monocytes/100 WBC (Bld) 12.1 % 0-10 [facility] Blood platelet mean volumeOr dered By: Krista Delgado on 05-03-2023 Platelet mean volume (Bld) [Entitic vol] 9.6 fL 6.2-12.0 [facility] Determination of erythrocyte mean corpuscular volume (MCV)Ordered By: Krista Delgado on 05-03-2023 MCV (RBC) [Entitic vol] 91.7 fL 80-94 [facility] Hematocrit Auto (Bld) [Volum e fraction]Ordered By: Krista Delgado on 05-03-2023 Hematocrit (Bld) [Volume fraction] 34.4 % 40-54 [facility] Laboratory - Chemistry and C hemistry - challengeOrdered By: Krista Delgado on 05-03-2023 ALP [Catalytic activity/Vol] 84 U/L 45-117 [facility] ALT [Catalytic activity/Vol] 18 U/L 16-61 [facility] CO2 [Moles/Vol] 32.0 mmol/L 21.0-32.0 [facility] Globulin (S) [Mass/Vol] 3.8 g/dL 2.2-4.2 [facility] Urea nitrogen/Creatinine [Mass ratio] 13.5 mg/mg 10-20 [facility] Laboratory - Hematology and Cell countsOrdered By: Krista Delgado on 05-03-2023 Erythrocyte distribution width (RBC) [Entitic vol] 43.2 fL 35.1-43.9 [facility] Erythrocyte distribution width (RBC) [Ratio] 13.2 % 11.6-14.6 [facility] Immature granulocytes/100 WBC (Bld) 0.200 % 0.0-0.9 [facility] Comment on above: IG% - Immature Granu locytes (promyelocytes, myelocytes and metamyelocytes) > 1% indicates that a LEFT SHIFT is Present. MCH (RBC) [Entitic mass] 29.6 pg 27.0-32.0 [facility] Nucleated RBC/100 WBC (Bld) [Ratio] 0 % 0-5 [facility] MCHC Auto (RBC) [Mass/Vol]Or dered By: Krista Delgado on 05-03-2023 MCHC (RBC) [Mass/Vol] 32.3 g/dL 32-36 [facility] No Panel InformationOrdered By: rKista Delgado on 05-03-2023 Estimated GFR (MDRD) Amer 102 mL/min >60 [facility] Comment on above: GFR Calc Estimated GFR (MDRD) Non-Af Amer 84 mL/min >60 [facility] Comment on above: Non- GFR Calc Thyroid Stimulating Hormone (TSH) 1.52 uIU/mL 0.358-3.74 [facility] Vitamin D 25-Hydroxy 43.0 ng/mL [facility] Comment on above: Vitamin D 25(OH) Sta tus Range Deficiency <20 ng/mL (50nmol/L) Insufficiency 20 - 30 ng/mL (50 - 75 nmol/L) Sufficiency 30 - 100 ng/mL (75 - 250 nmol/L) Toxicity >100 ng/mL (>250 nmol/L) Platelets bldOrdered By: Ahmet Delgado on 05-03-2023 Platelets (Bld) [#/Vol] 181 10*3/uL 150-450 [facility] Serum or plasma albumin jin urement (mass/volume)Ordered By: Krista Delgado on 05-03-2023 Albumin [Mass/Vol] 3.5 g/dL 3.2-5.0 [facility] Serum or plasma albumin/glob ulin mass ratioOrdered By: Krista Delgado on 05-03-2023 Albumin/Globulin [Mass ratio] 0.9 {ratio} 0.9-2.4 [facility] Serum or plasma calcium jin urement (mass/volume)Ordered By: Krista Delgado on 05-03-2023 Calcium [Mass/Vol] 9.4 mg/dL 8.5-10.1 [facility] Serum or plasma cholesterol in HDL measurement (mass/volume)Ordered By: Krista Delgado on 05-03-2023 Cholesterol in HDL [Mass/Vol] 68 mg/dL >40 [facility] Comment on above: The drugs N-Acetylcy steine and Metamizole may falsely depress this assay. Reference Range HDL <40 mg/dL Low HDL Cholesterol HDL >or= 60 mg/dL High HDL Cholesterol Serum or plasma cholesterol in VLDL measurement (mass/volume)Ordered By: Krista Delgado on 05-03-2023 Cholesterol in VLDL [Mass/Vol] 9 mg/dL 5-40 [facility] Serum or plasma creatinine m easurement (mass/volume)Ordered By: Krista Delgado on 05-03-2023 Creatinine [Mass/Vol] 0.96 mg/dL 0.70-1.30 [facility] Comment on above: The validity of the calculated GFR & GFRAA in patients over 70 years has not been determined. Clinical correlation is essential. Serum or plasma low density lipoprotein (LDL) cholesterol measurement (mass/volume)Ordered By: Krista Delgado on 05-03-2023 Cholesterol in LDL [Mass/Vol] 58 mg/dL 0-130 [facility] Serum or plasma urea nitroge n measurement (mass/volume)Ordered By: Krista Delgado on 05-03-2023 Urea nitrogen [Mass/Vol] 13 mg/dL 7-18 [facility] Thin prep Papanicolaou smear with manual screeningOrdered By: Krista Delgado on 05-03-2023 Thin prep Papanicolaou smear with manual screening 14 U/L 15-37 [facility] Thin prep Papanicolaou smear with manual screening 4 5-15 [facility] Urine creatinine measurement (mass/volume)Ordered By: Krista Delgado on 05-03-2023 Creatinine (U) [Mass/Vol] 30.60 mg/dL NO RANGE EST. [facility] Urine protein measurement (m ass/volume)Ordered By: Krista Delgado on 05-03-2023 Protein (U) [Mass/Vol] 25.3 mg/dL 0.0-11.8 [facility] Urine protein/creatinine mas s ratioOrdered By: Krista Delgado on 05-03-2023 Protein/Creatinine (U) [Mass ratio] 827 mg/g CRE 0-200 [facility] Whole blood hemoglobin A1c/t otal hemoglobin ratio (mass fraction)Ordered By: Krista Delgado on 05-03-2023 HbA1c (Bld) [Mass fraction] 7.5 % 3.8-5.6 [facility] Comment on above: Normal < 5.7 % Predi abetic 5.7 - 6.4 % Diabetic >or= 6.5 % Please note range changes. CNOVon 04-18-2023 CNOV Office Visit (AGPOB1 ) TAYLOR LARSON ([id number]) 1960 M Date Time Provider Department 04/18/23 [...] Allergies PHYSICAL EXAMINATION: Resp 18 Ht 5' 11" (1.80m) Wt 228 lb (103.4kg) BMI 31.81 [...] [S52.021D] Order(s):XR ELBOW GENERAL 2V AP/LAT RIGHT [[id number]] Order #: [id number] Prescriptions as of 04/18/2023 - Cholecalciferol, Vitamin [...] - a (more content not included)... Normal [facility] CNOVon 04-10-2023 CNOV Office Visit (AGPOB1 ) TAYLOR LARSON ([id number]) 1960 M Date Time Provider Department 04/10/23 9:30 [facility] your visit today, we recorded [...] Allergies PHYSICAL EXAMINATION: Resp 18 Ht 5' 11" (1.80m) Wt 228 lb (103.4kg) BMI 31.81 [...] right ulna with routine healing, subsequent encounter [K97.142K] Order(s):XR ELBOW GENERAL 2V AP/LAT RIGHT [[id number]] Order #: [id number] Prescriptions as of 04/11/2023 - Cholecalciferol, Vitamin D3, (VITAMIN D) 25 mcg (1,000 unit) cap Take 1,000 Units by mouth once daily. 2000 units twice a day - oxyCODONE-aceta (more content not included)... Normal [facility] 2023 [facility] Telephone (AGPOB1) TAYLOR LARSON ([id number]) 1960 M Date Time Provider Department 04/04/23 DARYL CUENCA [facility] During your visit today, we recorded the [...] Fully Assessed Reason for Visit: Patient Question [9857] Primary Visit Diagnosis:Closed fracture of olecranon process [...] Encounter Status:Closed by DARYL CUENCA on 04/04/23 [facility] Miguel [facility] TAYLOR LARSON ([id number]) 1960 M Date Time Provider Department 04/03/23 [facility] During your visit today, we recorded the following information about you: Heide Mortensen 04/03/2023 1:42 PM Addendum I called PT and scheduled them for splint removal per Bang's request. Heide Mortensen ----- Message from Shilpi Pham sent at 04/02/2023 3:42 PM EST ----- Regarding: FW: office appointment Here is the staff message. ----- Message ----- From: Daryl Cuenca MD Sent: 04/02/2023 11:12 AM EST To: Shilpi Pham Subject: office appointment Hello: This patient should follow-up at the [facility] next Saturday for splint removal. Thanks, ADONISD Allergies As of Date: 04/03/2023 (No Known [...] BMI 30-34.9 [E66.9] 04/02/2023 Encounter Status:Closed by HEIDE MORTENSEN on 04/03/23 [facility] ANES POSTPROC EVALon 023 ANES POSTPROC EVAL HNO ID: [id number] Author: Mel Medina MD Service: Anesthesiology Author Type: Physician Type: Anesthesia Postprocedure Evaluation Filed: 04/02/2023 12:48 PM Note Text: POST ANESTHESIA EVALUATION NOTE : 1960 Procedure Summary Date: 04/02/23 Room / Location: [place] OR 07 / [place] OR Anesthesia Start: 856 Anesthesia [...] April 02, 2023 TIME: 12:48 PM CSN: [id number] [facility] ANES PRE-OPon 04-02-2023 ANES PRE-OP HNO ID: [id number] Author: Mel Medina MD Service: Anesthesiology Author Type: Physician Type: Anesthesia Preprocedure Evaluation Filed: 04/02/2023 8:36 AM Note Text: ANESTHESIOLOGY DAY OF SURGERY NOTE : 1960 Procedure Information Date/Time: 04/02/23 1008 Procedure: OPEN REDUCTION ULNAR FRACTURE PROXIMAL END W/ INTERNAL FIXATION WHEN PREFORMED ORIF Right Olecranon fracture (Right: Elbow) Location: [place] OR / [place] Surgeons: Daryl Cuenca MD Estimated body mass index is 31.8 kg/m? as calculated from the following: Height as of 03/28/23: 180.3 cm (5' 11"). Weight as of 03/28/23: 103.4 kg (228 lb). Most recent hematocrit and potassium results: No results found for this basename: HCT,HEMATOCRIT,K,POTASSIUM 62yo male with DM, HL, heavy EtOH [...] and consent discussed: yes. Patient / Responsible [employer] Party agrees to proceed: yes Patient / Surrogate [...] April 02, 2023 TIME: 8:01 AM CSN: [id number] [facility] HISTORY PHYSICALon 11-14-202 3 HISTORY PHYSICAL HNO ID: [id number] Author: Daryl Cuenca MD Service: Orthopaedic Surgery [...] discharge to home today. Daryl Cuenca MD Normal [facility] OPERATIVE NOon 04-02-2023 OPERATIVE NO HNO ID: [id number] Author: Daryl Cuenca MD Service: Orthopaedic Surgery Author Type: Physician Type: Operative Report Filed: 04/02/2023 12:40 PM Note Text: ORTHOPAEDIC OPERATIVE REPORT PATIENT NAME: Taylor Larson Surgery/Procedure Date: 04/02/2023 Incision/Procedure Start Time: 9:34 AM Incision Close/Procedure End Time: 10:45 AM Surgeon(s) and Follow Up Manager(s): Surgeon(s) and Role: * Daryl Cuenca MD [...] and sterilely draped for the procedure. The [facility] timeout protocol was performed. With the [...] severe comminution along the articular surface. A [id number] tension wire was passed through a bone [...] April 02, 2023 TIME: 12:15 PM [facility] XR ELBOW 2V AP/LAT RTon 03-20 XR ELBOW 2V AP/LAT RT * * *Final Report* * * DATE OF EXAM: Apr 02 2023 11:22AM [facility] [id number] - XR ELBOW 2V AP/LAT RT [...] Documentation of intraoperative fluoroscopic guidance as above Polysomnograph Tech: QUENTIN Transcribe Date/Time: Apr 02 2023 11:28A Dictated by : YVETTE CLARKE MD This examination was interpreted and the report reviewed and electronically signed by: YVETTE CLARKE MD on Apr 02 2023 11:29AM EST [id number] Normal [facility] CNOVon 03-28-2023 CNOV Office Visit (AGPOB1 ) TAYLOR LARSON ([id number]) 1960 M Date Time Provider Department 03/28/23 [...] oral Percocet. Has continued extensive hand swelling. [id number]-[id number]. Accompanied by family. Reviewed nursing note and [...] Allergies PHYSICAL EXAMINATION: Resp 18 Ht 5' 11" (1.80m) Wt 228 lb (103.4kg) BMI 31.81 [...] surgery. Reviewed (more content not included)... Normal [facility] 36on 03-25-2023 36 Name of Caller: Taylor Contact Reason for Appointment: Pt states he was seen at [place] [facility] Thursday 03/22 for Rt elbow dislocation and fx. Pt states he has called multiple ortho offices and Pt's insurance is out of network everywhere. Pt has [employer] insurance plan. Advised Pt that we are also out of network but could see Pt as a morrison Pt and could have Pt fill out financial assistance paperwork for OV. Advised that if Pt were to need sx, he may not be eligible [facility] because of having insurance even though Pt is out of network. Advised Pt to call insurance again to find physician that is in network and ask for a reference number for call. Advised Pt that if they decide to proceed with [facility] as a morrison Pt or want to use out of network benefits then to give us a call back. FYI Office Name: Dr Mortensen/[facility] Absolute lymphocyte countOrd ered By: Krista Grajedayg on 01-24-2023 Lymphocytes Auto (Unsp spec) [#/Vol] 1.39 10*3/uL 0.83-4.51 [facility] Basophil percentageOrdered B y: Krista Delgado on 01-24-2023 Basophils/100 WBC (Bld) 0.7 % 0-1 [facility] Bilirubin [Mass/Vol] 0.60 mg/dL 0.20-1.00 [facility] Comment on above: For patients on eltr ombopag therapy, use of Dim[employer] [place] TBIL is not recommended. Chloride [Moles/Vol] 104 mmol/L 98-107 [facility] Cholesterol [Mass/Vol] 140 mg/dL <200 [facility] Comment on above: <200 mg/dL Desirable 200-240 mg/dL Borderline >240 mg/dL High Risk Eosinophils/100 WBC (Bld) 5.3 % 0-5 [facility] Glucose [Mass/Vol] 152 mg/dL 74-106 [facility] Comment on above: Fasting Glucose resu lt greater than or equal to 126 mg/dL suggests DIABETES MELLITUS per A.D.A. criteria. Neutrophils (Bld) [#/Vol] 3.1 10*3/uL 2.0-7.7 [facility] Neutrophils/100 WBC (Bld) 55.5 % 47-70 [facility] Potassium [Moles/Vol] 3.8 mmol/L 3.5-5.1 [facility] Protein [Mass/Vol] 7.7 g/dL 6.4-8.2 [facility] Sodium [Moles/Vol] 138 mmol/L 136-145 [facility] Triglyceride [Mass/Vol] 66 mg/dL <199 [facility] Comment on above: The drugs N-Acetylcy steine and Metamizole may falsely depress this assay.Serum Triglycerides Reference Interval Normal <150 mg/dL Borderline high 150 - 199 mg/dL High 200 - 499 mg/dL Very High > or = 500 mg/dL WBC (Bld) [#/Vol] 5.5 10*3/uL 4.4-11.0 [facility] Blood erythrocytes count (nu mber/volume)Ordered By: Krista Delgado on 01-24-2023 RBC (Bld) [#/Vol] 4.27 10*6/uL 4.6-6.2 [facility] Blood hemoglobin measurement (mass/volume)Ordered By: Krista Delgado on 01-24-2023 Hemoglobin (Bld) [Mass/Vol] 12.7 g/dL 13.0-16.5 [facility] Blood lymphocytes/100 leukoc ytesOrdered By: Krista Delgado on 01-24-2023 Lymphocytes/100 WBC (Bld) 25.2 % 19-41 [facility] Blood monocytes/100 leukocyt esOrdered By: Krista Delgado on 01-24-2023 Monocytes/100 WBC (Bld) 12.9 % 0-10 [facility] Blood platelet mean volumeOr dered By: Krista Delgado on 01-24-2023 Platelet mean volume (Bld) [Entitic vol] 9.6 fL 6.2-12.0 [facility] Determination of erythrocyte mean corpuscular volume (MCV)Ordered By: Krista Delgado on 01-24-2023 MCV (RBC) [Entitic vol] 93.9 fL 80-94 [facility] Hematocrit Auto (Bld) [Volum e fraction]Ordered By: Krista Delgado on 01-24-2023 Hematocrit (Bld) [Volume fraction] 40.1 % 40-54 [facility] Laboratory - Chemistry and C hemistry - challengeOrdered By: Krista Delgado on 01-24-2023 ALP [Catalytic activity/Vol] 66 U/L 45-117 [facility] ALT [Catalytic activity/Vol] 26 U/L 16-61 [facility] CO2 [Moles/Vol] 29.0 mmol/L 21.0-32.0 [facility] Globulin (S) [Mass/Vol] 3.9 g/dL 2.2-4.2 [facility] Urea nitrogen/Creatinine [Mass ratio] 14.2 mg/mg 10-20 [facility] [facility] - Hematology and Cell countsOrdered By: Krista Delgado on 01-24-2023 Erythrocyte distribution width (RBC) [Entitic vol] 41.4 fL 35.1-43.9 [facility] Erythrocyte distribution width (RBC) [Ratio] 12.0 % 11.6-14.6 [facility] Immature granulocytes/100 WBC (Bld) 0.400 % 0.0-0.9 [facility] Comment on above: IG% - Immature Granu locytes (promyelocytes, myelocytes and metamyelocytes) > 1% indicates that a LEFT SHIFT is Present. MCH (RBC) [Entitic mass] 29.7 pg 27.0-32.0 [facility] Nucleated RBC/100 WBC (Bld) [Ratio] 0 % 0-5 [facility] MCHC Auto (RBC) [Mass/Vol]Or dered By: Krista Delgado on 01-24-2023 MCHC (RBC) [Mass/Vol] 31.7 g/dL 32-36 [facility] No Panel InformationOrdered By: rKista Delgado on 01-24-2023 Estimated GFR (MDRD) Amer 91 mL/min >60 [facility] Comment on above: GFR Calc Estimated GFR (MDRD) Non-Af Amer 75 mL/min >60 [facility] Comment on above: Non- GFR Calc Thyroid Stimulating Hormone (TSH) 1.53 uIU/mL 0.358-3.74 [facility] Vitamin D 25-Hydroxy 42.7 ng/mL [facility] Comment on above: Vitamin D 25(OH) Sta tus Range Deficiency <20 ng/mL (50nmol/L) Insufficiency 20 - 30 ng/mL (50 - 75 nmol/L) Sufficiency 30 - 100 ng/mL (75 - 250 nmol/L) Toxicity >100 ng/mL (>250 nmol/L) Platelets bldOrdered By: Ahmet Delgado on 01-24-2023 Platelets (Bld) [#/Vol] 234 10*3/uL 150-450 [facility] Serum or plasma albumin jin urement (mass/volume)Ordered By: Krista Delgado on 01-24-2023 Albumin [Mass/Vol] 3.8 g/dL 3.2-5.0 [facility] Serum or plasma albumin/glob ulin mass ratioOrdered By: Krista Delgado on 01-24-2023 Albumin/Globulin [Mass ratio] 1.0 {ratio} 0.9-2.4 [facility] Serum or plasma calcium jin urement (mass/volume)Ordered By: Krista Delgado on 01-24-2023 Calcium [Mass/Vol] 9.3 mg/dL 8.5-10.1 [facility] Serum or plasma cholesterol in HDL measurement (mass/volume)Ordered By: Krista Delgado on 01-24-2023 Cholesterol in HDL [Mass/Vol] 69 mg/dL >40 [facility] Comment on above: The drugs N-Acetylcy steine and Metamizole may falsely depress this assay. Reference Range HDL <40 mg/dL Low HDL Cholesterol HDL >or= 60 mg/dL High HDL Cholesterol Serum or plasma cholesterol in VLDL measurement (mass/volume)Ordered By: Krista Delgado on 01-24-2023 Cholesterol in VLDL [Mass/Vol] 13 mg/dL 5-40 [facility] Serum or plasma creatinine m easurement (mass/volume)Ordered By: Krista Delgado on 01-24-2023 Creatinine [Mass/Vol] 1.06 mg/dL 0.70-1.30 [facility] Comment on above: The validity of the calculated GFR & GFRAA in patients over 70 years has not been determined. Clinical correlation is essential. Serum or plasma low density lipoprotein (LDL) cholesterol measurement (mass/volume)Ordered By: Krista Delgado on 01-24-2023 Cholesterol in LDL [Mass/Vol] 58 mg/dL 0-130 [facility] Serum or plasma urea nitroge n measurement (mass/volume)Ordered By: Krista Delgado on 01-24-2023 Urea nitrogen [Mass/Vol] 15 mg/dL 7-18 [facility] Thin prep Papanicolaou smear with manual screeningOrdered By: Krista Delgado on 01-24-2023 Thin prep Papanicolaou smear with manual screening 21 U/L 15-37 [facility] Thin prep Papanicolaou smear with manual screening 5 5-15 [facility] Urine creatinine measurement (mass/volume)Ordered By: Krista Delgado on 01-24-2023 Creatinine (U) [Mass/Vol] 56.50 mg/dL NO RANGE EST. [facility] Urine protein measurement (m ass/volume)Ordered By: Krista Delgado on 01-24-2023 Protein (U) [Mass/Vol] 33.8 mg/dL 0.0-11.8 [facility] Urine protein/creatinine mas s ratioOrdered By: Krista Delgado on 01-24-2023 Protein/Creatinine (U) [Mass ratio] 598 mg/g CRE 0-200 [facility] Whole blood hemoglobin A1c/t otal hemoglobin ratio (mass fraction)Ordered By: Krista Delgado on 01-24-2023 HbA1c (Bld) [Mass fraction] 7.3 % 3.8-5.6 [facility] Comment on above: Normal < 5.7 % Predi abetic 5.7 - 6.4 % Diabetic >or= 6.5 % Please note range changes. Absolute lymphocyte countOrd ered By: Dr. Olmos on 10-18-2022 Lymphocytes Auto (Unsp spec) [#/Vol] 1.18 10*3/uL 0.83-4.51 [facility] Basophil percentageOrdered B y: Dr. Olmos on 10-18-2022 Basophils/100 WBC (Bld) 0.7 % 0-1 [facility] Bilirubin [Mass/Vol] 0.50 mg/dL 0.20-1.00 [facility] Comment on above: For patients on eltr ombopag therapy, use of Dimension [place] TBIL is not recommended. Eosinophils/100 WBC (Bld) 4.7 % 0-5 [facility] Neutrophils (Bld) [#/Vol] 3.6 10*3/uL 2.0-7.7 [facility] Neutrophils/100 WBC (Bld) 61.8 % 47-70 [facility] Protein [Mass/Vol] 7.6 g/dL 6.4-8.2 [facility] WBC (Bld) [#/Vol] 5.8 10*3/uL 4.4-11.0 [facility] Blood erythrocytes count (nu mber/volume)Ordered By: Dr. Olmos on 10-18-2022 RBC (Bld) [#/Vol] 4.12 10*6/uL 4.6-6.2 [facility] Blood hemoglobin measurement (mass/volume)Ordered By: Dr. Olmos on 10-18-2022 Hemoglobin (Bld) [Mass/Vol] 12.7 g/dL 13.0-16.5 [facility] Blood lymphocytes/100 leukoc ytesOrdered By: Dr. Olmos on 10-18-2022 Lymphocytes/100 WBC (Bld) 20.5 % 19-41 [facility] Blood monocytes/100 leukocyt esOrdered By: Dr. Olmos on 10-18-2022 Monocytes/100 WBC (Bld) 12.0 % 0-10 [facility] Blood platelet mean volumeOr dered By: Dr. Olmos on 10-18-2022 Platelet mean volume (Bld) [Entitic vol] 9.3 fL 6.2-12.0 [facility] Determination of erythrocyte mean corpuscular volume (MCV)Ordered By: Dr. Olmos on 10-18-2022 MCV (RBC) [Entitic vol] 94.7 fL 80-94 [facility] Direct bilirubinOrdered By: Dr. Olmos on 10-18-2022 Bilirubin.direct [Mass/Vol] 0.16 mg/dL 0.00-0.30 [facility] Hematocrit Auto (Bld) [Volum e fraction]Ordered By: Dr. Olmos on 10-18-2022 Hematocrit (Bld) [Volume fraction] 39.0 % 40-54 [facility] Laboratory - Chemistry and C hemistry - challengeOrdered By: Dr. Olmos on 10-18-2022 ALP [Catalytic activity/Vol] 71 U/L 45-117 [facility] ALT [Catalytic activity/Vol] 22 U/L 16-61 [facility] Globulin (S) [Mass/Vol] 3.7 g/dL 2.2-4.2 [facility] Laboratory - Hematology and Cell countsOrdered By: Dr. Olmos on 10-18-2022 Erythrocyte distribution width (RBC) [Entitic vol] 43.8 fL 35.1-43.9 [facility] Erythrocyte distribution width (RBC) [Ratio] 12.7 % 11.6-14.6 [facility] Immature granulocytes/100 WBC (Bld) 0.300 % 0.0-0.9 [facility] Comment on above: IG% - Immature Granu locytes (promyelocytes, myelocytes and metamyelocytes) > 1% indicates that a LEFT SHIFT is Present. MCH (RBC) [Entitic mass] 30.8 pg 27.0-32.0 [facility] Nucleated RBC/100 WBC (Bld) [Ratio] 0 % 0-5 [facility] MCHC Auto (RBC) [Mass/Vol]Or dered By: Dr. Olmos on 10-18-2022 MCHC (RBC) [Mass/Vol] 32.6 g/dL 32-36 [facility] Platelets bldOrdered By: Dr. Olmos on 10-18-2022 Platelets (Bld) [#/Vol] 217 10*3/uL 150-450 [facility] Qualitative QuantiFERON-TB g old in tube testOrdered By: Dr. Olmos on 10-18-2022 M. tuberculosis tuberculin stim IFN-g Ql (Bld) 0.04 IU/mL . [facility] Serum or plasma albumin jin urement (mass/volume)Ordered By: Dr. Olmos on 10-18-2022 Albumin [Mass/Vol] 3.9 g/dL 3.2-5.0 [facility] Thin prep Papanicolaou smear with manual screeningOrdered By: Dr. Olmos on 10-18-2022 Thin prep Papanicolaou smear with manual screening 18 U/L 15-37 [facility] Thin prep Papanicolaou smear with manual screening Comment . [facility] Comment on above: QuantiFERON-TB Gold Plus is a qualitative indirect test forM tuberculosis infection (including disease) and isintended for use in conjunction with risk assessment,radiography, and other medical and diagnostic evaluations.The QuantiFERON-TB Gold Plus result is determined bysubtracting the Nil value from either TB antigen (Ag)value. The Mitogen tube serves as a control for the test. Thin prep Papanicolaou smear with manual screening 0.04 IU/mL . [facility] Thin prep Papanicolaou smear with manual screening 0.48 IU/mL . [facility] Thin prep Papanicolaou smear with manual screening > 10.00 IU/mL . [facility] Thin prep Papanicolaou smear with manual screening Negative Negative [facility] Comment on above: No response to M tub erculosis antigens detected.Infection with M tuberculosis is unlikely, but high riskindividuals should be considered for additional testing(ATS/IDSA/CDC Clinical Practice Guidelines, 2017). Thereference range is an Antigen minus Nil result of <0.35IU/mL.The specimen received for QuantiFERON testing was incubatedby the ordering institution. Specific procedures outlinedin our Directory of Services and in the package insert forthe QuantiFERON Gold (In Tube) test must be followed toenable for proper stimulation of cells for the productionof interferon gamma. Chemiluminescence immunoassaymethodologyPerformed at: [facility] [id number] Director: Donovan Hercules PhD, Phone: [phone] Absolute lymphocyte countOrd ered By: Dr. Delgado on 09-17-2022 Lymphocytes Auto (Unsp spec) [#/Vol] 1.34 10*3/uL 0.83-4.51 [facility] Basophil percentageOrdered B y: Dr. Delgado on 09-17-2022 Basophils/100 WBC (Bld) 0.6 % 0-1 [facility] Bilirubin [Mass/Vol] 0.80 mg/dL 0.20-1.00 [facility] Comment on above: For patients on eltr ombopag therapy, use of Dimension [place] TBIL is not recommended. Chloride [Moles/Vol] 102 mmol/L 98-107 [facility] Cholesterol [Mass/Vol] 146 mg/dL <200 [facility] Comment on above: <200 mg/dL Desirable 200-240 mg/dL Borderline >240 mg/dL High Risk Eosinophils/100 WBC (Bld) 4.5 % 0-5 [facility] Glucose [Mass/Vol] 188 mg/dL 74-106 [facility] Comment on above: Fasting Glucose resu lt greater than or equal to 126 mg/dL suggests DIABETES MELLITUS per A.D.A. criteria. Neutrophils (Bld) [#/Vol] 3.9 10*3/uL 2.0-7.7 [facility] Neutrophils/100 WBC (Bld) 62.9 % 47-70 [facility] Potassium [Moles/Vol] 4.3 mmol/L 3.5-5.1 [facility] Protein [Mass/Vol] 8.0 g/dL 6.4-8.2 [facility] Sodium [Moles/Vol] 135 mmol/L 136-145 [facility] Triglyceride [Mass/Vol] 54 mg/dL <199 [facility] Comment on above: The drugs N-Acetylcy steine and Metamizole may falsely depress this assay.Serum Triglycerides Reference Interval Normal <150 mg/dL Borderline high 150 - 199 mg/dL High 200 - 499 mg/dL Very High > or = 500 mg/dL WBC (Bld) [#/Vol] 6.3 10*3/uL 4.4-11.0 [facility] Blood erythrocytes count (nu mber/volume)Ordered By: Dr. Delgado on 09-17-2022 RBC (Bld) [#/Vol] 4.38 10*6/uL 4.6-6.2 [facility] Blood hemoglobin measurement (mass/volume)Ordered By: Dr. Delgado on 09-17-2022 Hemoglobin (Bld) [Mass/Vol] 13.5 g/dL 13.0-16.5 [facility] Blood lymphocytes/100 leukoc ytesOrdered By: Dr. Delgado on 09-17-2022 Lymphocytes/100 WBC (Bld) 21.4 % 19-41 [facility] Blood monocytes/100 leukocyt esOrdered By: Dr. Delgado on 09-17-2022 Monocytes/100 WBC (Bld) 10.4 % 0-10 [facility] Blood platelet mean volumeOr dered By: Dr. Delgado on 09-17-2022 Platelet mean volume (Bld) [Entitic vol] 9.6 fL 6.2-12.0 [facility] Determination of erythrocyte mean corpuscular volume (MCV)Ordered By: Dr. Delgado on 09-17-2022 MCV (RBC) [Entitic vol] 94.1 fL 80-94 [facility] Hematocrit Auto (Bld) [Volum e fraction]Ordered By: Dr. Delgado on 09-17-2022 Hematocrit (Bld) [Volume fraction] 41.2 % 40-54 [facility] Laboratory - Chemistry and C hemistry - challengeOrdered By: Dr. Delgado on 09-17-2022 ALP [Catalytic activity/Vol] 67 U/L 45-117 [facility] ALT [Catalytic activity/Vol] 24 U/L 16-61 [facility] CO2 [Moles/Vol] 28.0 mmol/L 21.0-32.0 [facility] Globulin (S) [Mass/Vol] 4.1 g/dL 2.2-4.2 [facility] Urea nitrogen/Creatinine [Mass ratio] 13.8 mg/mg 10-20 [facility] Laboratory - Hematology and Cell countsOrdered By: Dr. Delgado on 09-17-2022 Erythrocyte distribution width (RBC) [Entitic vol] 43.5 fL 35.1-43.9 [facility] Erythrocyte distribution width (RBC) [Ratio] 12.7 % 11.6-14.6 [facility] Immature granulocytes/100 WBC (Bld) 0.200 % 0.0-0.9 [facility] Comment on above: IG% - Immature Granu locytes (promyelocytes, myelocytes and metamyelocytes) > 1% indicates that a LEFT SHIFT is Present. MCH (RBC) [Entitic mass] 30.8 pg 27.0-32.0 [facility] Nucleated RBC/100 WBC (Bld) [Ratio] 0 % 0-5 [facility] MCHC Auto (RBC) [Mass/Vol]Or dered By: Dr. Delgado on 09-17-2022 MCHC (RBC) [Mass/Vol] 32.8 g/dL 32-36 [facility] No Panel InformationOrdered By: Dr. Delgado on 09-17-2022 Estimated GFR (MDRD) Amer 88 mL/min >60 [facility] Comment on above: GFR Calc Estimated GFR (MDRD) Non-Af Amer 73 mL/min >60 [facility] Comment on above: Non- GFR Calc Urine Microalbumin/Creatini ne Ratio 343.4 mg/g CRE <30 [facility] Vitamin D 25-Hydroxy 53.3 ng/mL [facility] Comment on above: Vitamin D 25(OH) Sta tus Range Deficiency <20 ng/mL (50nmol/L) Insufficiency 20 - 30 ng/mL (50 - 75 nmol/L) Sufficiency 30 - 100 ng/mL (75 - 250 nmol/L) Toxicity >100 ng/mL (>250 nmol/L) Platelets bldOrdered By: Dr. Delgado on 09-17-2022 Platelets (Bld) [#/Vol] 241 10*3/uL 150-450 [facility] Serum or plasma albumin jin urement (mass/volume)Ordered By: Dr. Delgado on 09-17-2022 Albumin [Mass/Vol] 3.9 g/dL 3.2-5.0 [facility] Serum or plasma albumin/glob ulin mass ratioOrdered By: Dr. Delgado on 09-17-2022 Albumin/Globulin [Mass ratio] 1.0 {ratio} 0.9-2.4 [facility] Serum or plasma calcium jin urement (mass/volume)Ordered By: Dr. Delgado on 09-17-2022 Calcium [Mass/Vol] 9.9 mg/dL 8.5-10.1 [facility] Serum or plasma cholesterol in HDL measurement (mass/volume)Ordered By: Dr. Delgado on 09-17-2022 Cholesterol in HDL [Mass/Vol] 83 mg/dL >40 [facility] Comment on above: The drugs N-Acetylcy steine and Metamizole may falsely depress this assay. Reference Range HDL <40 mg/dL Low HDL Cholesterol HDL >or= 60 mg/dL High HDL Cholesterol Serum or plasma cholesterol in VLDL measurement (mass/volume)Ordered By: Dr. Delgado on 09-17-2022 Cholesterol in VLDL [Mass/Vol] 11 mg/dL 5-40 [facility] Serum or plasma creatinine m easurement (mass/volume)Ordered By: Dr. Delgado on 09-17-2022 Creatinine [Mass/Vol] 1.09 mg/dL 0.70-1.30 [facility] Comment on above: The validity of the calculated GFR & GFRAA in patients over 70 years has not been determined. Clinical correlation is essential. Serum or plasma low density lipoprotein (LDL) cholesterol measurement (mass/volume)Ordered By: Dr. Delgado on 09-17-2022 Cholesterol in LDL [Mass/Vol] 52 mg/dL 0-130 [facility] Serum or plasma urea nitroge n measurement (mass/volume)Ordered By: Dr. Delgado on 09-17-2022 Urea nitrogen [Mass/Vol] 15 mg/dL 7-18 [facility] Thin prep Papanicolaou smear with manual screeningOrdered By: Dr. Delgado on 09-17-2022 Thin prep Papanicolaou smear with manual screening 19 U/L 15-37 [facility] Thin prep Papanicolaou smear with manual screening 5 5-15 [facility] Thin prep Papanicolaou smear with manual screening 262.0 mg/L NO RANGE EST. [facility] Urine creatinine measurement (mass/volume)Ordered By: Dr. Delgado on 09-17-2022 Creatinine (U) [Mass/Vol] 76.30 mg/dL NO RANGE EST. [facility] Urine protein measurement (m ass/volume)Ordered By: Dr. Delgado on 09-17-2022 Protein (U) [Mass/Vol] 43.1 mg/dL 0.0-11.8 [facility] Urine protein/creatinine mas s ratioOrdered By: Dr. Delgado on 09-17-2022 Protein/Creatinine (U) [Mass ratio] 565 mg/g CRE 0-200 [facility] Whole blood hemoglobin A1c/t otal hemoglobin ratio (mass fraction)Ordered By: Dr. Delgado on 09-17-2022 HbA1c (Bld) [Mass fraction] 7.2 % 3.8-5.6 [facility] Comment on above: Normal < 5.7 % Predi abetic 5.7 - 6.4 % Diabetic >or= 6.5 % Please note range changes. Absolute lymphocyte counton 01-29-2022 Lymphocytes Auto (Unsp spec) [#/Vol] 1.23 10*3/uL 0.83-4.51 [facility] Work Phone: Basophil percentageon 2021 Basophils/100 WBC (Bld) 0.5 % 0-1 [facility] Work Phone: Bilirubin [Mass/Vol] 0.60 mg/dL 0.20-1.00 [facility] Work Phone: Comment on above: For patients on eltr ombopag therapy, use of Dim[place] TBIL is not recommended. Chloride [Moles/Vol] 103 mmol/L 98-107 [facility] Work Phone: [phone] Cholesterol [Mass/Vol] 141 mg/dL <200 [facility] Work Phone: Comment on above: <200 mg/dL Desirable 200-240 mg/dL Borderline >240 mg/dL High Risk Eosinophils/100 WBC (Bld) 4.6 % 0-5 [facility] Work Phone: [phone] Glucose [Mass/Vol] 162 mg/dL 74-106 [facility] Work Phone: [phone] Comment on above: Fasting Glucose resu lt greater than or equal to 126 mg/dL suggests DIABETES MELLITUS per A.D.A. criteria. Neutrophils (Bld) [#/Vol] 3.5 10*3/uL 2.0-7.7 [facility] Work Phone: [phone] Neutrophils/100 WBC (Bld) 61.3 % 47-70 [facility] Work Phone: [phone] Potassium [Moles/Vol] 4.1 mmol/L 3.5-5.1 [facility] Work Phone: [phone] Protein [Mass/Vol] 7.9 g/dL 6.4-8.2 [facility] Work Phone: [phone] Sodium [Moles/Vol] 137 mmol/L 136-145 [facility] Work Phone: Triglyceride [Mass/Vol] 59 mg/dL <199 [facility] Work Phone: Comment on above: The drugs N-Acetylcy steine and Metamizole may falsely depress this assay.Serum Triglycerides Reference Interval Normal <150 mg/dL Borderline high 150 - 199 mg/dL High 200 - 499 mg/dL Very High > or = 500 mg/dL WBC (Bld) [#/Vol] 5.6 10*3/uL 4.4-11.0 [facility] Work Phone: Blood erythrocytes count (nu mber/volume)on 01-29-2022 RBC (Bld) [#/Vol] 4.32 10*6/uL 4.6-6.2 [facility] Work Phone: [phone] Blood hemoglobin measurement (mass/volume)on 01-29-2022 Hemoglobin (Bld) [Mass/Vol] 12.8 g/dL 13.0-16.5 [facility] Work Phone: Blood lymphocytes/100 leukoc yteson 01-29-2022 Lymphocytes/100 WBC (Bld) 21.8 % 19-41 [facility] Work Phone: Blood monocytes/100 leukocyt eson 01-29-2022 Monocytes/100 WBC (Bld) 11.4 % 0-10 [facility] Work Phone: Blood platelet mean volumeon 01-29-2022 Platelet mean volume (Bld) [Entitic vol] 9.5 fL 6.2-12.0 [facility] Work Phone: [phone] Determination of erythrocyte mean corpuscular volume (MCV)on 01-29-2022 MCV (RBC) [Entitic vol] 93.3 fL 80-94 [facility] Work Phone: Hematocrit Auto (Bld) [Volum e fraction]on 01-29-2022 Hematocrit (Bld) [Volume fraction] 40.3 % 40-54 [facility] Work Phone: [phone] Iron measurement (mass/mass) on 01-29-2022 Iron (Unsp spec) [Mass/Mass] 61 ug/dL 65-175 [facility] Work Phone: [phone] Laboratory - Chemistry and C hemistry - challengeon 01-29-2022 ALP [Catalytic activity/Vol] 62 U/L 45-117 [facility] Work Phone: ALT [Catalytic activity/Vol] 27 U/L 16-61 [facility] Work Phone: CO2 [Moles/Vol] 28.0 mmol/L 21.0-32.0 [facility] Work Phone: Cobalamin (Vitamin B12) [Mass/Vol] 313 pg/mL 211-911 [facility] Work Phone: [phone] Globulin (S) [Mass/Vol] 3.9 g/dL 2.2-4.2 [facility] Work Phone: Transferrin [Mass/Vol] 353 mg/dL 177-329 [facility] Work Phone: Comment on above: Performed at: [address] [id number] Director: Donovan Hercules PhD, Phone: [phone] Urea nitrogen/Creatinine [Mass ratio] 13.3 mg/mg 10-20 [facility] Work Phone: Laboratory - Hematology and Cell countson 01-29-2022 Erythrocyte distribution width (RBC) [Entitic vol] 42.7 fL 35.1-43.9 [facility] Work Phone: Erythrocyte distribution width (RBC) [Ratio] 12.4 % 11.6-14.6 [facility] Work Phone: Immature granulocytes/100 WBC (Bld) 0.400 % 0.0-0.9 [facility] Work Phone: Comment on above: IG% - Immature Granu locytes (promyelocytes, myelocytes and metamyelocytes) > 1% indicates that a LEFT SHIFT is Present. MCH (RBC) [Entitic mass] 29.6 pg 27.0-32.0 [facility] Work Phone: Nucleated RBC/100 WBC (Bld) [Ratio] 0 % 0-5 [facility] Work Phone: MCHC Auto (RBC) [Mass/Vol]on 01-29-2022 MCHC (RBC) [Mass/Vol] 31.8 g/dL 32-36 [facility] Work Phone: No Panel Informationon 01-29 Urine Microalbumin/Creatini ne Ratio 314.5 mg/g CRE <30 [facility] Work Phone: Estimated GFR (MDRD) Amer 92 mL/min >60 [facility] Work Phone: Comment on above: GFR Calc Estimated GFR (MDRD) Non-Af Amer 76 mL/min >60 [facility] Work Phone: Comment on above: Non- GFR Calc Total Iron Binding Capacity 431 ug/dL 250-450 [facility] Work Phone: Vitamin D 25-Hydroxy 41.3 ng/mL [facility] Work Phone: Comment on above: Vitamin D 25(OH) Sta tus Range Deficiency <20 ng/mL (50nmol/L) Insufficiency 20 - 30 ng/mL (50 - 75 nmol/L) Sufficiency 30 - 100 ng/mL (75 - 250 nmol/L) Toxicity >100 ng/mL (>250 nmol/L) Platelets bldon 01-29-2022 Platelets (Bld) [#/Vol] 226 10*3/uL 150-450 [facility] Work Phone: Serum or plasma albumin jin urement (mass/volume)on 01-29-2022 Albumin [Mass/Vol] 4.0 g/dL 3.2-5.0 [facility] Work Phone: Serum or plasma albumin/glob ulin mass ratioon 01-29-2022 Albumin/Globulin [Mass ratio] 1.0 {ratio} 0.9-2.4 [facility] Work Phone: Serum or plasma calcium jin urement (mass/volume)on 01-29-2022 Calcium [Mass/Vol] 10.1 mg/dL 8.5-10.1 [facility] Work Phone: Serum or plasma cholesterol in HDL measurement (mass/volume)on 01-29-2022 Cholesterol in HDL [Mass/Vol] 75 mg/dL >40 [facility] Work Phone: Comment on above: The drugs N-Acetylcy steine and Metamizole may falsely depress this assay. Reference Range HDL <40 mg/dL Low HDL Cholesterol HDL >or= 60 mg/dL High HDL Cholesterol Serum or plasma cholesterol in VLDL measurement (mass/volume)on 01-29-2022 Cholesterol in VLDL [Mass/Vol] 12 mg/dL 5-40 [facility] Work Phone: Serum or plasma creatinine m easurement (mass/volume)on 01-29-2022 Creatinine [Mass/Vol] 1.05 mg/dL 0.70-1.30 [facility] Work Phone: Comment on above: The validity of the calculated GFR & GFRAA in patients over 70 years has not been determined. Clinical correlation is essential. Serum or plasma ferritin gustavo surement (mass/volume)on 01-29-2022 Ferritin [Mass/Vol] 67 ng/mL 26-388 [facility] Work Phone: Serum or plasma iron saturat ion measurement (mass fraction)on 01-29-2022 Iron saturation [Mass fraction] 14.2 % 15.0-55.0 [facility] Work Phone: Serum or plasma low density lipoprotein (LDL) cholesterol measurement (mass/volume)on 01-29-2022 Cholesterol in LDL [Mass/Vol] 54 mg/dL 0-130 [facility] Work Phone: Serum or plasma urea nitroge n measurement (mass/volume)on 01-29-2022 Urea nitrogen [Mass/Vol] 14 mg/dL 7-18 [facility] Work Phone: Thin prep Papanicolaou smear with manual screeningon 01-29-2022 Thin prep Papanicolaou smear with manual screening 156.0 mg/L NO RANGE EST. [facility] Work Phone: Thin prep Papanicolaou smear with manual screening 20 U/L 15-37 [facility] Work Phone: Thin prep Papanicolaou smear with manual screening 6 5-15 [facility] Work Phone: Urine creatinine measurement (mass/volume)on 01-29-2022 Creatinine (U) [Mass/Vol] 49.60 mg/dL NO RANGE EST. [facility] Work Phone: Urine protein measurement (m ass/volume)on 01-29-2022 Protein (U) [Mass/Vol] 25.4 mg/dL 0.0-11.8 [facility] Work Phone: Urine protein/creatinine mas s ratioon 01-29-2022 Protein/Creatinine (U) [Mass ratio] 512 mg/g CRE 0-200 [facility] Work Phone: [phone] Whole blood hemoglobin A1c/t otal hemoglobin ratio (mass fraction)on 01-29-2022 HbA1c (Bld) [Mass fraction] 7.0 % 3.8-5.6 [facility] Work Phone: Comment on above: Normal < 5.7 % Predi abetic 5.7 - 6.4 % Diabetic >or= 6.5 % Please note range changes. Absolute lymphocyte counton 10-04-2021 Lymphocytes Auto (Unsp spec) [#/Vol] 1.39 10*3/uL 0.83-4.51 [facility] Work Phone: [phone] Basophil percentageon 2021 Basophils/100 WBC (Bld) 0.5 % 0-1 [facility] Work Phone: [phone] Bilirubin [Mass/Vol] 0.60 mg/dL 0.20-1.00 [facility] Work Phone: [phone] Comment on above: For patients on eltr ombopag therapy, use of Dimension [place] TBIL is not recommended. Eosinophils/100 WBC (Bld) 4.4 % 0-5 [facility] Work Phone: [phone] Neutrophils (Bld) [#/Vol] 3.3 10*3/uL 2.0-7.7 [facility] Work Phone: Neutrophils/100 WBC (Bld) 57.7 % 47-70 [facility] Work Phone: Protein [Mass/Vol] 7.7 g/dL 6.4-8.2 [facility] Work Phone: WBC (Bld) [#/Vol] 5.7 10*3/uL 4.4-11.0 [facility] Work Phone: [phone] Blood erythrocytes count (nu mber/volume)on 10-04-2021 RBC (Bld) [#/Vol] 4.24 10*6/uL 4.6-6.2 [facility] Work Phone: Blood hemoglobin measurement (mass/volume)on 10-04-2021 Hemoglobin (Bld) [Mass/Vol] 12.9 g/dL 13.0-16.5 [facility] Work Phone: Blood lymphocytes/100 leukoc yteson 10-04-2021 Lymphocytes/100 WBC (Bld) 24.3 % 19-41 [facility] Work Phone: Blood monocytes/100 leukocyt eson 10-04-2021 Monocytes/100 WBC (Bld) 12.9 % 0-10 [facility] Work Phone: [phone] Blood platelet mean volumeon 10-04-2021 Platelet mean volume (Bld) [Entitic vol] 9.6 fL 6.2-12.0 [facility] Work Phone: Determination of erythrocyte mean corpuscular volume (MCV)on 10-04-2021 MCV (RBC) [Entitic vol] 90.8 fL 80-94 [facility] Work Phone: Direct bilirubinon Bilirubin.direct [Mass/Vol] 0.15 mg/dL 0.00-0.30 [facility] Work Phone: Hematocrit Auto (Bld) [Volum e fraction]on 10-04-2021 Hematocrit (Bld) [Volume fraction] 38.5 % 40-54 [facility] Work Phone: Laboratory - Chemistry and C hemistry - challengeon 10-04-2021 ALP [Catalytic activity/Vol] 59 U/L 45-117 [facility] Work Phone: ALT [Catalytic activity/Vol] 26 U/L 16-61 [facility] Work Phone: [phone] Globulin (S) [Mass/Vol] 3.9 g/dL 2.2-4.2 [facility] Work Phone: Laboratory - Hematology and Cell countson 10-04-2021 Erythrocyte distribution width (RBC) [Entitic vol] 39.9 fL 35.1-43.9 [facility] Work Phone: Erythrocyte distribution width (RBC) [Ratio] 12.0 % 11.6-14.6 [facility] Work Phone: Immature granulocytes/100 WBC (Bld) 0.200 % 0.0-0.9 [facility] Work Phone: Comment on above: IG% - Immature Granu locytes (promyelocytes, myelocytes and metamyelocytes) > 1% indicates that a LEFT SHIFT is Present. MCH (RBC) [Entitic mass] 30.4 pg 27.0-32.0 [facility] Work Phone: [phone] Nucleated RBC/100 WBC (Bld) [Ratio] 0 % 0-5 [facility] Work Phone: MCHC Auto (RBC) [Mass/Vol]on 10-04-2021 MCHC (RBC) [Mass/Vol] 33.5 g/dL 32-36 [facility] Work Phone: [phone] Platelets bldon 10-04-2021 Platelets (Bld) [#/Vol] 212 10*3/uL 150-450 [facility] Work Phone: Qualitative QuantiFERON-TB g old in tube teston 10-04-2021 M. tuberculosis tuberculin stim IFN-g Ql (Bld) 0.01 IU/mL . [facility] Work Phone: Serum or plasma albumin jin urement (mass/volume)on 10-04-2021 Albumin [Mass/Vol] 3.8 g/dL 3.2-5.0 [facility] Work Phone: Thin prep Papanicolaou smear with manual screeningon 10-04-2021 Thin prep Papanicolaou smear with manual screening 16 U/L 15-37 [facility] Work Phone: Thin prep Papanicolaou smear with manual screening Comment . [facility] Work Phone: Comment on above: The QuantiFERON-TB G old Plus result is determined bysubtracting the Nil value from either TB antigen (Ag) tube.The mitogen tube serves as a control for the test. Thin prep Papanicolaou smear with manual screening 0.03 IU/mL . [facility] Work Phone: Thin prep Papanicolaou smear with manual screening 0.02 IU/mL . [facility] Work Phone: Thin prep Papanicolaou smear with manual screening > 10.00 IU/mL . [facility] Work Phone: Thin prep Papanicolaou smear with manual screening Negative Negative [facility] Work Phone: Comment on above: The specimen receive d for QuantiFERON testing was incubatedby the ordering institution. Specific procedures outlinedin our Directory of Services and in the package insert forthe QuantiFERON Gold (In Tube) test must be followed toenable for proper stimulation of cells for the productionof interferon gamma. Chemiluminescence immunoassaymethodologyPerformed at: [employer] [id number] Director: Donovan Hercules PhD, Phone: [phone] Absolute lymphocyte counton 09-20-2021 Lymphocytes Auto (Unsp spec) [#/Vol] 1.31 10*3/uL 0.83-4.51 [facility] Work Phone: Basophil percentageon 2021 Basophils/100 WBC (Bld) 0.5 % 0-1 [facility] Work Phone: Bilirubin [Mass/Vol] 0.60 mg/dL 0.20-1.00 [facility] Work Phone: Comment on above: For patients on eltr ombopag therapy, use of Dimension [place] TBIL is not recommended. Chloride [Moles/Vol] 103 mmol/L 98-107 [facility] Work Phone: Cholesterol [Mass/Vol] 139 mg/dL <200 [facility] Work Phone: Comment on above: <200 mg/dL Desirable 200-240 mg/dL Borderline >240 mg/dL High Risk Eosinophils/100 WBC (Bld) 4.6 % 0-5 [facility] Work Phone: Glucose [Mass/Vol] 158 mg/dL 74-106 [facility] Work Phone: Comment on above: Fasting Glucose resu lt greater than or equal to 126 mg/dL suggests DIABETES MELLITUS per A.D.A. criteria. Neutrophils (Bld) [#/Vol] 3.4 10*3/uL 2.0-7.7 [facility] Work Phone: [phone] Neutrophils/100 WBC (Bld) 59.9 % 47-70 [facility] Work Phone: [phone] Potassium [Moles/Vol] 4.0 mmol/L 3.5-5.1 [facility] Work Phone: [phone] Protein [Mass/Vol] 7.8 g/dL 6.4-8.2 [facility] Work Phone: [phone] Sodium [Moles/Vol] 137 mmol/L 136-145 [facility] Work Phone: Triglyceride [Mass/Vol] 56 mg/dL [facility] Work Phone: Comment on above: The drugs N-Acetylcy steine and Metamizole may falsely depress this assay.Serum Triglycerides Reference Interval Normal <150 mg/dL Borderline high 150 - 199 mg/dL High 200 - 499 mg/dL Very High > or = 500 mg/dL WBC (Bld) [#/Vol] 5.7 10*3/uL 4.4-11.0 [facility] Work Phone: Blood erythrocytes count (nu mber/volume)on 09-20-2021 RBC (Bld) [#/Vol] 4.38 10*6/uL 4.6-6.2 [facility] Work Phone: [phone] Blood hemoglobin measurement (mass/volume)on 09-20-2021 Hemoglobin (Bld) [Mass/Vol] 13.3 g/dL 13.0-16.5 [facility] Work Phone: [phone] Blood lymphocytes/100 leukoc yteson 09-20-2021 Lymphocytes/100 WBC (Bld) 23.0 % 19-41 [facility] Work Phone: Blood monocytes/100 leukocyt eson 09-20-2021 Monocytes/100 WBC (Bld) 11.6 % 0-10 [facility] Work Phone: Blood platelet mean volumeon 09-20-2021 Platelet mean volume (Bld) [Entitic vol] 9.6 fL 6.2-12.0 [facility] Work Phone: Determination of erythrocyte mean corpuscular volume (MCV)on 09-20-2021 MCV (RBC) [Entitic vol] 92.7 fL 80-94 [facility] Work Phone: Hematocrit Auto (Bld) [Volum e fraction]on 09-20-2021 Hematocrit (Bld) [Volume fraction] 40.6 % 40-54 [facility] Work Phone: Laboratory - Chemistry and C hemistry - challengeon 09-20-2021 ALP [Catalytic activity/Vol] 60 U/L 45-117 [facility] Work Phone: ALT [Catalytic activity/Vol] 25 U/L 16-61 [facility] Work Phone: CO2 [Moles/Vol] 29.0 mmol/L 21.0-32.0 [facility] Work Phone: Globulin (S) [Mass/Vol] 3.9 g/dL 2.2-4.2 [facility] Work Phone: Urea nitrogen/Creatinine [Mass ratio] 16.7 mg/mg 10-20 [facility] Work Phone: Laboratory - Hematology and Cell countson 09-20-2021 Erythrocyte distribution width (RBC) [Entitic vol] 42.0 fL 35.1-43.9 [facility] Work Phone: Erythrocyte distribution width (RBC) [Ratio] 12.2 % 11.6-14.6 [facility] Work Phone: Immature granulocytes/100 WBC (Bld) 0.400 % 0.0-0.9 [facility] Work Phone: Comment on above: IG% - Immature Granu locytes (promyelocytes, myelocytes and metamyelocytes) > 1% indicates that a LEFT SHIFT is Present. MCH (RBC) [Entitic mass] 30.4 pg 27.0-32.0 [facility] Work Phone: Nucleated RBC/100 WBC (Bld) [Ratio] 0 % 0-5 [facility] Work Phone: MCHC Auto (RBC) [Mass/Vol]on 09-20-2021 MCHC (RBC) [Mass/Vol] 32.8 g/dL 32-36 [facility] Work Phone: No Panel Informationon 09-20 Estimated GFR (MDRD) Amer 79 mL/min >60 [facility] Work Phone: Comment on above: GFR Calc Estimated GFR (MDRD) Non-Af Amer 65 mL/min >60 [facility] Work Phone: Comment on above: Non- GFR Calc Vitamin D 25-Hydroxy 43.9 ng/mL [facility] Work Phone: Comment on above: Vitamin D 25(OH) Sta tus Range Deficiency <20 ng/mL (50nmol/L) Insufficiency 20 - 30 ng/mL (50 - 75 nmol/L) Sufficiency 30 - 100 ng/mL (75 - 250 nmol/L) Toxicity >100 ng/mL (>250 nmol/L) Platelets bldon 09-20-2021 Platelets (Bld) [#/Vol] 213 10*3/uL 150-450 [facility] Work Phone: Serum or plasma albumin jin urement (mass/volume)on 09-20-2021 Albumin [Mass/Vol] 3.9 g/dL 3.2-5.0 [facility] Work Phone: Serum or plasma albumin/glob ulin mass ratioon 09-20-2021 Albumin/Globulin [Mass ratio] 1.0 {ratio} 0.9-2.4 [facility] Work Phone: Serum or plasma calcium jin urement (mass/volume)on 09-20-2021 Calcium [Mass/Vol] 9.2 mg/dL 8.5-10.1 [facility] Work Phone: Serum or plasma cholesterol in HDL measurement (mass/volume)on 09-20-2021 Cholesterol in HDL [Mass/Vol] 65 mg/dL [facility] Work Phone: Comment on above: The drugs N-Acetylcy steine and Metamizole may falsely depress this assay. Reference Range HDL <40 mg/dL Low HDL Cholesterol HDL >or= 60 mg/dL High HDL Cholesterol Serum or plasma cholesterol in VLDL measurement (mass/volume)on 09-20-2021 Cholesterol in VLDL [Mass/Vol] 11 mg/dL 5-40 [facility] Work Phone: Serum or plasma creatinine m easurement (mass/volume)on 09-20-2021 Creatinine [Mass/Vol] 1.20 mg/dL 0.70-1.30 [facility] Work Phone: Comment on above: The validity of the calculated GFR & GFRAA in patients over 70 years has not been determined. Clinical correlation is essential. Serum or plasma low density lipoprotein (LDL) cholesterol measurement (mass/volume)on 09-20-2021 Cholesterol in LDL [Mass/Vol] 63 mg/dL 0-130 [facility] Work Phone: Serum or plasma urea nitroge n measurement (mass/volume)on 09-20-2021 Urea nitrogen [Mass/Vol] 20 mg/dL 7-18 [facility] Work Phone: Thin prep Papanicolaou smear with manual screeningon 09-20-2021 Thin prep Papanicolaou smear with manual screening 16 U/L 15-37 [facility] Work Phone: Thin prep Papanicolaou smear with manual screening 5 5-15 [facility] Work Phone: Urine creatinine measurement (mass/volume)on 09-20-2021 Creatinine (U) [Mass/Vol] 52.20 mg/dL NO RANGE EST. [facility] Work Phone: Urine protein measurement (m ass/volume)on 09-20-2021 Protein (U) [Mass/Vol] 15.2 mg/dL 0.0-11.8 [facility] Work Phone: Urine protein/creatinine mas s ratioon 09-20-2021 Protein/Creatinine (U) [Mass ratio] 291 mg/g CRE 0-200 [facility] Work Phone: Whole blood hemoglobin A1c/t otal hemoglobin ratio (mass fraction)on 09-20-2021 HbA1c (Bld) [Mass fraction] 6.9 % 3.8-5.6 [facility] Work Phone: Comment on above: Normal < 5.7 % Predi abetic 5.7 - 6.4 % Diabetic >or= 6.5 % Please note range changes. No Panel Information [facility] Vital Signs Date Time Vital Sign Value Performing Clinician Faci lity 07-15-2024 08:20-0500 Body temperature 97.8 [degF] Dr. Krista Delgado MD Work Phone: [facility] 07-15-2024 08:20-0500 Diastolic blood pressure 87 mm[Hg] Dr. Krista Delgado MD Work Phone: [facility] 07-15-2024 08:20-0500 Heart rate 79 /min Dr. Krista Delgado MD Work Phone: [facility] 07-15-2024 08:20-0500 Respiratory rate 16 /min Dr. Krista Delgado MD Work Phone: [facility] 07-15-2024 08:20-0500 SaO2% (BldA) [Mass fraction] 95 % Dr. Krista Delgado MD Work Phone: [facility] 07-15-2024 08:20-0500 Systolic blood pressure 147 mm[Hg] Dr. Krista Delgado MD Work Phone: [facility] 07-15-2024 06:47-0500 Body height 180.[address] Krista Delgado MD Work Phone: [facility] 07-15-2024 06:47-0500 Body mass index (BMI) [Ratio] 31.5 kg/m2 Dr. Krista Delgado MD Work Phone: [facility] 07-15-2024 06:47-0500 Body weight 102.[address] Krista Delgado MD Work Phone: [facility] 06-23-2024 15:16-0500 Body mass index (BMI) [Ratio] 30.4 kg/m2 Dr. Krista Delgado MD Work Phone: [facility] 06-23-2024 15:16-0500 Body weight 98.[address] Krista Delgado MD Work Phone: [facility] 10-10-2023 10:14-0400 Body height 180.3 cm Daryl Cuenca MD Work Phone: [facility] 10-10-2023 10:14-0400 Body mass index (BMI) [Ratio] 31.38 kg/m2 Daryl Cuenca MD Work Phone: [facility] 10-10-2023 10:14-0400 Body weight 102.06 kg Daryl Cuenca MD Work Phone: [facility] 10-10-2023 10:14-0400 Respiratory rate 20 /min Daryl Cuenca MD Work Phone: [facility] 05-09-2023 09:47-0500 Body height 180.3 cm Daryl Cuenca MD Work Phone: [facility] 05-09-2023 09:47-0500 Body weight 103.42 kg Daryl Cuenca MD Work Phone: [facility] 05-09-2023 09:47-0500 Respiratory rate 18 /min Daryl Cuenca MD Work Phone: [facility] 04-18-2023 09:08-0500 Body height 180.3 cm Daryl Cuenca MD Work Phone: [facility] 04-18-2023 09:08-0500 Body weight 103.42 kg Daryl Cuenca MD Work Phone: [facility] 04-18-2023 09:08-0500 Respiratory rate 18 /min Daryl Cuenca MD Work Phone: [facility] 04-10-2023 09:14-0500 Body height 180.3 cm Daryl Cuenca MD Work Phone: [facility] 04-10-2023 09:14-0500 Body weight 103.42 kg Daryl Cuenca MD Work Phone: [facility] 04-10-2023 09:14-0500 Respiratory rate 18 /min Daryl Cuenca MD Work Phone: [facility] 03-28-2023 09:07-0500 Body height 180.3 cm Daryl Cuenca MD Work Phone: [facility] 03-28-2023 09:07-0500 Body weight 103.42 kg Daryl Cuenca MD Work Phone: [facility] 03-28-2023 09:07-0500 Respiratory rate 18 /min Daryl Cuenca MD Work Phone: [facility] 03-22-2023 14:51-0400 Body height 180.34 cm [facility] 03-22-2023 14:51-0400 Body mass index (BMI) [Ratio] 32.2 kg/m2 [facility] 03-22-2023 14:51-0400 Body temperature 98 [degF] [facility] 03-22-2023 14:51-0400 Body weight 104.77 kg [facility] 03-22-2023 14:51-0400 Diastolic blood pressure 108 mm[Hg] [facility] 03-22-2023 14:51-0400 Heart rate 88 /min [facility] 03-22-2023 14:51-0400 Respiratory rate 16 /min [facility] 03-22-2023 14:51-0400 SaO2% (BldA) [Mass fraction] 98 % [facility] 03-22-2023 14:51-0400 Systolic blood pressure 184 mm[Hg] [facility] 10-25-2021 13:27-0400 Body height 180.[address] Krista Delgado Work Phone: [facility] Work Phone: 10-25-2021 13:27-0400 Body mass index (BMI) [Ratio] 29.7 kg/m2 Dr. Krista Delgado Work Phone: [facility] Work Phone: 10-25-2021 13:27-0400 Body weight 96.[address] Krista Delgado Work Phone: [facility] Work Phone: 10-25-2021 13:27-0400 Diastolic blood pressure 77 mm[Hg] Dr. Krista Delgado Work Phone: [facility] Work Phone: 10-25-2021 13:27-0400 Heart rate 83 /min Dr. Krista Delgado Work Phone: [facility] Work Phone: 10-25-2021 13:27-0400 Respiratory rate 18 /min Dr. Krista Delgado Work Phone: [facility] Work Phone: 10-25-2021 13:27-0400 SaO2% (BldA) [Mass fraction] 95 % Dr. Krista Delgado Work Phone: [facility] Work Phone: 10-25-2021 13:27-0400 Systolic blood pressure 130 mm[Hg] Dr. Krista Delgado Work Phone: [facility] Work Phone: Encounters Encounter Date Encounter Type Care Provider Facility Start: 01-13-2025 End: 01-13-[address] Krista Delgado MD Work Phone: [facility] Start: 01-13-2025 End: 01-13-[address] Krista Delgado MD -Laboratory [facility] Start: 01-13-2025 End: 01-13-2025 ambulatory Krista Delgado Facility:[facility] Start: 11-11-2024 Non-patient / Non-visit Dr. Yash [facility]UNN -[facility] Start: 11-11-2024 End: 11-11-[address] Krista Delgado MD Work Phone: -[facility] Start: 11-11-2024 End: 11-11-[address] Krista Delgado MD -Cardiovascular Services Work Phone: Start: 11-11-2024 End: 11-11-2024 ambulatory Krista Delgado Facility:[facility] Start: 10-07-2024 End: 10-07-[address] Krista Delgado MD Work Phone: [facility] Work Phone: Start: 10-07-2024 End: 10-07-[address] Dino Olmos MD -Laboratory Work Phone: Start: 10-07-2024 End: 10-07-2024 ambulatory Dino Olmos Facility:[facility] Start: 07-30-2024 End: 07-30-[address] Krista Delgado MD Work Phone: [facility] Work Phone: Start: 07-30-2024 End: 07-30-[address] Krista Delgado MD -Laboratory, [facility] Start: 07-30-2024 End: 07-30-2024 ambulatory Krista Delgado Facility:[facility] Start: 07-15-2024 ambulatory Krista Delgado Facilit y:[facility] Start: 07-15-2024 Non-patient / Non-visit Dr. Apple NUNN -[facility] Start: 07-15-2024 End: 07-15-2024 Admission to same day surgery center Dr. Zain Marcelino MD -Endoscopy Work Phone: Start: 07-15-2024 End: 07-15-2024 ambulatory Zain Marcelino Facility:[facility] Start: 06-23-2024 Non-patient / Non-visit Dr. Lindsey Delgado MD Work Phone: [facility] Work Phone: Start: 06-23-2024 ambulatory Annika Cleve Facility:[facility] Start: 03-11-2024 End: 03-11-2024 ambulatory Krista Delgado Facility:[facility] Start: 10-10-2023 End: 10-10-2023 ambulatory DARYL CUENCA Facility:[facility] Start: 10-10-2023 End: 10-10-2023 Patient encounter procedure Daryl Cuenca MD Work Phone: [facility] Comment on above: Closed fracture of o lecranon process of right ulna with routine healing, subsequent encounter (Primary Dx); Chronic right shoulder pain; Tendinitis of right rotator cuff Start: 06-06-2023 End: 06-06-2023 ambulatory DARYL CUENCA Facility:[facility] Start: 06-05-2023 End: 06-05-2023 ambulatory [facility] Work Phone: Start: 06-05-2023 End: 06-05-2023 Patient encounter procedure [facility] Start: 05-29-2023 End: 05-29-2023 ambulatory [facility] Work Phone: Start: 05-29-2023 End: 05-29-2023 Patient encounter procedure [facility] Start: 05-09-2023 End: 05-09-2023 ambulatory DARYL CUENCA Facility:[facility] Start: 05-09-2023 End: 05-09-2023 Patient encounter procedure Daryl Cuenca MD Work Phone: [facility] Comment on above: Closed fracture of o lecranon process of right ulna with routine healing, subsequent encounter (Primary Dx) Start: 05-03-2023 End: 05-03-2023 ambulatory [facility] Work Phone: Start: 05-03-2023 End: 05-03-2023 Patient encounter procedure [facility]-Laboratory Work Phone: Start: 04-18-2023 End: 04-18-2023 ambulatory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
== END | disposition home or self-care (01) ==
LOC: MTRAD 16:32
PROVIDERS: PCP Family Medicine; Referring Provider Family Medicine; Visit Provider Family Medicine
DX: J20.9 Acute bronchitis, unspecified (principal)
CPT/HCPCS: 71046

== ENCOUNTER → 2025-05-05 | Outpatient (CLI) | payer MEDICARE, OTHER, SELFPAY ==
[2025-05-05 12:59] LABS: PSA,Total - Annual Screen 1.53 ng/mL (0.02-4.00)
== END | disposition home or self-care (01) ==
PROVIDERS: PCP Family Medicine
DX: Z12.5 Encounter for screening for malignant neoplasm of prostate (principal)
CPT/HCPCS: 36415; 84153; G0103